=== PATIENT | female | born 1955 | race Caucasian/White ===

== ENCOUNTER 2016-08-02 13:00 | Inpatient (IN) ==
[2016-08-02 13:41] LABS: Basophils % 0.2 %; Eosinophils # 0.1 K/mcL (0.0-0.6); Eosinophils % 0.6 %; Hematocrit 38.1 % (35.3-44.9); Hemoglobin 11.7 g/dL (11.5-15.4); Immature Granulocytes % 0.5 % (0-4); Immature Platelets 2.1 % (1.1-6.1); Lymphocytes # 0.7 K/mcL (0.6-4.6); Lymphocytes % 4.3 %; Mean Corpuscular HGB Conc 30.7 g/dL (31.6-35.5); Mean Corpuscular Hemoglobin 24.7 pg (28.0-33.3); Mean Corpuscular Volume 80.5 fL (83.0-100.0); Mean Platelet Volume 10.3 fL (9.4-12.4); Monocytes # 0.6 K/mcL (0.0-1.3); Monocytes % 3.9 %; Neutrophils # 14.1 K/mcL (1.6-8.9); Platelet Count 267 K/mcL (140-400); Red Blood Count 4.73 M/mcL (3.82-4.97); Red Cell Distribution Width 16.9 % (11.5-14.5); Segmented Neutrophils % 90.5 %
[2016-08-02] MEDS ORDERED: 0.9 % Sodium Chloride 1,000 ML IV ONE ×2 (13:45→14:44)
[2016-08-02 13:59] LABS: Calcium 8.9 mg/dL (8.6-10.8); Potassium 4.6 mEq/L (3.5-4.5)
[2016-08-02 14:49] LABS: Bilirubin,Urine Small (Negative); Blood,Urine Negative (Negative); Clarity,Urine Clear (Clear); Color,Urine Yellow (Yellow); Glucose,Urine (UA) >=1000 mg/dL (Normal); Ketones,Urine Trace mg/dL (Negative); Leukocyte Esterase,Urine Negative (Negative); Nitrite,Urine Negative (Negative); Protein,Urine 30 mg/dL (Neg-Trace); Specific Gravity,Urine 1.029 (1.010-1.025); Urobilinogen,Urine Normal (Normal)
[2016-08-02 14:51] LABS: Bacteria,Urine None Seen per hpf (None-Few); Hyaline Casts,Urine None Seen per lpf (None-Few); RBC,Urine 0-3 per hpf (0-3); Squamous Epithelial Cell,Urine Many per lpf (None-Few)
[2016-08-02 15:13] LABS: Amorphous Sediment,Urine Few (Few)
[2016-08-02] MEDS ORDERED: Aztreonam 2,000 MG in D5% in Water (Mini-Bag+) 100 ML IVPB ONE (15:15)
[2016-08-02] MEDS ORDERED: Azithromycin 500 MG in D5% in Water 250 ML IVPB ONE (15:15)
[2016-08-02] MEDS ORDERED: Ipratropium/Albuterol Neb 3 ML IH ONE (15:29)
--- NOTE | 2016-08-02 15:29 | Emergency Department Note ---
Disposition Clinical Impression: Pneumonia Qualifiers: Pneumonia type: due to unspecified organism Laterality: bilateral Lung location : unspecified part of lung Qualified Code(s): J18.9 - Pneumonia, unspecified organism Decubitus skin ulcer Qualifiers: Pressure ulcer stage: stage I Qualified Code(s): L89.91 - Pressure ulcer of unspecified site, stage 1 Disposition: Admitted As Inpatient Condition: Fair Referrals: NO,PCP [Non-Partnered Physician] - Forms: ED Satisfaction Letter General Adult HPI - General Chief complaint: ED Fever Stated complaint: fever/weakness Time Seen by Provider: 08/02/16 13:03 Source: patient Limitations: no limitations Nursing Notes Reviewed: Yes Vital Signs Reviewed: Yes - History of Present Illness HPI Narrative: Patient here for evaluation of fever and weakness. Patient was recently sent home from rehabilitation facility yesterday. Patient states fever associated with cough however she is also having dysuria symptoms. Patient is also requiring 2 L of oxygen to keep proximal lesion of 95%. Pain Scale: 8 - Related Data Home Medications Medication Instructions Recorded Confirmed Albuterol Sulfate [Proair Hfa] 2 puff IH Q6H PRN 09/21/15 06/25/16 Atorvastatin [Lipitor] 40 mg PO HS 09/21/15 06/25/16 Exenatide [Byetta] 25 mcg SQ DAILY 09/21/15 06/25/16 Insulin Lispro Protamin/Lispro 61 unit SQ BID 09/21/15 06/25/16 [Humalog Mix 75-25 Kwikpen] Magnesium Oxide [Magnesium] 400 mg PO TID 09/21/15 06/25/16 Metformin [Glucophage] 500 mg PO QPM 09/21/15 06/25/16 Omeprazole [PriLOSEC] 40 mg PO BID 09/21/15 06/25/16 Polyethylene Glycol 3350 [MiraLAX] 17 gm PO DAILY PRN 09/21/15 06/25/16 Warfarin [Coumadin] 5 mg PO DAILY 09/21/15 06/25/16 Calcium Carbonate/Vitamin D3 1 each PO BID 03/21/16 06/25/16 [Calcium 500-Vit D3 400 Tablet] Ranitidine HCl [Zantac] 150 mg PO BID 03/21/16 06/25/16 Tiotropium [Spiriva] 18 mcg IH 0700 03/21/16 06/25/16 Previous Rx's Medication Instructions Recorded Alprazolam [Xanax 1 MG Tablet] 1 mg PO TID #21 tablet 10/17/15 Amitriptyline [Elavil] 25 mg PO HS #14 06/13/16 Cephalexin [Keflex] 500 mg PO BID #14 capsule 06/13/16 Citalopram Hydrobromide [Celexa] 40 mg PO DAILY #14 06/13/16 Clindamycin [Cleocin] 300 mg PO Q6HR #28 capsule 06/13/16 Cyclobenzaprine [Flexeril] 10 mg PO TID #30 06/13/16 Ferrous Sulfate 325 mg PO BID 30 Days 06/13/16 Gabapentin [Neurontin] 300 mg PO TID #30 06/13/16 Lactobacillus [Culturelle] 1 each PO BID #20 cap.sprink 06/13/16 Venlafaxine HCl [Effexor Xr] 75 mg PO HS #14 06/13/16 Allergies Allergy/AdvReac Type Severity Reaction Status Date / Time levofloxacin [From Levaquin] Allergy Hives Verified 08/02/16 13:08 Penicillins Allergy Hives Verified 08/02/16 13:08 Sulfa (Sulfonamide Allergy Rash Verified 08/02/16 13:08 Antibiotics) cephalexin [From Keflex] AdvReac Hypertensio Verified 08/02/16 13:08 n duloxetine [From Cymbalta] AdvReac Nightmare Verified 08/02/16 13:08 metformin AdvReac Nausea Verified 08/02/16 13:08 All systems ED: reviewed and negative except as stated. Constitutional: Reports: fever, weakness Respiratory: Reports: cough, dyspnea, wheezes Integumentary: Reports: other (decubitus ulcers) Past Medical History - Past Medical History Medical history: Reports: atrial fibrillation, CHF, COPD, coronary artery disease, dementia, diabetes, hyperlipidemia, hypertension, peripheral artery disease Surgical history: Reports: cholecystectomy, hysterectomy, knee replacement Psychiatric history: Reports: anxiety, depression - Social History Smoking Status: Never smoker Smokeless Tobacco Status: No Alcohol use: Reports: none Drug use: Reports: none Physical Exam - General Limitations: no limitations General appearance: alert - Head Head exam: atraumatic, normocephalic - Eye Eye exam: Present: normal appearance - ENT ENT exam: normal exam - Neck Neck exam: Present: normal inspection - Chest Chest inspection: Present: normal inspection - Respiratory Respiratory exam: Present: wheezes, other (cough and rhonchi). Absent: respiratory distress - Cardiovascular Cardiovascular exam: Present: regular rate, normal rhythm - Abdominal Exam Abdominal exam: Present: soft, Non-Tender - Extremities Exam Extremities exam: Present: other (skin breakdown to right heal and right buttocks) - Back Exam Back exam: Present: normal inspection - Neurological Exam Neurological exam: Present: alert, oriented X3, CN II-XII intact. Absent: motor sensory deficit - Psychiatric Psychiatric exam: Present: normal affect, normal mood Course - Reevaluation(s) Reevaluation #1: Patient with elevated white count, concern for pneumonia on x-ray, rhonchi and wheezing, fever, cough. Patient will be admitted to the hospital for pneumonia. Patient does also have sacral and heel decubiti. Reevaluation #2: Patient with elevated lactate. Patient given 1-1/2 fluid liter bolus and then fluids at 125 an hour with close monitoring of heart rate and blood pressure as patient has a history of CHF. - Consultations Consultation #1: Discussed with Dr. Gomez. Pt accepted. Vital Signs Temperature 100.0 F H 08/02/16 13:03 Pulse Rate 125 08/02/16 13:03 Respiratory Rate 21 08/02/16 13:03 Blood Pressure 136/75 08/02/16 13:03 O2 Sat by Pulse Oximetry 93 L 08/02/16 13:03 Temperature 100.0 F H 08/02/16 13:03 Pulse Rate 106 08/02/16 15:33 Respiratory Rate 19 08/02/16 15:33 Blood Pressure 100/62 08/02/16 15:33 O2 Sat by Pulse Oximetry 95 08/02/16 15:33 Oxygen Delivery Oxygen Delivery Nasal Cannula Medical Decision Making - Lab Data Result diagrams: 08/02/16 13:33 08/02/16 13:33 Lab Results 08/02/16 08/02/16 08/02/16 Range/Units 13:33 13:33 13:33 WBC 15.6 H (4.3-11.1) K/mcL RBC 4.73 (3.82-4.97) M/mcL Hgb 11.7 (11.5-15.4) g/dL Hct 38.1 (35.3-44.9) % MCV 80.5 L (83.0-100.0) fL MCH 24.7 L (28.0-33.3) pg MCHC 30.7 L (31.6-35.5) g/dL RDW 16.9 H (11.5-14.5) % Plt Count 267 (140-400) K/mcL MPV 10.3 (9.4-12.4) fL Immature Gran % 0.5 (0-4) % Seg Neutrophils % 90.5 % Lymphocytes % 4.3 % Monocytes % 3.9 % Eosinophils % 0.6 % Basophils % 0.2 % Neutrophils # 14.1 H (1.6-8.9) K/mcL Lymphocytes # 0.7 (0.6-4.6) K/mcL Monocytes # 0.6 (0.0-1.3) K/mcL Eosinophils # 0.1 (0.0-0.6) K/mcL Basophils # 0.0 (0.0-0.2) K/mcL Immature Plt Fraction 2.1 (1.1-6.1) % Sodium 133 L (136-145) mEq/L Potassium 4.6 H (3.5-4.5) mEq/L Chloride 100 (98-109) mEq/L Carbon Dioxide 21 (19-29) mEq/L BUN 16 (7-20) mg/dL Creatinine 1.24 H (0.57-1.11) mg/dL Est GFR ( Amer) 53 L (> 60) Est GFR (Non-Af Amer) 44 L (> 60) BUN/Creatinine Ratio 13 (6-26) Glucose 463 H (70-99) mg/dL Calculated Osmolality 297 (280-300) Lactic Acid (0.5-2.2) mmol/L Calcium 8.9 (8.6-10.8) mg/dL Troponin I 0.01 (0-0.03) ng/mL Urine Color (Yellow) Urine Clarity (Clear) Urine pH (5.0-8.0) pH Units Ur Specific [place] (1.010-1.025) Urine Protein (Neg-Trace) mg/dL Urine Glucose (UA) (Normal) mg/dL Urine Ketones (Negative) mg/dL Urine Blood (Negative) Urine Nitrite (Negative) Urine Bilirubin (Negative) Urine Urobilinogen (Normal) mg/dL Ur Leukocyte Esterase (Negative) Urine Microscopic RBC (0-3) per hpf Urine Microscopic WBC (0-3) per hpf Ur Squamous Epith Cells (None-Few) per lpf Amorphous Sediment (Few) Urine Bacteria (None-Few) per hpf Hyaline Casts (None-Few) per lpf Urine Yeast Ur Culture Indicated? (NO) 08/02/16 08/02/16 Range/Units 14:38 15:11 WBC (4.3-11.1) K/mcL RBC (3.82-4.97) M/mcL Hgb (11.5-15.4) g/dL Hct (35.3-44.9) % MCV (83.0-100.0) fL MCH (28.0-33.3) pg MCHC (31.6-35.5) g/dL RDW (11.5-14.5) % Plt Count (140-400) K/mcL MPV (9.4-12.4) fL Immature Gran % (0-4) % Seg Neutrophils % % Lymphocytes % % Monocytes % % Eosinophils % % Basophils % % Neutrophils # (1.6-8.9) K/mcL Lymphocytes # (0.6-4.6) K/mcL Monocytes # (0.0-1.3) K/mcL Eosinophils # (0.0-0.6) K/mcL Basophils # (0.0-0.2) K/mcL Immature Plt Fraction (1.1-6.1) % Sodium (136-145) mEq/L Potassium (3.5-4.5) mEq/L Chloride (98-109) mEq/L Carbon Dioxide (19-29) mEq/L BUN (7-20) mg/dL Creatinine (0.57-1.11) mg/dL Est GFR ( Amer) (> 60) Est GFR (Non-Af Amer) (> 60) BUN/Creatinine Ratio (6-26) Glucose (70-99) mg/dL Calculated Osmolality (280-300) Lactic Acid 4.2 H* (0.5-2.2) mmol/L Calcium (8.6-10.8) mg/dL Troponin I (0-0.03) ng/mL Urine Color Yellow (Yellow) Urine Clarity Clear (Clear) Urine pH 6.0 (5.0-8.0) pH Units Ur Specific [place] 1.029 H (1.010-1.025) Urine Protein 30 H (Neg-Trace) mg/dL Urine Glucose (UA) >=1000 H (Normal) mg/dL Urine Ketones Trace H (Negative) mg/dL Urine Blood Negative (Negative) Urine Nitrite Negative (Negative) Urine Bilirubin Small H (Negative) Urine Urobilinogen Normal (Normal) mg/dL Ur Leukocyte Esterase Negative (Negative) Urine Microscopic RBC 0-3 (0-3) per hpf Urine Microscopic WBC 3-5 H (0-3) per hpf Ur Squamous Epith Cells Many H (None-Few) per lpf Amorphous Sediment Few (Few) Urine Bacteria None Seen (None-Few) per hpf Hyaline Casts None Seen (None-Few) per lpf Urine Yeast Test Not Performed Ur Culture Indicated? NO (NO)
--- NOTE | 2016-08-02 15:50 | Emergency Department Note ---
Disposition Clinical Impression: Pneumonia Qualifiers: Pneumonia type: due to unspecified organism Laterality: bilateral Lung location : unspecified part of lung Qualified Code(s): J18.9 - Pneumonia, unspecified organism Decubitus skin ulcer Qualifiers: Pressure ulcer stage: stage I Qualified Code(s): L89.91 - Pressure ulcer of unspecified site, stage 1 Disposition: Admitted As Inpatient Condition: Fair Referrals: NO,PCP [Non-Partnered Physician] - Forms: ED Satisfaction Letter General Adult HPI - General Chief complaint: ED Fever Stated complaint: fever/weakness Time Seen by Provider: 08/02/16 13:03 Source: patient Limitations: no limitations Nursing Notes Reviewed: Yes Vital Signs Reviewed: Yes - History of Present Illness Pain Scale: 8 - Related Data Home Medications Medication Instructions Recorded Confirmed Albuterol Sulfate [Proair Hfa] 2 puff IH Q6H PRN 09/21/15 06/25/16 Atorvastatin [Lipitor] 40 mg PO HS 09/21/15 06/25/16 Exenatide [Byetta] 25 mcg SQ DAILY 09/21/15 06/25/16 Insulin Lispro Protamin/Lispro 61 unit SQ BID 09/21/15 06/25/16 [Humalog Mix 75-25 Kwikpen] Magnesium Oxide [Magnesium] 400 mg PO TID 09/21/15 06/25/16 Metformin [Glucophage] 500 mg PO QPM 09/21/15 06/25/16 Omeprazole [PriLOSEC] 40 mg PO BID 09/21/15 06/25/16 Polyethylene Glycol 3350 [MiraLAX] 17 gm PO DAILY PRN 09/21/15 06/25/16 Warfarin [Coumadin] 5 mg PO DAILY 09/21/15 06/25/16 Calcium Carbonate/Vitamin D3 1 each PO BID 03/21/16 06/25/16 [Calcium 500-Vit D3 400 Tablet] Ranitidine HCl [Zantac] 150 mg PO BID 03/21/16 06/25/16 Tiotropium [Spiriva] 18 mcg IH 0700 03/21/16 06/25/16 Previous Rx's Medication Instructions Recorded Alprazolam [Xanax 1 MG Tablet] 1 mg PO TID #21 tablet 10/17/15 Amitriptyline [Elavil] 25 mg PO HS #14 06/13/16 Cephalexin [Keflex] 500 mg PO BID #14 capsule 06/13/16 Citalopram Hydrobromide [Celexa] 40 mg PO DAILY #14 06/13/16 Clindamycin [Cleocin] 300 mg PO Q6HR #28 capsule 06/13/16 Cyclobenzaprine [Flexeril] 10 mg PO TID #30 06/13/16 Ferrous Sulfate 325 mg PO BID 30 Days 06/13/16 Gabapentin [Neurontin] 300 mg PO TID #30 06/13/16 Lactobacillus [Culturelle] 1 each PO BID #20 cap.sprink 06/13/16 Venlafaxine HCl [Effexor Xr] 75 mg PO HS #14 06/13/16 Allergies Allergy/AdvReac Type Severity Reaction Status Date / Time levofloxacin [From Levaquin] Allergy Hives Verified 08/02/16 13:08 Penicillins Allergy Hives Verified 08/02/16 13:08 Sulfa (Sulfonamide Allergy Rash Verified 08/02/16 13:08 Antibiotics) cephalexin [From Keflex] AdvReac Hypertensio Verified 08/02/16 13:08 n duloxetine [From Cymbalta] AdvReac Nightmare Verified 08/02/16 13:08 metformin AdvReac Nausea Verified 08/02/16 13:08 Constitutional: Reports: fever, weakness Respiratory: Reports: cough, dyspnea, wheezes Integumentary: Reports: other (decubitus ulcers) Past Medical History - Past Medical History Medical history: Reports: atrial fibrillation, CHF, COPD, coronary artery disease, dementia, diabetes, hyperlipidemia, hypertension, peripheral artery disease Surgical history: Reports: cholecystectomy, hysterectomy, knee replacement Psychiatric history: Reports: anxiety, depression - Social History Smoking Status: Never smoker Smokeless Tobacco Status: No Alcohol use: Reports: none Drug use: Reports: none Physical Exam - General Limitations: no limitations General appearance: alert Course Vital Signs Temperature 100.0 F H 08/02/16 13:03 Pulse Rate 125 08/02/16 13:03 Respiratory Rate 21 08/02/16 13:03 Blood Pressure 136/75 08/02/16 13:03 O2 Sat by Pulse Oximetry 93 L 08/02/16 13:03 Temperature 100.0 F H 08/02/16 13:03 Pulse Rate 106 08/02/16 15:33 Respiratory Rate 19 08/02/16 15:33 Blood Pressure 100/62 08/02/16 15:33 O2 Sat by Pulse Oximetry 95 08/02/16 15:33 Oxygen Delivery Oxygen Delivery Nasal Cannula Medical Decision Making - MDM Narrative Medical decision making narrative: I examined this patient and my medical decision-making was reviewed with the RECONCILEMENT CLERK/PA/Advanced Practice Nurse/Resident Physician. I agree with the documented findings, disposition and treatment plan as described except to the extent set forth below. Very this patient with Dr. Ritter and myself, agree with his evaluation management plan, I supervised the care of the patient's stay. Patient with fevers at home sepsis workup here. Recently in rehabilitation facility did not do well here. She has been having difficulty home she is comfortably by here. She is awake and can talk to you. I am wondering if she could have pneumonia as she has been coughing. Chest x-ray labs are ordered. We are going to not give the full amount of IV fluids due to the fact that she has CHF. I do not want to fluid overload her. IVs are started labs were ordered cultures were done and IV antibiotics were started. Waiting for bed placement and hospitalist. Critical care time x-ray supple and billable procedures 40 minutes. Chest X-Ray 08/02/16 13:14 IMPRESSION: Bibasilar atelectasis or pneumonia. D/ / Viktor Casper MD / Viktor Casper MD Interpreting Provider: Viktor Casper MD - Lab Data Result diagrams: 08/02/16 13:33 08/02/16 13:33 Lab Results 08/02/16 08/02/16 08/02/16 Range/Units 13:33 13:33 13:33 WBC 15.6 H (4.3-11.1) K/mcL RBC 4.73 (3.82-4.97) M/mcL Hgb 11.7 (11.5-15.4) g/dL Hct 38.1 (35.3-44.9) % MCV 80.5 L (83.0-100.0) fL MCH 24.7 L (28.0-33.3) pg MCHC 30.7 L (31.6-35.5) g/dL RDW 16.9 H (11.5-14.5) % Plt Count 267 (140-400) K/mcL MPV 10.3 (9.4-12.4) fL Immature Gran % 0.5 (0-4) % Seg Neutrophils % 90.5 % Lymphocytes % 4.3 % Monocytes % 3.9 % Eosinophils % 0.6 % Basophils % 0.2 % Neutrophils # 14.1 H (1.6-8.9) K/mcL Lymphocytes # 0.7 (0.6-4.6) K/mcL Monocytes # 0.6 (0.0-1.3) K/mcL Eosinophils # 0.1 (0.0-0.6) K/mcL Basophils # 0.0 (0.0-0.2) K/mcL Immature Plt Fraction 2.1 (1.1-6.1) % Sodium 133 L (136-145) mEq/L Potassium 4.6 H (3.5-4.5) mEq/L Chloride 100 (98-109) mEq/L Carbon Dioxide 21 (19-29) mEq/L BUN 16 (7-20) mg/dL Creatinine 1.24 H (0.57-1.11) mg/dL Est GFR ( Amer) 53 L (> 60) Est GFR (Non-Af Amer) 44 L (> 60) BUN/Creatinine Ratio 13 (6-26) Glucose 463 H (70-99) mg/dL Calculated Osmolality 297 (280-300) Lactic Acid (0.5-2.2) mmol/L Calcium 8.9 (8.6-10.8) mg/dL Troponin I 0.01 (0-0.03) ng/mL Urine Color (Yellow) Urine Clarity (Clear) Urine pH (5.0-8.0) pH Units Ur Specific [place] (1.010-1.025) Urine Protein (Neg-Trace) mg/dL Urine Glucose (UA) (Normal) mg/dL Urine Ketones (Negative) mg/dL Urine Blood (Negative) Urine Nitrite (Negative) Urine Bilirubin (Negative) Urine Urobilinogen (Normal) mg/dL Ur Leukocyte Esterase (Negative) Urine Microscopic RBC (0-3) per hpf Urine Microscopic WBC (0-3) per hpf Ur Squamous Epith Cells (None-Few) per lpf Amorphous Sediment (Few) Urine Bacteria (None-Few) per hpf Hyaline Casts (None-Few) per lpf Urine Yeast Ur Culture Indicated? (NO) 08/02/16 08/02/16 Range/Units 14:38 15:11 WBC (4.3-11.1) K/mcL RBC (3.82-4.97) M/mcL Hgb (11.5-15.4) g/dL Hct (35.3-44.9) % MCV (83.0-100.0) fL MCH (28.0-33.3) pg MCHC (31.6-35.5) g/dL RDW (11.5-14.5) % Plt Count (140-400) K/mcL MPV (9.4-12.4) fL Immature Gran % (0-4) % Seg Neutrophils % % Lymphocytes % % Monocytes % % Eosinophils % % Basophils % % Neutrophils # (1.6-8.9) K/mcL Lymphocytes # (0.6-4.6) K/mcL Monocytes # (0.0-1.3) K/mcL Eosinophils # (0.0-0.6) K/mcL Basophils # (0.0-0.2) K/mcL Immature Plt Fraction (1.1-6.1) % Sodium (136-145) mEq/L Potassium (3.5-4.5) mEq/L Chloride (98-109) mEq/L Carbon Dioxide (19-29) mEq/L BUN (7-20) mg/dL Creatinine (0.57-1.11) mg/dL Est GFR ( Amer) (> 60) Est GFR (Non-Af Amer) (> 60) BUN/Creatinine Ratio (6-26) Glucose (70-99) mg/dL Calculated Osmolality (280-300) Lactic Acid 4.2 H* (0.5-2.2) mmol/L Calcium (8.6-10.8) mg/dL Troponin I (0-0.03) ng/mL Urine Color Yellow (Yellow) Urine Clarity Clear (Clear) Urine pH 6.0 (5.0-8.0) pH Units Ur Specific [place] 1.029 H (1.010-1.025) Urine Protein 30 H (Neg-Trace) mg/dL Urine Glucose (UA) >=1000 H (Normal) mg/dL Urine Ketones Trace H (Negative) mg/dL Urine Blood Negative (Negative) Urine Nitrite Negative (Negative) Urine Bilirubin Small H (Negative) Urine Urobilinogen Normal (Normal) mg/dL Ur Leukocyte Esterase Negative (Negative) Urine Microscopic RBC 0-3 (0-3) per hpf Urine Microscopic WBC 3-5 H (0-3) per hpf Ur Squamous Epith Cells Many H (None-Few) per lpf Amorphous Sediment Few (Few) Urine Bacteria None Seen (None-Few) per hpf Hyaline Casts None Seen (None-Few) per lpf Urine Yeast Test Not Performed Ur Culture Indicated? NO (NO)
[2016-08-02] MEDS ORDERED: Dextrose Gel 15 GM PO PRN ×2 (16:40)
[2016-08-02] MEDS ORDERED: Acetaminophen 325 MG TABLET PO PRN (16:40)
[2016-08-02] MEDS ORDERED: D5% in Water 1,000 ML IV PRN (16:40)
[2016-08-02] MEDS ORDERED: Ondansetron 4 MG/2 ML VIAL IVP PRN (16:40)
[2016-08-02] MEDS ORDERED: *HR* Dextrose 50 % in Water (Syg) 50 ML SYRINGE IVP PRN (16:40)
[2016-08-02] MEDS ORDERED: Naloxone 0.4 MG/ML INJ IVP PRN (16:40)
[2016-08-02] MEDS ORDERED: Sennosides/Docusate Sodium TABLET PO PRN (17:03)
[2016-08-02] MEDS ORDERED: Ipratropium/Albuterol Neb 3 ML IH PRN (17:05)
--- NOTE | 2016-08-02 17:12 | Internal Med History&Physical ---
<Claus Chnug - Last Filed: 08/02/16 17:25> Date of Encounter: 08/02/16 Time of Encounter: 16:30 Assessment and Plan (1) Severe sepsis Current visit: Yes Status: Acute Patient presents with fever, weakness, confusion, cough, tachycardia, leukocytosis, chest x-ray potentially shows pneumonia, elevated lactic acid at 4.2. Sepsis likely secondary to pneumonia. Patient received 3 L bolus normal saline Continue his IV fluids to 125 mL an hour Trend lactic acid Because of patient Levaquin and penicillin allergy (hives) we will start her on azithromycin, aztreonam, vancomycin Close monitoring Supplemental oxygen as needed, wean as tolerated Scheduled and when necessary DuoNeb's Start Solu-Medrol (2) Healthcare-associated pneumonia Current visit: Yes Status: Acute Patient presents with cough, fever, tachycardia, and chest x-ray potentially shows mild pneumonia. Plan as above (3) Acute exacerbation of chronic obstructive pulmonary disease (COPD) Current visit: Yes Status: Acute Patient describes new, nonproductive cough. Plan as above (4) Weakness Current visit: No Status: Chronic Patient reports progressive lower extremities weakness for past 3 months. Worsening yesterday as per history of present illness. Likely result of patient infection/sepsis. Plan as above (5) Hisli-zo-zzwpruf kidney injury Current visit: Yes Status: Acute Normally has chronic kidney disease stage III a. Mild worsening of kidney function seen today, likely result of patient's sepsis. Total of 3 L saline bolus Continue continuous IVF at 125 mL an hour normal saline Avoid potentially nephrotoxic agents Continue to monitor (6) Atrial fibrillation Current visit: Yes Status: Acute Patient on Coumadin at home normally. We will check patient's INR. Will recheck INR tomorrow after starting several medications that interact with Coumadin and adjust Coumadin dosage accordingly. Continue home dose Coumadin Check INR daily Qualifiers: Atrial fibrillation type: unspecified Qualified Code(s): I48.91 - Unspecified atrial fibrillation (7) Insulin dependent diabetes mellitus Current visit: Yes Status: Acute Patient uses metformin, exenatide, and Humalog (60 units twice a day) at home usually 18 units Levemir at bedtime Low-dose insulin sliding scale Hold oral diabetic medications (8) Heel ulcer due to DM Current visit: No Status: Acute Care instructions per Dr. Epps wound care note dated 07/09/16: "Daily wound care consisting of cleansing with soap and water continue to apply Santyl medical thick underneath a moist dry dressing gauze Kerlix and Medipore tape " (9) Decubitus skin ulcer Current visit: Yes Status: Acute Healing well, no signs of infection. Continue to clean with soap and water and dress daily Qualifiers: Pressure ulcer stage: stage II Qualified Code(s): L89.92 - Pressure ulcer of unspecified site, stage 2 (10) DVT prophylaxis Current visit: No Status: Acute Patient on warfarin at home for atrial fibrillation Continue home dose warfarin, unless INR affected by new medications Check INR daily (11) Obesity (BMI 30-39.9) Current visit: Yes Status: Chronic Internal Medicine - H&P: HPI Chief complaint: Weakness and Fever Admitted From: Home Plans for Post Hospital Care: Transfer [facility] History of present illness: Ms. Patten is a 61 year old female is atrial fibrillation, CHF, COPD, coronary artery disease, dementia, insulin-dependent diabetes mellitus, 2 stage II ulcers (one on her right heel, one sacral decubitus), hypertension, hyperlipidemia, and recent low extremity weakness was brought to [place] tissue is found to be weak, confused, have to have an elevated temperature at home. She says the weakness and malaise began about 3 months ago and has progressively been getting worse, she reports that she has been followed at [facility] once perform a neuro workup. Starting yesterday, she began to have even greater weakness, with her being unable to ambulate at all and her having greater difficulty moving her. She was seen by home health aide today there is concerns of her increasing confusion, weakness, and fever one evaluated. She reports she had a cough starting yesterday is been nonproductive. She denies shortness of breath and states there is been no increased exertional dyspnea than her normal. She feels like she has been somewhat lightheaded with a little bit of nausea, but no reports of vomiting. She denies changes in her vision, denies sore throat, reports headache, and reports a slight pain in her sides. She denies chest pain, denies palpitations , denies sputum production, denies urinary symptoms, denies diarrhea and constipation. Reports normal for her numbness/tingling. Past Med Surg Social Fam HX - Past Medical History Medical history: atrial fibrillation, CHF, COPD, coronary artery disease, dementia, diabetes, hyperlipidemia, hypertension, peripheral artery disease Psychiatric history: anxiety, depression - Past Surgical History Surgical History: cholecystectomy, hysterectomy, knee replacement - Social History Smoking Status: Never smoker Smokeless Tobacco Status: No Alcohol use: none Drug use: none - Family History Mother Living Status: Hx Family Cardiac Disorders: Yes Hx Family Respiratory Disorders: No Hx Family Cancer: No Hx Family GI Disorders: No Hx Family Endocrine Disorder: Yes (Diabetes) Hx Family Neuromuscular Disorders: No Hx Family Neurologic Disorders: No Hx Family HEENT Disorders: No Hx Family Autoimmune Disorders: No Father Living Status: Still Living Hx Family Cardiac Disorders: Yes (Hypertension) Hx Family Respiratory Disorders: No Hx Family Cancer: No Hx Family GI Disorders: No Hx Family Endocrine Disorder: Yes (Diabetes) Hx Family Neuromuscular Disorders: No Hx Family Neurologic Disorders: No Hx Family HEENT Disorders: No Hx Family Autoimmune Disorders: No Internal Medicine - H&P: Meds Albuterol Sulfate [Proair Hfa] 2 puff IH Q6H PRN 09/21/15 [History] Atorvastatin [Lipitor] 40 mg PO HS 09/21/15 [History] Exenatide [Byetta] 5 mcg SQ BID 09/21/15 [History] Insulin Lispro Protamin/Lispro [Humalog Mix 75-25 Kwikpen] 60 unit SQ BID [History] Magnesium Oxide [Magnesium] 400 mg PO TID 09/21/15 [History] Metformin [Glucophage] 500 mg PO QPM 09/21/15 [History] Omeprazole [PriLOSEC] 40 mg PO BID 09/21/15 [History] Polyethylene Glycol 3350 [MiraLAX] 17 gm PO DAILY PRN 09/21/15 [History] Alprazolam [Xanax 1 MG Tablet] 1 mg PO TID #21 tablet 10/17/15 [Rx] Calcium Carbonate/Vitamin D3 [Calcium 500-Vit D3 400 Tablet] 1 tab PO BID [History] Ranitidine HCl [Zantac] 150 mg PO BID 03/21/16 [History] Tiotropium [Spiriva] 18 mcg IH DAILY 03/21/16 [History] Citalopram Hydrobromide [Celexa] 40 mg PO DAILY #14 06/13/16 [Rx] Cyclobenzaprine [Flexeril] 10 mg PO TID #30 06/13/16 [Rx] Ferrous Sulfate 325 mg PO BID 30 Days 06/13/16 [Rx] Venlafaxine HCl [Effexor Xr] 75 mg PO HS #14 06/13/16 [Rx] Amitriptyline [Elavil] 50 mg PO HS 08/02/16 [History] Gabapentin [Neurontin] 600 mg PO TID 08/02/16 [History] Lactobacillus [Culturelle] 1 cap PO BID 08/02/16 [History] Warfarin [Coumadin] 5 mg PO SUTUWETHFR 08/02/16 [History] Warfarin [Coumadin] 7.5 mg PO MOSA 08/02/16 [History] Allergies levofloxacin [From Levaquin] Allergy (Verified 08/02/16 13:08) Hives Penicillins Allergy (Verified 08/02/16 13:08) Hives Sulfa (Sulfonamide Antibiotics) Allergy (Verified 08/02/16 13:08) Rash cephalexin [From Keflex] Adverse Reaction (Verified 08/02/16 13:08) Hypertension duloxetine [From Cymbalta] Adverse Reaction (Verified 08/02/16 13:08) Nightmare metformin Adverse Reaction (Verified 08/02/16 13:08) Nausea All Systems PM: A 10-system review of systems was performed and is negative for pertinent findings except as documented above in the HPI. - Constitutional Vitals: Temp Pulse Resp BP Pulse Ox 100.0 F H 109 22 164/66 95 08/02/16 13:03 08/02/16 16:58 08/02/16 16:58 08/02/16 16:58 08/02/16 16:58 General appearance: Present: cooperative, mild distress, A&O X 3, pleasant, obese, answers questions appropriately - Head Head exam: Present: atraumatic, normocephalic - Eye Eye exam: Present: EOMI, PERRL, conjuntiva pink, sclera anicteric Pupils: Present: PERRL - ENT ENT exam: Present: mucous membranes moist, normal oropharynx - Neck Neck exam general surgery: Present: supple, trachea midline. Absent: lymphadenopathy, tenderness, nuchal rigidity - Respiratory Respiratory exam: Present: rales (Left lower lobe). Absent: accessory muscle use, CTAB, rhonchi, wheezes - Cardiovascular Cardiovascular exam: Present: +S1, +S2, tachycardia (Regular rhythm). Absent: diastolic murmur, gallop, RRR, rubs, systolic murmur - GI/Abdominal GI/Abdominal exam: Present: normal bowel sounds, soft, no peritoneal signs. Absent: distended, tenderness - Extremities Exam Extremities exam: Present: warm, radial pulses palpable and symetrical. Absent : calf tenderness, cyanotic, pedal edema Additional comments: Stage II pressure ulcer on right heel, no erythema, no warmth, no exudate, no sign of current infection - Back Exam Additional comments: Well-healing, stage II sacral decubitus ulcer, no erythema, no induration, no exudate, no sign of current infection - Neurological Exam Neurological exam: Present: alert, oriented X3, no focal deficits. Absent: facial droop, speech deficit - Psychiatric Psychiatric exam: Present: normal affect, normal mood - Skin Skin exam: Present: dry, intact Internal Med - H&P Results - Labs CBC & Chem 7: 08/02/16 13:33 08/02/16 13:33 <Bhaskar Gomez - Last Filed: 08/02/16 18:50> Date of Encounter: 08/02/16 Internal Medicine - H&P: HPI History of present illness: Ms. Patten is a 61 year old female All Systems PM: A 10-system review of systems was performed and is negative for pertinent findings except as documented above in the HPI. - Constitutional Vitals: Temp Pulse Resp BP Pulse Ox 100.9 F H 110 18 123/70 96 08/02/16 17:35 08/02/16 17:35 08/02/16 17:35 08/02/16 17:35 08/02/16 17:35 Internal Med - H&P Results - Labs CBC & Chem 7: 08/02/16 13:33 08/02/16 13:33 Labs: Liver Function 08/02/16 Range/Units 18:00 Total Bilirubin 0.5 (0.2-1.2) mg/dL Direct Bilirubin 0.2 (0.0-0.5) mg/dL AST 41 H (5-34) Units/L ALT 36 (0-55) Units/L Alkaline Phosphatase 111 (38-126) Units/L Albumin 2.6 L (3.5-5.0) g/dL - Attending Attestation I have seen and examined this patient independently. I have discussed the case with the resident, Dr. Chung. I agree with the data gathering in the HPI, physical examination findings, assessment and plan as documented by the resident. Severe sepsis with elevated lactic acid and dehydration. Continue with iv fluids and broad spectrum antibiotics.
[2016-08-02 18:21] LABS: INR 1.8; Prothrombin Time 19.7 Seconds (9.4-12.1)
[2016-08-02 18:24] LABS: Activated Partial Thrombo Time 31.5 Seconds (26.0-36.0)
[2016-08-02 18:30] LABS: Albumin 2.6 g/dL (3.5-5.0); Albumin/Globulin Ratio 0.7 (1.1-2.2); Bilirubin,Direct 0.2 mg/dL (0.0-0.5); Bilirubin,Indirect 0.3 mg/dL (0.0-1.2); Bilirubin,Total 0.5 mg/dL (0.2-1.2); Globulin 3.9 g/dL (2.4-3.5); Total Protein 6.5 g/dL (6.0-8.3)
[2016-08-02] MEDS: 0.9 % Sodium Chloride 1,000 ML IVC SCH ×3 (18:47→20:19)
[2016-08-02] MEDS: *HR* Warfarin 7.5 MG TABLET PO SCH (18:52)
[2016-08-02] MEDS ORDERED: Vancomycin 2,000 MG in D5% in Water 500 ML IVPB ONE (19:00)
[2016-08-02] MEDS: Venlafaxine XR (24 HR) 75 MG CAP.ER.24H PO SCH (20:20)
[2016-08-02] MEDS: Magnesium Oxide 400 MG TABLET PO SCH (20:28)
[2016-08-02] MEDS: ALPRAZolam 1 MG TABLET PO SCH (20:28)
[2016-08-02] MEDS: Ipratropium/Albuterol Neb 3 ML IH SCH ×2 (20:42→23:13)
[2016-08-02] MEDS: Budesonide/Formoterol 160/4.5 MDI IH SCH (20:42)
[2016-08-02] MEDS: Insulin LISPRO 300 UNITS/3 ML VIAL SQ SCH (20:46)
[2016-08-02] MEDS: Insulin DETEMIR 100 UNIT/ML X5UNITS SQ SCH (20:46)
[2016-08-02] MEDS ORDERED: Gabapentin 300 MG CAPSULE PO SCH (21:00)
[2016-08-02 22:18] LABS: 2009 H1N1 PCR NOT DETECTED (Not Detect); Influenza A PCR Negative (Negative); Influenza B PCR Negative (Negative)
[2016-08-02] MEDS: Aztreonam 2,000 MG in D5% in Water (Mini-Bag+) 100 ML IVPB SCH (23:51)
[2016-08-03] MEDS ORDERED: *HR* Heparin 5,000 UNIT/ML VIAL SQ SCH
[2016-08-03] MEDS: Ipratropium/Albuterol Neb 3 ML IH SCH ×6 (04:00→23:17)
[2016-08-03 05:50] LABS: Basophils % 0.3 %; Eosinophils # 0.2 K/mcL (0.0-0.6); Eosinophils % 1.3 %; Hematocrit 29.3 % (35.3-44.9); Immature Granulocytes % 0.4 % (0-4); Lymphocytes # 2.1 K/mcL (0.6-4.6); Lymphocytes % 16.7 %; Mean Corpuscular HGB Conc 30.7 g/dL (31.6-35.5); Mean Corpuscular Hemoglobin 24.9 pg (28.0-33.3); Mean Corpuscular Volume 81.2 fL (83.0-100.0); Mean Platelet Volume 10.6 fL (9.4-12.4); Monocytes # 0.8 K/mcL (0.0-1.3); Monocytes % 6.5 %; Neutrophils # 9.4 K/mcL (1.6-8.9); Platelet Count 199 K/mcL (140-400); Red Blood Count 3.61 M/mcL (3.82-4.97); Red Cell Distribution Width 17.2 % (11.5-14.5); Segmented Neutrophils % 74.8 %
[2016-08-03 05:59] LABS: INR 1.8; Prothrombin Time 20.2 Seconds (9.4-12.1)
[2016-08-03 06:05] LABS: BUN/Creatinine Ratio 18 (6-26); Blood Urea Nitrogen 16 mg/dL (7-20); Calcium 7.8 mg/dL (8.6-10.8); Carbon Dioxide 25 mEq/L (19-29); Chloride 106 mEq/L (98-109); Glucose 227 mg/dL (70-99); Magnesium 1.3 mg/dL (1.6-2.6); Osmolality,Calculated 292 (280-300); Phosphorous 3.1 mg/dL (2.3-4.7); Sodium 137 mEq/L (136-145); eGFR For African Americans > 60 (> 60); eGFR For Non-African Americans > 60 (> 60)
[2016-08-03] MEDS: 0.9 % Sodium Chloride 1,000 ML IVC SCH (07:47)
[2016-08-03] MEDS: Vancomycin 1,250 MG in D5% in Water 250 ML IVPB SCH ×2 (07:48→17:59)
[2016-08-03] MEDS ORDERED: Magnesium Sulfate 2 GM in D5% in Water 100 ML IVPB ONE (07:55)
[2016-08-03] MEDS: Magnesium Oxide 400 MG TABLET PO SCH ×3 (08:29→21:02)
[2016-08-03] MEDS: Gabapentin 300 MG CAPSULE PO SCH ×3 (08:29→21:00)
[2016-08-03] MEDS: Aztreonam 2,000 MG in D5% in Water (Mini-Bag+) 100 ML IVPB SCH ×2 (08:30→15:42)
[2016-08-03] MEDS: ALPRAZolam 1 MG TABLET PO SCH ×3 (08:30→21:00)
[2016-08-03] MEDS: Pantoprazole 40 MG VIAL IVP SCH (08:31)
[2016-08-03] MEDS: Insulin LISPRO 300 UNITS/3 ML VIAL SQ SCH ×5 (08:32→21:01)
[2016-08-03] MEDS: Budesonide/Formoterol 160/4.5 MDI IH SCH ×2 (10:30→20:16)
[2016-08-03] MEDS: *HR* OxyCODONE/APAP 5/325 TABLET PO PRN ×2 (13:58→21:00)
--- NOTE | 2016-08-03 15:08 | Internal Med Progress Note ---
Date of Encounter: 08/03/16 Time of Encounter: 10:30 - Assessment and plan (1) Acute exacerbation of chronic obstructive pulmonary disease (COPD) Current Visit: Yes Status: Acute (2) Dgihc-mq-ftlvzna kidney injury Current Visit: Yes Status: Acute (3) Atrial fibrillation Current Visit: Yes Status: Chronic Qualifiers: Atrial fibrillation type: chronic Qualified Code(s): I48.2 - Chronic atrial fibrillation (4) Decubitus skin ulcer Current Visit: Yes Status: Chronic Qualifiers: Pressure ulcer stage: stage II Qualified Code(s): L89.92 - Pressure ulcer of unspecified site, stage 2 (5) Healthcare-associated pneumonia Current Visit: Yes Status: Acute (6) Insulin dependent diabetes mellitus Current Visit: Yes Status: Acute (7) Severe sepsis Current Visit: Yes Status: Acute (8) Obesity (BMI 30-39.9) Current Visit: Yes Status: Chronic (9) DVT prophylaxis Current Visit: Yes Status: Acute (10) Heel ulcer Current Visit: Yes Status: Chronic Qualifiers: Laterality: right Non-pressure ulcer stage: limited to breakdown of skin Qualified Code(s): L97.411 - Non-pressure chronic ulcer of right heel and midfoot limited to breakdown of skin - Subjective Interval history: 61 Y/O F DNR/DNI Admitted for anagement of sepsus with lactic acidosis, LANE on CKD, COPDE and HCAP PMH is significan for morbid obseity with sacaral and right heel decubitus ulcers, DM2, atrial fibrillation on coumadin. She is seen at bedside in no form of distress She denies new complains Examination Morbidly obese laying flat in bed, Afebrile, Tmax 100.9 07/15/16, BP WNL, HR WNL Gen: Awake, alert, oriented X3 Neck normal inspection HEENT: PERRL Chest: CTAB anteriorly, no added sounds Heart: S1, S2 only, irregular, no m/g/r Abdomen: Soft, not tender Extremities: Left heel in allevyn covering, no pedal edema Significant labs and Imaging reviewed: Leukocytosis improving Chronic anemia, possibly dilutional in today's speciemn INR 1.8 Chem WNL Hypomagnessemia Lactate down trending, 2.3 from 4.2 CXR: Bibasal pneumonia vs atelectasis NO cultures back yet Assessment/Plan 1. Severe sepsis with lactic acidosis and LANE: LANE has resolved, lactic acidosis improving. s/P 3L IVF boluses and maintenance fluid. Will discontinue maintenance fluid, encourage liberal oral fluid intake. Cultures are pending. Patient with multiple allergies, on Azithromycin, vanco and Aztreonam, continue for now. Monitor Vaco trough. Follow cultures. 2. COPDE: Improving, chest is clear this morning, continue current therapy 3. LANE on CKD: Cr back to baseline, monitor closely, avid nephrotoxins. 4. DM2: Basal, prandial and supplemental insulin 5. Afib: rate controlled, subtherapeutic INR, continue warfarin. 6. Decubitus ulcers: Daily wound dressing. 7. Hypomagnessemia: Replaced IV. Monitor a.m - Constitutional Vitals: Temp Pulse Resp BP Pulse Ox 98.1 F 79 20 137/94 99 08/03/16 11:18 08/03/16 11:18 08/03/16 11:18 08/03/16 11:18 08/03/16 11:18 General appearance: Present: cooperative, mild distress, A&O X 3, pleasant, obese, answers questions appropriately Internal Medicine: Result - Labs CBC & Chem 7: 08/03/16 04:58 08/03/16 04:58 Labs: Short CBC 08/03/16 Range/Units 04:58 WBC 12.6 H (4.3-11.1) K/mcL Hgb 9.0 L D (11.5-15.4) g/dL Hct 29.3 L (35.3-44.9) % Plt Count 199 (140-400) K/mcL Neutrophils # 9.4 H (1.6-8.9) K/mcL BMP 08/03/16 04:58 Sodium 137 Potassium 4.0 Chloride 106 Carbon Dioxide 25 BUN 16 Creatinine 0.87 Glucose 227 H Calcium 7.8 L Liver Function 08/02/16 Range/Units 18:00 Total Bilirubin 0.5 (0.2-1.2) mg/dL Direct Bilirubin 0.2 (0.0-0.5) mg/dL AST 41 H (5-34) Units/L ALT 36 (0-55) Units/L Alkaline Phosphatase 111 (38-126) Units/L Albumin 2.6 L (3.5-5.0) g/dL - ABG Interpretation ABG results: PT/INR, D-dimer PT 20.2 Seconds (9.4-12.1) H 08/03/16 04:58 - VTE Documentation of Mechanical Device: Intermittent pneumatic compression device Consult Discharge Plan - Plan Referrals: López Mann MD [Primary Care Provider] -
[2016-08-03] MEDS: Azithromycin 500 MG in D5% in Water 250 ML IVPB SCH (15:44)
[2016-08-03] MEDS: *HR* Warfarin 5 MG TABLET PO SCH (17:09)
[2016-08-03] MEDS: Insulin DETEMIR 100 UNIT/ML X5UNITS SQ SCH (20:58)
[2016-08-03] MEDS: Venlafaxine XR (24 HR) 75 MG CAP.ER.24H PO SCH (21:00)
[2016-08-04] MEDS: Aztreonam 2,000 MG in D5% in Water (Mini-Bag+) 100 ML IVPB SCH ×3 (00:36→17:18)
[2016-08-04] MEDS: *HR* OxyCODONE/APAP 5/325 TABLET PO PRN (04:27)
[2016-08-04] MEDS: Ipratropium/Albuterol Neb 3 ML IH SCH ×6 (04:50→23:08)
[2016-08-04] MEDS: Vancomycin 1,250 MG in D5% in Water 250 ML IVPB SCH (06:24)
[2016-08-04 07:17] LABS: BUN/Creatinine Ratio 16 (6-26); Blood Urea Nitrogen 14 mg/dL (7-20); Calcium 8.4 mg/dL (8.6-10.8); Carbon Dioxide 24 mEq/L (19-29); Chloride 103 mEq/L (98-109); Glucose 179 mg/dL (70-99); Magnesium 1.6 mg/dL (1.6-2.6); Osmolality,Calculated 283 (280-300); Potassium 4.6 mEq/L (3.5-4.5); Sodium 134 mEq/L (136-145); eGFR For African Americans > 60 (> 60); eGFR For Non-African Americans > 60 (> 60)
[2016-08-04] MEDS: Insulin LISPRO 300 UNITS/3 ML VIAL SQ SCH ×7 (08:04→20:40)
[2016-08-04] MEDS: Magnesium Oxide 400 MG TABLET PO SCH ×3 (08:05→20:39)
[2016-08-04] MEDS: Gabapentin 300 MG CAPSULE PO SCH ×3 (08:05→20:40)
[2016-08-04] MEDS: Pantoprazole 40 MG VIAL IVP SCH (08:06)
[2016-08-04 08:09] LABS: Basophils % 0.4 %; Eosinophils # 0.4 K/mcL (0.0-0.6); Eosinophils % 3.8 %; Hematocrit 28.6 % (35.3-44.9); Hemoglobin 8.9 g/dL (11.5-15.4); Immature Granulocytes % 0.4 % (0-4); Lymphocytes # 1.4 K/mcL (0.6-4.6); Mean Corpuscular HGB Conc 31.1 g/dL (31.6-35.5); Mean Corpuscular Hemoglobin 25.4 pg (28.0-33.3); Mean Corpuscular Volume 81.5 fL (83.0-100.0); Mean Platelet Volume 10.6 fL (9.4-12.4); Monocytes # 0.6 K/mcL (0.0-1.3); Monocytes % 6.4 %; Neutrophils # 6.9 K/mcL (1.6-8.9); Platelet Count 188 K/mcL (140-400); Red Blood Count 3.51 M/mcL (3.82-4.97); Red Cell Distribution Width 17.2 % (11.5-14.5)
[2016-08-04] MEDS: ALPRAZolam 1 MG TABLET PO SCH ×3 (08:33→20:40)
[2016-08-04] MEDS: Budesonide/Formoterol 160/4.5 MDI IH SCH ×2 (08:36→20:46)
--- NOTE | 2016-08-04 10:48 | Electrocardiograph Report ---
[facility] Test Date: 2016-08-02 Pat Name: Radha Patten Department: 103 Room: 2N05 Gender: F [employer] Brakes: KITTY : 1955 Requested By: Bi Ritter Order Number: [id number] Reading MD: Nik Espinosa DO Measurements Intervals [place] Rate: 123 P: 46 IA: 138 QRS: 17 QRSD: 72 T: 32 QT: 296 QTc: 369 Interpretive Statements Sinus tachycardia Lateral ST-T changes nonspecific Electronically Signed On 08-04-16 10:47:05 EST by Nik Espinosa DO
--- NOTE | 2016-08-04 15:11 | Internal Med Progress Note ---
Date of Encounter: 08/04/16 Time of Encounter: 08:55 - Assessment and plan (1) Acute exacerbation of chronic obstructive pulmonary disease (COPD) Current Visit: Yes Status: Acute (2) Qjqfv-ys-dcakaxk kidney injury Current Visit: Yes Status: Resolved (3) Atrial fibrillation Current Visit: Yes Status: Chronic Qualifiers: Atrial fibrillation type: chronic Qualified Code(s): I48.2 - Chronic atrial fibrillation (4) Decubitus skin ulcer Current Visit: Yes Status: Chronic Qualifiers: Pressure ulcer stage: stage II Qualified Code(s): L89.92 - Pressure ulcer of unspecified site, stage 2 (5) Healthcare-associated pneumonia Current Visit: Yes Status: Acute (6) Insulin dependent diabetes mellitus Current Visit: Yes Status: Acute (7) Severe sepsis Current Visit: Yes Status: Acute (8) Obesity (BMI 30-39.9) Current Visit: Yes Status: Chronic (9) DVT prophylaxis Current Visit: Yes Status: Acute (10) Heel ulcer Current Visit: Yes Status: Chronic Qualifiers: Laterality: right Non-pressure ulcer stage: limited to breakdown of skin Qualified Code(s): L97.411 - Non-pressure chronic ulcer of right heel and midfoot limited to breakdown of skin - Subjective Interval history: 61 Y/O F DNR/DNI Admitted for management of sepsis with lactic acidosis, LANE on CKD, COPDE and HCAP PMH is significant for morbid obesity with sacral and right heel decubitus ulcers, DM2, atrial fibrillation on coumadin. She is seen at bedside , she looks much more improved, denies new complains She has been seen by PT , with discharge disposition for ECF Examination Morbidly obese, not in distress Afebrile, Tmax 100.9 07/15/16, BP WNL, HR WNL Gen: Awake, alert, oriented X3 Neck normal inspection HEENT: PERRL Chest: CTAB anteriorly, no added sounds Heart: S1, S2 only, irregular, no m/g/r Abdomen: Soft, not tender Extremities: Left heel in allevyn covering, no pedal edema Significant labs and Imaging reviewed: Leukocytosis resolved Chronic anemia INR 1.8 Chem WNL Lactate normal CXR: Bibasal pneumonia vs atelectasis Influenza negative Blood culture partial , no growth Assessment/Plan 1. Severe sepsis with lactic acidosis and LANE: LANE and lactic acidosis has resolved, lactic acidosis improving. s/P 3L IVF boluses and maintenance fluid. Will discontinue maintenance fluid, encourage liberal oral fluid intake. Cultures are pending. Patient with multiple allergies, on Azithromycin, vanco and Aztreonam, continue for now. Monitor Vanco trough. Consider deescalation of antibiotics 2. COPDE: Improving, chest is clear this morning, continue current therapy 3. LANE on CKD: Cr back to baseline, monitor closely, avoid nephrotoxins. 4. DM2: Basal, prandial and supplemental insulin 5. Afib: rate controlled, subtherapeutic INR, continue warfarin and monitor INR 6. Decubitus ulcers: Daily wound dressing. 7. Hypomagnessemia: Resolved - Constitutional Vitals: Temp Pulse Resp BP Pulse Ox 97.3 F L 84 16 127/66 96 08/04/16 12:09 08/04/16 15:00 08/04/16 14:57 08/04/16 12:09 08/04/16 13:08 General appearance: Present: cooperative, mild distress, A&O X 3, pleasant, obese, answers questions appropriately Internal Medicine: Result - Labs CBC & Chem 7: 08/04/16 06:52 08/04/16 06:52 Labs: Short CBC 08/04/16 Range/Units 06:52 WBC 9.4 (4.3-11.1) K/mcL Hgb 8.9 L (11.5-15.4) g/dL Hct 28.6 L (35.3-44.9) % Plt Count 188 (140-400) K/mcL Neutrophils # 6.9 (1.6-8.9) K/mcL BMP 08/04/16 06:52 Sodium 134 L Potassium 4.6 H Chloride 103 Carbon Dioxide 24 BUN 14 Creatinine 0.85 Glucose 179 H Calcium 8.4 L - ABG Interpretation ABG results: PT/INR, D-dimer PT 20.2 Seconds (9.4-12.1) H 08/03/16 04:58 - VTE Documentation of Mechanical Device: Intermittent pneumatic compression device Consult Discharge Plan - Plan Referrals: López Mann MD [Primary Care Provider] - (PT IS GOING TO ECF)
[2016-08-04] MEDS: Azithromycin 500 MG in D5% in Water 250 ML IVPB SCH (17:35)
[2016-08-04] MEDS: Insulin DETEMIR 100 UNIT/ML X5UNITS SQ SCH (20:39)
[2016-08-04] MEDS: *HR* Warfarin 7.5 MG TABLET PO SCH (20:40)
[2016-08-04] MEDS: Venlafaxine XR (24 HR) 75 MG CAP.ER.24H PO SCH (20:40)
[2016-08-05] MEDS: Aztreonam 2,000 MG in D5% in Water (Mini-Bag+) 100 ML IVPB SCH ×4 (00:55→23:42)
[2016-08-05] MEDS: Ipratropium/Albuterol Neb 3 ML IH SCH ×5 (03:36→20:47)
[2016-08-05] MEDS: Vancomycin 1,500 MG in D5% in Water 250 ML IVPB SCH (04:46)
[2016-08-05 06:12] LABS: Basophils % 0.5 %; Eosinophils # 0.4 K/mcL (0.0-0.6); Eosinophils % 4.4 %; Hematocrit 29.9 % (35.3-44.9); Hemoglobin 9.2 g/dL (11.5-15.4); Immature Granulocytes % 0.7 % (0-4); Lymphocytes # 1.3 K/mcL (0.6-4.6); Lymphocytes % 14.2 %; Mean Corpuscular HGB Conc 30.8 g/dL (31.6-35.5); Mean Corpuscular Hemoglobin 24.7 pg (28.0-33.3); Mean Corpuscular Volume 80.4 fL (83.0-100.0); Monocytes # 0.6 K/mcL (0.0-1.3); Monocytes % 6.6 %; Neutrophils # 6.5 K/mcL (1.6-8.9); Platelet Count 232 K/mcL (140-400); Red Blood Count 3.72 M/mcL (3.82-4.97); Red Cell Distribution Width 17.1 % (11.5-14.5); Segmented Neutrophils % 73.6 %
[2016-08-05 06:28] LABS: BUN/Creatinine Ratio 16 (6-26); Blood Urea Nitrogen 13 mg/dL (7-20); Calcium 8.9 mg/dL (8.6-10.8); Carbon Dioxide 25 mEq/L (19-29); Chloride 104 mEq/L (98-109); Glucose 128 mg/dL (70-99); Osmolality,Calculated 284 (280-300); Potassium 4.7 mEq/L (3.5-4.5); Sodium 136 mEq/L (136-145); eGFR For African Americans > 60 (> 60); eGFR For Non-African Americans > 60 (> 60)
[2016-08-05] MEDS: Budesonide/Formoterol 160/4.5 MDI IH SCH ×2 (07:36→20:47)
[2016-08-05] MEDS: Magnesium Oxide 400 MG TABLET PO SCH ×3 (08:31→20:34)
[2016-08-05] MEDS: Insulin LISPRO 300 UNITS/3 ML VIAL SQ SCH ×7 (08:31→21:00)
[2016-08-05] MEDS: Gabapentin 300 MG CAPSULE PO SCH ×3 (08:32→20:34)
[2016-08-05] MEDS: Pantoprazole 40 MG VIAL IVP SCH (08:32)
[2016-08-05] MEDS: ALPRAZolam 1 MG TABLET PO SCH ×3 (08:32→20:34)
[2016-08-05 09:42] LABS: Prothrombin Time 33.7 Seconds (9.4-12.1)
[2016-08-05 09:47] LABS: % Iron Saturation 6 % (15-50); Iron 15 mcg/dL (50-170); Transferrin 194 mg/dL (180-382)
[2016-08-05 09:48] LABS: Magnesium 1.7 mg/dL (1.6-2.6); Phosphorous 3.1 mg/dL (2.3-4.7)
--- NOTE | 2016-08-05 10:04 | Internal Med Progress Note ---
Date of Encounter: 08/05/16 Time of Encounter: 08:50 - Assessment and plan (1) Volume overload Current Visit: Yes Status: Acute Assessment and plan: Possible secondary to IV fluid will check BNP May consider adding one dose of Lasix Qualifiers: Hypervolemia type: unspecified Qualified Code(s): E87.70 - Fluid overload, unspecified (2) Acute exacerbation of chronic obstructive pulmonary disease (COPD) Current Visit: Yes Status: Acute Assessment and plan: Continue aerosol treatment current antibiotic awaiting final culture (3) Insulin dependent diabetes mellitus Current Visit: Yes Status: Acute Assessment and plan: Insulin sliding scale, close monitoring (4) Atrial fibrillation Current Visit: Yes Status: Chronic Assessment and plan: Rate controlled INR supratherapeutic pharmacy to dose warfarin Qualifiers: Atrial fibrillation type: chronic Qualified Code(s): I48.2 - Chronic atrial fibrillation (5) Decubitus skin ulcer Current Visit: Yes Status: Chronic Qualifiers: Pressure ulcer stage: stage II Qualified Code(s): L89.92 - Pressure ulcer of unspecified site, stage 2 (6) Ngmog-qh-anrdilo kidney injury Current Visit: Yes Status: Resolved (7) Hypoalbuminemia Current Visit: Yes Status: Acute Assessment and plan: Dietitian consult, add nutritional supplement (8) Vitamin D deficiency Current Visit: Yes Status: Acute Assessment and plan: Add vitamin D 50,000 unit (9) Physical deconditioning Current Visit: Yes Status: Acute Assessment and plan: PT OT ambulate - Subjective Interval history: Patient continued to complain of shortness of breath, had some orthopnea, cough with minimal sputum. Patient denies any chest pain - Constitutional Vitals: Temp Pulse Resp BP Pulse Ox 98.4 F 84 18 134/56 93 L 08/05/16 07:14 08/05/16 09:11 08/05/16 07:14 08/05/16 07:14 08/05/16 07:14 General appearance: Present: cooperative, mild distress, A&O X 3, pleasant, obese, answers questions appropriately - Head Head exam: Present: atraumatic, normocephalic - Respiratory Respiratory exam: Present: decreased breath sounds, CTAB, wheezes. Absent: accessory muscle use, rales, rhonchi - GI/Abdominal GI/Abdominal exam: Present: normal bowel sounds, soft, no peritoneal signs. Absent: distended, tenderness - Extremities Exam Extremities exam: Present: pedal edema (positive 1-2 bilateral lower extremity edema), warm, radial pulses palpable and symetrical. Absent: calf tenderness, cyanotic - Skin Skin exam: Present: dry (Decubitus ulcer exam deferred to wound care. We will evaluate tomorrow) Internal Medicine: Result - Labs CBC & Chem 7: 08/05/16 05:50 08/05/16 05:50 Labs: Short CBC 08/05/16 Range/Units 05:50 WBC 8.9 (4.3-11.1) K/mcL Hgb 9.2 L (11.5-15.4) g/dL Hct 29.9 L (35.3-44.9) % Plt Count 232 (140-400) K/mcL Neutrophils # 6.5 (1.6-8.9) K/mcL BMP 08/05/16 05:50 Sodium 136 Potassium 4.7 H Chloride 104 Carbon Dioxide 25 BUN 13 Creatinine 0.79 Glucose 128 H Calcium 8.9 Liver Function 08/05/16 Range/Units 09:25 Albumin 2.7 L (3.5-5.0) g/dL - ABG Interpretation ABG results: PT/INR, D-dimer PT 33.7 Seconds (9.4-12.1) H D 08/05/16 09:25 - Impressions Microbiology, Last 48 Hours 08/02/16 18:02 Blood Culture - Preliminary Peripheral Venipuncture No growth. 08/02/16 18:00 Blood Culture - Preliminary Peripheral Venipuncture No growth. 08/02/16 13:33 Blood Culture - Preliminary Peripheral Venipuncture No growth. Abnormal lab results RBC 3.72 M/mcL (3.82-4.97) L 08/05/16 05:50 Hgb 9.2 g/dL (11.5-15.4) L 08/05/16 05:50 Hct 29.9 % (35.3-44.9) L 08/05/16 05:50 MCV 80.4 fL (83.0-100.0) L 08/05/16 05:50 MCH 24.7 pg (28.0-33.3) L 08/05/16 05:50 MCHC 30.8 g/dL (31.6-35.5) L 08/05/16 05:50 RDW 17.1 % (11.5-14.5) H 08/05/16 05:50 PT 33.7 Seconds (9.4-12.1) H D 08/05/16 09:25 Potassium 4.7 mEq/L (3.5-4.5) H 08/05/16 05:50 Glucose 128 mg/dL (70-99) H 08/05/16 05:50 POC Glucose 192 (58-89) H 08/04/16 20:38 AST 41 Units/L (5-34) H 08/02/16 18:00 Albumin 2.7 g/dL (3.5-5.0) L 08/05/16 09:25 Globulin 3.9 g/dL (2.4-3.5) H 08/02/16 18:00 Albumin/Globulin Ratio 0.7 (1.1-2.2) L 08/02/16 18:00 Ur Specific [place] 1.029 (1.010-1.025) H 08/02/16 14:38 Urine Protein 30 mg/dL (Neg-Trace) H 08/02/16 14:38 Urine Glucose (UA) >=1000 mg/dL (Normal) H 08/02/16 14:38 Urine Ketones Trace mg/dL (Negative) H 08/02/16 14:38 Urine Bilirubin Small (Negative) H 08/02/16 14:38 Urine Microscopic WBC 3-5 per hpf (0-3) H 08/02/16 14:38 Ur Squamous Epith Cells Many per lpf (None-Few) H 08/02/16 14:38 Vancomycin Trough 25.6 mcg/mL (10-20) H* 08/04/16 06:52 - VTE Documentation of Mechanical Device: Intermittent pneumatic compression device Consult Discharge Plan - Plan Referrals: López Mann MD [Primary Care Provider] - (PT IS GOING TO ECF)
[2016-08-05 10:07] LABS: Ferritin 117 ng/ml (5-204)
[2016-08-05] MEDS ORDERED: Cholecalciferol (D-3) 1,000 UNIT TABLET PO SCH (10:15)
[2016-08-05] MEDS: Thiamine (B-1) 100 MG TABLET PO SCH (12:04)
[2016-08-05] MEDS: GuaiFENesin/Pseudophedrine TABLET PO SCH ×2 (12:04→20:35)
[2016-08-05] MEDS: Lactobacillus 1 EACH CAP.SPRINK PO SCH ×2 (12:04→20:34)
[2016-08-05] MEDS: *HR* OxyCODONE/APAP 5/325 TABLET PO PRN (15:08)
[2016-08-05] MEDS: *HR* Warfarin 5 MG TABLET PO SCH (16:23)
[2016-08-05] MEDS: Azithromycin 500 MG in D5% in Water 250 ML IVPB SCH (16:23)
[2016-08-05] MEDS ORDERED: Warfarin perPT PO PRN (18:00)
[2016-08-05] MEDS: Venlafaxine XR (24 HR) 75 MG CAP.ER.24H PO SCH (20:34)
[2016-08-05] MEDS: Sennosides/Docusate Sodium TABLET PO SCH (20:34)
[2016-08-05] MEDS: Insulin DETEMIR 100 UNIT/ML X5UNITS SQ SCH (20:35)
[2016-08-06] MEDS: Ipratropium/Albuterol Neb 3 ML IH SCH ×6 (00:04→20:12)
[2016-08-06] MEDS: Vancomycin 1,500 MG in D5% in Water 250 ML IVPB SCH (04:30)
[2016-08-06] MEDS: Budesonide/Formoterol 160/4.5 MDI IH SCH ×2 (08:19→20:13)
[2016-08-06] MEDS: GuaiFENesin/Pseudophedrine TABLET PO SCH ×2 (08:39→21:55)
[2016-08-06] MEDS: Aztreonam 2,000 MG in D5% in Water (Mini-Bag+) 100 ML IVPB SCH ×2 (08:39→16:23)
[2016-08-06] MEDS: Pantoprazole 40 MG VIAL IVP SCH (08:39)
[2016-08-06] MEDS: ALPRAZolam 1 MG TABLET PO SCH ×3 (08:40→21:54)
[2016-08-06] MEDS: Gabapentin 300 MG CAPSULE PO SCH ×3 (08:40→21:55)
[2016-08-06] MEDS: Lactobacillus 1 EACH CAP.SPRINK PO SCH ×2 (08:40→21:55)
[2016-08-06] MEDS: Cholecalciferol (D-3) 1,000 UNIT TABLET PO SCH (08:40)
[2016-08-06] MEDS: Sennosides/Docusate Sodium TABLET PO SCH ×2 (08:40→21:55)
[2016-08-06] MEDS: Thiamine (B-1) 100 MG TABLET PO SCH (08:40)
[2016-08-06] MEDS: Magnesium Oxide 400 MG TABLET PO SCH ×3 (08:40→21:54)
[2016-08-06] MEDS: Insulin LISPRO 300 UNITS/3 ML VIAL SQ SCH ×7 (08:41→21:56)
[2016-08-06] MEDS: *HR* OxyCODONE/APAP 5/325 TABLET PO PRN (08:58)
[2016-08-06 16:07] LABS: INR 4.6; Prothrombin Time 51.7 Seconds (9.4-12.1)
[2016-08-06] MEDS: Azithromycin 500 MG in D5% in Water 250 ML IVPB SCH (16:24)
[2016-08-06] MEDS: *HR* Warfarin 5 MG TABLET PO SCH (16:26)
--- NOTE | 2016-08-06 17:53 | Internal Med Progress Note ---
Date of Encounter: 08/06/16 Time of Encounter: 11:30 - Assessment and plan (1) Volume overload Current Visit: Yes Status: Acute Assessment and plan: BNP normal , daily weight close monitoring of intake and output Qualifiers: Hypervolemia type: unspecified Qualified Code(s): E87.70 - Fluid overload, unspecified (2) Acute exacerbation of chronic obstructive pulmonary disease (COPD) Current Visit: Yes Status: Acute Assessment and plan: Continue aerosol treatment current antibiotic awaiting final culture (3) Insulin dependent diabetes mellitus Current Visit: Yes Status: Acute Assessment and plan: Insulin sliding scale, close monitoring (4) Atrial fibrillation Current Visit: Yes Status: Chronic Assessment and plan: Rate controlled INR supratherapeutic pharmacy to dose warfarin. Warfarin on hold for today check INR next morning and monitor for any sign of bleeding Qualifiers: Atrial fibrillation type: chronic Qualified Code(s): I48.2 - Chronic atrial fibrillation (5) Decubitus skin ulcer Current Visit: Yes Status: Chronic Qualifiers: Pressure ulcer stage: stage II Qualified Code(s): L89.92 - Pressure ulcer of unspecified site, stage 2 (6) Nsdwe-yn-yfbgung kidney injury Current Visit: Yes Status: Resolved (7) Hypoalbuminemia Current Visit: Yes Status: Acute (8) Vitamin D deficiency Current Visit: Yes Status: Acute (9) Physical deconditioning Current Visit: Yes Status: Acute (10) Iron deficiency anemia Current Visit: Yes Status: Acute Assessment and plan: Add iron supplement Qualifiers: Iron deficiency anemia type: unspecified iron deficiency Qualified Code(s) : D50.9 - Iron deficiency anemia, unspecified - Time Spent With Patient 25 - 35 minutes - Subjective Interval history: Patient is complaining of dry cough associated with shortness of breath. Patient denies any dysuria. - Constitutional Vitals: Temp Pulse Resp BP Pulse Ox 97.8 F 89 12 111/80 96 08/06/16 15:37 08/06/16 16:15 08/06/16 16:21 08/06/16 15:37 08/06/16 16:21 General appearance: Present: cooperative, mild distress, A&O X 3, pleasant, obese, answers questions appropriately - Head Head exam: Present: atraumatic, normocephalic - Respiratory Respiratory exam: Present: decreased breath sounds. Absent: accessory muscle use, rales, rhonchi, wheezes - Cardiovascular Cardiovascular exam: Present: RRR, +S1, +S2. Absent: diastolic murmur, gallop, rubs, systolic murmur - GI/Abdominal GI/Abdominal exam: Present: normal bowel sounds, soft, no peritoneal signs. Absent: distended, tenderness - Extremities Exam Extremities exam: Present: pedal edema, warm, radial pulses palpable and symetrical. Absent: calf tenderness, cyanotic - Neurological Exam Neurological exam: Present: CN II-XII intact Internal Medicine: Result - Labs CBC & Chem 7: 08/05/16 05:50 08/05/16 05:50 - ABG Interpretation ABG results: PT/INR, D-dimer PT 51.7 Seconds (9.4-12.1) H* D 08/06/16 15:45 - VTE Documentation of Mechanical Device: Intermittent pneumatic compression device Consult Discharge Plan - Plan Referrals: López Mann MD [Primary Care Provider] - (PT IS GOING TO [facility])
[2016-08-06] MEDS: Venlafaxine XR (24 HR) 75 MG CAP.ER.24H PO SCH (21:54)
[2016-08-06] MEDS: Insulin DETEMIR 100 UNIT/ML X5UNITS SQ SCH (21:55)
[2016-08-07] MEDS: Ipratropium/Albuterol Neb 3 ML IH SCH ×7 (00:16→23:56)
[2016-08-07] MEDS: Aztreonam 2,000 MG in D5% in Water (Mini-Bag+) 100 ML IVPB SCH ×2 (00:45→08:12)
[2016-08-07] MEDS: Vancomycin 1,500 MG in D5% in Water 250 ML IVPB SCH (05:00)
[2016-08-07 05:58] LABS: Basophils % 0.5 %; Eosinophils # 0.4 K/mcL (0.0-0.6); Eosinophils % 4.7 %; Hematocrit 29.2 % (35.3-44.9); INR 3.9; Lymphocytes # 1.3 K/mcL (0.6-4.6); Lymphocytes % 16.4 %; Mean Corpuscular HGB Conc 30.8 g/dL (31.6-35.5); Mean Corpuscular Hemoglobin 25.2 pg (28.0-33.3); Mean Corpuscular Volume 81.8 fL (83.0-100.0); Mean Platelet Volume 10.1 fL (9.4-12.4); Monocytes # 0.6 K/mcL (0.0-1.3); Monocytes % 7.7 %; Neutrophils # 5.4 K/mcL (1.6-8.9); Platelet Count 246 K/mcL (140-400); Red Blood Count 3.57 M/mcL (3.82-4.97); Red Cell Distribution Width 17.2 % (11.5-14.5); Segmented Neutrophils % 69.7 %
[2016-08-07 06:04] LABS: Prothrombin Time 43.3 Seconds (9.4-12.1)
[2016-08-07] MEDS: Budesonide/Formoterol 160/4.5 MDI IH SCH ×2 (07:41→20:14)
[2016-08-07] MEDS: Insulin LISPRO 300 UNITS/3 ML VIAL SQ SCH ×7 (08:09→21:12)
[2016-08-07] MEDS: Cholecalciferol (D-3) 1,000 UNIT TABLET PO SCH (08:11)
[2016-08-07] MEDS: Sennosides/Docusate Sodium TABLET PO SCH ×2 (08:11→21:10)
[2016-08-07] MEDS: GuaiFENesin/Pseudophedrine TABLET PO SCH ×2 (08:11→21:10)
[2016-08-07] MEDS: Gabapentin 300 MG CAPSULE PO SCH ×3 (08:11→21:10)
[2016-08-07] MEDS: ALPRAZolam 1 MG TABLET PO SCH ×3 (08:11→21:10)
[2016-08-07] MEDS: Magnesium Oxide 400 MG TABLET PO SCH ×3 (08:11→21:10)
[2016-08-07] MEDS: Lactobacillus 1 EACH CAP.SPRINK PO SCH ×2 (08:11→21:09)
[2016-08-07] MEDS: Thiamine (B-1) 100 MG TABLET PO SCH (08:11)
[2016-08-07] MEDS: Pantoprazole 40 MG VIAL IVP SCH (08:12)
--- NOTE | 2016-08-07 11:09 | Internal Med Progress Note ---
Date of Encounter: 08/07/16 Time of Encounter: 10:00 - Assessment and plan (1) Volume overload Current Visit: Yes Status: Acute Assessment and plan: BNP normal , daily weight close monitoring of intake and output Qualifiers: Hypervolemia type: unspecified Qualified Code(s): E87.70 - Fluid overload, unspecified (2) Acute exacerbation of chronic obstructive pulmonary disease (COPD) Current Visit: Yes Status: Acute Assessment and plan: Improving will step down on antibiotics and monitor (3) Insulin dependent diabetes mellitus Current Visit: Yes Status: Acute Assessment and plan: Insulin sliding scale, close monitoring (4) Atrial fibrillation Current Visit: Yes Status: Chronic Assessment and plan: Rate controlled INR supratherapeutic pharmacy to dose warfarin. Warfarin on hold for today check INR next morning and monitor for any sign of bleeding. Discussed was pharmacy continue holding warfarin Qualifiers: Atrial fibrillation type: chronic Qualified Code(s): I48.2 - Chronic atrial fibrillation (5) Decubitus skin ulcer Current Visit: Yes Status: Chronic Qualifiers: Pressure ulcer stage: stage II Qualified Code(s): L89.92 - Pressure ulcer of unspecified site, stage 2 (6) Uhayu-us-ssvrqjg kidney injury Current Visit: Yes Status: Resolved (7) Hypoalbuminemia Current Visit: Yes Status: Acute Assessment and plan: Dietitian on board , add nutritional supplement (8) Vitamin D deficiency Current Visit: Yes Status: Acute (9) Physical deconditioning Current Visit: Yes Status: Acute Assessment and plan: PT OT ambulate. Awaiting placement in rehabilitation Center (10) Iron deficiency anemia Current Visit: Yes Status: Acute Assessment and plan: iron supplement . With his deconditioning may consider one dose of IV iron , possible mallabsorbation Qualifiers: Iron deficiency anemia type: unspecified iron deficiency Qualified Code(s) : D50.9 - Iron deficiency anemia, unspecified (11) Lower extremity weakness Current Visit: Yes Status: Acute Assessment and plan: With her weakness lower extremities, deconditioning, and condition of tremors abnormal [id number] test we will check MRI brain consult neurologist Qualifiers: Laterality: bilateral Qualified Code(s): M62.81 - Muscle weakness ( generalized) - Subjective Interval history: Patient shortness of breath is improving, still coughing with small amount of yellowish phlegm, complaining of generalized weakness, hard to ambulate. Physical therapy at bedside, complaining of static tremors tremors started last 1 month , Family stated that she had some neurological workup for her lower extremity weakness , Plan for refferal to [facility] for further evaluation. - Constitutional Vitals: Temp Pulse Resp BP Pulse Ox 97.9 F 82 16 129/63 96 08/07/16 07:30 08/07/16 07:45 08/07/16 07:45 08/07/16 07:30 08/07/16 07:45 General appearance: Present: cooperative, A&O X 3, pleasant, obese, answers questions appropriately - Neck Neck exam general surgery: Present: supple, trachea midline. Absent: lymphadenopathy - Respiratory Respiratory exam: Present: decreased breath sounds, prolonged expiratory phase. Absent: accessory muscle use, rales, rhonchi, wheezes - Cardiovascular Cardiovascular exam: Present: RRR, +S1, +S2. Absent: diastolic murmur, gallop, rubs, systolic murmur - GI/Abdominal GI/Abdominal exam: Present: normal bowel sounds, soft, no peritoneal signs. Absent: distended, tenderness - Extremities Exam Extremities exam: Present: pedal edema (Positive 1-2 bilateral ), warm, radial pulses palpable and symetrical. Absent: calf tenderness, cyanotic - Neurological Exam Neurological exam: Present: CN II-XII intact (intenthiona tremors bilateral upper extremities. [id number] test left upper extremities). Absent: motor sensory deficit, pronater drift, facial droop, speech deficit - Skin Skin exam: Present: dry, intact Internal Medicine: Result - Labs CBC & Chem 7: 08/07/16 05:06 08/05/16 05:50 Labs: Short CBC 08/07/16 Range/Units 05:06 WBC 7.8 (4.3-11.1) K/mcL Hgb 9.0 L (11.5-15.4) g/dL Hct 29.2 L (35.3-44.9) % Plt Count 246 (140-400) K/mcL Neutrophils # 5.4 (1.6-8.9) K/mcL - ABG Interpretation ABG results: PT/INR, D-dimer PT 43.3 Seconds (9.4-12.1) H* 08/07/16 05:06 - VTE Documentation of Mechanical Device: Intermittent pneumatic compression device Consult Discharge Plan - Plan Referrals: López Mann MD [Primary Care Provider] - (PT IS GOING TO [facility])
[2016-08-07] MEDS ORDERED: Aminoglycoside Consult 1 EACH MC ONE (12:29)
--- NOTE | 2016-08-07 12:37 | Neurology - Consult Note ---
<Alfie Rice - Last Filed: 08/07/16 14:07> Date of Encounter: 08/07/16 Time of Encounter: 13:09 Assessment and Plan (1) Diabetic lumbosacral plexopathy Current Visit: Yes Status: Acute Patient reports a history of lower extremity weakness with worsening features over the last 2 weeks to where now she is unable to ambulate or bear weight on the left lower extremity. She does not suggest any signs or symptoms of a cauda equina picture. Her sensation is intact in the left lower extremity with the exception of paresthesias in the L3-L4 distribution in the left proximal anterior thigh. She does have a spinal pain pump and reports she is unable to have an MRI due to this. Patient is an uncontrolled diabetic with last A1c being 10.7. There is a concern that she may have a diabetic plexopathy given her uncontrolled sugars and physical exam findings. She has normal kidney function so we will pursue investigation with a CT scan of the abdomen and pelvis with IV contrast enhancement. We will also initiate steroids, prednisone 40 mg every 4 hours until reevaluation tomorrow. Patient will require close monitoring of her glucose to do addition of steroids. History of Present Illness Chief complaint: Weakness, pneumonia HPI: Ms. Patten is a 61 year old female history of uncontrolled diabetes, obesity, hypertension, COPD, iron deficiency anemia, bilateral knee replacement who originally presented to the hospital and was admitted for pneumonia and weakness. Patient was initially noted to have a temperature of 100, slightly elevated WBC and chest x-ray with atelectasis versus pneumonia. Neurology consulted due to patient's worsening lower extremity weakness. Patient reports that she has actually had lower extremity weakness that began roughly 2 years ago. She reports that in February 2016 she was admitted to [facility] for syncopal episodes. She reports speaking to the physician at that time about returning for full neurologic workup of her lower extremity weakness. She states she was unable to go back for an appointment yet. During that time she reports that she was still able to walk until 2 weeks ago whenever her left leg was unable to bear weight. She reports that she is able to ambulate with assistance. She denies any pain with ambulation or in general of her lower extremities. Patient does have a spinal pain pump. She denies any bowel or bladder incontinence or genitourinary numbness. She also endorses a history of spinal surgery with previous imaging showing an L4-L5 fusion. She also reports that her left arm and hand do seem weaker and that she spills drinks whenever she tries to use her left hand. This however did not occur acutely. No reported history of CVA. Patient did have an EMG with results dictated below. EMG 07/16/16: Study demonstrates electrodiagnostic evidence of active and chronic denervation predominantly in left L4-L5 and S1 nerve root distribution, likely related to underlying acute radicular process. At the same time evidence of severe neuropathy.(Right extremity not tested due to ulceration) Past Med Surg Social Fam HX - Past Medical History Attestation: Yes The following information was validated with the patient. Source: patient Medical history: atrial fibrillation, CHF, COPD, coronary artery disease, dementia, diabetes, hyperlipidemia, hypertension, peripheral artery disease Psychiatric history: anxiety, depression - Past Surgical History Surgical History: cholecystectomy, hysterectomy, knee replacement - Social History Smoking Status: Never smoker Smokeless Tobacco Status: No Alcohol use: none Drug use: none - Family History Mother Living Status: Hx Family Cardiac Disorders: Yes Hx Family Respiratory Disorders: No Hx Family Cancer: No Hx Family GI Disorders: No Hx Family Endocrine Disorder: Yes (Diabetes) Hx Family Neuromuscular Disorders: No Hx Family Neurologic Disorders: No Hx Family HEENT Disorders: No Hx Family Autoimmune Disorders: No Father Living Status: Still Living Hx Family Cardiac Disorders: Yes (Hypertension) Hx Family Respiratory Disorders: No Hx Family Cancer: No Hx Family GI Disorders: No Hx Family Endocrine Disorder: Yes (Diabetes) Hx Family Neuromuscular Disorders: No Hx Family Neurologic Disorders: No Hx Family HEENT Disorders: No Hx Family Autoimmune Disorders: No Medications and Allergies Albuterol Sulfate [Proair Hfa] 2 puff IH Q6H PRN 09/21/15 [History] Atorvastatin [Lipitor] 40 mg PO HS 09/21/15 [History] Exenatide [Byetta] 5 mcg SQ BID 09/21/15 [History] Insulin Lispro Protamin/Lispro [Humalog Mix 75-25 Kwikpen] 60 unit SQ BID [History] Magnesium Oxide [Magnesium] 400 mg PO TID 09/21/15 [History] Metformin [Glucophage] 500 mg PO QPM 09/21/15 [History] Omeprazole [PriLOSEC] 40 mg PO BID 09/21/15 [History] Polyethylene Glycol 3350 [MiraLAX] 17 gm PO DAILY PRN 09/21/15 [History] Alprazolam [Xanax 1 MG Tablet] 1 mg PO TID #21 tablet 10/17/15 [Rx] Calcium Carbonate/Vitamin D3 [Calcium 500-Vit D3 400 Tablet] 1 tab PO BID [History] Ranitidine HCl [Zantac] 150 mg PO BID 03/21/16 [History] Tiotropium [Spiriva] 18 mcg IH DAILY 03/21/16 [History] Citalopram Hydrobromide [Celexa] 40 mg PO DAILY #14 06/13/16 [Rx] Cyclobenzaprine [Flexeril] 10 mg PO TID #30 06/13/16 [Rx] Ferrous Sulfate 325 mg PO BID 30 Days 06/13/16 [Rx] Venlafaxine HCl [Effexor Xr] 75 mg PO HS #14 06/13/16 [Rx] Amitriptyline [Elavil] 50 mg PO HS 08/02/16 [History] Gabapentin [Neurontin] 600 mg PO TID 08/02/16 [History] Lactobacillus [Culturelle] 1 cap PO BID 08/02/16 [History] Warfarin [Coumadin] 5 mg PO SUTUWETHFR 08/02/16 [History] Warfarin [Coumadin] 7.5 mg PO MOSA 08/02/16 [History] Allergies levofloxacin [From Levaquin] Allergy (Verified 08/02/16 13:08) Hives Penicillins Allergy (Verified 08/02/16 13:08) Hives Sulfa (Sulfonamide Antibiotics) Allergy (Verified 08/02/16 13:08) Rash cephalexin [From Keflex] Adverse Reaction (Verified 08/02/16 13:08) Hypertension duloxetine [From Cymbalta] Adverse Reaction (Verified 08/02/16 13:08) Nightmare metformin Adverse Reaction (Verified 08/02/16 13:08) Nausea All Systems: A 10-system review of systems was performed and is negative for pertinent findings except as documented above in the HPI. - Constitutional Constitutional ROS IM: fever(s), weakness - Cardiovascular Cardiovascular ROS IM: no chest pain - Respiratory Respiratory IM: cough, dyspnea - Gastrointestinal Gastrointestinal: no abdominal pain - Musculoskeletal Musculoskeletal ROS IM: abnormal gait (Unable to bear weight on left leg), limited range of motion (Left knee), muscle weakness, no radiating pain into limb - Neurological Neurological ROS: paresthesias (Does report the anterior surface of her left proximal thigh feels diminished in comparison to the contralateral leg.), no numbness Physical Examination - Vital Signs Vital Signs: Initial Vital Signs Temp Pulse Resp BP Pulse Ox 100.0 F H 125 21 136/75 93 L 08/02/16 13:03 08/02/16 13:03 08/02/16 13:03 08/02/16 13:03 08/02/16 13:03 - Constitutional General appearance: comfortable - Neurologic Sensorimotor examination: intact Motor examination - right side: 4/5: plantarflexion, 5/5: deltoids, biceps, triceps Motor examination - left side: 3/5: hip flexors, 4/5: deltoids, biceps, triceps , plantarflexion Detailed sensory examination: other (Patient reports paresthesias in the left anterior proximal thigh.) Reflex and gait examination: other (Unable to assess) Mental Status Examination: awake, alert, oriented to person, oriented to place, oriented to time, follows commands appropriately, answers questions appropriately, no aphasia, makes eye contact Cranial nerve examination: PERRL, EOMI, no facial asymmetry is present, no dysarthria Results - Laboratory Findings CBC and BMP: 08/07/16 05:06 08/05/16 05:50 Abnormal lab findings: Abnormal lab results RBC 3.57 M/mcL (3.82-4.97) L 08/07/16 05:06 Hgb 9.0 g/dL (11.5-15.4) L 08/07/16 05:06 Hct 29.2 % (35.3-44.9) L 08/07/16 05:06 MCV 81.8 fL (83.0-100.0) L 08/07/16 05:06 MCH 25.2 pg (28.0-33.3) L 08/07/16 05:06 MCHC 30.8 g/dL (31.6-35.5) L 08/07/16 05:06 RDW 17.2 % (11.5-14.5) H 08/07/16 05:06 PT 43.3 Seconds (9.4-12.1) H* 08/07/16 05:06 Potassium 4.7 mEq/L (3.5-4.5) H 08/05/16 05:50 Glucose 128 mg/dL (70-99) H 08/05/16 05:50 POC Glucose 147 (58-89) H 08/06/16 20:59 Iron 15 mcg/dL (50-170) L 08/05/16 09:25 % Saturation 6 % (15-50) L 08/05/16 09:25 AST 41 Units/L (5-34) H 08/02/16 18:00 Albumin 2.7 g/dL (3.5-5.0) L 08/05/16 09:25 Globulin 3.9 g/dL (2.4-3.5) H 08/02/16 18:00 Albumin/Globulin Ratio 0.7 (1.1-2.2) L 08/02/16 18:00 Prealbumin 10.0 mg/dL (16.0-38.0) L 08/05/16 09:25 Ur Specific [place] 1.029 (1.010-1.025) H 08/02/16 14:38 Urine Protein 30 mg/dL (Neg-Trace) H 08/02/16 14:38 Urine Glucose (UA) >=1000 mg/dL (Normal) H 08/02/16 14:38 Urine Ketones Trace mg/dL (Negative) H 08/02/16 14:38 Urine Bilirubin Small (Negative) H 08/02/16 14:38 Urine Microscopic WBC 3-5 per hpf (0-3) H 08/02/16 14:38 Ur Squamous Epith Cells Many per lpf (None-Few) H 08/02/16 14:38 Vancomycin Trough 8.7 mcg/mL (10-20) L 08/07/16 05:06 Consult Discharge Plan - Plan Referrals: López Mann MD [Primary Care Provider] - (PT IS GOING TO [facility]) <Mike Hinds - Last Filed: 08/07/16 14:43> Date of Encounter: 08/07/16 Time of Encounter: 14:31 Assessment and Plan (1) Left leg weakness Current Visit: Yes Status: Acute My major concern here is that might possibly be dealing with 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 This is generally seen in poorly controlled diabetics and usually presents as a fairly intense pain involving the hip and anterolateral thigh. She had a recent EMG done in July that did not reveal any evidence of femoral neuropathy, L3-L4 radiculopathy. The EMG study did reveal evidence of them L4-L5 radiculopathy however her neurologic examination shows fairly good strength of the L4-L5 innervated muscles below the knee. External rotation of the hip does not increase her pain nor does straight leg raising. I am not convinced that she has suffered an acute right hemispheric infarct as the pain and weakness of the left lower extremity seems fairly well localized to the L3-L4 myotome/femoral nerve distribution. Unfortunately we are unable to obtain an MRI because she has a pain pump. I will obtain a CT scan of the abdomen and pelvis with contrast to rule out any other pathology involving the viscera and muscles adjacent to the lumbar plexus. We will give her IV steroids to see if this helps to resolve the problem. I will defer management of her glycemic profile to the hospitalist service. The documentation in the history of HPI and plan were at least partially created by [employer] voice recognition technology by Dr. Hinds. Errors in grammar, wording or other phrases may exist. If errors are found after the documentation signed, they will be addressed individually in the addendum section of this document when appropriate. History of Present Illness HPI: Ms. Patten is a 61 year old female seen for neurologic consultation secondary to lower extremity weakness. The chart was reviewed independently, the patient was seen and examined along with Dr. Rice. I agree with his history as stated above. All Systems: A 10-system review of systems was performed and is negative for pertinent findings except as documented above in the HPI. Review of Systems: 10 point review of systems is consistent with the history of present illness and is otherwise negative. 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 She has a general decreased sensation to light touch distally symmetrically) Reflexes: Biceps: 1+ (Symmetrically), Triceps: 1+ (Symmetrically), Brachioradialis: 1+ (Symmetrically), Patella: 0 ("), Achilles: 0 (") Cranial nerve examination: visual smith intact Results - Laboratory Findings CBC and BMP: 08/07/16 05:06 08/05/16 05:50 Abnormal lab findings: Abnormal lab results RBC 3.57 M/mcL (3.82-4.97) L 08/07/16 05:06 Hgb 9.0 g/dL (11.5-15.4) L 08/07/16 05:06 Hct 29.2 % (35.3-44.9) L 08/07/16 05:06 MCV 81.8 fL (83.0-100.0) L 08/07/16 05:06 MCH 25.2 pg (28.0-33.3) L 08/07/16 05:06 MCHC 30.8 g/dL (31.6-35.5) L 08/07/16 05:06 RDW 17.2 % (11.5-14.5) H 08/07/16 05:06 PT 43.3 Seconds (9.4-12.1) H* 08/07/16 05:06 Potassium 4.7 mEq/L (3.5-4.5) H 08/05/16 05:50 Glucose 128 mg/dL (70-99) H 08/05/16 05:50 POC Glucose 147 (58-89) H 08/06/16 20:59 Iron 15 mcg/dL (50-170) L 08/05/16 09:25 % Saturation 6 % (15-50) L 08/05/16 09:25 AST 41 Units/L (5-34) H 08/02/16 18:00 Albumin 2.7 g/dL (3.5-5.0) L 08/05/16 09:25 Globulin 3.9 g/dL (2.4-3.5) H 08/02/16 18:00 Albumin/Globulin Ratio 0.7 (1.1-2.2) L 08/02/16 18:00 Prealbumin 10.0 mg/dL (16.0-38.0) L 08/05/16 09:25 Ur Specific [place] 1.029 (1.010-1.025) H 08/02/16 14:38 Urine Protein 30 mg/dL (Neg-Trace) H 08/02/16 14:38 Urine Glucose (UA) >=1000 mg/dL (Normal) H 08/02/16 14:38 Urine Ketones Trace mg/dL (Negative) H 08/02/16 14:38 Urine Bilirubin Small (Negative) H 08/02/16 14:38 Urine Microscopic WBC 3-5 per hpf (0-3) H 08/02/16 14:38 Ur Squamous Epith Cells Many per lpf (None-Few) H 08/02/16 14:38 Vancomycin Trough 8.7 mcg/mL (10-20) L 08/07/16 05:06
[2016-08-07] MEDS: MethylPREDNISolone 40 MG/ML VIAL IVP SCH ×2 (16:16→21:08)
[2016-08-07] MEDS: Azithromycin 500 MG in D5% in Water 250 ML IVPB SCH (16:16)
[2016-08-07] MEDS: Venlafaxine XR (24 HR) 75 MG CAP.ER.24H PO SCH (21:09)
[2016-08-07] MEDS: Insulin DETEMIR 100 UNIT/ML X5UNITS SQ SCH (21:11)
[2016-08-07] MEDS ORDERED: Vancomycin 2,000 MG in D5% in Water 500 ML IVPB SCH (23:00)
[2016-08-08] MEDS: MethylPREDNISolone 40 MG/ML VIAL IVP SCH ×3 (00:43→08:37)
[2016-08-08] MEDS: Ipratropium/Albuterol Neb 3 ML IH SCH ×4 (04:50→16:22)
[2016-08-08 05:04] LABS: INR 2.3; Prothrombin Time 25.7 Seconds (9.4-12.1)
[2016-08-08 07:03] VITALS: BP 144/70
--- NOTE | 2016-08-08 07:55 | Discharge Summary ---
Date of Encounter: 08/08/16 Time of Encounter: 07:53 - Discharge Diagnosis (1) Healthcare-associated pneumonia Priority: Primary Status: Acute Comments: Sepsis secondary to healthcare associated pneumonia present upon admission The patient completed a week of aztreonam, vancomycin and azithromycin (2) Insulin dependent diabetes mellitus Priority: Secondary Status: Acute (3) Atrial fibrillation Priority: Secondary Status: Chronic Comments: Continue Coumadin as the patient has history also of pulmonary emboli Qualifiers: Atrial fibrillation type: chronic Qualified Code(s): I48.2 - Chronic atrial fibrillation (4) Obesity (BMI 30-39.9) Priority: Secondary Status: Chronic (5) Ciimf-[id number]-[id number] kidney injury Priority: Secondary Status: Resolved Comments: Resolved with IV fluids (6) Hyperglycemia Priority: Secondary Status: Acute Comments: Steroid induced hyperglycemia in the setting of uncontrolled diabetes type 2 We will try to avoid steroids (7) Pressure ulcer Priority: Secondary Status: Acute Comments: Right foot small pressure ulcer not infected Qualifiers: Pressure ulcer stage: stage I Qualified Code(s): L89.91 - Pressure ulcer of unspecified site, stage 1 (8) HTN (hypertension) Priority: Secondary Status: Chronic Qualifiers: Hypertension type: essential hypertension Qualified Code(s): I10 - Essential (primary) hypertension (9) Left leg weakness Priority: Secondary Status: Acute Comments: Follow with neurology, CT scan of the abdomen and pelvis did not show any major spinal stenosis, can follow as an outpatient Cannot have an MRI due to the spinal nerve stimulator - Discharge Medications Prescriptions: OxyCODONE/APAP 5/325 [Percocet 5/325 MG] 1 each PO Q6HR PRN #30 tablet PRN Reason: Pain Alprazolam [Xanax 1 MG Tablet] 1 mg PO TID #21 tablet Amitriptyline [Elavil] 50 mg PO HS #30 tablet Furosemide [Lasix] 20 mg PO DAILY #30 tablet Gabapentin [Neurontin] 600 mg PO TID 30 Days Venlafaxine HCl [Effexor Xr] 75 mg PO HS #14 cap.er.24h Home Medications: Albuterol Sulfate [Proair Hfa] 2 puff IH Q6H PRN 09/21/15 [History] Atorvastatin [Lipitor] 40 mg PO HS 09/21/15 [History] Exenatide [Byetta] 5 mcg SQ BID 09/21/15 [History] Insulin Lispro Protamin/Lispro [Humalog Mix 75-25 Kwikpen] 60 unit SQ BID [History] Magnesium Oxide [Magnesium] 400 mg PO TID 09/21/15 [History] Metformin [Glucophage] 500 mg PO QPM 09/21/15 [History] Omeprazole [PriLOSEC] 40 mg PO BID 09/21/15 [History] Polyethylene Glycol 3350 [MiraLAX] 17 gm PO DAILY PRN 09/21/15 [History] Calcium Carbonate/Vitamin D3 [Calcium 500-Vit D3 400 Tablet] 1 tab PO BID [History] Ranitidine HCl [Zantac] 150 mg PO BID 03/21/16 [History] Tiotropium [Spiriva] 18 mcg IH DAILY 03/21/16 [History] Citalopram Hydrobromide [Celexa] 40 mg PO DAILY #14 06/13/16 [Rx] Cyclobenzaprine [Flexeril] 10 mg PO TID #30 06/13/16 [Rx] Ferrous Sulfate 325 mg PO BID 30 Days 06/13/16 [Rx] Lactobacillus [Culturelle] 1 cap PO BID 08/02/16 [History] Warfarin [Coumadin] 5 mg PO SUTUWETHFR 08/02/16 [History] Warfarin [Coumadin] 7.5 mg PO MOSA 08/02/16 [History] Alprazolam [Xanax 1 MG Tablet] 1 mg PO TID #21 tablet 08/08/16 [Rx] Amitriptyline [Elavil] 50 mg PO HS #30 tablet 08/08/16 [Rx] Furosemide [Lasix] 20 mg PO DAILY #30 tablet 08/08/16 [Rx] Gabapentin [Neurontin] 600 mg PO TID 30 Days 08/08/16 [Rx] OxyCODONE/APAP 5/325 [Percocet 5/325 MG] 1 each PO Q6HR PRN #30 tablet 08/08/16 [Rx] Venlafaxine HCl [Effexor Xr] 75 mg PO HS #14 cap.er.24h 08/08/16 [Rx] Allergies/Adverse Reactions: Allergies levofloxacin [From Levaquin] Allergy (Verified 08/02/16 13:08) Hives Penicillins Allergy (Verified 08/02/16 13:08) Hives Sulfa (Sulfonamide Antibiotics) Allergy (Verified 08/02/16 13:08) Rash cephalexin [From Keflex] Adverse Reaction (Verified 08/02/16 13:08) Hypertension duloxetine [From Cymbalta] Adverse Reaction (Verified 08/02/16 13:08) Nightmare metformin Adverse Reaction (Verified 08/02/16 13:08) Nausea Procedures/tests Complete & Pending: Procedures Performed prior 72 hours Category Date Time Status CT abd pelvis w iv no oral [CT] Routine Cat Scan 08/07/16 15:00 Completed Date of admission: 08/02/16 16:06 Primary care physician: López Mann MD Consults: 08/05/16 10:11 Consult to Nutrition [CONS] Routine Comment: Consulting Provider: NUTRITION Reason for Dietary Consult: Diet Education 08/07/16 12:45 Consult to Neurology [CONS] Routine Consulting Provider: Neurology [facility] Reason for Consult: Lower extremity weakness intentional tremors Call Completed: Yes 08/02/16 16:44 Consult to Nurse Navigator [CONS] Routine Comment: 08/02/16 16:47 Consult to Occupational Therapy [CONS] Routine Comment: Evaluate, develop and implement POC Consult to Physical Therapy [CONS] Routine Comment: Evaluate, develop and implement POC Consult to Press Operator Apprentice [CONS] Routine Reason for SW Consult: D/C planning and possible dme need - Patient Status Disposition: Transfer SNF Condition: Fair Overall status at discharge: patient is progressing back to baseline - Discharge Instructions Follow Up With: López Mann MD [Primary Care Provider] - (PT IS GOING TO [facility]) Additional Instructions: Follow with primary care physician within the next 7 days. Start Lasix 20 mg daily. Follow with neurology within the next 2 weeks. Physical therapy ordered. Monitor INR as outpatient - Diet and Activity Activity: increase activity as tolerated Diet: diabetic diet Hospital course: Ms. Patten is a 61 year old female history of a fib on warfarin, hx of DVT and Pulm emboli, CKD3, uncontrolled diabetes insulin dep, obesity, hypertension, COPD not O 2 dep, iron deficiency anemia, bilateral knee replacement who originally presented to the hospital and was admitted for Health care associated pneumonia and weakness. Patient was initially noted to have a temperature of 100, elevated WBC of 15 and chest x-ray with atelectasis versus pneumonia. Neurology consulted due to patient's worsening lower extremity weakness. Patient reports that she has actually had lower extremity weakness that began roughly 2 years ago. She reports that in February 2016 she was admitted to [facility] for syncopal episodes. She reports speaking to the physician at that time about returning for full neurologic workup of her lower extremity weakness. She states she was unable to go back for an appointment yet. During that time she reports that she was still able to walk until 2 weeks ago whenever her left leg was unable to bear weight. She reported that she is able to ambulate with assistance. She denies any pain with ambulation or in general of her lower extremities. Patient does have a spinal pain pump. She denies any bowel or bladder incontinence or genitourinary numbness. She also endorses a history of spinal surgery with previous imaging showing an L4-L5 fusion. She also reports that her left arm and hand do seem weaker and that she spills drinks whenever she tries to use her left hand. This however did not occur acutely. No reported history of CVA. EMG 07/16/16: Study demonstrates electrodiagnostic evidence of active and chronic denervation predominantly in left L4-L5 and S1 nerve root distribution, likely related to underlying acute radicular process. At the same time evidence of severe neuropathy.(Right extremity not tested due to ulceration) The CT scan of the abdomen and pelvis did not show any major abnormality and confirmed the prior diagnosis of bronchopneumonia. No severe spinal stenosis was evidenced. The patient has completed 1 week of aztreonam, vancomycin and azithromycin. Her creatinine levels have normalized. She is a stable to be discharged. INR was supratherapeutic at 4.6 for which Coumadin was held, now is therapeutic at 2.3, safe to restart warfarin - Time Spent with Patient Total time spent providing and/or coordinating discharge services: Greater than 30 minutes - Constitutional Vitals: Temp Pulse Resp BP Pulse Ox 97.4 F L 94 18 144/70 95 08/08/16 07:02 08/08/16 07:02 08/08/16 07:02 08/08/16 07:02 08/08/16 07:02 General appearance: Present: cooperative, A&O X 3, pleasant, obese, answers questions appropriately - Head Head exam: Present: atraumatic, normocephalic - Eye Eye exam: Present: PERRL, conjuntiva pink, sclera anicteric Pupils: Present: PERRL - Neck Neck exam general surgery: Present: supple, trachea midline. Absent: lymphadenopathy - Respiratory Respiratory exam: Present: decreased breath sounds, CTAB. Absent: accessory muscle use, rales, rhonchi, wheezes - Cardiovascular Cardiovascular exam: Present: RRR, +S1, +S2. Absent: diastolic murmur, gallop, rubs, systolic murmur - GI/Abdominal GI/Abdominal exam: Present: distended, normal bowel sounds, soft, no peritoneal signs. Absent: tenderness - Extremities Exam Extremities exam: Present: warm, radial pulses palpable and symetrical. Absent : calf tenderness, cyanotic, pedal edema Additional comments: Left lower extremity weakness 4 over 5, small right heel ulcer 0.5 cm not infected - Neurological Exam Neurological exam: Present: CN II-XII intact, oriented X3, no focal deficits. Absent: pronater drift, facial droop, speech deficit - Skin Skin exam: Present: dry, intact - VTE Documentation of Mechanical Device: Intermittent pneumatic compression device
[2016-08-08] MEDS: Budesonide/Formoterol 160/4.5 MDI IH SCH (07:56)
--- NOTE | 2016-08-08 08:14 | Physician Discharge Referral ---
ExtendedCare Referral Info Provider in Charge after Transfer: PCP Institutional Level of Care: Skilled - Diagnosis (1) Healthcare-associated pneumonia Status: Acute (2) Insulin dependent diabetes mellitus Status: Acute (3) Atrial fibrillation Status: Chronic (4) Obesity (BMI 30-39.9) Status: Chronic (5) [id number] kidney injury Status: Resolved (6) Hyperglycemia Status: Acute (7) Pressure ulcer Status: Acute (8) HTN (hypertension) Status: Chronic (9) Left leg weakness Status: Acute - Transfer Medications Prescriptions: OxyCODONE/APAP 5/325 [Percocet 5/325 MG] 1 each PO Q6HR PRN #30 tablet PRN Reason: Pain Alprazolam [Xanax 1 MG Tablet] 1 mg PO TID #21 tablet Amitriptyline [Elavil] 50 mg PO HS #30 tablet Furosemide [Lasix] 20 mg PO DAILY #30 tablet Gabapentin [Neurontin] 600 mg PO TID 30 Days Venlafaxine HCl [Effexor Xr] 75 mg PO HS #14 cap.er.24h Home Medications: Albuterol Sulfate [Proair Hfa] 2 puff IH Q6H PRN 09/21/15 [History] Atorvastatin [Lipitor] 40 mg PO HS 09/21/15 [History] Exenatide [Byetta] 5 mcg SQ BID 09/21/15 [History] Insulin Lispro Protamin/Lispro [Humalog Mix 75-25 Kwikpen] 60 unit SQ BID [History] Magnesium Oxide [Magnesium] 400 mg PO TID 09/21/15 [History] Metformin [Glucophage] 500 mg PO QPM 09/21/15 [History] Omeprazole [PriLOSEC] 40 mg PO BID 09/21/15 [History] Polyethylene Glycol 3350 [MiraLAX] 17 gm PO DAILY PRN 09/21/15 [History] Calcium Carbonate/Vitamin D3 [Calcium 500-Vit D3 400 Tablet] 1 tab PO BID [History] Ranitidine HCl [Zantac] 150 mg PO BID 03/21/16 [History] Tiotropium [Spiriva] 18 mcg IH DAILY 03/21/16 [History] Citalopram Hydrobromide [Celexa] 40 mg PO DAILY #14 06/13/16 [Rx] Cyclobenzaprine [Flexeril] 10 mg PO TID #30 06/13/16 [Rx] Ferrous Sulfate 325 mg PO BID 30 Days 06/13/16 [Rx] Lactobacillus [Culturelle] 1 cap PO BID 08/02/16 [History] Warfarin [Coumadin] 5 mg PO SUTUWETHFR 08/02/16 [History] Warfarin [Coumadin] 7.5 mg PO MOSA 08/02/16 [History] Alprazolam [Xanax 1 MG Tablet] 1 mg PO TID #21 tablet 08/08/16 [Rx] Amitriptyline [Elavil] 50 mg PO HS #30 tablet 08/08/16 [Rx] Furosemide [Lasix] 20 mg PO DAILY #30 tablet 08/08/16 [Rx] Gabapentin [Neurontin] 600 mg PO TID 30 Days 08/08/16 [Rx] OxyCODONE/APAP 5/325 [Percocet 5/325 MG] 1 each PO Q6HR PRN #30 tablet 08/08/16 [Rx] Venlafaxine HCl [Effexor Xr] 75 mg PO HS #14 cap.er.24h 08/08/16 [Rx] Allergies/Adverse Reactions: Allergies levofloxacin [From Levaquin] Allergy (Verified 08/02/16 13:08) Hives Penicillins Allergy (Verified 08/02/16 13:08) Hives Sulfa (Sulfonamide Antibiotics) Allergy (Verified 08/02/16 13:08) Rash cephalexin [From Keflex] Adverse Reaction (Verified 08/02/16 13:08) Hypertension duloxetine [From Cymbalta] Adverse Reaction (Verified 08/02/16 13:08) Nightmare metformin Adverse Reaction (Verified 08/02/16 13:08) Nausea - Respiratory Orders Smoking Cessation: Smoking cessation has been advised. For more information, call the [place] Tobacco Quit Line at 9-006-IOEC-NOW. - Advance Directives Code Status: DNR-Arrest/Don't Intubate - Treatments List/Other: Follow with primary care physician within the next 7 days. Start Lasix 20 mg daily. Follow with neurology within the next 2 weeks. Physical therapy ordered. Monitor INR as outpatient - Diet Orders No Added Salt (CLARISA) CERTIFICATION: I certify that the transfer of the above named patient to an Extended Care Facility is necessary for the continuing treatment of the diagnosis listed. The above information is true and accurate reflection of patient's current condition. Confidential - Redisclosure prohibited without a patient's written consent.
[2016-08-08] MEDS ORDERED: Insulin LISPRO 300 UNITS/3 ML VIAL SQ ONE ×2 (08:27→12:30)
[2016-08-08] MEDS: Gabapentin 300 MG CAPSULE PO SCH ×2 (08:35→16:09)
[2016-08-08] MEDS: Thiamine (B-1) 100 MG TABLET PO SCH (08:35)
--- NOTE | 2016-08-08 08:35 | Neurology Progress Note ---
<Alfie Rice - Last Filed: 08/08/16 09:51> Date of Encounter: 08/08/16 Time of Encounter: 08:35 Assessment and Plan (1) Diabetic lumbosacral plexopathy Current Visit: Yes Status: Acute Patient with a history of uncontrolled diabetes with progressive leg weakness in the left lower extremity over the last 2 weeks. She denies any inciting trauma. There was a concern for potential diabetic plexopathy. Her CT scan of the abdomen and pelvis is unremarkable for any mass effect or lesion that could be causing her neurologic deficits. She has had an EMG as an outpatient which showed neuropathy of L4-L5 and S1. She reports that she will follow up with [facility] for further evaluation of this. She did not improve with steroids yesterday so until there is no reason to continue in lieu of her uncontrolled diabetes. Subjective Principal diagnosis: Lower extremity weakness Interval history: Patient reports no improvement of symptoms overnight with the steroids. She continues to have weakness in the left proximal leg. No other changes overnight noted. She reports that she will be going to a rehabilitation facility. She also plans on following up with [facility] for further evaluation of her lower extremity weakness. Objective - Constitutional Vitals: Temp Pulse Resp BP Pulse Ox 97.4 F L 94 18 144/70 95 08/08/16 07:02 08/08/16 07:02 08/08/16 07:02 08/08/16 07:02 08/08/16 07:02 General appearance: Present: A&O X 3, pleasant, no acute distress - Head Head exam: Present: atraumatic, normal inspection, normocephalic - Eye Eye exam: Present: EOMI, normal appearance. Absent: conjunctival injection - Extremities Exam Extremities exam: Present: full ROM (Diminished range of motion in the left lower extremity specifically in the hip flexors and knee extensors.), normal inspection - Neurological Exam Sensorimotor examination: Present: other (General decreased sensation to pinprick distally of both lower extremities.) Motor examination - left side: 2/5: hip flexors, quadriceps, 4/5: deltoids, biceps, triceps, railcar foreman, tibialis Anterior, toe extension (EHL), plantarflexion Sensation intact: Present: other (She does have hypoesthesia of the left anterolateral thigh, no hypoesthesia of the posterior compartment of the left thigh. She has a general decreased sensation to light touch distally symmetrically) Reflex and gait examination: other (Unable to assess) Mental Status Examination: Present: awake, alert, oriented to person, oriented to place, oriented to time, follows commands appropriately, answers questions appropriately, no aphasia, makes eye contact Cranial nerve examination: Present: visual smith intact - VTE Documentation of Mechanical Device: Intermittent pneumatic compression device Results - Laboratory Findings CBC and BMP: 08/07/16 05:06 08/05/16 05:50 Abnormal lab findings: Abnormal lab results RBC 3.57 M/mcL (3.82-4.97) L 08/07/16 05:06 Hgb 9.0 g/dL (11.5-15.4) L 08/07/16 05:06 Hct 29.2 % (35.3-44.9) L 08/07/16 05:06 MCV 81.8 fL (83.0-100.0) L 08/07/16 05:06 MCH 25.2 pg (28.0-33.3) L 08/07/16 05:06 MCHC 30.8 g/dL (31.6-35.5) L 08/07/16 05:06 RDW 17.2 % (11.5-14.5) H 08/07/16 05:06 PT 25.7 Seconds (9.4-12.1) H 08/08/16 04:36 Potassium 4.7 mEq/L (3.5-4.5) H 08/05/16 05:50 Glucose 128 mg/dL (70-99) H 08/05/16 05:50 POC Glucose 446 (58-89) H* 08/08/16 06:53 Iron 15 mcg/dL (50-170) L 08/05/16 09:25 % Saturation 6 % (15-50) L 08/05/16 09:25 AST 41 Units/L (5-34) H 08/02/16 18:00 Albumin 2.7 g/dL (3.5-5.0) L 08/05/16 09:25 Globulin 3.9 g/dL (2.4-3.5) H 08/02/16 18:00 Albumin/Globulin Ratio 0.7 (1.1-2.2) L 08/02/16 18:00 Prealbumin 10.0 mg/dL (16.0-38.0) L 08/05/16 09:25 Ur Specific [place] 1.029 (1.010-1.025) H 08/02/16 14:38 Urine Protein 30 mg/dL (Neg-Trace) H 08/02/16 14:38 Urine Glucose (UA) >=1000 mg/dL (Normal) H 08/02/16 14:38 Urine Ketones Trace mg/dL (Negative) H 08/02/16 14:38 Urine Bilirubin Small (Negative) H 08/02/16 14:38 Urine Microscopic WBC 3-5 per hpf (0-3) H 08/02/16 14:38 Ur Squamous Epith Cells Many per lpf (None-Few) H 08/02/16 14:38 Vancomycin Trough 8.7 mcg/mL (10-20) L 08/07/16 05:06 Consult Discharge Plan - Plan Additional Instructions: Follow with primary care physician within the next 7 days. Start Lasix 20 mg daily. Follow with neurology within the next 2 weeks. Physical therapy ordered. Monitor INR as outpatient Referrals: López Mann MD [Primary Care Provider] - (PT IS GOING TO [facility]) Prescriptions: OxyCODONE/APAP 5/325 [Percocet 5/325 MG] 1 each PO Q6HR PRN #30 tablet PRN Reason: Pain Alprazolam [Xanax 1 MG Tablet] 1 mg PO TID #21 tablet Amitriptyline [Elavil] 50 mg PO HS #30 tablet Furosemide [Lasix] 20 mg PO DAILY #30 tablet Gabapentin [Neurontin] 600 mg PO TID 30 Days Venlafaxine HCl [Effexor Xr] 75 mg PO HS #14 cap.er.24h <Mike Hinds - Last Filed: 08/08/16 12:28> Date of Encounter: 08/08/16 Time of Encounter: 12:12 Assessment and Plan (1) Left leg weakness Current Visit: Yes Status: Acute 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 Weaknesses very localized to the muscles enervated by branches of the femoral nerve. This is usually responsive to steroid medication. However she is going to be transferred to a rehabilitation facility. I will defer further treatment and management to their discretion. She will pursue further assessment through the neuromuscular clinic at [facility]. Subjective Interval history: The chart was reviewed, patient was seen and assessed independently. I agree with Dr. Rice's assessment as above. Unfortunately she has not improved after a bolus of IV steroids. CT scan does not reveal any intra-abdominal pathology that would otherwise be responsible for this left leg weakness. There is no change in her examination. Objective - Constitutional Vitals: Temp Pulse Resp BP Pulse Ox 97.4 F L 94 18 144/70 95 08/08/16 07:02 08/08/16 07:02 08/08/16 07:56 08/08/16 07:02 08/08/16 07:56 Results - Laboratory Findings CBC and BMP: 08/07/16 05:06 08/05/16 05:50 Abnormal lab findings: Abnormal lab results RBC 3.57 M/mcL (3.82-4.97) L 08/07/16 05:06 Hgb 9.0 g/dL (11.5-15.4) L 08/07/16 05:06 Hct 29.2 % (35.3-44.9) L 08/07/16 05:06 MCV 81.8 fL (83.0-100.0) L 08/07/16 05:06 MCH 25.2 pg (28.0-33.3) L 08/07/16 05:06 MCHC 30.8 g/dL (31.6-35.5) L 08/07/16 05:06 RDW 17.2 % (11.5-14.5) H 08/07/16 05:06 PT 25.7 Seconds (9.4-12.1) H 08/08/16 04:36 Potassium 4.7 mEq/L (3.5-4.5) H 08/05/16 05:50 Glucose 128 mg/dL (70-99) H 08/05/16 05:50 POC Glucose 504 (58-89) H* 08/08/16 11:08 Iron 15 mcg/dL (50-170) L 08/05/16 09:25 % Saturation 6 % (15-50) L 08/05/16 09:25 AST 41 Units/L (5-34) H 08/02/16 18:00 Albumin 2.7 g/dL (3.5-5.0) L 08/05/16 09:25 Globulin 3.9 g/dL (2.4-3.5) H 08/02/16 18:00 Albumin/Globulin Ratio 0.7 (1.1-2.2) L 08/02/16 18:00 Prealbumin 10.0 mg/dL (16.0-38.0) L 08/05/16 09:25 Ur Specific [place] 1.029 (1.010-1.025) H 08/02/16 14:38 Urine Protein 30 mg/dL (Neg-Trace) H 08/02/16 14:38 Urine Glucose (UA) >=1000 mg/dL (Normal) H 08/02/16 14:38 Urine Ketones Trace mg/dL (Negative) H 08/02/16 14:38 Urine Bilirubin Small (Negative) H 08/02/16 14:38 Urine Microscopic WBC 3-5 per hpf (0-3) H 08/02/16 14:38 Ur Squamous Epith Cells Many per lpf (None-Few) H 08/02/16 14:38 Vancomycin Trough 8.7 mcg/mL (10-20) L 08/07/16 05:06
[2016-08-08] MEDS: ALPRAZolam 1 MG TABLET PO SCH ×2 (08:36→16:09)
[2016-08-08] MEDS: Magnesium Oxide 400 MG TABLET PO SCH ×2 (08:36→16:09)
[2016-08-08] MEDS: Pantoprazole 40 MG VIAL IVP SCH (08:36)
[2016-08-08] MEDS: Sennosides/Docusate Sodium TABLET PO SCH (08:36)
[2016-08-08] MEDS: Lactobacillus 1 EACH CAP.SPRINK PO SCH (08:36)
[2016-08-08] MEDS: Cholecalciferol (D-3) 1,000 UNIT TABLET PO SCH (08:36)
[2016-08-08] MEDS: GuaiFENesin/Pseudophedrine TABLET PO SCH (08:37)
[2016-08-08] MEDS: Insulin DETEMIR 100 UNIT/ML X5UNITS SQ SCH (08:41)
[2016-08-08] MEDS: Insulin LISPRO 300 UNITS/3 ML VIAL SQ SCH ×6 (08:48→17:19)
[2016-08-08] MEDS ORDERED: Insulin Human Regular 10 UNIT in 0.9 % Sodium Chloride 10 ML IV ONE ×2 (11:37→14:39)
[2016-08-08] MEDS ORDERED: FLU VACC QS2016-17 36MOS UP/PF 0.5 ML SYRINGE IM ONE (13:27)
[2016-08-08] MEDS ORDERED: *HR* Warfarin 7.5 MG TABLET PO ONE (18:00)
== END 2016-08-08 19:15 | DRG 871 ==
LOC: EMEROO 13:00 → 2NNU 16:06 → SUATTDRO 16:06 → 2NNU 17:18 → 2ANU 08-07 18:45
PROVIDERS: ADMIT Internal Medicine; ATTEND Internal Medicine

== ENCOUNTER 2018-06-10 03:54 | Inpatient (IN) ==
[2018-06-10] MEDS ORDERED: Ondansetron 4 MG/2 ML VIAL IVP ONE ×3 (05:01→07:27)
--- NOTE | 2018-06-10 05:13 | Emergency Department Note ---
Disposition Clinical Impression: Syncope Qualifiers: Syncope type: unspecified Qualified Code(s): R55 - Syncope and collapse Nausea & vomiting Qualifiers: Vomiting type: unspecified Vomiting Intractability: non-intractable Qualified Code(s): R11.2 - Nausea with vomiting, unspecified Head contusion Qualifiers: Encounter type: initial encounter Contusion of head detail: periocular area Laterality: left Qualified Code(s): S00.12XA - Contusion of left eyelid and per iocular area, initial encounter Aspiration into airway Qualifiers: Encounter type: initial encounter Qualified Code(s): T17.908A - Unspecified foreign body in respiratory tract, part unspecified causing other injury, initia l encounter Disposition: Admitted As Inpatient Condition: Good Referrals: López Mann MD [Primary Care Provider] - Forms: ED Satisfaction Letter General Adult HPI - General Chief complaint: ED Syncope Stated complaint: fall Time Seen by Provider: 06/10/18 04:29 Source: EMS Limitations: no limitations Nursing Notes Reviewed: Yes Vital Signs Reviewed: Yes - History of Present Illness HPI Narrative: Patient's a patient's a 63-year-old female with history of A. fib s/p Ablation, COPD and DVT on Coumadin who presents the emergency department status post fall. She states she was feeling sick to her stomach and went to the bathroom. She sat down on the toilet and the next thing she remembered she was on the ground in the dining room. She states she does not remember walking from the bathroom to the dining room and she does not remember falling. She now complains of slight headache and continued nausea. She otherwise denies any fever, chills, blurred vision, abdominal pain, diarrhea. Pain Scale: 7 - Related Data Home Medications Medication Instructions Recorded Confirmed Albuterol Sulfate [Proair Hfa] 2 puff IH Q6H PRN 09/21/15 04/26/18 Atorvastatin [Lipitor] 40 mg PO HS 09/21/15 04/26/18 Omeprazole [PriLOSEC] 40 mg PO BID 09/21/15 04/26/18 Polyethylene Glycol 3350 [MiraLAX] 17 gm PO DAILY PRN 09/21/15 04/26/18 Tiotropium [Spiriva] 18 mcg IH DAILY 03/21/16 04/26/18 Warfarin [Coumadin] 5 mg PO HS 08/02/16 04/26/18 Gabapentin [Neurontin] 600 mg PO TID 03/04/17 04/26/18 Exenatide [Byetta] 10 mcg IJ BID 08/19/17 04/26/18 Insulin Glargine [Lantus] 30 unit IJ BID 08/19/17 04/26/18 ALPRAZolam [Xanax 1 MG Tablet] 1 mg PO TID PRN 01/15/18 04/26/18 Diclofenac Sodium [Voltaren] 100 gm TP BID 01/15/18 04/26/18 Gabapentin [Neurontin] 800 mg PO HS 01/15/18 04/26/18 Insulin LISPRO [Humalog Kwikpen 12 unit SQ TIDAC 01/15/18 04/26/18 U-100] Nystatin [Nystatin Suspension] 100,000 units PO BID 01/15/18 04/26/18 Ferrous Sulfate [Iron] 325 mg PO DAILY 01/27/18 04/26/18 Levomefolate/B6/B12/Algal Oil 1 cap PO BID 01/27/18 04/26/18 [Metanx Capsule] raNITIdine HCl [Zantac] 150 mg PO BID 01/27/18 04/26/18 Previous Rx's Medication Instructions Recorded Citalopram Hydrobromide [Celexa] 40 mg PO DAILY #14 06/13/16 Cyclobenzaprine [Flexeril] 10 mg PO TID #30 06/13/16 Amitriptyline [Elavil] 50 mg PO HS #30 tablet 08/08/16 Furosemide [Lasix] 20 mg PO DAILY #30 tablet 08/08/16 Venlafaxine HCl [Effexor Xr] 75 mg PO HS #14 cap.er.24h 08/08/16 HYDROcodone/Acet 5/325 mg [[place] 1 tab PO Q6H PRN #14 tab 08/19/17 5-325 mg] Doxycycline 100 mg PO BID #14 capsule 04/18/18 Allergies Allergy/AdvReac Type Severity Reaction Status Date / Time levofloxacin [From Levaquin] Allergy Hives Verified 05/24/18 16:36 Penicillins Allergy Hives Verified 05/24/18 16:36 Sulfa (Sulfonamide Allergy Rash Verified 05/24/18 16:36 Antibiotics) cephalexin [From Keflex] AdvReac Hypertensio Verified 05/24/18 16:36 n duloxetine [From Cymbalta] AdvReac Nightmare Verified 05/24/18 16:36 metformin AdvReac Nausea Verified 05/24/18 16:36 Review of Systems: As Per HPI Constitutional: Denies: fever, chills, weakness, weight change Eyes: Denies: eye pain, eye discharge, vision change ENT ED: Denies: ear pain, throat pain, dental pain, hearing loss, epistaxis, congestion, dysphagia Cardiovascular: Denies: chest pain, palpitations, dyspnea on exertion, orthopnea, syncope Respiratory: Denies: cough, dyspnea, wheezes, hemoptysis, stridor Gastrointestinal: Reports: nausea, vomiting. Denies: abdominal pain, diarrhea, constipation, hematemesis Musculoskeletal: Denies: back pain, neck pain Neurological: Reports: as per HPI, headache. Denies: weakness, numbness, paresthesias, confusion Psychiatric: Denies: anxiety, depression Past Medical History - Past Medical History Source: patient Medical history: Reports: atrial fibrillation (s/p ablation), CHF, COPD, coronary artery disease, DVT, dementia, diabetes, hyperlipidemia, hypertension, peripheral artery disease, pulmonary embolus Surgical history: Reports: cholecystectomy, hysterectomy, knee replacement Psychiatric history: Reports: anxiety, depression - Social History Smoking Status: Former smoker Smokeless Tobacco Status: No Alcohol use: Reports: none Drug use: Reports: none Physical Exam - General Limitations: no limitations General appearance: alert, in no apparent distress - Head Head exam: normocephalic - Expanded Head Exam Head exam physicial: Present: contusion (Over left brow, large golf ball sized contusion, no bony crepitus). Absent: Dugan's sign, tenderness of temporal artery, CSF rhinorrhea - Eye Eye exam: Present: PERRL, EOMI. Absent: scleral icterus, conjunctival injection - ENT ENT exam: normal exam, mucous membranes dry - Neck Neck exam: Present: normal inspection, full ROM, trachea midline - Chest Chest inspection: Present: normal inspection - Respiratory Respiratory exam: Present: normal lung sounds bilaterally. Absent: respiratory distress, wheezes, stridor - Cardiovascular Cardiovascular exam: Present: regular rate, normal rhythm, normal heart sounds - Abdominal Exam Abdominal exam: Present: soft, Non-Tender, normal bowel sounds. Absent: distention, guarding, rebound - Expanded Lower Extremity Exam Neurovascular/Tendon exam: Present: normal capillary refill - Back Exam Back exam: Present: normal inspection. Absent: tenderness - Neurological Exam Neurological exam: Present: alert, oriented X3 - Psychiatric Psychiatric exam: Present: normal affect, normal mood - Skin Skin exam: Present: warm, dry - Expanded Skin Exam Type of lesion: Present: other (small, 2mm oval ulcer overlying right anterior ro) Course - Reevaluation(s) Reevaluation #1: Patient evaluated and during time of exam the patient was sat forward to listen to posterior breath sounds at which time she started burping. She was then set backwards and upon initial abdominal exam patient began diaphoretic and unr esponsive. Asystole was noted on the ela teacher. Patient was unresponsive for approximately 10 seconds. She was sat up and stimulated to attempt return of consciousness. After a few seconds she began to bring up her vomitus and became responsive. She asked "did it happen again?" She had return of sinus rhythm at that point. Patient was cleaned up and pacing pads were placed on the patient. At that point she noted that she is DNR but does want to be shocked 1 time if indicated. Time: 05:00 Vital Signs Temperature 98 F 06/10/18 04:06 Pulse Rate 78 06/10/18 04:06 Respiratory Rate 20 06/10/18 04:06 Blood Pressure 147/63 06/10/18 04:06 O2 Sat by Pulse Oximetry 96 06/10/18 04:06 Temperature 98 F 06/10/18 04:06 Pulse Rate 79 06/10/18 06:38 Respiratory Rate 20 06/10/18 06:38 Blood Pressure 163/60 06/10/18 06:38 O2 Sat by Pulse Oximetry 92 06/10/18 06:38 Oxygen Delivery Oxygen Delivery Nasal Cannula Medical Decision Making - [facility] Narrative Medical decision making narrative: Patient's a 63-year-old female presenting status post fall. Initial workup included CT head and neck as she is on Coumadin due to DVT. Patient has had several episodes of syncope at home. In the emergency department she had a w itnessed unresponsive. During which time she went into asystole. While returning from her unresponsive states she vomited, likely causing aspiration pneumonia. Since that time she has had increased oxygen requirements. CT head and neck are unremarkable for acute fracture or hemorrhage. Discussed the case with Dr. Coates who will accept the patient. Discussed the case with water reclamation systems operator search engine optimization consultant who agrees to consult on the patient. Patient agrees with and understands course of treatment plan including plan for admission. All questions answered. - Medical Records Medical records reviewed: Yes I reviewed the patient's medical records. - Lab Data Lab results reviewed: Yes I reviewed the patient's lab results. Result diagrams: 06/10/18 05:15 06/10/18 05:15 Lab Results 06/10/18 06/10/18 06/10/18 Range/Units 05:15 05:15 05:15 WBC 11.2 H (4.3-11.1) K/mcL RBC 4.64 (3.82-4.97) M/mcL Hgb 12.5 (11.5-15.4) g/dL Hct 39.1 (35.3-44.9) % MCV 84.3 (83.0-100.0) fL MCH 26.9 L (28.0-33.3) pg MCHC 32.0 (31.6-35.5) g/dL RDW 13.9 (11.5-14.5) % Plt Count 229 (140-400) K/mcL MPV 10.1 (9.4-12.4) fL Immature Gran % 0.3 (0-4) % Seg Neutrophils % 80.1 % Lymphocytes % 12.4 % Monocytes % 6.4 % Eosinophils % 0.6 % Basophils % 0.2 % Neutrophils # 9.0 H (1.6-8.9) K/mcL Lymphocytes # 1.4 (0.6-4.6) K/mcL Monocytes # 0.7 (0.0-1.3) K/mcL Eosinophils # 0.1 (0.0-0.6) K/mcL Basophils # 0.0 (0.0-0.2) K/mcL PT 20.9 H (9.4-12.1) Seconds INR 1.9 Sodium 134 L (136-145) mEq/L Potassium 4.7 (3.5-5.1) mEq/L Chloride 99 (98-107) mEq/L Carbon Dioxide 25 (23-29) mEq/L BUN 16 (8-23) mg/dL Creatinine 1.02 (0.60-1.20) mg/dL Est GFR ( Amer) > 60 (> 60) Est GFR (Non-Af Amer) 55 L (> 60) BUN/Creatinine Ratio 16 (6-26) Glucose 496 H (70-105) mg/dL Calculated Osmolality 301 H (280-300) Calcium 9.1 (8.6-10.3) mg/dL Total Bilirubin 0.4 (0.3-1.0) mg/dL AST 23 (13-39) Units/L ALT 26 (7-52) Units/L Alkaline Phosphatase 100 (34-104) Units/L Serum Total Protein 7.0 (6.4-8.9) g/dL Albumin 4.0 (3.5-5.7) g/dL Globulin 3.0 (2.4-3.5) g/dL Albumin/Globulin Ratio 1.3 (1.1-2.2) - Radiology Data Radiology results reviewed: Yes I reviewed the patient's radiology results. - EKG Data EKG #1 EKG attestation: Yes I reviewed and interpreted this EKG. EKG results narrative: Normal sinus rhythm rate of 87. VA 123, QRS 79, QT 361, QTC 405. No evidence of ST elevation. Normal axis.
[2018-06-10 05:28] LABS: Basophils % 0.2 %; Eosinophils # 0.1 K/mcL (0.0-0.6); Eosinophils % 0.6 %; Hematocrit 39.1 % (35.3-44.9); Hemoglobin 12.5 g/dL (11.5-15.4); Immature Granulocytes % 0.3 % (0-4); Lymphocytes # 1.4 K/mcL (0.6-4.6); Lymphocytes % 12.4 %; Mean Corpuscular Hemoglobin 26.9 pg (28.0-33.3); Mean Corpuscular Volume 84.3 fL (83.0-100.0); Mean Platelet Volume 10.1 fL (9.4-12.4); Monocytes # 0.7 K/mcL (0.0-1.3); Monocytes % 6.4 %; Platelet Count 229 K/mcL (140-400); Red Blood Count 4.64 M/mcL (3.82-4.97); Red Cell Distribution Width 13.9 % (11.5-14.5); Segmented Neutrophils % 80.1 %
[2018-06-10 05:35] LABS: INR 1.9; Prothrombin Time 20.9 Seconds (9.4-12.1)
[2018-06-10 05:49] LABS: Alanine Aminotransferase 26 Units/L (7-52); Albumin/Globulin Ratio 1.3 (1.1-2.2); Alkaline Phosphatase 100 Units/L (34-104); Aspartate Amino Transferase 23 Units/L (13-39); BUN/Creatinine Ratio 16 (6-26); Bilirubin,Total 0.4 mg/dL (0.3-1.0); Blood Urea Nitrogen 16 mg/dL (8-23); Calcium 9.1 mg/dL (8.6-10.3); Carbon Dioxide 25 mEq/L (23-29); Chloride 99 mEq/L (98-107); Glucose 496 mg/dL (70-105); Osmolality,Calculated 301 (280-300); Potassium 4.7 mEq/L (3.5-5.1); Sodium 134 mEq/L (136-145); eGFR For Non-African Americans 55 (> 60)
[2018-06-10] MEDS ORDERED: 0.9 % Sodium Chloride 1,000 ML IVC ONE (05:50)
--- NOTE | 2018-06-10 07:38 | Emergency Department Note ---
Disposition Clinical Impression: Sinus pause Syncope Qualifiers: Syncope type: unspecified Qualified Code(s): R55 - Syncope and collapse Nausea & vomiting Qualifiers: Vomiting type: unspecified Vomiting Intractability: non-intractable Qualified Code(s): R11.2 - Nausea with vomiting, unspecified Head contusion Qualifiers: Encounter type: initial encounter Contusion of head detail: periocular area Laterality: left Qualified Code(s): S00.12XA - Contusion of left eyelid and periocular area, initial encounter Aspiration into airway Qualifiers: Encounter type: initial encounter Qualified Code(s): T17.908A - Unspecified foreign body in respiratory tract, part unspecified causing other injury, initial encounter Disposition: Admitted As Inpatient Condition: Good Referrals: López Mann MD [Primary Care Provider] - Forms: ED Satisfaction Letter General Adult HPI - General Chief complaint: ED Syncope Stated complaint: fall Time Seen by Provider: 06/10/18 04:29 Source: EMS Limitations: no limitations Nursing Notes Reviewed: Yes Vital Signs Reviewed: Yes - History of Present Illness Pain Scale: 7 - Related Data Home Medications Medication Instructions Recorded Confirmed Albuterol Sulfate [Proair Hfa] 2 puff IH Q6H PRN 09/21/15 04/26/18 Atorvastatin [Lipitor] 40 mg PO HS 09/21/15 04/26/18 Omeprazole [PriLOSEC] 40 mg PO BID 09/21/15 04/26/18 Polyethylene Glycol 3350 [MiraLAX] 17 gm PO DAILY PRN 09/21/15 04/26/18 Tiotropium [Spiriva] 18 mcg IH DAILY 03/21/16 04/26/18 Warfarin [Coumadin] 5 mg PO HS 08/02/16 04/26/18 Gabapentin [Neurontin] 600 mg PO TID 03/04/17 04/26/18 Exenatide [Byetta] 10 mcg IJ BID 08/19/17 04/26/18 Insulin Glargine [Lantus] 30 unit IJ BID 08/19/17 04/26/18 ALPRAZolam [Xanax 1 MG Tablet] 1 mg PO TID PRN 01/15/18 04/26/18 Diclofenac Sodium [Voltaren] 100 gm TP BID 01/15/18 04/26/18 Gabapentin [Neurontin] 800 mg PO HS 01/15/18 04/26/18 Insulin LISPRO [Humalog Kwikpen 12 unit SQ TIDAC 01/15/18 04/26/18 U-100] Nystatin [Nystatin Suspension] 100,000 units PO BID 01/15/18 04/26/18 Ferrous Sulfate [Iron] 325 mg PO DAILY 01/27/18 04/26/18 Levomefolate/B6/B12/Algal Oil 1 cap PO BID 01/27/18 04/26/18 [Metanx Capsule] raNITIdine HCl [Zantac] 150 mg PO BID 01/27/18 04/26/18 Previous Rx's Medication Instructions Recorded Citalopram Hydrobromide [Celexa] 40 mg PO DAILY #14 06/13/16 Cyclobenzaprine [Flexeril] 10 mg PO TID #30 06/13/16 Amitriptyline [Elavil] 50 mg PO HS #30 tablet 08/08/16 Furosemide [Lasix] 20 mg PO DAILY #30 tablet 08/08/16 Venlafaxine HCl [Effexor Xr] 75 mg PO HS #14 cap.er.24h 08/08/16 HYDROcodone/Acet 5/325 mg [[place] 1 tab PO Q6H PRN #14 tab 08/19/17 5-325 mg] Doxycycline 100 mg PO BID #14 capsule 04/18/18 Allergies Allergy/AdvReac Type Severity Reaction Status Date / Time levofloxacin [From Levaquin] Allergy Hives Verified 05/24/18 16:36 Penicillins Allergy Hives Verified 05/24/18 16:36 Sulfa (Sulfonamide Allergy Rash Verified 05/24/18 16:36 Antibiotics) cephalexin [From Keflex] AdvReac Hypertensio Verified 05/24/18 16:36 n duloxetine [From Cymbalta] AdvReac Nightmare Verified 05/24/18 16:36 metformin AdvReac Nausea Verified 05/24/18 16:36 Constitutional: Denies: fever, chills, weakness, weight change Eyes: Denies: eye pain, eye discharge, vision change ENT ED: Denies: ear pain, throat pain, dental pain, hearing loss, epistaxis, congestion, dysphagia Cardiovascular: Denies: chest pain, palpitations, dyspnea on exertion, orthopnea, syncope Respiratory: Denies: cough, dyspnea, wheezes, hemoptysis, stridor Gastrointestinal: Reports: nausea, vomiting. Denies: abdominal pain, diarrhea, constipation, hematemesis Musculoskeletal: Denies: back pain, neck pain Neurological: Reports: as per HPI, headache. Denies: weakness, numbness, pare sthesias, confusion Psychiatric: Denies: anxiety, depression Past Medical History - Past Medical History Medical history: Reports: atrial fibrillation (s/p ablation), CHF, COPD, coronary artery disease, DVT, dementia, diabetes, hyperlipidemia, hypertension, peripheral artery disease, pulmonary embolus Surgical history: Reports: cholecystectomy, hysterectomy, knee replacement Psychiatric history: Reports: anxiety, depression - Social History Smoking Status: Former smoker Smokeless Tobacco Status: No Alcohol use: Reports: none Drug use: Reports: none Physical Exam - General Limitations: no limitations General appearance: alert, in no apparent distress Course Vital Signs Temperature 98 F 06/10/18 04:06 Pulse Rate 78 06/10/18 04:06 Respiratory Rate 20 06/10/18 04:06 Blood Pressure 147/63 06/10/18 04:06 O2 Sat by Pulse Oximetry 96 06/10/18 04:06 Temperature 98 F 06/10/18 04:06 Pulse Rate 79 06/10/18 06:38 Respiratory Rate 20 06/10/18 06:38 Blood Pressure 163/60 06/10/18 06:38 O2 Sat by Pulse Oximetry 92 06/10/18 06:38 Oxygen Delivery Oxygen Delivery Nasal Cannula Medical Decision Making - Medical Records Medical records reviewed: Yes I reviewed the patient's medical records. - Lab Data Lab results reviewed: Yes I reviewed the patient's lab results. Result diagrams: 06/10/18 05:15 06/10/18 05:15 Lab Results 06/10/18 06/10/18 06/10/18 Range/Units 05:15 05:15 05:15 WBC 11.2 H (4.3-11.1) K/mcL RBC 4.64 (3.82-4.97) M/mcL Hgb 12.5 (11.5-15.4) g/dL Hct 39.1 (35.3-44.9) % MCV 84.3 (83.0-100.0) fL MCH 26.9 L (28.0-33.3) pg MCHC 32.0 (31.6-35.5) g/dL RDW 13.9 (11.5-14.5) % Plt Count 229 (140-400) K/mcL MPV 10.1 (9.4-12.4) fL Immature Gran % 0.3 (0-4) % Seg Neutrophils % 80.1 % Lymphocytes % 12.4 % Monocytes % 6.4 % Eosinophils % 0.6 % Basophils % 0.2 % Neutrophils # 9.0 H (1.6-8.9) K/mcL Lymphocytes # 1.4 (0.6-4.6) K/mcL Monocytes # 0.7 (0.0-1.3) K/mcL Eosinophils # 0.1 (0.0-0.6) K/mcL Basophils # 0.0 (0.0-0.2) K/mcL PT 20.9 H (9.4-12.1) Seconds INR 1.9 Sodium 134 L (136-145) mEq/L Potassium 4.7 (3.5-5.1) mEq/L Chloride 99 (98-107) mEq/L Carbon Dioxide 25 (23-29) mEq/L BUN 16 (8-23) mg/dL Creatinine 1.02 (0.60-1.20) mg/dL Est GFR ( Amer) > 60 (> 60) Est GFR (Non-Af Amer) 55 L (> 60) BUN/Creatinine Ratio 16 (6-26) Glucose 496 H (70-105) mg/dL Calculated Osmolality 301 H (280-300) Calcium 9.1 (8.6-10.3) mg/dL Total Bilirubin 0.4 (0.3-1.0) mg/dL AST 23 (13-39) Units/L ALT 26 (7-52) Units/L Alkaline Phosphatase 100 (34-104) Units/L Serum Total Protein 7.0 (6.4-8.9) g/dL Albumin 4.0 (3.5-5.7) g/dL Globulin 3.0 (2.4-3.5) g/dL Albumin/Globulin Ratio 1.3 (1.1-2.2) - Radiology Data Radiology results reviewed: Yes I reviewed the patient's radiology results. Head CT 06/10/18 04:15 IMPRESSION: No acute intracranial abnormality. Left forehead, periorbital hematoma. No underlying fracture identified. D/ / 06/10/2018 07:22:36 David Patricia MD / drularon Interpreting Provider: David Patricia MD Cervical Spine CT 06/10/18 04:16 IMPRESSION: No acute abnormality of the cervical spine. D/ / David Patricia MD / David Patricia MD Interpreting Provider: David Patricia MD Chest X-Ray 06/10/18 05:05 IMPRESSION: Increased bibasilar opacity slightly asymmetric to the right. Findings accentuated by low lung volumes. Superimposed atelectasis or developing pneumonia cannot be excluded. D/ / David Patricia MD / David Patricia MD Interpreting Provider: David Patricia MD - EKG Data EKG #1 EKG attestation: Yes I reviewed and interpreted this EKG. EKG results narrative: EKG shows a normal sinus rhythm with ventricular rate is 79. No acute ST se gment elevation or depression. No arrhythmia or ectopy. Critical Care Time Critical Care Time: Yes Total Critical Care Time: 35 Attestation: Critical care performed: Time is exclusive of separately billable procedures. Time includes: direct patient care, patient reassessment, coordination of patient care, interpretation of data (laboratory data, radiology data, and respiratory data), review of patient's medical records, medical consultation and documentation of patient care. Procedures included in critical care time: Procedures excluded from critical care time: Attestation Statement - Attestation Attestation: IMarco MD, personally evaluated this patient and discussed their management with the resident physician. I reviewed the resident's note and agree with the documented findings, medical decision making, and plan of care. 63-year-old female presents to the emergency department with a complaint that she got up during the night to go the bathroom. When she stood up from the toilet she became very nauseated and then passed out and fell hitting her head. Patient is on Coumadin. She complains of pain in the left forehead where she hit her head. She denies neck pain. No headache. No other pain or injury from the fall. She states that she has frequent episodes of passing out and that usually occurs when she gets nauseated. She denies any chest pain or shortness of breath. On examination patient is a well-developed obese female in no acute distress. She is alert and oriented 3. There is no cyanosis or diaphoresis. Patient has a large hematoma to the left forehead above the eye with some mild left periorbital tenderness. Neck is supple and nontender. Breath sounds are decreased but equal bilaterally with no rales or wheezes noted. Heart regular rate and rhythm. Abdomen is soft with present bowel sounds. Some mild diffuse tenderness. EKG shows a normal sinus rhythm with no acute changes. CT of the head and cervical spine was negative other than the left forehead hematoma. Chest x-ray showed no definite acute abnormality. Labs reviewed. Patient had a witnessed episode here in the emergency department where she became nauseated and felt like she was going to vomit. She then had a sinus pulse and went into asystole and became unresponsive. This lasted about 810 seconds and then patient started waking up and vomited. She had some coughing and choking during the vomiting episode and appeared to have aspirated. After the episode she did drop her oxygen saturations into the mid 80s and prior to the episode they have been in the mid 90s. She was placed on oxygen by nasal cannula. The hospitalist, Dr. Coates, was consulted and accepted admission of the patient. Dr. Elaine also discussed the case with cardiology who agreed to consult on the patient.
[2018-06-10] MEDS ORDERED: *HR* Dextrose 50 % in Water (Syg) 50 ML SYRINGE IVP PRN (08:00)
[2018-06-10] MEDS ORDERED: Dextrose Gel 15 GM/37.5 ML TUBE PO PRN ×2 (08:00)
[2018-06-10] MEDS ORDERED: D5% in Water 1,000 ML IVC PRN (08:00)
[2018-06-10] MEDS ORDERED: Naloxone 0.4 MG/ML INJ IVP PRN (08:11)
[2018-06-10] MEDS ORDERED: 0.9 % Sodium Chloride 1,000 ML IVC SCH ×2 (08:15→14:45)
[2018-06-10] MEDS ORDERED: cefTRIAXone 2,000 MG in Water for inj. (sterile) 20 ML 20 ML IVPB SCH (09:00)
[2018-06-10 09:06] LABS: Basophils % 0.2 %; Eosinophils % 0.1 %; Hematocrit 40.2 % (35.3-44.9); Hemoglobin 12.7 g/dL (11.5-15.4); Immature Granulocytes % 0.3 % (0-4); Lymphocytes # 0.7 K/mcL (0.6-4.6); Lymphocytes % 5.9 %; Mean Corpuscular HGB Conc 31.6 g/dL (31.6-35.5); Mean Corpuscular Volume 85.5 fL (83.0-100.0); Mean Platelet Volume 10.1 fL (9.4-12.4); Monocytes # 0.4 K/mcL (0.0-1.3); Monocytes % 3.5 %; Neutrophils # 10.5 K/mcL (1.6-8.9); Platelet Count 214 K/mcL (140-400); Red Cell Distribution Width 13.7 % (11.5-14.5)
--- NOTE | 2018-06-10 09:25 | Cardiology Consult Note ---
<Erin Stahl Donta - Last Filed: 06/10/18 10:30> Date of Encounter: 06/10/18 Time of Encounter: 09:00 Assessment and Plan (1) Syncope Current Visit: Yes Status: Acute Syncopal episode secondary to sinus pause (>10 seconds in ED) in the setting of vomiting; suspect vasovagal. Reports similar episodes in the past with vomiting, additionally, presented to the ED this AM after syncope with injury to left periorbital hematoma. Hx of PAF, patient has not been on AV zena blocking agents recently. Reports metoprolol and sotalol d/c'ed after Afib ablation in 2016. Troponin negative, no acute ST/T wave abnormalities noted. TSH normal, Mg 1. 4--will replace now. Check TTE to evaluate structure and function. Reviewed telemetry strips with Dr. Weaver, recommend EP consult for PPM evaluation given >10 second pause. Of note, INR 1.9 (on Coumadin for DVT/PE); will further discuss with EP. Qualifiers: Syncope type: vasovagal syncope Qualified Code(s): R55 - Syncope and collapse (2) PAF (paroxysmal atrial fibrillation) Current Visit: Yes Status: Acute Hx of PAF. Per reports, failed multiple antiarrhythmics in the past. s/p Afib ablation at [facility] in 2016--sotalol and metoprolol stopped shortly thereafter. Currently maintaining NSR, not on AV zena blocking agents. Of note, reports intermittent palpitations occurring every 2-3 weeks; episodes last 10-15 minutes, resolve without intervention. On Coumadin for DVT/PE. (3) DVT (deep venous thrombosis) Current Visit: Yes Status: Acute Hx of chronic LLE DVT on Coumadin for AC. Also with hx of PE, diagnosed 3 years ago. PCP monitors INR, 1.9 today. Qualifiers: DVT location: lower extremity Affected thrombotic vein of extremity: unspecified vein of extremity Chronicity: chronic Laterality: left Qualified Code(s): I82.502 - Chronic embolism and thrombosis of unspecified deep veins of left lower extremity (4) Cough Current Visit: Yes Status: Acute Reports cough that developed this AM after episodes of vomiting. CXR: possible PNA. Recommend f/u imaging in AM due to concern for aspiration. Mgmt per primary team. Discussion w patient/family: The assessment and plan as outlined above was discussed with the patient and/or family members who expressed understanding and agreement. All questions were answered. Thank you for involving us in the care of your patient. Please call with any questions. The patient will be discussed and reviewed with Dr. Weaver; changes to be made accordingly. History of Present Illness Consult date: 06/10/18 Requesting physician: Leigh Ann Morgan Consult reason: Syncope Chief complaint: Nausea, fall History of present illness: Ms. Patten is a 63 year old female with PMHx significant of PAF s/p AFib ablation (2016, at [facility]), HTN, HLD, PE/DVT on Coumadin who presented to the ED via EMS after syncopal episode in the setting of vomiting. Unfortunately, sustained injury to her head (large left perioribital hematoma) which prompted ED admission. She reports she woke up early this AM around 2:45 AM and was sick to her stomach, reports vomiting with syncopal episode shortly thereafter, she reports alerting [facility]--when EMS arrived large hematoma was noted which prompted ED evaluation. Of note, reports similar episodes in the past with vomiting. Additional syncopal episode occurred in the ED with vomiting, >10 second pause noted on ekg monitor. Cardiology consulted for further recommendations. Past Med Surg Social Fam HX - Past Medical History Attestation: Yes The following information was validated with the patient. Source: unable to obtain Medical history: atrial fibrillation, COPD, coronary artery disease, DVT, dementia, diabetes, hyperlipidemia, hypertension, peripheral artery disease, pulmonary embolus Additional medical history: chronic DVT behind left knee Psychiatric history: anxiety, depression - Past Surgical History Surgical History: cholecystectomy, hysterectomy, knee replacement Additional surgical history: cardiac ablation - Social History Smoking Status: Former smoker Smokeless Tobacco Status: No Alcohol use: none Drug use: none - Family History Mother Adopted: No Family Member Ethnicity: Non- Living Status: Hx Family Cardiac Disorders: Yes Hx Family Respiratory Disorders: Yes Hx Family Cancer: No Hx Family GI Disorders: No Hx Family Endocrine Disorder: Yes Hx Family Neuromuscular Disorders: No Hx Family Neurologic Disorders: No Hx Family HEENT Disorders: No Hx Family Autoimmune Disorders: No Father Adopted: No Family Member Ethnicity: Non- Living Status: Hx Family Cardiac Disorders: Yes Hx Family Respiratory Disorders: Yes Hx Family Cancer: No Hx Family GI Disorders: No Hx Family Endocrine Disorder: Yes Hx Family Neuromuscular Disorders: No Hx Family Neurologic Disorders: No Hx Family HEENT Disorders: No Hx Family Autoimmune Disorders: No Medications and Allergies Albuterol Sulfate [Proair Hfa] 2 puff IH Q6H PRN 09/21/15 [History] Atorvastatin [Lipitor] 40 mg PO HS 09/21/15 [History] Polyethylene Glycol 3350 [MiraLAX] 17 gm PO DAILY PRN 09/21/15 [History] Tiotropium [Spiriva] 18 mcg IH DAILY 03/21/16 [History] Cyclobenzaprine [Flexeril] 10 mg PO TID #30 06/13/16 [Rx] Warfarin [Coumadin] 5 mg PO HS 08/02/16 [History] Amitriptyline [Elavil] 50 mg PO HS #30 tablet 08/08/16 [Rx] Furosemide [Lasix] 20 mg PO DAILY #30 tablet 08/08/16 [Rx] Venlafaxine HCl [Effexor Xr] 75 mg PO HS #14 cap.er.24h 08/08/16 [Rx] Gabapentin [Neurontin] 600 mg PO TID 03/04/17 [History] Exenatide [Byetta] 10 mcg SQ BID 08/19/17 [History] Insulin Glargine [Lantus] 30 unit SQ HS 08/19/17 [History] ALPRAZolam [Xanax 1 MG Tablet] 1 mg PO TID PRN 01/15/18 [History] Diclofenac Sodium [Voltaren] 1 appl TP BID 01/15/18 [History] Insulin LISPRO [Humalog Kwikpen U-100] 12 unit SQ TIDAC 01/15/18 [History] Nystatin [Nystatin Suspension] 100,000 units PO BID 01/15/18 [History] Ferrous Sulfate [Iron] 325 mg PO DAILY 01/27/18 [History] raNITIdine HCl [Zantac] 150 mg PO BID 01/27/18 [History] Citalopram Hydrobromide [Citalopram HBr] 20 mg PO DAILY 06/10/18 [History] Omeprazole [PriLOSEC] 40 mg PO BID 06/10/18 [History] Allergy/AdvReac Type Severity Reaction Status Date / Time levofloxacin [From Levaquin] Allergy Hives Verified 06/10/18 08:22 Penicillins Allergy Hives Verified 06/10/18 08:22 Sulfa (Sulfonamide Allergy Rash Verified 06/10/18 08:22 Antibiotics) cephalexin [From Keflex] AdvReac Hypertensio Verified 06/10/18 08:22 n duloxetine [From Cymbalta] AdvReac Nightmare Verified 06/10/18 08:22 metformin AdvReac Nausea Verified 06/10/18 08:22 All Systems Review: The remainder of the systems were reviewed and are negative - Cardiovascular Cardiovascular: as per HPI Physical Examination Vital Signs, Last 4 Hours Pulse Resp BP Pulse Ox 06/10/18 07:36 79 24 151/80 93 06/10/18 06:38 79 20 163/60 92 06/10/18 05:35 84 18 185/63 91 General: Conversant, No Apparent Distress HEENT: Other (left periorbital hematoma) Cardiac: Reg Rate and Rhythm, Normal S1 and S2 Lungs: Other (Bilateral coarse breath sounds bases) Neuro: Alert and responsive Abdomen: Soft Skin: Other (RLE non-healing wound, wrapped in kerlix) Musculoskeletal: No Chest Wall Tenderness Extremities: No Edema, Normal Pulses Results 06/10/18 08:51 06/10/18 05:15 Lab Results 06/10/18 06/10/18 06/10/18 05:15 05:15 05:15 WBC 11.2 H Hgb 12.5 Hct 39.1 Plt Count 229 INR 1.9 Sodium 134 L Potassium 4.7 Chloride 99 Carbon Dioxide 25 BUN 16 Creatinine 1.02 Glucose 496 H Calcium 9.1 Total Bilirubin 0.4 AST 23 ALT 26 Alkaline Phosphatase 100 B-Natriuretic Peptide 06/10/18 06/10/18 08:51 08:51 WBC 11.6 H Hgb 12.7 Hct 40.2 Plt Count 214 INR Sodium Potassium Chloride Carbon Dioxide BUN Creatinine Glucose Calcium Total Bilirubin AST ALT Alkaline Phosphatase B-Natriuretic Peptide 51 Active Medications Acetaminophen (Tylenol) 650 mg PO Q4HR PRN PRN Reason: Pain Stop: 12/10/18 08:17 Atorvastatin Calcium (Lipitor) 40 mg PO HS EVA Stop: 12/10/18 21:01 Atropine Sulfate (Atropine) 0.5 mg IVP ONCE PRN PRN Reason: Bradycardia Stop: 12/10/18 09:51 Dextrose/Water (Dextrose 50% (Syg)) 25 ml IVP AD PRN PRN Reason: Hypoglycemia Stop: 12/10/18 08:01 Glucagon (Glucagen) 1 mg IM ONCE PRN PRN Reason: Hypoglycemia Stop: 12/10/18 08:01 Glucose (Gluctose) 15 gm PO ONCE PRN PRN Reason: Hypoglycemia Stop: 12/10/18 08:01 Glucose (Gluctose) 30 gm PO ONCE PRN PRN Reason: Hypoglycemia Stop: 12/10/18 08:01 Dextrose (Dextrose 5%) 1,000 mls @ 100 mls/hr IVC .Q10H PRN PRN Reason: HYPOGLYCEMIA Stop: 12/10/18 08:01 Sodium Chloride (0.9 % Sodium Chloride) 1,000 mls @ 75 mls/hr IVC .[id number] EVA Stop: 12/10/18 08:16 Doxycycline Hyclate 100 mg/ (Sodium Chloride) 100 mls @ 100 mls/hr IVPB Q12H EVA Stop: 12/10/18 09:01 Ceftriaxone Sodium 2,000 mg/ (Sterile Water) 20 mls @ 600 mls/hr IVP Q24H EVA Stop: 12/10/18 09:01 Promethazine HCl 12.5 mg/ (Sodium Chloride) 50.5 mls @ 204 mls/hr IVPB Q8HR PRN PRN Reason: Nausea And Vomiting Stop: 12/10/18 09:53 Insulin Detemir (Levemir) 30 unit SQ HS EVA Stop: 12/10/18 21:01 Insulin Human Lispro (Humalog) 0 units SQ Q6HR EVA; Protocol Stop: 12/10/18 12:01 Naloxone HCl (Narcan) 0.4 mg IVP Q2MIN PRN PRN Reason: SEE COMMENTS Stop: 12/10/18 08:12 Omeprazole (Prilosec) 40 mg PO BIDAC EVA Stop: 12/10/18 09:[address] 06/10/18 04:15 IMPRESSION: No acute intracranial abnormality. Left forehead, periorbital hematoma. No underlying fracture identified. D/ / 06/10/2018 07:22:36 David Patricia MD / jose Interpreting Provider: David Patricia MD Cervical Spine CT 06/10/18 04:16 IMPRESSION: No acute abnormality of the cervical spine. D/ / David Patricia MD / David Patricia MD Interpreting Provider: David Patricia MD Chest X-Ray 06/10/18 05:05 IMPRESSION: Increased bibasilar opacity slightly asymmetric to the right. Findings accentuated by low lung volumes. Superimposed atelectasis or developing pneumonia cannot be excluded. D/ / David Patricia MD / David Patricia MD Interpreting Provider: David Patricia MD - Imaging and Cardiology Echo: pending - EKG Interpretation EKG results cardiology: personally reviewed Consult Discharge Plan - Plan Referrals: López Mann MD [Primary Care Provider] - <Rosa Weaver - Last Filed: 06/10/18 18:03> Date of Encounter: 06/10/18 - Attending Attestation I examined this patient and my medical decision-making was reviewed with the ACQUISITION ASSOCIATE. I agree with the documented findings, disposition and treatment plan as described. Ms. Patten presented with a syncopal episode in setting of vomiting. Reports similar episodes in the past. AAOX3 in NAD at the bedside Hemodynamically stable No concerning cardiac murmur, legs wrapped Rhythm reviewed - ~ 10 second pause Echo pending Mag being repleted TSH normal Troponin negative without acute ECG findings Impression: 1. Syncope: History suggest a vagal etiology. However, patient fell and hit her head while on coumadin due to 10 second pause. EP consulted to consider pacemaker placement. 2. PAF: Maintaining NSR not on AVN blockers. On coumadin for DVT/PE. Assessment and Plan Discussion w patient/family: The assessment and plan as outlined above was discussed with the patient and/or family members who expressed understanding and agreement. All questions were answered. Thank you for involving us in the care of your patient. Please call with any questions. History of Present Illness History of present illness: Ms. Patten is a 63 year old female All Systems Review: The remainder of the systems were reviewed and are negative Physical Examination Vital Signs, Last 4 Hours Temp Pulse Resp BP Pulse Ox 06/10/18 16:04 99.0 F 06/10/18 15:30 86 22 159/73 95 06/10/18 14:30 91 21 165/86 97 Results 06/10/18 08:51 06/10/18 05:15 Lab Results 06/10/18 06/10/18 06/10/18 05:15 05:15 05:15 WBC 11.2 H Hgb 12.5 Hct 39.1 Plt Count 229 INR 1.9 Sodium 134 L Potassium 4.7 Chloride 99 Carbon Dioxide 25 BUN 16 Creatinine 1.02 Glucose 496 H Calcium 9.1 Magnesium Total Bilirubin 0.4 AST 23 ALT 26 Alkaline Phosphatase 100 Troponin I B-Natriuretic Peptide TSH 06/10/18 06/10/18 06/10/18 08:51 08:51 08:51 WBC 11.6 H Hgb 12.7 Hct 40.2 Plt Count 214 INR Sodium Potassium Chloride Carbon Dioxide BUN Creatinine Glucose Calcium Magnesium 1.4 L Total Bilirubin AST ALT Alkaline Phosphatase Troponin I < 0.03 B-Natriuretic Peptide 51 TSH 1.573
--- NOTE | 2018-06-10 09:31 | Internal Med History&Physical ---
Date of Encounter: 06/10/18 Time of Encounter: 09:18 Internal Medicine - H&P: HPI Chief complaint: Syncope and collapse Admitted From: Home Plans for Post Hospital Care: Home History of present illness: Ms. Patten is a 63 year old female with history of atrial fibrillation status post ablation, DVT on Coumadin presented to the emergency department with syncope and collapse. As per patient she was at her usual state of health and got up to use the restroom and the next thing that she remembers is that she was on the floor of her bathroom. She has life alert though she pressed the button and they sent the EMS for further evaluation. When she became conscious again she developed a severe headache located in her for head however she did recall the events prior to her losing consciousness and was able to speak to the life alert new accounts banking representative about what happened prior to her syncope and collapse. She reports that she was urinating in the restroom and denies any straining, palpitations, chest pain, vision loss, headache prior to her syncope and collapse. He denies previous similar episodes. She laid on the floor until EMS arrived they they tried to pick her up and she reports that she had another epis ode where she lost consciousness but quickly regained consciousness again. She was brought to the emergency department where she was complaining of nausea and vomited once and as per the ED physicians she had a long cause on telemetry EKG was obtained which showed a positive greater than 10 seconds. She reports that she has never had any symptoms like this, denies recent falls, recent head traumas, recent chest trauma, was never told that she will need a pacemaker. Her only difficulty with her heart was her atrial fibrillation which was ablated at [facility]. She denies fever, chills, palpitations, shortness of breath, vision loss, nausea, vomiting, diarrhea, loss of function to her extremities, numbness or tingling of her extremities, slurred speech. as per ED documentation "She was then set backwards and upon initial abdominal exam patient began diaphoretic and unresponsive. Asystole was noted on the gang pusher. Patient was unresponsive for approximately 10 seconds. She was sat up and stimulated to attempt return of consciousness. After a few seconds she began to bring up her vomitus and became responsive." Past Med Surg Social Fam HX - Past Medical History Medical history: atrial fibrillation (s/p ablation), CHF, COPD, coronary artery disease, DVT, dementia, diabetes, hyperlipidemia, hypertension, peripheral artery disease, pulmonary embolus Additional medical history: stasis ulcers Psychiatric history: anxiety, depression - Past Surgical History Surgical History: cholecystectomy, hysterectomy, knee replacement Additional surgical history: [place] filter. skin graft R leg. CT B/L - Social History Smoking Status: Former smoker Smokeless Tobacco Status: No Alcohol use: none Drug use: none - Family History Mother Adopted: No Family Member Ethnicity: Non- Living Status: Hx Family Cardiac Disorders: Yes Hx Family Respiratory Disorders: Yes Hx Family Cancer: No Hx Family GI Disorders: No Hx Family Endocrine Disorder: Yes Hx Family Neuromuscular Disorders: No Hx Family Neurologic Disorders: No Hx Family HEENT Disorders: No Hx Family Autoimmune Disorders: No Father Adopted: No Family Member Ethnicity: Non- Living Status: Hx Family Cardiac Disorders: Yes Hx Family Respiratory Disorders: Yes Hx Family Cancer: No Hx Family GI Disorders: No Hx Family Endocrine Disorder: Yes Hx Family Neuromuscular Disorders: No Hx Family Neurologic Disorders: No Hx Family HEENT Disorders: No Hx Family Autoimmune Disorders: No Internal Medicine - H&P: Meds Albuterol Sulfate [Proair Hfa] 2 puff IH Q6H PRN 09/21/15 [History] Atorvastatin [Lipitor] 40 mg PO HS 09/21/15 [History] Polyethylene Glycol 3350 [MiraLAX] 17 gm PO DAILY PRN 09/21/15 [History] Tiotropium [Spiriva] 18 mcg IH DAILY 03/21/16 [History] Cyclobenzaprine [Flexeril] 10 mg PO TID #30 06/13/16 [Rx] Warfarin [Coumadin] 5 mg PO HS 08/02/16 [History] Amitriptyline [Elavil] 50 mg PO HS #30 tablet 08/08/16 [Rx] Furosemide [Lasix] 20 mg PO DAILY #30 tablet 08/08/16 [Rx] Venlafaxine HCl [Effexor Xr] 75 mg PO HS #14 cap.er.24h 08/08/16 [Rx] Gabapentin [Neurontin] 600 mg PO TID 03/04/17 [History] Exenatide [Byetta] 10 mcg SQ BID 08/19/17 [History] Insulin Glargine [Lantus] 30 unit SQ HS 08/19/17 [History] ALPRAZolam [Xanax 1 MG Tablet] 1 mg PO TID PRN 01/15/18 [History] Diclofenac Sodium [Voltaren] 1 appl TP BID 01/15/18 [History] Insulin LISPRO [Humalog Kwikpen U-100] 12 unit SQ TIDAC 01/15/18 [History] Nystatin [Nystatin Suspension] 100,000 units PO BID 01/15/18 [History] Ferrous Sulfate [Iron] 325 mg PO DAILY 01/27/18 [History] raNITIdine HCl [Zantac] 150 mg PO BID 01/27/18 [History] Citalopram Hydrobromide [Citalopram HBr] 20 mg PO DAILY 06/10/18 [History] Omeprazole [PriLOSEC] 40 mg PO BID 06/10/18 [History] Allergy/AdvReac Type Severity Reaction Status Date / Time levofloxacin [From Levaquin] Allergy Hives Verified 06/10/18 08:22 Penicillins Allergy Hives Verified 06/10/18 08:22 Sulfa (Sulfonamide Allergy Rash Verified 06/10/18 08:22 Antibiotics) cephalexin [From Keflex] AdvReac Hypertensio Verified 06/10/18 08:22 n duloxetine [From Cymbalta] AdvReac Nightmare Verified 06/10/18 08:22 metformin AdvReac Nausea Verified 06/10/18 08:22 All Systems PM: A 10-system review of systems was performed and is negative for pertinent findings except as documented above in the HPI. - Constitutional Vitals: Temp Pulse Resp BP Pulse Ox 98 F 79 24 151/80 93 06/10/18 04:06 06/10/18 07:36 06/10/18 07:36 06/10/18 07:36 06/10/18 07:36 Exam: General: Patient is alert, oriented, no acute distress, morbidly obese Head: Left forehead and left periorbital hematoma, scraping middle of the eyebro ws Eye: normal appearance, PERRL, no scleral icterus, no conjunctival injection ENT: mucous membranes moist, normal external ear exam Neck: normal inspection, trachea midline, full ROM, no carotid bruits, large circumference Chest: normal inspection, symmetric chest rise Respiratory: Good respiratory effort. Distant breath sounds secondary to body habitus, no wheezing no crackles Cardiovascular: Distant heart sounds secondary to body habitus Regular rate and rhythm. s1 and s2 No clicks, rubs, gallops, or murmors. Abdomen: Bowel sounds present normoactive x-4 quadrants. Abdomen is soft, nond istended. no Epigastric tenderness. No guarding or rebound. No organomegaly noted, obese musculoskeletal: Spontaneously moving all extremities. no edema, no calf tenderness Skin: warm, dry, intact. Has a right lower extremity ulcer wrapped with clean Curlex Neuro: Alert and oriented x4. Sensation light touch intact. Cranial nerves 2- 12 is intact. Not aphasic, no focal deficit Psych: Patient's affect is normal Internal Med - H&P Results - Labs CBC & Chem 7: 06/10/18 08:51 06/10/18 05:15 Labs: Short CBC 06/10/18 06/10/18 Range/Units 05:15 08:51 WBC 11.2 H 11.6 H (4.3-11.1) K/mcL Hgb 12.5 12.7 (11.5-15.4) g/dL Hct 39.1 40.2 (35.3-44.9) % Plt Count 229 214 (140-400) K/mcL Neutrophils # 9.0 H 10.5 H (1.6-8.9) K/mcL BMP 06/10/18 05:15 Sodium 134 L Potassium 4.7 Chloride 99 Carbon Dioxide 25 BUN 16 Creatinine 1.02 Glucose 496 H Calcium 9.1 Liver Function 06/10/18 Range/Units 05:15 Total Bilirubin 0.4 (0.3-1.0) mg/dL AST 23 (13-39) Units/L ALT 26 (7-52) Units/L Alkaline Phosphatase 100 (34-104) Units/L Albumin 4.0 (3.5-5.7) g/dL - EKG Data -: EKG Interpreted by Myself (Sinus positive more than 10 seconds) - Impressions ITS Impressions Head CT 06/10/18 04:15 IMPRESSION: No acute intracranial abnormality. Left forehead, periorbital hematoma. No underlying fracture identified. D/ / 06/10/2018 07:22:36 David Patricia MD / jose Interpreting Provider: David Patricia MD Cervical Spine CT 06/10/18 04:16 IMPRESSION: No acute abnormality of the cervical spine. D/ / David Patricia MD / David Patricia MD Interpreting Provider: David Patricia MD Chest X-Ray 06/10/18 05:05 IMPRESSION: Increased bibasilar opacity slightly asymmetric to the right. Findings accentuated by low lung volumes. Superimposed atelectasis or developing pneumonia cannot be excluded. D/ / David Patricia MD / David Patricia MD Interpreting Provider: David Patricia MD - Assessment and plan (1) Syncope and collapse Current Visit: Yes Status: Acute Assessment and plan: Syncope and collapse most likely secondary to sinus pause will rule out other etiologies Cardiology was consulted will follow recommendations Continuous telemetry monitoring Echocardiogram Troponin, CK-MB, magnesium, phosphorus, BNP, CPK, lactic acid, cortisol Neuro checks every 2 hours If she develops altered mental status obtain stat CT head will hold coumadin for now - for possible cardiology intervention CT head and cervical spine performed the emergency department IMPRESSION: No acute abnormality of the cervical spine. IMPRESSION: No acute intracranial abnormality. Left forehead, periorbital hematoma. No underlying fracture identified. (2) Sinus pause Current Visit: Yes Status: Acute Assessment and plan: Sinus pausess >10 seconds on telemetry and also on EKG Pacer and defibrillator at bedsidepads placed on the patient in the emergency department Atropine at bedside TSH, magnesium, phosphorus Cardiology was consulted will follow recommendations ?EP study will defer to cardiology team coumadin on hold for possible cardiology intervention CCU monitoring (3) Traumatic hematoma of head Current Visit: Yes Status: Acute Assessment and plan: nursing communication ordered - nicki the hematoma and monitor site neurochecks Q2H COld compresses Monitor CBC every 12 hours Type and screen stat Will hold Coumadin for nowdiscussed with patient and family they are in agreement She does have IVC filter placed for recurrent DVTs in the past Qualifiers: Encounter type: initial encounter Qualified Code(s): S00.93XA - Contusion of unspecified part of head, initial encounter (4) Acute bronchitis Current Visit: Yes Status: Acute Assessment and plan: She did have an episode of vomiting however she was protecting her airway doubt aspiration Does have history of COPD We will start her on ceftriaxone and doxycycline and metronidazole ( for anaerobic coverage) Urine antigens MRSA screen Sputum culture CXR in AM Duo nebs Currently not wheezing we will hold off on steroids for now Qualifiers: Bronchitis organism: unspecified organism Qualified Code(s): J20.9 - Acute bronchitis, unspecified (5) Traumatic open wound of right lower leg with delayed healing Current Visit: No Status: Acute Assessment and plan: follows with Dr. Aguilar as OP wound care consult surgery consult (6) Insulin dependent diabetes mellitus Current Visit: No Status: Acute Assessment and plan: Continue home dose long-acting insulin Started on high dose sliding scale adjust as per fingersticks A1c in a.m. (7) Morbid obesity with BMI of 40.0-44.9, adult Current Visit: Yes Status: Acute Assessment and plan: BMI is 40.9 Consider nutrition consult (8) DVT prophylaxis Current Visit: Yes Status: Acute Assessment and plan: SCDs - Time Spent With Patient Total time spent is greater than 50% in coordination of care (as documented) at patient's floor/unit and/or counseling patient:
[2018-06-10 09:37] LABS: Troponin I < 0.03 ng/mL (< 0.04)
[2018-06-10] MEDS ORDERED: *HR* Atropine Sulfate 1 MG/10 ML SYRINGE IVP PRN (09:50)
[2018-06-10 09:51] LABS: Thyroid Stimulating Hormone 1.573 mcIU/mL (0.340-5.600)
[2018-06-10] MEDS ORDERED: Promethazine 12.5 MG in 0.9 % Sodium Chloride 50 ML IVPB PRN (09:52)
[2018-06-10 10:03] LABS: Creatine Kinase 58 Units/L (30-223); Magnesium 1.4 mg/dL (1.6-2.6); Phosphorous 3.4 mg/dL (2.7-4.5)
--- NOTE | 2018-06-10 10:54 | Electrophysiology Consult Note ---
<Otilio Whelan - Last Filed: 06/10/18 11:05> Date of Encounter: 06/10/18 Time of Encounter: 10:50 Assessment and Plan (1) Syncope Current Visit: Yes Status: Acute Per EP: Syncopal episode secondary to sinus pause (>10 seconds in ED) in the setting of vomiting; suspect vasovagal. Reports similar episodes in the past with vomiting, additionally, presented to the ED this AM after syncope with injury to left periorbital hematoma. Hx of PAF, patient has not been on AV zena blocking agents recently. Reports metoprolol and sotalol d/c'ed after Afib ablation in 2016. Had been on rythmol in the past. Troponin negative, no acute ST/T wave abn ormalities noted. TSH normal, Mg 1.4--being replaced. Echo pending. Discussed and reviewed with Dr. Isreal Sherman, plans for pacemaker tomorrow. Of note, INR 1.9 (on Coumadin for DVT/PE); will further discuss with Dr. Sherman. Qualifiers: Syncope type: vasovagal syncope Qualified Code(s): R55 - Syncope and collapse (2) PAF (paroxysmal atrial fibrillation) Current Visit: Yes Status: Acute Per EP: Hx of PAF. Per reports, failed multiple antiarrhythmics in the past. s/p Afib ablation at [facility] in 2016--sotalol and metoprolol stopped shortly thereafter. Currently maintaining NSR, not on AV zena blocking agents. Of note, reports intermittent palpitations occurring every 2-3 weeks; episodes last 10-15 minutes, resolve without intervention. On Coumadin for DVT/PE. Discussion w patient/family: The assessment and plan as outlined above was discussed with the patient who expressed understanding and agreement. All questions were answered. Thank you for involving us in the care of your patient. Please call with any questions. History of Present Illness Consult date: 06/10/18 Requesting physician: Erin Stahl Consult reason: Syncope, Sinus Arrest Chief complaint: Passed Out History of present illness: Seen by cardiology. Previous records reviewed : Ms. Patten is a 63 year old female with PMHx significant of PAF s/p AFib ablation (2016, at [facility]), HTN, HLD, PE/DVT on Coumadin who presented to the ED via EMS after syncopal episode in the setting of vomiting. Unfortunately, sustained injury to her head (large left perioribital hematoma) which prompted ED admission. She reports she woke up early this AM around 2:45 AM and was sick to her stomach, reports vomiting with syncopal episode shortly thereafter, she reports alerting [facility]--when EMS arrived large hematoma was noted which promp ly ED evaluation. Of note, reports similar episodes in the past with vomiting. Additional syncopal episode occurred in the ED with vomiting, >10 second pause noted on phototypesetting equipment monitor. Cardiology consulted for further recommendations. EP consult for recommendations regarding potential pacemaker. Above information confirmed per discussion with patient. She denies any new concerns or complai nts. Past Med Surg Social Fam HX - Past Medical History Attestation: Yes The following information was validated with the patient. Source: patient, old records reviewed Medical history: atrial fibrillation, COPD, coronary artery disease, DVT, dementia, diabetes, hyperlipidemia, hypertension, peripheral artery disease, pulmonary embolus Additional medical history: chronic DVT behind left knee Psychiatric history: anxiety, depression - Past Surgical History Surgical History: cholecystectomy, hysterectomy, knee replacement Additional surgical history: cardiac ablation - Social History Smoking Status: Former smoker Smokeless Tobacco Status: No Alcohol use: none Drug use: none - Family History Father Adopted: No Family Member Ethnicity: Non- Living Status: Hx Family Cardiac Disorders: Yes Hx Family Respiratory Disorders: Yes Hx Family Cancer: No Hx Family GI Disorders: No Hx Family Endocrine Disorder: Yes Hx Family Neuromuscular Disorders: No Hx Family Neurologic Disorders: No Hx Family HEENT Disorders: No Hx Family Autoimmune Disorders: No Mother Adopted: No Family Member Ethnicity: Non- Living Status: Hx Family Cardiac Disorders: Yes Hx Family Respiratory Disorders: Yes Hx Family Cancer: No Hx Family GI Disorders: No Hx Family Endocrine Disorder: Yes Hx Family Neuromuscular Disorders: No Hx Family Neurologic Disorders: No Hx Family HEENT Disorders: No Hx Family Autoimmune Disorders: No Medications and Allergies RX: Albuterol Sulfate [Proair Hfa] 2 puff IH Q6H PRN 09/21/15 [History] RX: Atorvastatin [Lipitor] 40 mg PO HS 09/21/15 [History] RX: Polyethylene Glycol 3350 [MiraLAX] 17 gm PO DAILY PRN 09/21/15 [History] RX: Tiotropium [Spiriva] 18 mcg IH DAILY 03/21/16 [History] RX: Cyclobenzaprine [Flexeril] 10 mg PO TID #30 06/13/16 [Rx] RX: Warfarin [Coumadin] 5 mg PO HS 08/02/16 [History] RX: Amitriptyline [Elavil] 50 mg PO HS #30 tablet 08/08/16 [Rx] RX: Furosemide [Lasix] 20 mg PO DAILY #30 tablet 08/08/16 [Rx] RX: Venlafaxine HCl [Effexor Xr] 75 mg PO HS #14 cap.er.24h 08/08/16 [Rx] RX: Gabapentin [Neurontin] 600 mg PO TID 03/04/17 [History] Exenatide [Byetta] 10 mcg SQ BID 08/19/17 [History] Insulin Glargine [Lantus] 30 unit SQ HS 08/19/17 [History] Diclofenac Sodium [Voltaren] 1 appl TP BID 01/15/18 [History] Insulin LISPRO [Humalog Kwikpen U-100] 12 unit SQ TIDAC 01/15/18 [History] Nystatin [Nystatin Suspension] 100,000 units PO BID 01/15/18 [History] RX: ALPRAZolam [Xanax 1 MG Tablet] 1 mg PO TID PRN 01/15/18 [History] Ferrous Sulfate [Iron] 325 mg PO DAILY 01/27/18 [History] raNITIdine HCl [Zantac] 150 mg PO BID 01/27/18 [History] RX: Citalopram Hydrobromide [Citalopram HBr] 20 mg PO DAILY 06/10/18 [History] RX: Omeprazole [PriLOSEC] 40 mg PO BID 06/10/18 [History] Allergy/AdvReac Type Severity Reaction Status Date / Time levofloxacin [From Levaquin] Allergy Hives Verified 06/10/18 08:22 Penicillins Allergy Hives Verified 06/10/18 08:22 Sulfa (Sulfonamide Allergy Rash Verified 06/10/18 08:22 Antibiotics) cephalexin [From Keflex] AdvReac Hypertensio Verified 06/10/18 08:22 n duloxetine [From Cymbalta] AdvReac Nightmare Verified 06/10/18 08:22 metformin AdvReac Nausea Verified 06/10/18 08:22 All Systems Review: The remainder of the systems were reviewed and are negative - Cardiovascular Cardiovascular: as per HPI, syncope - Gastrointestinal Gastrointestinal: nausea Physical Examination Vital Signs, Last 4 Hours Pulse Resp BP Pulse Ox 06/10/18 07:36 79 24 151/80 93 General: Conversant, No Apparent Distress HEENT: Atraumatic, Normocephaly, Mucus Membranes Moist, Other (Left orbital ecchymosis and hematoma) Neck: No JVD, Normal carotid pulses Cardiac: Reg Rate and Rhythm, Normal S1 and S2, No Murmur Lungs: Normal Breath Sounds, No Wheeze, Rales, Rhonchi Neuro: Alert and responsive, No focal deficits noted Abdomen: Soft, Non-Tender Skin: No rashes noted on visualized skin Musculoskeletal: No Chest Wall Tenderness Extremities: No Clubbing, No Cyanosis, No Edema, Normal Pulses Results 06/10/18 08:51 06/10/18 05:15 Lab Results Laboratory Tests 06/10/18 06/10/18 06/10/18 05:15 05:15 08:51 INR 1.9 Creatinine 1.02 Est GFR (Non-Af Amer) 55 L Magnesium 1.4 L AST 23 ALT 26 Troponin I < 0.03 B-Natriuretic Peptide TSH 1.573 06/10/18 08:51 INR Creatinine Est GFR (Non-Af Amer) Magnesium AST ALT Troponin I B-Natriuretic Peptide 51 TSH ITS Impressions Head CT 06/10/18 04:15 IMPRESSION: No acute intracranial abnormality. Left forehead, periorbital hematoma. No underlying fracture identified. D/ / 06/10/2018 07:22:36 David Patricia MD / [email or web address] Interpreting Provider: David Patricia MD Cervical Spine CT 06/10/18 04:16 IMPRESSION: No acute abnormality of the cervical spine. D/ / David Patricia MD / David Patricia MD Interpreting Provider: David Patricia MD Chest X-Ray 06/10/18 05:05 IMPRESSION: Increased bibasilar opacity slightly asymmetric to the right. Findings accentuated by low lung volumes. Superimposed atelectasis or developing pneumonia cannot be excluded. D/ / David Patricia MD / David Patricia MD Interpreting Provider: David Patricia MD Active Medications Acetaminophen (Tylenol) 650 mg PO Q4HR PRN PRN Reason: Pain Stop: 12/10/18 08:17 Atorvastatin Calcium (Lipitor) 40 mg PO HS EVA Stop: 12/10/18 21:01 Atropine Sulfate (Atropine) 0.5 mg IVP ONCE PRN PRN Reason: Bradycardia Stop: 12/10/18 09:51 Dextrose/Water (Dextrose 50% (Syg)) 25 ml IVP AD PRN PRN Reason: Hypoglycemia Stop: 12/10/18 08:01 Glucagon (Glucagen) 1 mg IM ONCE PRN PRN Reason: Hypoglycemia Stop: 12/10/18 08:01 Glucose (Gluctose) 15 gm PO ONCE PRN PRN Reason: Hypoglycemia Stop: 12/10/18 08:01 Glucose (Gluctose) 30 gm PO ONCE PRN PRN Reason: Hypoglycemia Stop: 12/10/18 08:01 Dextrose (Dextrose 5%) 1,000 mls @ 100 mls/hr IVC .Q10H PRN PRN Reason: HYPOGLYCEMIA Stop: 12/10/18 08:01 Sodium Chloride (0.9 % Sodium Chloride) 1,000 mls @ 75 mls/hr IVC .[id number] EVA Stop: 12/10/18 08:16 Doxycycline Hyclate 100 mg/ (Sodium Chloride) 100 mls @ 100 mls/hr IVPB Q12H EVA Stop: 12/10/18 09:01 Ceftriaxone Sodium 2,000 mg/ (Sterile Water) 20 mls @ 600 mls/hr IVP Q24H EVA Stop: 12/10/18 09:01 Promethazine HCl 12.5 mg/ (Sodium Chloride) 50.5 mls @ 204 mls/hr IVPB Q8HR PRN PRN Reason: Nausea And Vomiting Stop: 12/10/18 09:53 Magnesium Sulfate 2 gm/ Sodium (Chloride) 104 mls @ 52 mls/hr IVPB Q6H PRN PRN Reason: hypomagnesemia Stop: 12/10/18 10:37 Insulin Detemir (Levemir) 30 unit SQ HS EVA Stop: 12/10/18 21:01 Insulin Human Lispro (Humalog) 0 units SQ Q6HR EVA; Protocol Stop: 12/10/18 12:01 Naloxone HCl (Narcan) 0.4 mg IVP Q2MIN PRN PRN Reason: SEE COMMENTS Stop: 12/10/18 08:12 Omeprazole (Prilosec) 40 mg PO BIDAC EVA Stop: 12/10/18 09:16 - Imaging and Cardiology Echo: pending - EKG Interpretation EKG results cardiology: personally reviewed (SR, sinus arrest greater than 10 secs) Consult Discharge Plan - Plan Referrals: López Mann MD [Primary Care Provider] - <Isreal Sherman - Last Filed: 06/10/18 12:47> Date of Encounter: 06/10/18 - Attending Attestation I have personally performed a face to face evaluation on this patient. I have reviewed and agree with the care plan. History and Exam by me shows: Syncope with AV block and 10 second pause. Would recommend pacemaker. Assessment and Plan Discussion w patient/family: The assessment and plan as outlined above was discussed with the patient and/or family members who expressed understanding and agreement. All questions were answered. Thank you for involving us in the care of your patient. Please call with any questions. History of Present Illness History of present illness: Ms. Patten is a 63 year old female All Systems Review: The remainder of the systems were reviewed and are negative Physical Examination Vital Signs, Last 4 Hours Temp 06/10/18 11:50 99.7 F H Results 06/10/18 08:51 06/10/18 05:15 Lab Results 06/10/18 06/10/18 06/10/18 05:15 05:15 05:15 WBC 11.2 H Hgb 12.5 Hct 39.1 Plt Count 229 INR 1.9 Sodium 134 L Potassium 4.7 Chloride 99 Carbon Dioxide 25 BUN 16 Creatinine 1.02 Glucose 496 H Calcium 9.1 Magnesium Total Bilirubin 0.4 AST 23 ALT 26 Alkaline Phosphatase 100 Troponin I B-Natriuretic Peptide TSH 06/10/18 06/10/18 06/10/18 08:51 08:51 08:51 WBC 11.6 H Hgb 12.7 Hct 40.2 Plt Count 214 INR Sodium Potassium Chloride Carbon Dioxide BUN Creatinine Glucose Calcium Magnesium 1.4 L Total Bilirubin AST ALT Alkaline Phosphatase Troponin I < 0.03 B-Natriuretic Peptide 51 TSH 1.573
[2018-06-10] MEDS: Doxycycline 100 MG in 0.9 % Sodium Chloride Mini Bag 100 ML IVPB SCH ×3 (12:48→21:14)
[2018-06-10] MEDS: cefTRIAXone 2,000 MG in Water for inj. (sterile) 20 ML 20 ML IVP SCH (12:49)
[2018-06-10] MEDS: Insulin LISPRO 300 UNITS/3 ML VIAL SQ SCH ×3 (12:49→23:26)
[2018-06-10] MEDS: Acetaminophen 325 MG TABLET PO PRN (12:50)
--- NOTE | 2018-06-10 12:50 | Event Note ---
Date of Encounter: 06/10/18 Time of Encounter: 12:50 - Cardiology Event Note Discussed and reviewed with Dr. Isreal Sherman, plan for pacemaker tomorrow. We will check INR in the a.m. and would like for INR to be less than 1.7. We will hold Coumadin-- Lane aware of history of chronic DVT and history of PE in the past. Can consider IV heparin drip after procedure.
[2018-06-10] MEDS ORDERED: Furosemide 20 MG/2 ML VIAL IVP ONE (14:40)
--- NOTE | 2018-06-10 14:42 | Event Note ---
Date of Encounter: 06/10/18 Time of Encounter: 14:39 Dr. Aguilar consulted as courtesy for patient given that she is inpatient. She is followed by Dr. Aguilar in wound care for a non-healing RLE wound and was debrided in office on 05/17/18. She was recommended to continue mesalt to the area and completed aterial duplex and noted "Right lower extremity arterial velocities are within normal limits. It appears as though the waveforms demonstrate nonturbulent flow, however, waveform elastic rebound in the vessels is lost." She is admitted s/p synocpal episode and fall. Recommend continuation of work- up/treatment for acute issue. Continue non-adherent dressing to RLE, cover with Kerlix. She can follow-up in wound care with Dr. Aguilar after d/c (appt scheduled for 06/28/2018 at 0945). Please call or reconsult if there are changes to the wound or further concerns.
[2018-06-10] MEDS: MetroNIDAZOLE 500 MG/100 ML 500 MG/100 ML BAG IVPB SCH ×2 (14:55→21:22)
[2018-06-10] MEDS: Gabapentin 300 MG CAPSULE PO SCH ×2 (14:56→20:16)
[2018-06-10 18:55] LABS: Adenovirus Not Detected (Not Detect); Bordetella Pertussis Not Detected (Not Detect); Chlamydophila pneumoniae Not Detected (Not Detect); Coronavirus 229E Not Detected (Not Detect); Coronavirus HKU1 Not Detected (Not Detect); Coronavirus NL63 Not Detected (Not Detect); Coronavirus OC43 Not Detected (Not Detect); Human Metapneumovirus Not Detected (Not Detect); Human Rhinovirus/Enterovirus Not Detected (Not Detect); Influenza A Subtype 2009 H1 Not Detected (Not Detect); Influenza A Untypeable Not Detected (Not Detect); Influenza B Not Detected (Not Detect); Mycoplasma pneumoniae Not Detected (Not Detect); Parainfluenza Virus 1 Not Detected (Not Detect); Parainfluenza Virus 2 Not Detected (Not Detect); Parainfluenza Virus 3 Not Detected (Not Detect); Parainfluenza Virus 4 Not Detected (Not Detect); Respiratory Syncytial Virus Not Detected (Not Detect)
[2018-06-10] MEDS ORDERED: Doxycycline 100 MG VIAL ONE (20:10)
[2018-06-10] MEDS: OXYCODONE Oral CONC 10 MG/0.5 ML ORAL.SYG SL PRN (20:15)
[2018-06-10] MEDS: Venlafaxine XR (24 HR) 75 MG CAP.ER.24H PO SCH (20:16)
[2018-06-10] MEDS: Famotidine 20 MG TABLET PO SCH (20:17)
[2018-06-10] MEDS: Insulin DETEMIR 100 UNIT/ML X5UNITS SQ SCH (20:17)
[2018-06-10] MEDS: Diclofenac Sodium [Voltaren] 1 APPL TP SCH (20:19)
[2018-06-11 03:20] LABS: Hematocrit 37.6 % (35.3-44.9); Hemoglobin 11.7 g/dL (11.5-15.4); Immature Granulocytes % 0.4 % (0-4); Lymphocytes % 13.5 %; Mean Corpuscular HGB Conc 31.1 g/dL (31.6-35.5); Mean Corpuscular Hemoglobin 26.5 pg (28.0-33.3); Mean Corpuscular Volume 85.3 fL (83.0-100.0); Mean Platelet Volume 9.9 fL (9.4-12.4); Monocytes % 5.9 %; Platelet Count 212 K/mcL (140-400); Red Blood Count 4.41 M/mcL (3.82-4.97); Red Cell Distribution Width 14.1 % (11.5-14.5); Segmented Neutrophils % 78.2 %
[2018-06-11 03:21] LABS: Basophils % 0.2 %; Eosinophils # 0.2 K/mcL (0.0-0.6); Eosinophils % 1.8 %; Lymphocytes # 1.8 K/mcL (0.6-4.6); Monocytes # 0.8 K/mcL (0.0-1.3); Neutrophils # 10.2 K/mcL (1.6-8.9)
[2018-06-11] MEDS: OXYCODONE Oral CONC 10 MG/0.5 ML ORAL.SYG SL PRN ×2 (03:31→15:10)
[2018-06-11 03:35] LABS: INR 2.3; Prothrombin Time 25.7 Seconds (9.4-12.1)
[2018-06-11 03:37] LABS: BUN/Creatinine Ratio 15 (6-26); Blood Urea Nitrogen 15 mg/dL (8-23); Calcium 8.2 mg/dL (8.6-10.3); Carbon Dioxide 27 mEq/L (23-29); Chloride 104 mEq/L (98-107); Glucose 209 mg/dL (70-105); Osmolality,Calculated 295 (280-300); Potassium 3.8 mEq/L (3.5-5.1); Sodium 139 mEq/L (136-145); eGFR For Non-African Americans 56 (> 60)
[2018-06-11] MEDS: MetroNIDAZOLE 500 MG/100 ML 500 MG/100 ML BAG IVPB SCH ×3 (05:50→20:09)
[2018-06-11] MEDS: Insulin LISPRO 300 UNITS/3 ML VIAL SQ SCH ×4 (05:51→19:57)
[2018-06-11] MEDS: Nystatin POWDER 30 GM BOTTLE TP SCH ×4 (07:01→20:13)
--- NOTE | 2018-06-11 08:20 | Electrophysiology ProgressNote ---
Date of Encounter: 06/11/18 Time of Encounter: 08:00 Assessment and Plan (1) Syncope Current Visit: Yes Status: Acute Syncopal episode secondary to sinus arrest (>10 seconds in ED) in the setting of vomiting; suspect vasovagal. Reports similar episodes in the past with vomiting, additionally, presented to the ED this AM after syncope with injury to left periorbital hematoma. Hx of PAF, patient has not been on AV zena blocking agents recently. Reports metoprolol and sotalol d/c'ed after Afib ablation in 2016. Troponin negative, no acute ST/T wave abnormalities noted. TSH normal, Mg replaced upon admission. Check TTE to evaluate structure and function--pending. Plan for PPM when INR allows. Reviewed with Dr. Sherman, INR 2.3. Will plan for PPM on Thursday. Patient/family agreeable. Qualifiers: Syncope type: vasovagal syncope Qualified Code(s): R55 - Syncope and collapse (2) PAF (paroxysmal atrial fibrillation) Current Visit: Yes Status: Acute Hx of PAF. Per reports, failed multiple antiarrhythmics in the past including rythmol and sotalol. s/p Afib ablation at [facility] in 2016--sotalol and metoprolol stopped shortly thereafter. Currently maintaining NSR, not on AV zena blocking agents. Of note, reports intermittent palpitations occurring every 2-3 weeks; episodes last 10-15 minutes, resolve without intervention. On Coumadin for DVT/PE. (3) DVT (deep venous thrombosis) Current Visit: Yes Status: Acute Hx of chronic LLE DVT on Coumadin for AC. Also with hx of PE, diagnosed 3 years ago. PCP monitors INR, 2.3 today. Qualifiers: DVT location: lower extremity Affected thrombotic vein of extremity: unspecified vein of extremity Chronicity: chronic Laterality: left Qualified Code(s): I82.502 - Chronic embolism and thrombosis of unspecified deep veins of left lower extremity (4) Cough Current Visit: Yes Status: Acute Reports cough that developed this AM after episodes of vomiting. CXR: possible PNA. Recommend f/u imaging in AM due to concern for aspiration. Mgmt per primary team. Discussion w patient/family: The assessment and plan as outlined above was discussed with the patient and/or family members who expressed understanding and agreement. All questions were answered. Thank you for involving us in the care of your patient. Please call with any questions. The patient will be discussed and reviewed with Dr. Isreal Sherman; changes to be made accordingly. Subjective Principal diagnosis: Syncope Interval history: Seen and examined. No complaints overnight. Denies recurrent syncopal episodes since admission. Continues to have residual cough this morning upon exam. Plan discussed at length with patient and family. Objective Vital Signs, Last 4 Hours Temp Pulse Resp BP Pulse Ox 06/11/18 08:00 98.2 F 06/11/18 07:45 83 20 99/49 97 06/11/18 06:00 83 13 92/46 97 06/11/18 05:00 84 15 89/64 97 General: Conversant, Other (obese) HEENT: Normocephaly, Mucus Membranes Moist, Other (left periorbital hematoma; ecchymosis bilateral eyes) Cardiac: Reg Rate and Rhythm, Normal S1 and S2 Lungs: Other (coarse breath sounds, anterior onlu) Neuro: Alert and responsive, No focal deficits noted Abdomen: Soft, Non-Tender, Other (BS active x4) Skin: Other (open wound RLE, wrapped in kerlix) Musculoskeletal: No Chest Wall Tenderness Extremities: No Edema, Normal Pulses Results 06/11/18 03:07 06/11/18 03:07 Lab Results 06/10/18 06/10/18 06/10/18 08:51 08:51 08:51 WBC 11.6 H Hgb 12.7 Hct 40.2 Plt Count 214 INR Sodium Potassium Chloride Carbon Dioxide BUN Creatinine Glucose Calcium Magnesium 1.4 L Troponin I < 0.03 B-Natriuretic Peptide 51 TSH 1.573 06/11/18 06/11/18 06/11/18 03:07 03:07 03:07 WBC 13.0 H Hgb 11.7 Hct 37.6 Plt Count 212 INR 2.3 Sodium 139 Potassium 3.8 Chloride 104 Carbon Dioxide 27 BUN 15 Creatinine 1.00 Glucose 209 H Calcium 8.2 L Magnesium Troponin I B-Natriuretic Peptide TSH Active Medications Acetaminophen (Tylenol) 650 mg PO Q4HR PRN PRN Reason: Pain Stop: 12/10/18 08:17 Last Admin: 06/10/18 12:50 Dose: 650 mg Albuterol/Ipratropium (Duoneb) 3 ml IH [id number] EVA Stop: 12/11/18 10:01 Alprazolam (Xanax) 1 mg PO TID PRN; Protocol PRN Reason: Anxiety Stop: 12/10/18 13:11 Amitriptyline HCl (Elavil) 50 mg PO HS EVA Stop: 12/10/18 21:01 Last Admin: 06/10/18 20:16 Dose: 50 mg Atorvastatin Calcium (Lipitor) 40 mg PO HS EVA Stop: 12/10/18 21:01 Last Admin: 06/10/18 20:17 Dose: 40 mg Atropine Sulfate (Atropine) 0.5 mg IVP ONCE PRN PRN Reason: Bradycardia Stop: 12/10/18 09:51 Citalopram Hydrobromide (Celexa) 20 mg PO DAILY REPLACED BY [facility] Stop: 12/11/18 09:01 Dextrose/Water (Dextrose 50% (Syg)) 25 ml IVP AD PRN PRN Reason: Hypoglycemia Stop: 12/10/18 08:01 Famotidine (Pepcid) 20 mg PO BID EVA Stop: 12/10/18 21:01 Last Admin: 06/10/18 20:17 Dose: 20 mg Ferrous Sulfate (Ferrous Sulfate) 325 mg PO DAILY EVA Stop: 12/11/18 09:01 Gabapentin (Neurontin) 600 mg PO TID EVA Stop: 12/10/18 15:01 Last Admin: 06/10/18 20:16 Dose: 600 mg Glucagon (Glucagen) 1 mg IM ONCE PRN PRN Reason: Hypoglycemia Stop: 12/10/18 08:01 Glucose (Gluctose) 15 gm PO ONCE PRN PRN Reason: Hypoglycemia Stop: 12/10/18 08:01 Glucose (Gluctose) 30 gm PO ONCE PRN PRN Reason: Hypoglycemia Stop: 12/10/18 08:01 Dextrose (Dextrose 5%) 1,000 mls @ 100 mls/hr IVC .Q10H PRN PRN Reason: HYPOGLYCEMIA Stop: 12/10/18 08:01 Doxycycline Hyclate 100 mg/ (Sodium Chloride) 100 mls @ 100 mls/hr IVPB Q12H EVA Stop: 12/10/18 09:01 Last Infusion: 06/10/18 23:26 Dose: Infused Ceftriaxone Sodium 2,000 mg/ (Sterile Water) 20 mls @ 600 mls/hr IVP Q24H EVA Stop: 12/10/18 09:01 Last Infusion: 06/10/18 12:51 Dose: Infused Promethazine HCl 12.5 mg/ (Sodium Chloride) 50.5 mls @ 204 mls/hr IVPB Q8HR PRN PRN Reason: Nausea And Vomiting Stop: 12/10/18 09:53 Magnesium Sulfate 2 gm/ Sodium (Chloride) 104 mls @ 52 mls/hr IVPB Q6H PRN PRN Reason: hypomagnesemia Stop: 12/10/18 10:37 Metronidazole (Flagyl Premix 500 Mg/100 Ml) 500 mg in 100 mls @ 100 mls/hr IVPB Q8H EVA Stop: 12/10/18 14:01 Last Admin: 06/11/18 05:50 Dose: 100 mls/hr Insulin Detemir (Levemir) 30 unit SQ HS REPLACED BY [facility] Stop: 12/10/18 21:01 Last Admin: 06/10/18 20:17 Dose: 30 unit Insulin Human Lispro (Humalog) 0 units SQ Q6HR EVA; Protocol Stop: 12/10/18 12:01 Last Admin: 06/11/18 05:51 Dose: 8 units Naloxone HCl (Narcan) 0.4 mg IVP Q2MIN PRN PRN Reason: SEE COMMENTS Stop: 12/10/18 08:12 Nystatin (Nystop) 1 appl TP TID REPLACED BY [facility] Stop: 12/11/18 06:01 Last Admin: 06/11/18 07:01 Dose: Not Given Omeprazole (Prilosec) 40 mg PO BIDAC REPLACED BY [facility] Stop: 12/10/18 09:16 Last Admin: 06/10/18 17:13 Dose: 40 mg Oxycodone HCl (Oxycodone Oral Conc) 5 mg SL Q6HR PRN; Protocol PRN Reason: Pain Stop: 12/10/18 14:40 Last Admin: 06/11/18 03:31 Dose: 5 mg Pharmacy Profile Note (Patient Taking Own Medication) 1 each TP BID REPLACED BY [facility] Stop: 12/10/18 21:01 Last Admin: 06/10/18 20:19 Dose: Not Given Polyethylene Glycol (Miralax) 17 gm PO DAILY PRN PRN Reason: Constipation Stop: 12/10/18 13:11 Tiotropium [place] (Spiriva) 18 mcg IH DAILY@0700 REPLACED BY [facility] Stop: 12/12/18 07:01 Venlafaxine HCl (Effexor Xr) 75 mg PO HS EVA Stop: 12/10/18 21:01 Last Admin: 06/10/18 20:16 Dose: 75 mg - Imaging and Cardiology Echo: pending Other Results: 12 hour tele: avg HR=84 NSR. No events noted. - EKG Interpretation EKG results cardiology: personally reviewed Consult Discharge Plan - Plan Referrals: López Mann MD [Primary Care Provider] -
[2018-06-11 08:22] LABS: Magnesium 1.4 mg/dL (1.6-2.6)
[2018-06-11 08:51] LABS: Estimated Average Glucose 258 mg/dl; Hemoglobin A1C 10.6 %
[2018-06-11] MEDS ORDERED: Furosemide 20 MG TABLET PO SCH (09:00)
[2018-06-11] MEDS: Doxycycline 100 MG in 0.9 % Sodium Chloride Mini Bag 100 ML IVPB SCH (09:43)
[2018-06-11] MEDS: cefTRIAXone 2,000 MG in Water for inj. (sterile) 20 ML 20 ML IVP SCH (09:45)
[2018-06-11] MEDS: Gabapentin 300 MG CAPSULE PO SCH ×3 (09:45→20:12)
[2018-06-11] MEDS: Famotidine 20 MG TABLET PO SCH ×2 (09:45→20:12)
[2018-06-11] MEDS: Diclofenac Sodium [Voltaren] 1 APPL TP SCH (09:46)
[2018-06-11] MEDS: Ipratropium/Albuterol Neb 3 ML IH SCH ×3 (11:07→21:35)
--- NOTE | 2018-06-11 16:08 | Internal Med Progress Note ---
Hospitalist Progress Note - Encounter Date of Encounter: 06/11/18 Time of Encounter: 09:00 - Subjective Interval History: Patient feels weak. Still mild nausea. Has nonproductive cough. Vitals are stable. - Exam Vitals: Temp Pulse Resp BP Pulse Ox 97.9 F 83 21 141/83 97 06/11/18 11:30 06/11/18 15:00 06/11/18 15:00 06/11/18 15:00 06/11/18 15:00 Exam: General: Patient is alert, oriented, no acute distress, morbidly obese Head: Left forehead and left periorbital hematoma, scraping middle of the eyebrows Eye: normal appearance, PERRL, no scleral icterus, no conjunctival injection ENT: mucous membranes moist, normal external ear exam Neck: normal inspection, trachea midline, full ROM, no carotid bruits, large circumference Chest: normal inspection, symmetric chest rise Respiratory: Good respiratory effort. Distant breath sounds secondary to body habitus, no wheezing no crackles Cardiovascular: Distant heart sounds secondary to body habitus Regular rate and rhythm. s1 and s2 No clicks, rubs, gallops, or murmors. Abdomen: Bowel sounds present normoactive x-4 quadrants. Abdomen is soft, nondistended. no Epigastric tenderness. No guarding or rebound. No organomegaly noted, obese musculoskeletal: Spontaneously moving all extremities. no edema, no calf tenderness Skin: warm, dry, intact. Has a right lower extremity ulcer wrapped with clean C urlex Neuro: Alert and oriented x4. Sensation light touch intact. Cranial nerves 2- 12 is intact. Not aphasic, no focal deficit Psych: Patient's affect is normal - Assessment and Plan (1) Insulin dependent diabetes mellitus Current Visit: No Status: Acute Assessment and Plan: Continue home dose long-acting insulin Started on high dose sliding scale adjust as per fingersticks A1c in a.m. (2) Traumatic open wound of right lower leg with delayed healing Current Visit: No Status: Acute Assessment and Plan: follows with Dr. Aguilar as OP wound care consult surgery consult (3) Sinus pause Current Visit: Yes Status: Acute Assessment and Plan: Sinus pausess >10 seconds on telemetry and also on EKG Pacer and defibrillator at bedsidepads placed on the patient in the emergency department Atropine at bedside TSH wnl, magnesium low will give supplement EP consult saw pt, plan for PPM coumadin on hold for possible cardiology intervention CCU monitoring (4) Syncope and collapse Current Visit: Yes Status: Acute Assessment and Plan: Syncope and collapse most likely secondary to sinus pause will rule out other etiologies Cardiology was consulted will follow recommendations Continuous telemetry monitoring Echocardiogram Troponin, CK-MB, magnesium, phosphorus, BNP, CPK, lactic acid, cortisol Neuro checks every 2 hours If she develops altered mental status obtain stat CT head will hold coumadin for now - for possible cardiology intervention Check carotid duplex CT head and cervical spine performed the emergency department IMPRESSION: No acute abnormality of the cervical spine. IMPRESSION: No acute intracranial abnormality. Left forehead, periorbital hematoma. No underlying fracture identified. (5) Traumatic hematoma of head Current Visit: Yes Status: Acute (6) Morbid obesity with BMI of 40.0-44.9, adult Current Visit: Yes Status: Acute Assessment and Plan: BMI is 40.9 Consider nutrition consult (7) DVT prophylaxis Current Visit: Yes Status: Acute Assessment and Plan: SCDs, coumadin on hold. (8) Acute bronchitis Current Visit: Yes Status: Acute Assessment and Plan: She did have an episode of vomiting however she was protecting her airway doubt aspiration Does have history of COPD We will start her on ceftriaxone and doxycycline and metronidazole ( for anaerobic coverage) Urine antigens MRSA screen Sputum culture CXR in AM Duo nebs Currently not wheezing we will hold off on steroids for now (9) DVT (deep venous thrombosis) Current Visit: Yes Status: Acute Assessment and Plan: Hx of DVT, on coumadin, coumadin on hold for planed PPM. may bridge if inr is subtherapeutic. DVT Prophylaxis: SCDs, on coumadin - Time Spent with Patient Total time spent is greater than 50% in coordination of care (as documented) at patient's floor/unit and/or counseling patient: 30 min 25 - 35 minutes Plan of Care Discussed with: family Internal Medicine: Result - Labs CBC & Chem 7: 06/11/18 03:07 06/11/18 03:07 Labs: Short CBC 06/11/18 Range/Units 03:07 WBC 13.0 H (4.3-11.1) K/mcL Hgb 11.7 (11.5-15.4) g/dL Hct 37.6 (35.3-44.9) % Plt Count 212 (140-400) K/mcL Neutrophils # 10.2 H (1.6-8.9) K/mcL BMP 06/11/18 03:07 Sodium 139 Potassium 3.8 Chloride 104 Carbon Dioxide 27 BUN 15 Creatinine 1.00 Glucose 209 H Calcium 8.2 L - ABG Interpretation ABG results: PT/INR, D-dimer PT 25.7 Seconds (9.4-12.1) H 06/11/18 03:07 - Impressions Impressions Chest X-Ray 06/11/18 06:00 IMPRESSION: 1. Mild persistent enlargement of the cardiac silhouette. 2. Developing opacification of the right mid to lower lung may represent atelectasis versus airspace disease. 3. Minimal left basilar atelectasis. D/ / Max Osuna MD / Max Osuna MD Interpreting Provider: Max Osuna MD Echocardiogram 06/11/18 08:01 Impressions: LVEF 60-65%. Normal LV chamber size, wall thickness and function. Mild left ventricular diastolic dysfunction. Normal right ventricular structure and function. Mildly calcified aortic valve leaflets. Mild aortic stenosis. Mean gradient 10 mmHg. No evidence of pulmonary hypertension. Left Ventricular Wall Motion: Rest Echo Findings All wall segments showed normal motion. Findings: Study Quality * Technically adequate exam. ECG Findings * Normal sinus rhythm. Left Ventricle * LVEF 60-65%. * Normal LV chamber size, wall thickness and function. * Mild left ventricular diastolic dysfunction. Right Ventricle * Normal right ventricular structure and function. Left Atrium * Moderately dilated left atrium. Right Atrium * Mildly dilated right atrium. Aortic Valve * Trileaflet aortic valve. * Mildly calcified aortic valve leaflets. * No aortic regurgitation. * Mild aortic stenosis. Mean gradient 10 mmHg. Mitral Valve * Mild mitral annular calcification * No mitral stenosis. * No mitral regurgitation. Tricuspid Valve * Normal tricuspid valve structure and function. * Trace tricuspid regurgitation. * No evidence of pulmonary hypertension. Pulmonic Valve * Pulmonic valve not well visualized. * No pulmonic regurgitation. Aorta * Normally sized aortic root. Pericardium * The pericardium appears normal. IVC * Normal IVC dimensions and inspiratory collapse. Pulmonary Artery * Normal visualized portions of the main pulmonary artery. Consult Discharge Plan - Plan Referrals: López Mann MD [Primary Care Provider] - (5) Traumatic hematoma of head Qualifiers: Encounter type: initial encounter Qualified Code(s): S00.93XA - Contusion of unspecified part of head, initial encounter (8) Acute bronchitis Qualifiers: Bronchitis organism: unspecified organism Qualified Code(s): J20.9 - Acute bronchitis, unspecified (9) DVT (deep venous thrombosis) Qualifiers: DVT location: lower extremity Affected thrombotic vein of extremity: unspecified vein of extremity Chronicity: chronic Laterality: left Qualified Code(s): I82.502 - Chronic embolism and thrombosis of unspecified deep veins of left lower extremity
--- NOTE | 2018-06-11 16:56 | Electrocardiograph Report ---
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
--- NOTE | 2018-06-11 18:57 | Electrocardiograph Report ---
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
[2018-06-11] MEDS: Venlafaxine XR (24 HR) 75 MG CAP.ER.24H PO SCH (20:12)
[2018-06-11] MEDS: ALPRAZolam 1 MG TABLET PO PRN (20:18)
[2018-06-11] MEDS: Insulin DETEMIR 100 UNIT/ML X5UNITS SQ SCH (23:18)
[2018-06-11] MEDS: Acetaminophen 325 MG TABLET PO PRN (23:30)
[2018-06-12] MEDS: Ipratropium/Albuterol Neb 3 ML IH SCH ×4 (03:44→22:54)
[2018-06-12 05:01] LABS: Basophils % 0.2 %; Eosinophils # 0.3 K/mcL (0.0-0.6); Eosinophils % 2.7 %; Hematocrit 35.8 % (35.3-44.9); Hemoglobin 10.9 g/dL (11.5-15.4); Immature Granulocytes % 0.4 % (0-4); Lymphocytes # 1.5 K/mcL (0.6-4.6); Lymphocytes % 15.4 %; Mean Corpuscular HGB Conc 30.4 g/dL (31.6-35.5); Mean Corpuscular Hemoglobin 26.3 pg (28.0-33.3); Mean Corpuscular Volume 86.5 fL (83.0-100.0); Mean Platelet Volume 9.7 fL (9.4-12.4); Monocytes # 0.8 K/mcL (0.0-1.3); Monocytes % 7.7 %; Neutrophils # 7.3 K/mcL (1.6-8.9); Platelet Count 194 K/mcL (140-400); Red Blood Count 4.14 M/mcL (3.82-4.97); Red Cell Distribution Width 14.1 % (11.5-14.5); Segmented Neutrophils % 73.6 %
[2018-06-12 05:09] LABS: INR 2.2; Prothrombin Time 25.2 Seconds (9.4-12.1)
[2018-06-12] MEDS: MetroNIDAZOLE 500 MG/100 ML 500 MG/100 ML BAG IVPB SCH ×3 (05:15→22:53)
[2018-06-12 05:20] LABS: BUN/Creatinine Ratio 17 (6-26); Blood Urea Nitrogen 17 mg/dL (8-23); Carbon Dioxide 27 mEq/L (23-29); Chloride 103 mEq/L (98-107); Glucose 194 mg/dL (70-105); Magnesium 1.7 mg/dL (1.6-2.6); Osmolality,Calculated 291 (280-300); Potassium 4.1 mEq/L (3.5-5.1); Sodium 137 mEq/L (136-145); eGFR For Non-African Americans 57 (> 60)
[2018-06-12] MEDS ORDERED: Tiotropium 18 MCG inhalation IH SCH (07:00)
[2018-06-12] MEDS: Furosemide 20 MG TABLET PO SCH (08:40)
[2018-06-12] MEDS: Famotidine 20 MG TABLET PO SCH ×2 (08:40→20:58)
[2018-06-12] MEDS: Doxycycline 100 MG in 0.9 % Sodium Chloride Mini Bag 100 ML IVPB SCH ×2 (08:40→21:00)
[2018-06-12] MEDS: Gabapentin 300 MG CAPSULE PO SCH ×3 (08:40→20:58)
[2018-06-12] MEDS: cefTRIAXone 2,000 MG in Water for inj. (sterile) 20 ML 20 ML IVP SCH (08:41)
[2018-06-12] MEDS: Insulin LISPRO 300 UNITS/3 ML VIAL SQ SCH ×4 (08:42→20:59)
--- NOTE | 2018-06-12 10:01 | Cardiology Progress Note ---
Date of Encounter: 06/12/18 Time of Encounter: 08:00 Assessment and Plan (1) Syncope Current Visit: Yes Status: Acute Syncopal episode secondary to sinus arrest (>10 seconds in ED) in the setting of vomiting; suspect vasovagal. Reports similar episodes in the past with vomiting, additionally, presented to the ED this AM after syncope with injury to left periorbital hematoma. Hx of PAF, patient has not been on AV zena blocking agents recently. Reports metoprolol and sotalol d/c'ed after Afib ablation in 2016. Troponin negative, no acute ST/T wave abnormalities noted. TSH normal, Mg replaced upon admission. TTE 06/11/18: LVEF 60-65%, mild LVDD, normal RV structure and function, mildly calcified AV leaflets, mild (MG=10 mmHg), no PH Plan for PPM when INR allows, ideally less than 1.7. Of note, has been on IV ATB for possible PNA. Tenatively plan for PPM on Thursday. Patient/family agreeable. NPO after MN 06/13/18. Qualifiers: Syncope type: vasovagal syncope Qualified Code(s): R55 - Syncope and collapse (2) PAF (paroxysmal atrial fibrillation) Current Visit: Yes Status: Acute Hx of PAF. Per reports, failed multiple antiarrhythmics in the past including rythmol and sotalol. s/p Afib ablation at [facility] in 2016--sotalol and metoprolol stopped shortly thereafter. Currently maintaining NSR, not on AV zena blocking agents. Of note, reports intermittent palpitations occurring every 2-3 weeks; episodes last 10-15 minutes, resolve without intervention. On Coumadin for DVT/PE. (3) DVT (deep venous thrombosis) Current Visit: Yes Status: Acute Hx of chronic LLE DVT on Coumadin for AC. Also with hx of PE, diagnosed 3 years ago. PCP monitors INR, 2.3 today. Qualifiers: DVT location: lower extremity Affected thrombotic vein of extremity: unspecified vein of extremity Chronicity: chronic Laterality: left Qualified Code(s): I82.502 - Chronic embolism and thrombosis of unspecified deep veins of left lower extremity (4) Cough Current Visit: Yes Status: Acute Reports cough that developed this AM after episodes of vomiting. CXR: possible PNA. Recommend f/u imaging due to concern for aspiration. Mgmt per primary team. Discussion w patient/family: The assessment and plan as outlined above was discussed with the patient and/or family members who expressed understanding and agreement. All questions were answered. Thank you for involving us in the care of your patient. Please call with any questions. The patient will be discussed and reviewed with ; changes to be made accordingly. Subjective Principal diagnosis: Syncope Interval history: Seen and examined. No complaints overnight. Denies recurrent syncopal episodes since admission. Cough improved this AM, sitting up in chair eating breakfast without complaints. Plan for PPM on Thursday if INR allows. Objective Vital Signs, Last 4 Hours Temp Pulse Resp BP Pulse Ox 06/12/18 09:00 85 20 167/67 99 06/12/18 08:00 97.1 F L 77 16 133/76 98 06/12/18 07:30 97.1 F L 06/12/18 07:00 79 16 143/74 98 06/12/18 06:00 77 20 146/64 98 General: Conversant, Other (obese) HEENT: Normocephaly, Other (left perioribtal hematoma with ecchymosis to bilateral orbital regions) Cardiac: Reg Rate and Rhythm, Normal S1 and S2 Lungs: Other (Expiratory wheezes throughout) Neuro: Alert and responsive Abdomen: Soft, Other (large, BS active x4) Skin: Other (open wound RLE, kerlix intact) Musculoskeletal: No Chest Wall Tenderness Extremities: No Edema, Normal Pulses Results 06/12/18 04:47 06/12/18 04:47 Lab Results 06/12/18 06/12/18 06/12/18 04:47 04:47 04:47 WBC 9.9 Hgb 10.9 L Hct 35.8 Plt Count 194 INR 2.2 Sodium 137 Potassium 4.1 Chloride 103 Carbon Dioxide 27 BUN 17 Creatinine 0.99 Glucose 194 H Calcium 8.0 L Magnesium 1.7 Active Medications Acetaminophen (Tylenol) 650 mg PO Q4HR PRN PRN Reason: Pain Stop: 12/10/18 08:17 Last Admin: 06/11/18 23:30 Dose: 650 mg Albuterol/Ipratropium (Duoneb) 3 ml IH [id number] EVA Stop: 12/11/18 10:01 Last Admin: 06/12/18 03:44 Dose: 3 ml Alprazolam (Xanax) 1 mg PO TID PRN; Protocol PRN Reason: Anxiety Stop: 12/10/18 13:11 Last Admin: 06/11/18 20:18 Dose: 1 mg Amitriptyline HCl (Elavil) 50 mg PO HS EVA Stop: 12/10/18 21:01 Last Admin: 06/11/18 20:12 Dose: 50 mg Atorvastatin Calcium (Lipitor) 40 mg PO HS EVA Stop: 12/10/18 21:01 Last Admin: 06/11/18 20:12 Dose: 40 mg Atropine Sulfate (Atropine) 0.5 mg IVP ONCE PRN PRN Reason: Bradycardia Stop: 12/10/18 09:51 Citalopram Hydrobromide (Celexa) 20 mg PO DAILY EVA Stop: 12/11/18 09:01 Last Admin: 06/12/18 08:40 Dose: 20 mg Dextrose/Water (Dextrose 50% (Syg)) 25 ml IVP AD PRN PRN Reason: Hypoglycemia Stop: 12/10/18 08:01 Famotidine (Pepcid) 20 mg PO BID EVA Stop: 12/10/18 21:01 Last Admin: 06/12/18 08:40 Dose: 20 mg Ferrous Sulfate (Ferrous Sulfate) 325 mg PO DAILY EVA Stop: 12/11/18 09:01 Last Admin: 06/12/18 08:39 Dose: 325 mg Furosemide (Lasix) 20 mg PO DAILY EVA Stop: 12/12/18 09:01 Last Admin: 06/12/18 08:40 Dose: 20 mg Gabapentin (Neurontin) 600 mg PO TID EVA Stop: 12/10/18 15:01 Last Admin: 06/12/18 08:40 Dose: 600 mg Glucagon (Glucagen) 1 mg IM ONCE PRN PRN Reason: Hypoglycemia Stop: 12/10/18 08:01 Glucose (Gluctose) 15 gm PO ONCE PRN PRN Reason: Hypoglycemia Stop: 12/10/18 08:01 Glucose (Gluctose) 30 gm PO ONCE PRN PRN Reason: Hypoglycemia Stop: 12/10/18 08:01 Dextrose (Dextrose 5%) 1,000 mls @ 100 mls/hr IVC .Q10H PRN PRN Reason: HYPOGLYCEMIA Stop: 12/10/18 08:01 Doxycycline Hyclate 100 mg/ (Sodium Chloride) 100 mls @ 100 mls/hr IVPB Q12H [facility] Stop: 12/10/18 09:01 Last Admin: 06/12/18 08:40 Dose: 100 mls/hr Ceftriaxone Sodium 2,000 mg/ (Sterile Water) 20 mls @ 600 mls/hr IVP Q24H [facility] Stop: 12/10/18 09:01 Last Infusion: 06/12/18 08:53 Dose: Infused Promethazine HCl 12.5 mg/ (Sodium Chloride) 50.5 mls @ 204 mls/hr IVPB Q8HR PRN PRN Reason: Nausea And Vomiting Stop: 12/10/18 09:53 Magnesium Sulfate 2 gm/ Sodium (Chloride) 104 mls @ 52 mls/hr IVPB Q6H PRN PRN Reason: hypomagnesemia Stop: 12/10/18 10:37 Last Infusion: 06/11/18 19:12 Dose: Infused Metronidazole (Flagyl Premix 500 Mg/100 Ml) 500 mg in 100 mls @ 100 mls/hr IVPB Q8H [facility] Stop: 12/10/18 14:01 Last Infusion: 06/12/18 07:00 Dose: Infused Insulin Detemir (Levemir) 30 unit SQ HS [facility] Stop: 12/10/18 21:01 Last Admin: 06/11/18 23:18 Dose: 30 unit Insulin Human Lispro (Humalog) 0 units SQ HS [facility]; Protocol Stop: 12/11/18 21:01 Last Admin: 06/11/18 19:57 Dose: Not Given Insulin Human Lispro (Humalog) 0 units SQ TIDAC [facility]; Protocol Stop: 12/12/18 07:31 Last Admin: 06/12/18 08:42 Dose: 4 units Naloxone HCl (Narcan) 0.4 mg IVP Q2MIN PRN PRN Reason: SEE COMMENTS Stop: 12/10/18 08:12 Nystatin (Nystop) 1 appl TP TID [facility] Stop: 12/11/18 06:01 Last Admin: 06/11/18 20:13 Dose: 1 appl Omeprazole (Prilosec) 40 mg PO BIDAC [facility] Stop: 12/10/18 09:16 Last Admin: 06/12/18 08:40 Dose: 40 mg Oxycodone HCl (Oxycodone Oral Conc) 5 mg SL Q6HR PRN; Protocol PRN Reason: Pain Stop: 12/10/18 14:40 Last Admin: 06/11/18 15:10 Dose: 5 mg Polyethylene Glycol (Miralax) 17 gm PO DAILY PRN PRN Reason: Constipation Stop: 12/10/18 13:11 Venlafaxine HCl (Effexor Xr) 75 mg PO HS EVA Stop: 12/10/18 21:01 Last Admin: 06/11/18 20:12 Dose: 75 mg Impressions Echocardiogram 06/11/18 08:01 Impressions: LVEF 60-65%. Normal LV chamber size, wall thickness and function. Mild left ventricular diastolic dysfunction. Normal right ventricular structure and function. Mildly calcified aortic valve leaflets. Mild aortic stenosis. Mean gradient 10 mmHg. No evidence of pulmonary hypertension. Left Ventricular Wall Motion: Rest Echo Findings All wall segments showed normal motion. Findings: Study Quality * Technically adequate exam. ECG Findings * Normal sinus rhythm. Left Ventricle * LVEF 60-65%. * Normal LV chamber size, wall thickness and function. * Mild left ventricular diastolic dysfunction. Right Ventricle * Normal right ventricular structure and function. Left Atrium * Moderately dilated left atrium. Right Atrium * Mildly dilated right atrium. Aortic Valve * Trileaflet aortic valve. * Mildly calcified aortic valve leaflets. * No aortic regurgitation. * Mild aortic stenosis. Mean gradient 10 mmHg. Mitral Valve * Mild mitral annular calcification * No mitral stenosis. * No mitral regurgitation. Tricuspid Valve * Normal tricuspid valve structure and function. * Trace tricuspid regurgitation. * No evidence of pulmonary hypertension. Pulmonic Valve * Pulmonic valve not well visualized. * No pulmonic regurgitation. Aorta * Normally sized aortic root. Pericardium * The pericardium appears normal. IVC * Normal IVC dimensions and inspiratory collapse. Pulmonary Artery * Normal visualized portions of the main pulmonary artery. - Imaging and Cardiology Echo: report reviewed Other Results: 12 hour tele: avg HR=81 SR. No pause/event/arrhythmia noted. - EKG Interpretation EKG results cardiology: personally reviewed Consult Discharge Plan - Plan Referrals: López Mann MD [Primary Care Provider] -
[2018-06-12] MEDS: Nystatin POWDER 30 GM BOTTLE TP SCH ×3 (10:24→22:53)
[2018-06-12] MEDS: Acetaminophen 325 MG TABLET PO PRN ×2 (13:00→22:52)
--- NOTE | 2018-06-12 13:11 | Internal Med Progress Note ---
Hospitalist Progress Note - Encounter Date of Encounter: 06/12/18 Time of Encounter: 09:00 - Subjective Interval History: Patient feels weak. Denies nausea. Still has nonproductive cough. Vitals are stable. No overnight fever. Denies further dizziness/syncope. - Exam Vitals: Temp Pulse Resp BP Pulse Ox 98.4 F 84 13 161/74 97 06/12/18 11:25 06/12/18 12:34 06/12/18 12:00 06/12/18 12:00 06/12/18 12:00 Exam: General: Patient is alert, oriented, no acute distress, morbidly obese Head: Left forehead and left periorbital hematoma, scraping middle of the eyebro ws Eye: normal appearance, PERRL, no scleral icterus, no conjunctival injection, left side david-orbital bruise due to recent fall ENT: mucous membranes moist, normal external ear exam Neck: normal inspection, trachea midline, full ROM, no carotid bruits, large circumference Chest: normal inspection, symmetric chest rise Respiratory: Good respiratory effort. Distant breath sounds secondary to body habitus, no wheezing no crackles Cardiovascular: Distant heart sounds secondary to body habitus Regular rate and rhythm. s1 and s2 No clicks, rubs, gallops, or murmors. Abdomen: Bowel sounds present normoactive x-4 quadrants. Abdomen is soft, nondistended. no Epigastric tenderness. No guarding or rebound. No organomegaly noted, obese musculoskeletal: Spontaneously moving all extremities. no edema, no calf tenderness Skin: warm, dry, intact. Has a right lower extremity ulcer wrapped with clean Curlex Neuro: Alert and oriented x4. Sensation light touch intact. Cranial nerves 2- 12 is intact. Not aphasic, no focal deficit Psych: Patient's affect is normal - Assessment and Plan (1) Insulin dependent diabetes mellitus Current Visit: No Status: Acute Assessment and Plan: Continue basal ans SSI, adjust dose based on Glu level. (2) Traumatic open wound of right lower leg with delayed healing Current Visit: No Status: Acute Assessment and Plan: follows with Dr. Aguilar as OP wound care consult surgery consult appreciated. (3) Sinus pause Current Visit: Yes Status: Acute Assessment and Plan: Sinus pausess >10 seconds on telemetry and also on EKG Pacer and defibrillator at bedsidepads placed on the patient in the emergency department Atropine at bedside TSH wnl, magnesium low, corrected EP consult saw pt, plan for PPM on Thursday coumadin on hold for possible cardiology intervention (4) Syncope and collapse Current Visit: Yes Status: Acute Assessment and Plan: Syncope and collapse most likely secondary to sinus pause, will rule out other etiologies Cardiology was consulted will follow recommendations Continuous telemetry monitoring Echocardiogram CT head in ER unremarkable. will hold coumadin for now - for possible cardiology intervention Check carotid duplex CT head and cervical spine performed the emergency department IMPRESSION: No acute abnormality of the cervical spine. IMPRESSION: No acute intracranial abnormality. Left forehead, periorbital hematoma. No underlying fracture identified. (5) Traumatic hematoma of head Current Visit: Yes Status: Acute Assessment and Plan: nursing communication ordered - nicki the hematoma and monitor site COld compresses Monitor CBC every 12 hours Type and screen stat Will hold Coumadin for nowdiscussed with patient and family they are in agreement She does have IVC filter placed for recurrent DVTs in the past (6) Morbid obesity with BMI of 40.0-44.9, adult Current Visit: Yes Status: Acute Assessment and Plan: BMI is 40.9 Consider nutrition consult (7) DVT prophylaxis Current Visit: Yes Status: Acute Assessment and Plan: SCDs, coumadin on hold. (8) Acute bronchitis Current Visit: Yes Status: Acute Assessment and Plan: She did have an episode of vomiting however she was protecting her airway doubt aspiration Does have history of COPD We will start her on ceftriaxone and doxycycline and metronidazole ( for a naerobic coverage) Urine antigens negative MRSA screen negative Sputum culture Repeat CXR shows developing opacity Duo nebs Currently not wheezing we will hold off on steroids for now WBC trend down after treatment Cough syrup as needed. (9) DVT (deep venous thrombosis) Current Visit: Yes Status: Acute Assessment and Plan: Hx of DVT, on coumadin, coumadin on hold for planed PPM. may bridge if inr is subtherapeutic. DVT Prophylaxis: SCDs, on coumadin - Time Spent with Patient Total time spent is greater than 50% in coordination of care (as documented) at patient's floor/unit and/or counseling patient: 30 min 25 - 35 minutes Plan of Care Discussed with: patient Internal Medicine: Result - Labs CBC & Chem 7: 06/12/18 04:47 06/12/18 04:47 Labs: Short CBC 06/12/18 Range/Units 04:47 WBC 9.9 (4.3-11.1) K/mcL Hgb 10.9 L (11.5-15.4) g/dL Hct 35.8 (35.3-44.9) % Plt Count 194 (140-400) K/mcL Neutrophils # 7.3 (1.6-8.9) K/mcL BMP 06/12/18 04:47 Sodium 137 Potassium 4.1 Chloride 103 Carbon Dioxide 27 BUN 17 Creatinine 0.99 Glucose 194 H Calcium 8.0 L - ABG Interpretation ABG results: PT/INR, D-dimer PT 25.2 Seconds (9.4-12.1) H 06/12/18 04:47 Consult Discharge Plan - Plan Referrals: López Mann MD [Primary Care Provider] - (5) Traumatic hematoma of head Qualifiers: Encounter type: initial encounter Qualified Code(s): S00.93XA - Contusion of unspecified part of head, initial encounter (8) Acute bronchitis Qualifiers: Bronchitis organism: unspecified organism Qualified Code(s): J20.9 - Acute bronchitis, unspecified (9) DVT (deep venous thrombosis) Qualifiers: DVT location: lower extremity Affected thrombotic vein of extremity: unspecified vein of extremity Chronicity: chronic Laterality: left Qualified Code(s): I82.502 - Chronic embolism and thrombosis of unspecified deep veins of left lower extremity
[2018-06-12] MEDS: Venlafaxine XR (24 HR) 75 MG CAP.ER.24H PO SCH (20:58)
[2018-06-12] MEDS: Insulin DETEMIR 100 UNIT/ML X5UNITS SQ SCH (21:00)
[2018-06-12] MEDS: ALPRAZolam 1 MG TABLET PO PRN (22:53)
[2018-06-13 03:31] LABS: Basophils % 0.1 %; Eosinophils # 0.2 K/mcL (0.0-0.6); Eosinophils % 3.5 %; Hematocrit 33.1 % (35.3-44.9); Hemoglobin 10.4 g/dL (11.5-15.4); Immature Granulocytes % 0.4 % (0-4); Lymphocytes # 1.2 K/mcL (0.6-4.6); Lymphocytes % 17.4 %; Mean Corpuscular HGB Conc 31.4 g/dL (31.6-35.5); Mean Corpuscular Hemoglobin 26.6 pg (28.0-33.3); Mean Corpuscular Volume 84.7 fL (83.0-100.0); Mean Platelet Volume 9.8 fL (9.4-12.4); Monocytes # 0.6 K/mcL (0.0-1.3); Monocytes % 8.1 %; Neutrophils # 4.8 K/mcL (1.6-8.9); Platelet Count 169 K/mcL (140-400); Red Blood Count 3.91 M/mcL (3.82-4.97); Red Cell Distribution Width 13.9 % (11.5-14.5); Segmented Neutrophils % 70.5 %
[2018-06-13 03:36] LABS: INR 1.9; Prothrombin Time 21.5 Seconds (9.4-12.1)
[2018-06-13 03:47] LABS: BUN/Creatinine Ratio 15 (6-26); Blood Urea Nitrogen 14 mg/dL (8-23); Calcium 8.1 mg/dL (8.6-10.3); Carbon Dioxide 27 mEq/L (23-29); Chloride 102 mEq/L (98-107); Glucose 264 mg/dL (70-105); Osmolality,Calculated 292 (280-300); Sodium 136 mEq/L (136-145); eGFR For Non-African Americans > 60 (> 60)
[2018-06-13] MEDS: Ipratropium/Albuterol Neb 3 ML IH SCH ×4 (04:52→22:59)
[2018-06-13] MEDS: MetroNIDAZOLE 500 MG/100 ML 500 MG/100 ML BAG IVPB SCH ×3 (05:54→22:23)
[2018-06-13] MEDS: Nystatin POWDER 30 GM BOTTLE TP SCH ×3 (08:05→22:33)
[2018-06-13] MEDS: Famotidine 20 MG TABLET PO SCH ×2 (08:05→20:15)
[2018-06-13] MEDS: cefTRIAXone 2,000 MG in Water for inj. (sterile) 20 ML 20 ML IVP SCH (08:05)
[2018-06-13] MEDS: Gabapentin 300 MG CAPSULE PO SCH ×3 (08:05→20:15)
[2018-06-13] MEDS: Furosemide 20 MG TABLET PO SCH (08:05)
[2018-06-13] MEDS: Doxycycline 100 MG in 0.9 % Sodium Chloride Mini Bag 100 ML IVPB SCH ×2 (08:08→20:15)
[2018-06-13] MEDS: Insulin LISPRO 300 UNITS/3 ML VIAL SQ SCH ×4 (08:11→22:20)
[2018-06-13] MEDS: Acetaminophen 325 MG TABLET PO PRN ×2 (10:30→17:24)
[2018-06-13] MEDS: *HR* Enoxaparin 120 MG/0.8 ML SYRINGE SQ SCH ×2 (10:31→17:08)
--- NOTE | 2018-06-13 10:54 | Event Note ---
Date of Encounter: 06/13/18 Time of Encounter: 10:53 - Cardiology Event Note Plan for PPM possibly tomorrow 06/14 if INR allows. INR 1.9 today. Would like INR <1.7. Re-evaluate in AM. NPO after midnight.
[2018-06-13] MEDS ORDERED: *HR* Phytonadione 5 MG TABLET PO ONE (12:28)
--- NOTE | 2018-06-13 12:35 | Internal Med Progress Note ---
Hospitalist Progress Note - Encounter Date of Encounter: 06/13/18 Time of Encounter: 09:00 - Subjective Interval History: Patient still feels weak. Slightly better than yesterday. Still has nonproductive cough. Vitals are stable. No overnight fever. Denies further dizziness/syncope. - Exam Vitals: Temp Pulse Resp BP Pulse Ox 97.6 F 72 16 146/61 99 06/13/18 07:27 06/13/18 07:27 06/13/18 05:04 06/13/18 07:27 06/13/18 07:27 Exam: General: Patient is alert, oriented, no acute distress, morbidly obese Head: Left forehead and left periorbital bruise, scraping middle of the eyebrows Eye: normal appearance, PERRL, no scleral icterus, no conjunctival injection, left side david-orbital bruise due to recent fall ENT: mucous membranes moist, normal external ear exam Neck: normal inspection, trachea midline, full ROM, no carotid bruits, large circumference Chest: normal inspection, symmetric chest rise Respiratory: Good respiratory effort. Distant breath sounds secondary to body habitus, no wheezing no crackles Cardiovascular: Distant heart sounds secondary to body habitus Regular rate and rhythm. s1 and s2 No clicks, rubs, gallops, or murmors. Abdomen: Bowel sounds present normoactive x-4 quadrants. Abdomen is soft, nondistended. no Epigastric tenderness. No guarding or rebound. No organomegaly noted, obese musculoskeletal: Spontaneously moving all extremities. no edema, no calf tenderness Skin: warm, dry, intact. Has a right lower extremity ulcer wrapped with clean Curlex Neuro: Alert and oriented x4. Sensation light touch intact. Cranial nerves 2- 12 is intact. Not aphasic, no focal deficit Psych: Patient's affect is normal - Assessment and Plan (1) Insulin dependent diabetes mellitus Current Visit: No Status: Acute Assessment and Plan: Continue basal and SSI, adjust dose based on Glu level. (2) Traumatic open wound of right lower leg with delayed healing Current Visit: No Status: Acute Assessment and Plan: follows with Dr. Aguilar as OP wound care consult surgery consult appreciated. (3) Sinus pause Current Visit: Yes Status: Acute Assessment and Plan: Sinus pausess >10 seconds on telemetry and also on EKG Pacer and defibrillator at bedsidepads placed on the patient in the emergency department Atropine at bedside TSH wnl, magnesium low, corrected EP consult saw pt, plan for PPM on Thursday coumadin on hold for possible cardiology intervention (4) Syncope and collapse Current Visit: Yes Status: Acute Assessment and Plan: Syncope and collapse most likely secondary to sinus pause, will rule out other etiologies Cardiology was consulted will follow recommendations Continuous telemetry monitoring Echocardiogram CT head in ER unremarkable. will hold coumadin for now - for possible cardiology intervention Check carotid duplex CT head and cervical spine performed the emergency department IMPRESSION: No acute abnormality of the cervical spine. IMPRESSION: No acute intracranial abnormality. Left forehead, periorbital hematoma. No underlying fracture identified. 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 (8) Acute bronchitis Current Visit: Yes Status: Acute Assessment and Plan: She did have an episode of vomiting however she was protecting her airway doubt aspiration Does have history of COPD We will start her on ceftriaxone and doxycycline and metronidazole ( for anaerobic coverage) Urine antigens negative MRSA screen negative Sputum culture. Repeat CXR shows developing opacity Duo nebs Currently not wheezing we will hold off on steroids for now WBC trend down after treatment Cough syrup as needed. (9) DVT (deep venous thrombosis) Current Visit: Yes Status: Acute Assessment and Plan: Hx of DVT, on coumadin, coumadin on hold for planed PPM. on lovenox bridge as INR 1.9 today. low dose po Vit K for cardio procedure tomorrow. DVT Prophylaxis: SCDs, on coumadin (hold) with lovenox bridging. - Time Spent with Patient Total time spent is greater than 50% in coordination of care (as documented) at patient's floor/unit and/or counseling patient: 30 min 25 - 35 minutes Plan of Care Discussed with: patient Internal Medicine: Result - Labs CBC & Chem 7: 06/13/18 02:58 06/13/18 02:58 Labs: Short CBC 06/13/18 Range/Units 02:58 WBC 6.9 (4.3-11.1) K/mcL Hgb 10.4 L (11.5-15.4) g/dL Hct 33.1 L (35.3-44.9) % Plt Count 169 (140-400) K/mcL Neutrophils # 4.8 (1.6-8.9) K/mcL BMP 06/13/18 02:58 Sodium 136 Potassium 4.0 Chloride 102 Carbon Dioxide 27 BUN 14 Creatinine 0.91 Glucose 264 H Calcium 8.1 L - ABG Interpretation ABG results: PT/INR, D-dimer PT 21.5 Seconds (9.4-12.1) H 06/13/18 02:58 Consult Discharge Plan - Plan Referrals: López Mann MD [Primary Care Provider] - (5) Traumatic hematoma of head Qualifiers: Encounter type: initial encounter Qualified Code(s): S00.93XA - Contusion of unspecified part of head, initial encounter (8) Acute bronchitis Qualifiers: Bronchitis organism: unspecified organism Qualified Code(s): J20.9 - Acute bronchitis, unspecified (9) DVT (deep venous thrombosis) Qualifiers: DVT location: lower extremity Affected thrombotic vein of extremity: unspecified vein of extremity Chronicity: chronic Laterality: left Qualified Code(s): I82.502 - Chronic embolism and thrombosis of unspecified deep veins of left lower extremity
[2018-06-13] MEDS: Venlafaxine XR (24 HR) 75 MG CAP.ER.24H PO SCH (20:15)
[2018-06-13] MEDS: ALPRAZolam 1 MG TABLET PO PRN (20:27)
[2018-06-13] MEDS: OXYCODONE Oral CONC 10 MG/0.5 ML ORAL.SYG SL PRN (22:11)
[2018-06-13] MEDS: Insulin DETEMIR 100 UNIT/ML X5UNITS SQ SCH (22:22)
[2018-06-14] MEDS: Ipratropium/Albuterol Neb 3 ML IH SCH ×4 (03:16→21:33)
[2018-06-14 04:57] LABS: Basophils % 0.2 %; Eosinophils # 0.2 K/mcL (0.0-0.6); Eosinophils % 4.1 %; Hematocrit 32.8 % (35.3-44.9); Hemoglobin 10.3 g/dL (11.5-15.4); Immature Granulocytes % 0.5 % (0-4); Lymphocytes # 1.2 K/mcL (0.6-4.6); Mean Corpuscular HGB Conc 31.4 g/dL (31.6-35.5); Mean Corpuscular Hemoglobin 27.2 pg (28.0-33.3); Mean Corpuscular Volume 86.5 fL (83.0-100.0); Mean Platelet Volume 10.2 fL (9.4-12.4); Monocytes # 0.5 K/mcL (0.0-1.3); Monocytes % 9.7 %; Neutrophils # 3.6 K/mcL (1.6-8.9); Platelet Count 159 K/mcL (140-400); Red Blood Count 3.79 M/mcL (3.82-4.97); Red Cell Distribution Width 13.8 % (11.5-14.5); Segmented Neutrophils % 64.5 %
[2018-06-14 05:04] LABS: INR 1.5; Prothrombin Time 16.9 Seconds (9.4-12.1)
[2018-06-14] MEDS: MetroNIDAZOLE 500 MG/100 ML 500 MG/100 ML BAG IVPB SCH (05:11)
[2018-06-14 05:16] LABS: BUN/Creatinine Ratio 16 (6-26); Blood Urea Nitrogen 13 mg/dL (8-23); Calcium 8.4 mg/dL (8.6-10.3); Carbon Dioxide 28 mEq/L (23-29); Chloride 100 mEq/L (98-107); Glucose 278 mg/dL (70-105); Osmolality,Calculated 288 (280-300); Potassium 4.2 mEq/L (3.5-5.1); Sodium 134 mEq/L (136-145); eGFR For Non-African Americans > 60 (> 60)
[2018-06-14] MEDS: OXYCODONE Oral CONC 10 MG/0.5 ML ORAL.SYG SL PRN (05:21)
[2018-06-14] MEDS: Insulin LISPRO 300 UNITS/3 ML VIAL SQ SCH ×4 (08:48→19:59)
[2018-06-14] MEDS: Furosemide 20 MG TABLET PO SCH (09:06)
[2018-06-14] MEDS: cefTRIAXone 2,000 MG in Water for inj. (sterile) 20 ML 20 ML IVP SCH (09:06)
[2018-06-14] MEDS: Doxycycline 100 MG in 0.9 % Sodium Chloride Mini Bag 100 ML IVPB SCH (09:07)
[2018-06-14] MEDS: Famotidine 20 MG TABLET PO SCH ×2 (09:07→20:00)
[2018-06-14] MEDS: Gabapentin 300 MG CAPSULE PO SCH ×3 (09:07→20:00)
[2018-06-14] MEDS: Nystatin POWDER 30 GM BOTTLE TP SCH ×3 (09:08→20:01)
[2018-06-14] MEDS ORDERED: Clindamycin 600 MG/50 ML 1,200 MG/100 ML IV.SOLN IVPB ONE (11:16)
[2018-06-14] MEDS ORDERED: 0.9 % Sodium Chloride 500 ML ONE (11:16)
[2018-06-14] MEDS ORDERED: 0.9 % Sodium Chloride 1,000 ML ONE (11:23)
--- NOTE | 2018-06-14 11:24 | Pre-Sedation Evaluation ---
Pre-sedation evaluation - Pre-sedation checklist Date of procedure: 06/14/18 Procedure: myelogram Recent Vitals: Last Vital Signs Temp 98.0 F 06/14/18 06:00 Pulse 83 06/14/18 06:00 Resp 15 06/14/18 10:18 BP 134/68 06/14/18 06:00 Pulse Ox 92 06/14/18 10:18 H&P (including ROS) documented in medical record: Yes Previous reaction to sedatives/anesthetics: No Dietary Status: NPO after Midnight Airway Assessment: Patient can open mouth completely, TMJ function normal, Micrognathia (under-bite, receding chin) absent Dentition: poor dentition Possible difficult airway: No ASA Classification *see protocol: CLASS II-Mild systemic disease
[2018-06-14] MEDS ORDERED: *HR* FentaNYL (PF) 100 MCG/2 ML VIAL ONE (11:29)
[2018-06-14] MEDS ORDERED: *HR* Midazolam HCl 2 MG/2 ML VIAL ONE (11:29)
--- NOTE | 2018-06-14 13:45 | Internal Med Progress Note ---
Hospitalist Progress Note - Encounter Date of Encounter: 06/14/18 Time of Encounter: 09:00 - Subjective Interval History: Patient still feels weak. Slightly better than yesterday. Still has nonproductive cough. Vitals are stable. No overnight fever. Denies further dizziness/syncope. Will have PPM today. - Exam Vitals: Temp Pulse Resp BP Pulse Ox 98.2 F 80 15 140/73 92 06/14/18 12:55 06/14/18 12:55 06/14/18 12:55 06/14/18 12:55 06/14/18 10:18 Exam: General: Patient is alert, oriented, no acute distress, morbidly obese Head: Left forehead and left periorbital bruise, scraping middle of the eyebrows Eye: normal appearance, PERRL, no scleral icterus, no conjunctival injection, left side david-orbital bruise due to recent fall ENT: mucous membranes moist, normal external ear exam Neck: normal inspection, trachea midline, full ROM, no carotid bruits, large circumference Chest: normal inspection, symmetric chest rise Respiratory: Good respiratory effort. Distant breath sounds secondary to body habitus, no wheezing no crackles Cardiovascular: Distant heart sounds secondary to body habitus Regular rate and rhythm. s1 and s2 No clicks, rubs, gallops, or murmors. Abdomen: Bowel sounds present normoactive x-4 quadrants. Abdomen is soft, nondistended. no Epigastric tenderness. No guarding or rebound. No organomegaly noted, obese musculoskeletal: Spontaneously moving all extremities. no edema, no calf tenderness Skin: warm, dry, intact. Has a right lower extremity ulcer wrapped with clean Curlex Neuro: Alert and oriented x4. Sensation light touch intact. Cranial nerves 2- 12 is intact. Not aphasic, no focal deficit Psych: Patient's affect is normal - Assessment and Plan (1) Insulin dependent diabetes mellitus Current Visit: No Status: Acute Assessment and Plan: Continue basal and SSI, adjust dose based on Glu level. (2) Traumatic open wound of right lower leg with delayed healing Current Visit: No Status: Acute Assessment and Plan: follows with Dr. Aguilar as OP wound care consult surgery consult appreciated. (3) Sinus pause Current Visit: Yes Status: Acute Assessment and Plan: Sinus pausess >10 seconds on telemetry and also on EKG TSH wnl, magnesium low, corrected EP consult saw pt, plan for PPM today. (4) Syncope and collapse Current Visit: Yes Status: Acute Assessment and Plan: Syncope and collapse most likely secondary to sinus pause, will rule out other etiologies Cardiology was consulted will follow recommendations. Plan for PPM today. Continuous telemetry monitoring Echocardiogram done, unremarkable CT head in ER unremarkable. will hold coumadin for now - for possible cardiology intervention Carotid duplex shows 60-79%(Rt) and 40-59% (Lt) stenosis. Recommend medical treatment and f/u in 12 months. Pt is on coumadin and atorvastatin now. CT head and cervical spine performed the emergency department IMPRESSION: No acute abnormality of the cervical spine. IMPRESSION: No acute intracranial abnormality. Left forehead, periorbital hematoma. No underlying fracture identified. 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 (6) Morbid obesity with BMI of 40.0-44.9, adult Current Visit: Yes Status: Acute Assessment and Plan: BMI is 40.9 Consider nutrition consult (7) DVT prophylaxis Current Visit: Yes Status: Acute Assessment and Plan: SCDs, lovenox bridge for coumadin.. (8) Acute bronchitis Current Visit: Yes Status: Acute Assessment and Plan: She did have an episode of vomiting however she was protecting her airway doubt aspiration Does have history of COPD Started on ceftriaxone and doxycycline and metronidazole ( for anaerobic coverage), WBC get down, no fever, switch to po doxycycline only. Urine antigens negative MRSA screen negative Duo nebs Currently not wheezing we will hold off on steroids for now Cough syrup as needed. (9) DVT (deep venous thrombosis) Current Visit: Yes Status: Acute Assessment and Plan: Hx of DVT, on coumadin, coumadin on hold for planed PPM. Will restart coumadin after procedure. Will bridge with lovenox if INR subtherapeutic. DVT Prophylaxis: SCDs, on coumadin (hold) with lovenox bridging. - Time Spent with Patient Total time spent is greater than 50% in coordination of care (as documented) at patient's floor/unit and/or counseling patient: 30 min 25 - 35 minutes Plan of Care Discussed with: patient Internal Medicine: Result - Labs CBC & Chem 7: 06/14/18 04:08 06/14/18 04:08 Labs: Short CBC 06/14/18 Range/Units 04:08 WBC 5.6 (4.3-11.1) K/mcL Hgb 10.3 L (11.5-15.4) g/dL Hct 32.8 L (35.3-44.9) % Plt Count 159 (140-400) K/mcL Neutrophils # 3.6 (1.6-8.9) K/mcL BMP 06/14/18 04:08 Sodium 134 L Potassium 4.2 Chloride 100 Carbon Dioxide 28 BUN 13 Creatinine 0.82 Glucose 278 H Calcium 8.4 L - ABG Interpretation ABG results: PT/INR, D-dimer PT 16.9 Seconds (9.4-12.1) H 06/14/18 04:08 - Impressions Impressions Chest X-Ray 06/14/18 12:36 IMPRESSION: Status post placement of left-sided cardiac device. Leads are in the expected position. Mild pulmonary vascular congestion. No evidence of pneumothorax. D/ / 06/14/2018 13:21:44 Cas Smith MD / ashley Interpreting Provider: Cas Smith MD Consult Discharge Plan - Plan Referrals: López Mann MD [Primary Care Provider] - __ (5) Traumatic hematoma of head Qualifiers: Encounter type: initial encounter Qualified Code(s): S00.93XA - Contusion of unspecified part of head, initial encounter (8) Acute bronchitis Qualifiers: Bronchitis organism: unspecified organism Qualified Code(s): J20.9 - Acute bronchitis, unspecified (9) DVT (deep venous thrombosis) Qualifiers: DVT location: lower extremity Affected thrombotic vein of extremity: unspecified vein of extremity Chronicity: chronic Laterality: left Qualified Code(s): I82.502 - Chronic embolism and thrombosis of unspecified deep veins of left lower extremity
[2018-06-14] MEDS: Acetaminophen 325 MG TABLET PO PRN (16:02)
[2018-06-14] MEDS ORDERED: Warfarin perPT PO PRN (18:00)
[2018-06-14] MEDS ORDERED: *HR* Warfarin 5 MG TABLET PO ONE (18:00)
[2018-06-14] MEDS: Doxycycline 100 MG CAPSULE PO SCH (20:00)
[2018-06-14] MEDS: Venlafaxine XR (24 HR) 75 MG CAP.ER.24H PO SCH (20:00)
[2018-06-14] MEDS ORDERED: Insulin DETEMIR 100 UNIT/ML X5UNITS SQ SCH (21:00)
[2018-06-15] MEDS: Ipratropium/Albuterol Neb 3 ML IH SCH ×2 (03:49→10:49)
[2018-06-15 04:32] VITALS: BP 126/57
[2018-06-15 05:15] LABS: Basophils % 0.4 %; Eosinophils # 0.3 K/mcL (0.0-0.6); Eosinophils % 4.6 %; Hematocrit 34.5 % (35.3-44.9); Hemoglobin 10.6 g/dL (11.5-15.4); Immature Granulocytes % 0.6 % (0-4); Lymphocytes # 1.2 K/mcL (0.6-4.6); Lymphocytes % 16.9 %; Mean Corpuscular HGB Conc 30.7 g/dL (31.6-35.5); Mean Corpuscular Hemoglobin 26.6 pg (28.0-33.3); Mean Corpuscular Volume 86.7 fL (83.0-100.0); Mean Platelet Volume 10.2 fL (9.4-12.4); Monocytes # 0.7 K/mcL (0.0-1.3); Monocytes % 9.3 %; Neutrophils # 4.8 K/mcL (1.6-8.9); Platelet Count 182 K/mcL (140-400); Red Blood Count 3.98 M/mcL (3.82-4.97); Segmented Neutrophils % 68.2 %
[2018-06-15 05:23] LABS: INR 1.3; Prothrombin Time 14.2 Seconds (9.4-12.1)
[2018-06-15 05:37] LABS: Alanine Aminotransferase 12 Units/L (7-52); Albumin 3.3 g/dL (3.5-5.7); Albumin/Globulin Ratio 1.1 (1.1-2.2); Alkaline Phosphatase 83 Units/L (34-104); Aspartate Amino Transferase 12 Units/L (13-39); BUN/Creatinine Ratio 15 (6-26); Bilirubin,Total 0.3 mg/dL (0.3-1.0); Blood Urea Nitrogen 13 mg/dL (8-23); Calcium 8.6 mg/dL (8.6-10.3); Carbon Dioxide 29 mEq/L (23-29); Chloride 101 mEq/L (98-107); Globulin 3.1 g/dL (2.4-3.5); Glucose 320 mg/dL (70-105); Osmolality,Calculated 294 (280-300); Potassium 4.6 mEq/L (3.5-5.1); Sodium 136 mEq/L (136-145); Total Protein 6.4 g/dL (6.4-8.9); eGFR For Non-African Americans > 60 (> 60)
[2018-06-15] MEDS ORDERED: *HR* Enoxaparin 120 MG/0.8 ML SYRINGE SQ SCH ×2 (06:00)
[2018-06-15] MEDS: Famotidine 20 MG TABLET PO SCH (08:14)
[2018-06-15] MEDS: Furosemide 20 MG TABLET PO SCH (08:14)
[2018-06-15] MEDS: Doxycycline 100 MG CAPSULE PO SCH (08:14)
[2018-06-15] MEDS: Gabapentin 300 MG CAPSULE PO SCH (08:14)
[2018-06-15] MEDS: Insulin LISPRO 300 UNITS/3 ML VIAL SQ SCH ×2 (08:15→12:28)
[2018-06-15] MEDS: Nystatin POWDER 30 GM BOTTLE TP SCH (08:17)
--- NOTE | 2018-06-15 09:26 | Electrophysiology ProgressNote ---
Date of Encounter: 06/15/18 Time of Encounter: 09:24 Assessment and Plan (1) Syncope Current Visit: Yes Status: Acute Syncopal episode secondary to sinus arrest (>10 seconds in ED) in the setting of vomiting; suspect vasovagal. Reports similar episodes in the past with vomiting, additionally, presented to the ED this AM after syncope with injury to left periorbital hematoma. Hx of PAF, patient has not been on AV zena blocking agents recently. Reports metoprolol and sotalol d/c'ed after Afib ablation in 2016. Troponin negative, no acute ST/T wave abnormalities noted. TSH normal, Mg replaced upon admission. TTE 06/11/18: LVEF 60-65%, mild LVDD, normal RV structure and function, mildly calcified AV leaflets, mild (MG=10 mmHg), no PH S/P PPM yesterday. Device check okay. CXR pending. Device site healing well--steri strips intact. No bleeding or hematoma. Cardiology/EP signing off if no acute CXR findings. Will coordinate outpt follo w-up in 7-10 days for wound check, 4-6 weeks for device check and in [address] Isreal Sherman. Qualifiers: Syncope type: vasovagal syncope Qualified Code(s): R55 - Syncope and collapse (2) PAF (paroxysmal atrial fibrillation) Current Visit: Yes Status: Acute Hx of PAF. Per reports, failed multiple antiarrhythmics in the past including rythmol and sotalol. s/p Afib ablation at [facility] in 2016--sotalol and metoprolol stopped shortly thereafter. Currently maintaining NSR, not on AV zena blocking agents. Of note, reports intermittent palpitations occurring every 2-3 weeks; episodes last 10-15 minutes, resolve without intervention. Now that PPM has been inserted, will start low dose BB--Toprol XL 25mg daily. On Coumadin for DVT/PE. (3) DVT (deep venous thrombosis) Current Visit: Yes Status: Acute Hx of chronic LLE DVT on Coumadin for AC. Also with hx of PE, diagnosed 3 years ago. PCP monitors INR, 1.3. On Lovenox bridging, Coumadin resumed. Qualifiers: DVT location: lower extremity Affected thrombotic vein of extremity: unspecified vein of extremity Chronicity: chronic Laterality: left Qualified Code(s): I82.502 - Chronic embolism and thrombosis of unspecified deep veins of left lower extremity Discussion w patient/family: The assessment and plan as outlined above was discussed with the patient and/or family members who expressed understanding and agreement. All questions were answered. Thank you for involving us in the care of your patient. Please call with any questions. I will discuss all the above with Dr. Isreal Sherman and make changes as necessary. Subjective Principal diagnosis: Syncope Interval history: No acute complaints this AM. S/P PPM insertion yesterday for sinus pauses. Objective Vital Signs, Last 4 Hours Temp Pulse Pulse Ox 06/15/18 07:13 98.6 F 74 91 Vital Signs Temp Pulse Resp BP Pulse Ox 06/15/18 07:13 98.6 F 74 91 06/15/18 04:29 98.8 F 76 16 126/57 93 06/15/18 03:49 15 90 06/15/18 01:03 98.2 F 77 15 107/47 91 06/14/18 21:33 15 90 06/14/18 19:40 99.1 F 80 15 122/62 92 06/14/18 16:30 98.2 F 16 108/72 06/14/18 15:54 16 91 06/14/18 15:30 98.6 F 80 16 108/62 06/14/18 14:40 98.5 F 16 121/83 06/14/18 14:00 98.2 F 84 15 108/62 91 06/14/18 13:30 98.6 F 16 123/86 06/14/18 12:55 98.2 F 80 15 140/73 06/14/18 10:18 15 92 Intake and Output 06/14/18 06/15/18 06/15/18 23:59 07:59 15:59 Intake Total 0 / 0 0 / 0 Output Total 800 / 800 600 / 600 Balance -800 / -800 -600 / -600 Intake: Oral 0 / 0 0 / 0 Output: Urine 800 / 800 600 / 600 Other: Stool Consistency formed Stool Color Brown Black Blood Tinged # Voids 1 # Bowel Movements 1 Weight 124.1 kg Blood Glucose* 291 304 Patient Weight 06/15/18 23:59 Weight 124.1 kg General: Conversant, No Apparent Distress HEENT: Atraumatic, Normocephaly, Mucus Membranes Moist Neck: No JVD, Normal carotid pulses Cardiac: Reg Rate and Rhythm, Normal S1 and S2, No Murmur Lungs: Normal Breath Sounds, No Wheeze, Rales, Rhonchi Neuro: Alert and responsive, No focal deficits noted Abdomen: Soft, Non-Tender Skin: Other (left chest device site healing well. Steri strips intact. No bleeding or hematoma.) Musculoskeletal: Other (chest tenderness at device site) Extremities: No Clubbing, No Cyanosis, No Edema, Normal Pulses Results 06/15/18 04:52 06/15/18 04:52 Lab Results 06/15/18 06/15/18 06/15/18 04:52 04:52 04:52 WBC 7.0 Hgb 10.6 L Hct 34.5 L Plt Count 182 INR 1.3 Sodium 136 Potassium 4.6 Chloride 101 Carbon Dioxide 29 BUN 13 Creatinine 0.89 Glucose 320 H Calcium 8.6 Total Bilirubin 0.3 AST 12 L ALT 12 Alkaline Phosphatase 83 Short CBC 06/15/18 Range/Units 04:52 WBC 7.0 (4.3-11.1) K/mcL Hgb 10.6 L (11.5-15.4) g/dL Hct 34.5 L (35.3-44.9) % Plt Count 182 (140-400) K/mcL Neutrophils # 4.8 (1.6-8.9) K/mcL BMP 06/15/18 Range/Units 04:52 Sodium 136 (136-145) mEq/L Potassium 4.6 (3.5-5.1) mEq/L Chloride 101 (98-107) mEq/L Carbon Dioxide 29 (23-29) mEq/L BUN 13 (8-23) mg/dL Creatinine 0.89 (0.60-1.20) mg/dL Glucose 320 H (70-105) mg/dL Calcium 8.6 (8.6-10.3) mg/dL Liver Function 06/15/18 Range/Units 04:52 Total Bilirubin 0.3 (0.3-1.0) mg/dL AST 12 L (13-39) Units/L ALT 12 (7-52) Units/L Alkaline Phosphatase 83 (34-104) Units/L Albumin 3.3 L (3.5-5.7) g/dL Impressions Chest X-Ray 06/14/18 12:36 IMPRESSION: Status post placement of left-sided cardiac device. Leads are in the expected position. Mild pulmonary vascular congestion. No evidence of pneumothorax. D/ / 06/14/2018 13:21:44 Cas Smith MD / ashley Interpreting Provider: Cas Smith MD Active Medications Acetaminophen (Tylenol) 650 mg PO Q4HR PRN PRN Reason: Pain Stop: 12/10/18 08:17 Last Admin: 06/14/18 16:02 Dose: 650 mg Albuterol/Ipratropium (Duoneb) 3 ml IH [id number] EVA Stop: 12/11/18 10:01 Last Admin: 06/15/18 03:49 Dose: 3 ml Alprazolam (Xanax) 1 mg PO TID PRN; Protocol PRN Reason: Anxiety Stop: 12/10/18 13:11 Last Admin: 06/13/18 20:27 Dose: 1 mg Amitriptyline HCl (Elavil) 50 mg PO HS EVA Stop: 12/10/18 21:01 Last Admin: 06/14/18 20:00 Dose: 50 mg Atorvastatin Calcium (Lipitor) 40 mg PO HS EVA Stop: 12/10/18 21:01 Last Admin: 06/14/18 20:00 Dose: 40 mg Atropine Sulfate (Atropine) 0.5 mg IVP ONCE PRN PRN Reason: Bradycardia Stop: 12/10/18 09:51 Citalopram Hydrobromide (Celexa) 20 mg PO DAILY EVA Stop: 12/11/18 09:01 Last Admin: 06/15/18 08:15 Dose: 20 mg Dextrose/Water (Dextrose 50% (Syg)) 25 ml IVP AD PRN PRN Reason: Hypoglycemia Stop: 12/10/18 08:01 Doxycycline Hyclate (Doxycycline) 100 mg PO BID EVA Stop: 12/14/18 21:01 Last Admin: 06/15/18 08:14 Dose: 100 mg Enoxaparin Sodium (Lovenox) 120 mg 1 mg/kg (120 mg) SQ Q12HR EVA; Protocol Stop: 12/15/18 06:01 Last Admin: 06/15/18 05:26 Dose: 120 mg Famotidine (Pepcid) 20 mg PO BID EVA Stop: 12/10/18 21:01 Last Admin: 06/15/18 08:14 Dose: 20 mg Ferrous Sulfate (Ferrous Sulfate) 325 mg PO 1200 [facility] Stop: 12/15/18 12:01 Furosemide (Lasix) 20 mg PO DAILY [facility] Stop: 12/12/18 09:01 Last Admin: 06/15/18 08:14 Dose: 20 mg Gabapentin (Neurontin) 600 mg PO TID [facility] Stop: 12/10/18 15:01 Last Admin: 06/15/18 08:14 Dose: 600 mg Glucagon (Glucagen) 1 mg IM ONCE PRN PRN Reason: Hypoglycemia Stop: 12/10/18 08:01 Glucose (Gluctose) 15 gm PO ONCE PRN PRN Reason: Hypoglycemia Stop: 12/10/18 08:01 Glucose (Gluctose) 30 gm PO ONCE PRN PRN Reason: Hypoglycemia Stop: 12/10/18 08:01 Guaifenesin (Robitussin/Dm) 10 ml PO Q6HR PRN PRN Reason: Cough Stop: 12/12/18 10:07 Last Admin: 06/14/18 23:06 Dose: 10 ml Dextrose (Dextrose 5%) 1,000 mls @ 100 mls/hr IVC .Q10H PRN PRN Reason: HYPOGLYCEMIA Stop: 12/10/18 08:01 Promethazine HCl 12.5 mg/ (Sodium Chloride) 50.5 mls @ 204 mls/hr IVPB Q8HR PRN PRN Reason: Nausea And Vomiting Stop: 12/10/18 09:53 Magnesium Sulfate 2 gm/ Sodium (Chloride) 104 mls @ 52 mls/hr IVPB Q6H PRN PRN Reason: hypomagnesemia Stop: 12/10/18 10:37 Last Infusion: 06/11/18 19:12 Dose: Infused Insulin Detemir (Levemir) 50 unit SQ HS [facility] Stop: 12/14/18 21:01 Last Admin: 06/14/18 20:00 Dose: 50 unit Insulin Human Lispro (Humalog) 0 units SQ TIDAC [facility]; Protocol Stop: 12/12/18 07:31 Last Admin: 06/15/18 08:15 Dose: 14 units Insulin Human Lispro (Humalog) 0 units SQ HS [facility]; Protocol Stop: 12/11/18 21:01 Last Admin: 06/14/18 19:59 Dose: 6 units Naloxone HCl (Narcan) 0.4 mg IVP Q2MIN PRN PRN Reason: SEE COMMENTS Stop: 12/10/18 08:12 Nystatin (Nystop) 1 appl TP TID EVA Stop: 12/11/18 06:01 Last Admin: 06/15/18 08:17 Dose: 1 appl Omeprazole (Prilosec) 40 mg PO BIDAC EVA Stop: 12/10/18 09:16 Last Admin: 06/15/18 08:14 Dose: 40 mg Oxycodone HCl (Oxycodone Oral Conc) 5 mg SL Q6HR PRN; Protocol PRN Reason: Pain Stop: 12/10/18 14:40 Last Admin: 06/14/18 05:21 Dose: 5 mg Polyethylene Glycol (Miralax) 17 gm PO DAILY PRN PRN Reason: Constipation Stop: 12/10/18 13:11 Last Admin: 06/12/18 23:09 Dose: 17 gm Venlafaxine HCl (Effexor Xr) 75 mg PO HS EVA Stop: 12/10/18 21:01 Last Admin: 06/14/18 20:00 Dose: 75 mg Warfarin Sodium (Coumadin Perpt) 1 each PO DAILY@1800 PRN PRN Reason: SEE COMMENTS Stop: 12/14/18 18:01 - EKG Interpretation EKG results cardiology: other (12 hr tele AVG HR 80, SR, no significant pauses or arrhythmias) Consult Discharge Plan - Plan Additional Instructions: ACTIVITY: Moderate activity for the next 7 days. No lifting more than 5 pounds (gallon of milk) for 4-6 weeks. Avoid lifting your arm on the same side as the device for 4 weeks. BATHING /SHOWERING: Do not remove the large bandage over the site for 2 days. Do not allow the device to get wet for 7-10 days. You may bathe/shower, but do not use soap and water on the site. When bathing, keep the site dry by covering with Saran wrap or a towel. WOUND CARE: The white steri-strips will start to peel away and come off after 14 days, or your doctor will remove them after [address] anything into or on top of the incision. Do not use cotton swabs. Do not use any antibiotic ointment or Vitamin E on the site. REMINDERS: You may use electrical devices, such as, microwaves, hair dryers, electric razors, electric blankets, etc. as long as they are in good condition and kept 6-8 inches away from the device. It is recommended to use cell phones on the opposite side of your device. Notify security personnel at the airport that you have a device [facility]. When at places with security monitors, such as a grocery store, do not linger near these monitors. It is fine to walk past them in a normal manner. Refer to your owners manual for more specific directions. CARRY YOUR PACEMAKER/ICD CARD WITH YOU AT ALL TIMES Return to work as instructed per physician Resume driving as instructed per physician Keep all scheduled follow up appointments Resume medications as instructed Contact [facility] ( ) if: You develop excessive bleeding from insertion or wound site not controlled by applying pressure You develop a fever greater than 101 degrees Fahrenheit Your incision becomes reddened at or around the site Your incision develops yellowish or greenish drainage or development of white pimple-like bumps You experience excessive pain You develop swelling in your ankles You experience muscle switching You develop excessive hiccupping If you experience chest pain, shortness of breath, dizziness, or extreme tiredness, stop the activity and rest. Please notify [facility] office if you experience any of these symptoms and they are not relieved by rest please call 911! Referrals: López Mann MD [Primary Care Provider] - 06/22/18 1:15 pm
[2018-06-15] MEDS ORDERED: Metoprolol XL (24 HR) Succ 25 MG TAB.ER.24H PO SCH (10:15)
--- NOTE | 2018-06-15 11:52 | Discharge Summary ---
- NOTES TO OUTPATIENT PROVIDER Notes to Outpatient Provider: INR check on or Thursday. Follow-up with cardiology in 7-10 days for wound check after pacemaker placement. Orders not resulted at time of discharge: Pending orders 06/10/18 08:11 Culture,Sputum with Gram Stain [RM] Stat 06/10/18 21:29 Urinalysis reflex Microscopic [URIN] Stat 06/11/18 06:00 ECG 12 lead ECG [ECG] AM 0600 06/15/18 06:00 XR chest 2V [XR] Routine Date of Encounter: 06/15/18 Time of Encounter: 11:30 - Discharge Diagnosis (1) Insulin dependent diabetes mellitus Priority: Secondary Status: Acute (2) Traumatic open wound of right lower leg with delayed healing Priority: Primary Status: Acute (3) Sinus pause Priority: Primary Status: Acute (4) Syncope and collapse Priority: Primary Status: Acute (5) Traumatic hematoma of head Priority: Secondary Status: Acute Qualifiers: Encounter type: initial encounter Qualified Code(s): S00.93XA - Contusion of unspecified part of head, initial encounter (6) Morbid obesity with BMI of 40.0-44.9, adult Priority: Secondary Status: Acute (7) DVT prophylaxis Priority: Secondary Status: Acute (8) Acute bronchitis Priority: Secondary Status: Acute Qualifiers: Bronchitis organism: unspecified organism Qualified Code(s): J20.9 - Acute bronchitis, unspecified (9) DVT (deep venous thrombosis) Priority: Secondary Status: Acute Qualifiers: DVT location: lower extremity Affected thrombotic vein of extremity: u nspecified vein of extremity Chronicity: chronic Laterality: left Qualified Code(s): I82.502 - Chronic embolism and thrombosis of unspecified deep veins of left lower extremity Hospital course: Ms. Patten is a 63 year old female with past medical history of A. fib status post ablation, DVT/PE on Coumadin presented with episode of syncope and collapse. Patient's EGD EKG showed sinus pause greater than 10 seconds. She was admitted for further cardiac evaluation. EP consult was also obtained. TSH was normal. Magnesium was replaced. Troponins were negative. Head CT was unremarkable except left forehead periorbital hematoma, cervical CT unremarkable. Carotid duplex showed right proximal ICA 60-179 stenosis and left proximal ICA 40-59% stenosis. Echocardiogram showed EF of 60-65, mild diastolic dysfunction, normal wall motion no evidence of pulmonary hypertension. Patient was planned for for pacemaker placement after INR falls below 1.5. Coumadin was held. Patient had a pacemaker placement without any complication. Patient also had treatment for acute bronchitis with ceftriaxone and doxycycline for total 5 days. Patient's hematoma on her forehead did not expand on starting anticoagulation. Hemoglobin remained stable. Physical therapy evaluated patient and recommended home health. Patient will be discharged on Coumadin at home dose to followed INR within one week. Lovenox was started initially for bridging however stopped given the risk of developing hematoma per cardiology. Patient was started on low-dose Toprol-XL as well. Patient will be discharged home with home health. Discussed reasons with patient which should made patient to come to ER. Discharge discussed with: patient, nurse, social work, case management, internal consultant - Time Spent with Patient Total time spent providing and/or coordinating discharge services: Greater than 30 minutes (40) - Discharge Medications Prescriptions: Metoprolol XL (24 HR) Succ [Toprol Xl] 25 mg PO DAILY 30 Days #30 tab.er.24h Home Medications: Albuterol Sulfate [Proair Hfa] 2 puff IH Q6H PRN 09/21/15 [History] Atorvastatin [Lipitor] 40 mg PO HS 09/21/15 [History] Polyethylene Glycol 3350 [MiraLAX] 17 gm PO DAILY PRN 09/21/15 [History] Tiotropium [Spiriva] 18 mcg IH DAILY 03/21/16 [History] Cyclobenzaprine [Flexeril] 10 mg PO TID #30 06/13/16 [Rx] Warfarin [Coumadin] 5 mg PO HS 08/02/16 [History] Amitriptyline [Elavil] 50 mg PO HS #30 tablet 08/08/16 [Rx] Furosemide [Lasix] 20 mg PO DAILY #30 tablet 08/08/16 [Rx] Venlafaxine HCl [Effexor Xr] 75 mg PO HS #14 cap.er.24h 08/08/16 [Rx] Gabapentin [Neurontin] 600 mg PO TID 03/04/17 [History] Exenatide [Byetta] 10 mcg SQ BID 08/19/17 [History] Insulin Glargine [Lantus] 30 unit SQ HS 08/19/17 [History] ALPRAZolam [Xanax 1 MG Tablet] 1 mg PO TID PRN 01/15/18 [History] Diclofenac Sodium [Voltaren] 1 appl TP BID 01/15/18 [History] Insulin LISPRO [Humalog Kwikpen U-100] 12 unit SQ TIDAC 01/15/18 [History] Nystatin [Nystatin Suspension] 100,000 units PO BID 01/15/18 [History] Ferrous Sulfate [Iron] 325 mg PO DAILY 01/27/18 [History] raNITIdine HCl [Zantac] 150 mg PO BID 01/27/18 [History] Citalopram Hydrobromide [Citalopram HBr] 20 mg PO DAILY 06/10/18 [History] Omeprazole [PriLOSEC] 40 mg PO BID 06/10/18 [History] Metoprolol XL (24 HR) Succ [Toprol Xl] 25 mg PO DAILY 30 Days #30 tab.er.24h 06/15/18 [Rx] Allergies/Adverse Reactions: Allergy/AdvReac Type Severity Reaction Status Date / Time levofloxacin [From Levaquin] Allergy Hives Verified 06/10/18 08:22 Penicillins Allergy Hives Verified 06/10/18 08:22 Sulfa (Sulfonamide Allergy Rash Verified 06/10/18 08:22 Antibiotics) cephalexin [From Keflex] AdvReac Hypertensio Verified 06/10/18 08:22 n duloxetine [From Cymbalta] AdvReac Nightmare Verified 06/10/18 08:22 metformin AdvReac Nausea Verified 06/10/18 08:22 Date of admission: 06/10/18 08:16 Primary care physician: López Mann MD Consults: 06/10/18 08:02 Consult to Surgery [CONS] Stat Consulting Provider: Surgery [facility] Reason for Consult: follows with Dr. Aguilar for RLE wound Call Completed: No 06/10/18 08:04 Consult to Nutrition [CONS] Routine Comment: Consulting Provider: NUTRITION Reason for Dietary Consult: PO Supplementation 06/10/18 08:06 Consult to Cardiology [CONS] Stat Comment: Consulting Provider: Cardiology [facility] Reason for Consult: pause and syncope Call Completed: Yes 06/10/18 09:22 Consult to Cosmetic Consultant [CONS] Routine Reason for SW Consult: existing home health with DME 06/10/18 10:37 Consult to Electrophysiology (EP) [CONS] Routine Consulting Provider: Electrophysiology [facility] Reason for Consult: Sinus arrest, >10 second pause Call Completed: Yes 06/13/18 12:41 Consult to Occupational Therapy [CONS] Routine Comment: Evaluate, develop and implement POC Reason for Consult: weakness Does patient have active BEDREST order?: No Is patient medically & hemodynamically stable?: Yes Consult to Physical Therapy [CONS] Routine Comment: Evaluate, develop and implement POC Reason for Consult: Weakness Does patient have active BEDREST order?: No Is patient medically & hemodynamically stable?: Yes Discharging clinician: Samara Smith - Constitutional Vitals: Temp Pulse Resp BP Pulse Ox 98.6 F 74 16 126/57 94 06/15/18 07:13 06/15/18 07:13 06/15/18 10:50 06/15/18 04:29 06/15/18 10:50 Exam: General: In no acute distress. Conversant. Morbidly Obese. HEENT: Left forehead and periorbital bruise and swelling. Respiratory exam: CTAB. no accessory muscle use, rales, rhonchi, wheezes. Cardiovascular exam: RRR, irregular beats often. +S1, +S2. no murmur, gallop, rubs. GI/Abdominal exam: Non-tender, Non-distended, normal bowel sounds, soft, no peritoneal signs. Extremities exam: full ROM, no pedal edema, warm, pulses palpable in b/l lower extremities. no calf tenderness Neurological exam: CN II-XII intact, AO X3, no focal deficits. no pronater drift, facial droop, speech deficit Skin exam: No skin rash, ulcer, purpura or ecchymosis. Has a right lower extremity ulcer wrapped with clean Curlex. Left chest device site well. No bleeding or hematoma. - Patient Status Disposition: Home Health Service - Discharge Instructions Instructions: Metoprolol (By mouth), Enoxaparin (Injection), Atrial Fibrillation (DC), Pacemaker (DC), Syncope (DC), Anemia (GEN), Fall Prevention (DC) Follow Up With: López Mann MD [Primary Care Provider] - 06/22/18 1:15 pm Additional Instructions: ACTIVITY: Moderate activity for the next 7 days. No lifting more than 5 pounds (gallon of milk) for 4-6 weeks. Avoid lifting your arm on the same side as the device for 4 weeks. BATHING /SHOWERING: Do not remove the large bandage over the site for 2 days. Do not allow the device to get wet for 7-10 days. You may bathe/shower, but do not use soap and water on the site. When bathing, keep the site dry by covering with Saran wrap or a towel. WOUND CARE: The white steri-strips will start to peel away and come off after 14 days, or your doctor will remove them after [address] anything into or on top of the incision. Do not use cotton swabs. Do not use any antibiotic ointment or Vitamin E on the site. REMINDERS: You may use electrical devices, such as, microwaves, hair dryers, electric razors, electric blankets, etc. as long as they are in good condition and kept 6-8 inches away from the device. It is recommended to use cell phones on the opposite side of your device. Notify security personnel at the airport that you have a device before you go through airport security screening. When at places with security monitors, such as a grocery store, do not linger near these monitors. It is fine to walk past them in a normal manner. Refer to your owners manual for more specific directions. CARRY YOUR PACEMAKER/ICD CARD WITH YOU AT ALL TIMES Return to work as instructed per physician Resume driving as instructed per physician Keep all scheduled follow up appointments Resume medications as instructed Contact [facility] ( ) if: You develop excessive bleeding from insertion or wound site not controlled by applying pressure You develop a fever greater than 101 degrees Fahrenheit Your incision becomes reddened at or around the site Your incision develops yellowish or greenish drainage or development of white pimple-like bumps You experience excessive pain You develop swelling in your ankles You experience muscle switching You develop excessive hiccupping If you experience chest pain, shortness of breath, dizziness, or extreme tiredness, stop the activity and rest. Please notify [facility] office if you experience any of these symptoms and they are not relieved by rest please call 911! - Diet and Activity Activity: as per physical therapy
--- NOTE | 2018-06-15 11:57 | Physician Discharge Referral ---
Home Health/Hosp Referral Info Transfer to: Home Health (Needs INR check and lovenox bridging.) - Diagnosis (1) Insulin dependent diabetes mellitus Status: Acute (2) Traumatic open wound of right lower leg with delayed healing Status: Acute (3) Sinus pause Status: Acute (4) Syncope and collapse Status: Acute (5) Traumatic hematoma of head Status: Acute (6) Morbid obesity with BMI of 40.0-44.9, adult Status: Acute (7) DVT prophylaxis Status: Acute (8) Acute bronchitis Status: Acute (9) DVT (deep venous thrombosis) Status: Acute - Respiratory Orders Smoking Cessation: Smoking cessation has been advised. For more information, call the [place] Tobacco Quit Line at 0-332-XPYP-NOW. - Services Needed Following services are medically necessary services: Physical Therapy - Transfer Medications Prescriptions: Enoxaparin [Lovenox] 120 mg SQ Q12HR 6 Days #12 syringe Metoprolol XL (24 HR) Succ [Toprol Xl] 25 mg PO DAILY 30 Days #30 tab.er.24h Home Medications: Albuterol Sulfate [Proair Hfa] 2 puff IH Q6H PRN 09/21/15 [History] Atorvastatin [Lipitor] 40 mg PO HS 09/21/15 [History] Polyethylene Glycol 3350 [MiraLAX] 17 gm PO DAILY PRN 09/21/15 [History] Tiotropium [Spiriva] 18 mcg IH DAILY 03/21/16 [History] Cyclobenzaprine [Flexeril] 10 mg PO TID #30 06/13/16 [Rx] Warfarin [Coumadin] 5 mg PO HS 08/02/16 [History] Amitriptyline [Elavil] 50 mg PO HS #30 tablet 08/08/16 [Rx] Furosemide [Lasix] 20 mg PO DAILY #30 tablet 08/08/16 [Rx] Venlafaxine HCl [Effexor Xr] 75 mg PO HS #14 cap.er.24h 08/08/16 [Rx] Gabapentin [Neurontin] 600 mg PO TID 03/04/17 [History] Exenatide [Byetta] 10 mcg SQ BID 08/19/17 [History] Insulin Glargine [Lantus] 30 unit SQ HS 08/19/17 [History] ALPRAZolam [Xanax 1 MG Tablet] 1 mg PO TID PRN 01/15/18 [History] Diclofenac Sodium [Voltaren] 1 appl TP BID 01/15/18 [History] Insulin LISPRO [Humalog Kwikpen U-100] 12 unit SQ TIDAC 01/15/18 [History] Nystatin [Nystatin Suspension] 100,000 units PO BID 01/15/18 [History] Ferrous Sulfate [Iron] 325 mg PO DAILY 01/27/18 [History] raNITIdine HCl [Zantac] 150 mg PO BID 01/27/18 [History] Citalopram Hydrobromide [Citalopram HBr] 20 mg PO DAILY 06/10/18 [History] Omeprazole [PriLOSEC] 40 mg PO BID 06/10/18 [History] Enoxaparin [Lovenox] 120 mg SQ Q12HR 6 Days #12 syringe 06/15/18 [Rx] Metoprolol XL (24 HR) Succ [Toprol Xl] 25 mg PO DAILY 30 Days #30 tab.er.24h 06/15/18 [Rx] Allergies/Adverse Reactions: Allergy/AdvReac Type Severity Reaction Status Date / Time levofloxacin [From Levaquin] Allergy Hives Verified 06/10/18 08:22 Penicillins Allergy Hives Verified 06/10/18 08:22 Sulfa (Sulfonamide Allergy Rash Verified 06/10/18 08:22 Antibiotics) cephalexin [From Keflex] AdvReac Hypertensio Verified 06/10/18 08:22 n duloxetine [From Cymbalta] AdvReac Nightmare Verified 06/10/18 08:22 metformin AdvReac Nausea Verified 06/10/18 08:22 Certification: Further, I certify that my clinical findings support that this patient is homebound (i.e. absences from home require considerable and taxing effort and are for medical reasons or muslim services or infrequently or short duration when for other reasons) because: Homebound Reason: Patient requires assistance of a person or device to safely leave home Attestation: My signature below is to certify that this patient is under my care and that I, or nurse practitioner, or a physician's dental laboratory assistant working with me, has a [id number] encounter with this patient.
[2018-06-15] MEDS ORDERED: *HR* Warfarin 5 MG TABLET PO SCH (18:00)
== END 2018-06-15 14:52 | disposition home health service (06) | DRG 242 ==
LOC: EMEROOARM 03:54 → SUATTDRO 08:16 → ICNU 08:16 → 2NENU 06-12 13:45
PROVIDERS: ADMIT Internal Medicine; ATTEND Internal Medicine

== ENCOUNTER 2019-02-01 18:42 | Observation (INO) ==
[2019-02-01 19:38] LABS: Hematocrit 35.3 % (35.3-44.9); Hemoglobin 11.1 g/dL (11.5-15.4); Mean Corpuscular HGB Conc 31.4 g/dL (31.6-35.5); Mean Corpuscular Hemoglobin 27.3 pg (28.0-33.3); Mean Corpuscular Volume 86.7 fL (83.0-100.0); Mean Platelet Volume 10.1 fL (9.4-12.4); Platelet Count 227 K/mcL (140-400); Red Blood Count 4.07 M/mcL (3.82-4.97); Red Cell Distribution Width 14.1 % (11.5-14.5); White Blood Count 9.3 K/mcL (4.3-11.1)
[2019-02-01 19:48] LABS: BUN/Creatinine Ratio 16 (6-26); Blood Urea Nitrogen 16 mg/dL (8-23); Calcium 8.7 mg/dL (8.6-10.3); Carbon Dioxide 26 mEq/L (23-29); Chloride 101 mEq/L (98-107); Glucose 245 mg/dL (70-105); Osmolality,Calculated 293 (280-300); Potassium 4.3 mEq/L (3.5-5.1); Sodium 137 mEq/L (136-145); eGFR For African Americans > 60 (> 60); eGFR For Non-African Americans 57 (> 60)
[2019-02-01 19:59] LABS: Troponin I < 0.03 ng/mL (< 0.04)
[2019-02-01] MEDS ORDERED: Naloxone 0.4 MG/ML INJ IVP PRN (21:48)
[2019-02-01] MEDS ORDERED: D5% in Water 1,000 ML IVC PRN (21:55)
[2019-02-01] MEDS ORDERED: *HR* Dextrose 50 % in Water (Syg) 50 ML SYRINGE IVP PRN (21:55)
[2019-02-01] MEDS ORDERED: Dextrose Gel 15 GM/37.5 ML TUBE PO PRN ×2 (21:55)
[2019-02-01] MEDS ORDERED: 0.9 % Sodium Chloride 1,000 ML IVC SCH (22:00)
[2019-02-01] MEDS: Insulin DETEMIR 100 UNIT/ML X5UNITS SQ SCH (23:12)
[2019-02-02] MEDS: Insulin LISPRO 300 UNITS/3 ML VIAL SQ SCH ×4 (00:08→17:22)
[2019-02-02] MEDS: Acetaminophen/Butalbital/CaffeineTABLET PO PRN ×2 (01:02→14:12)
[2019-02-02] MEDS ORDERED: Nitroglycerin 0.4 MG TAB.SUBL SL PRN (01:09)
[2019-02-02] MEDS ORDERED: Nystatin POWDER 30 GM BOTTLE TP PRN (01:09)
[2019-02-02] MEDS ORDERED: (Diclofenac Sodium [Voltaren] 1 APPL) TP PRN (01:09)
[2019-02-02 01:46] LABS: Hematocrit 33.7 % (35.3-44.9); Hemoglobin 10.5 g/dL (11.5-15.4); Mean Corpuscular HGB Conc 31.2 g/dL (31.6-35.5); Mean Corpuscular Hemoglobin 27.1 pg (28.0-33.3); Mean Corpuscular Volume 86.9 fL (83.0-100.0); Mean Platelet Volume 9.8 fL (9.4-12.4); Platelet Count 203 K/mcL (140-400); Red Blood Count 3.88 M/mcL (3.82-4.97); Red Cell Distribution Width 14.3 % (11.5-14.5); White Blood Count 8.2 K/mcL (4.3-11.1)
[2019-02-02 01:56] LABS: INR 1.2
[2019-02-02 01:59] LABS: Activated Partial Thrombo Time 33.7 Seconds (26.0-36.0)
[2019-02-02 02:06] LABS: BUN/Creatinine Ratio 19 (6-26); Blood Urea Nitrogen 18 mg/dL (8-23); Calcium 8.7 mg/dL (8.6-10.3); Carbon Dioxide 27 mEq/L (23-29); Chloride 102 mEq/L (98-107); Chol/HDL Ratio 4.8 (0-4.9); Cholesterol 150 mg/dL (< 200); Glucose 250 mg/dL (70-105); HDL Cholesterol 31 mg/dL (40-59); LDL Cholesterol,Calculated 76 mg/dL (0-99); Osmolality,Calculated 298 (280-300); Potassium 3.9 mEq/L (3.5-5.1); Sodium 139 mEq/L (136-145); Triglycerides 215 mg/dL (< 150); eGFR For African Americans > 60 (> 60); eGFR For Non-African Americans 59 (> 60)
[2019-02-02 06:03] LABS: Estimated Average Glucose 266 mg/dl
[2019-02-02] MEDS: carvediloL 6.25 MG TABLET PO SCH ×2 (09:07→16:09)
[2019-02-02] MEDS: Gabapentin 300 MG CAPSULE PO SCH ×3 (09:08→19:28)
[2019-02-02] MEDS: Apixaban 5 MG TABLET PO SCH ×2 (09:09→19:28)
[2019-02-02] MEDS: Aspirin 81 MG TAB.CHEW PO SCH (09:09)
[2019-02-02] MEDS: Furosemide 20 MG TABLET PO SCH (09:09)
[2019-02-02] MEDS: Famotidine 20 MG TABLET PO SCH ×2 (09:09→19:28)
[2019-02-02] MEDS ORDERED: Perflutren Lipid Microsphere 1.3 ML in 0.9 % Sodium Chloride 8.7 ML IVP ONE (12:53)
[2019-02-02 16:02] LABS: Bilirubin,Urine Negative (Negative); Blood,Urine Negative (Negative); Clarity,Urine Cloudy (Clear); Color,Urine Yellow (Yellow); Glucose,Urine (UA) Normal (Normal); Ketones,Urine Negative (Negative); Leukocyte Esterase,Urine Large (Negative); Nitrite,Urine Negative (Negative); Protein,Urine Negative (Neg-Trace); Specific Gravity,Urine 1.018 (1.010-1.025); Urobilinogen,Urine Normal (Normal)
[2019-02-02 16:05] LABS: Bacteria,Urine Many per hpf (None-Few); Hyaline Casts,Urine None Seen per lpf (None-Few); RBC,Urine 0-3 per hpf (0-3); Squamous Epithelial Cell,Urine Many per lpf (None-Few); WBC,Urine 50-100 per hpf (0-3)
[2019-02-02] MEDS: Venlafaxine XR (24 HR) 75 MG CAP.ER.24H PO SCH (19:27)
[2019-02-02] MEDS: Acetaminophen 325 MG TABLET PO PRN (19:28)
[2019-02-02] MEDS: Insulin DETEMIR 100 UNIT/ML X5UNITS SQ SCH (19:28)
[2019-02-03] MEDS: Insulin LISPRO 300 UNITS/3 ML VIAL SQ SCH ×4 (00:22→17:30)
[2019-02-03 07:02] LABS: Basophils % 0.4 %; Eosinophils # 0.3 K/mcL (0.0-0.6); Hematocrit 34.2 % (35.3-44.9); Hemoglobin 10.3 g/dL (11.5-15.4); Immature Granulocytes % 0.3 % (0-4); Lymphocytes # 1.4 K/mcL (0.6-4.6); Lymphocytes % 20.5 %; Mean Corpuscular HGB Conc 30.1 g/dL (31.6-35.5); Mean Corpuscular Hemoglobin 26.6 pg (28.0-33.3); Mean Corpuscular Volume 88.4 fL (83.0-100.0); Mean Platelet Volume 9.7 fL (9.4-12.4); Monocytes # 0.6 K/mcL (0.0-1.3); Monocytes % 9.2 %; Neutrophils # 4.4 K/mcL (1.6-8.9); Platelet Count 183 K/mcL (140-400); Red Blood Count 3.87 M/mcL (3.82-4.97); Red Cell Distribution Width 14.1 % (11.5-14.5); Segmented Neutrophils % 64.6 %; White Blood Count 6.8 K/mcL (4.3-11.1)
[2019-02-03 07:18] LABS: BUN/Creatinine Ratio 17 (6-26); Blood Urea Nitrogen 18 mg/dL (8-23); Carbon Dioxide 29 mEq/L (23-29); Chloride 101 mEq/L (98-107); Glucose 192 mg/dL (70-105); Osmolality,Calculated 295 (280-300); Potassium 4.2 mEq/L (3.5-5.1); Sodium 139 mEq/L (136-145); eGFR For African Americans > 60 (> 60); eGFR For Non-African Americans 51 (> 60)
[2019-02-03] MEDS: Famotidine 20 MG TABLET PO SCH ×2 (09:15→20:00)
[2019-02-03] MEDS: Furosemide 20 MG TABLET PO SCH (09:16)
[2019-02-03] MEDS: Gabapentin 300 MG CAPSULE PO SCH ×3 (09:16→20:00)
[2019-02-03] MEDS: Aspirin 81 MG TAB.CHEW PO SCH (09:16)
[2019-02-03] MEDS: carvediloL 6.25 MG TABLET PO SCH ×2 (09:16→17:30)
[2019-02-03] MEDS: Apixaban 5 MG TABLET PO SCH ×2 (09:16→19:59)
[2019-02-03] MEDS: *HR* HYDROcodone/Acet 5/325 mg TABLET PO PRN ×2 (10:51→19:59)
[2019-02-03] MEDS: Venlafaxine XR (24 HR) 75 MG CAP.ER.24H PO SCH (19:59)
[2019-02-03] MEDS: Insulin DETEMIR 100 UNIT/ML X5UNITS SQ SCH (20:55)
[2019-02-03] MEDS ORDERED: NON-FORMULARY MEDICATION 1 EACH EACH (Insulin Glargine [Lantus] 40 UNIT) SQ SCH (21:00)
[2019-02-03] MEDS ORDERED: Insulin LISPRO 300 UNITS/3 ML VIAL SQ SCH (21:00)
[2019-02-03] MEDS ORDERED: ALPRAZolam 1 MG TABLET PO ONE (22:00)
[2019-02-04 02:49] LABS: Basophils % 0.4 %; Eosinophils # 0.3 K/mcL (0.0-0.6); Eosinophils % 4.2 %; Hematocrit 33.9 % (35.3-44.9); Hemoglobin 10.4 g/dL (11.5-15.4); Immature Granulocytes % 0.4 % (0-4); Lymphocytes # 1.5 K/mcL (0.6-4.6); Lymphocytes % 21.2 %; Mean Corpuscular HGB Conc 30.7 g/dL (31.6-35.5); Mean Corpuscular Hemoglobin 26.9 pg (28.0-33.3); Mean Corpuscular Volume 87.8 fL (83.0-100.0); Mean Platelet Volume 10.2 fL (9.4-12.4); Monocytes # 0.6 K/mcL (0.0-1.3); Monocytes % 8.7 %; Neutrophils # 4.7 K/mcL (1.6-8.9); Platelet Count 173 K/mcL (140-400); Red Blood Count 3.86 M/mcL (3.82-4.97); Red Cell Distribution Width 14.1 % (11.5-14.5); Segmented Neutrophils % 65.1 %; White Blood Count 7.2 K/mcL (4.3-11.1)
[2019-02-04 03:08] LABS: Calcium 9.2 mg/dL (8.6-10.3); Potassium 4.3 mEq/L (3.5-5.1)
[2019-02-04] MEDS ORDERED: *HR* LORazepam 1 MG TABLET PO ONE (08:51)
[2019-02-04] MEDS: Acetaminophen 325 MG TABLET PO PRN (09:23)
[2019-02-04] MEDS: carvediloL 6.25 MG TABLET PO SCH ×2 (09:23→16:59)
[2019-02-04] MEDS: Aspirin 81 MG TAB.CHEW PO SCH (09:23)
[2019-02-04] MEDS: Gabapentin 300 MG CAPSULE PO SCH ×2 (09:23→14:07)
[2019-02-04] MEDS: Apixaban 5 MG TABLET PO SCH (09:23)
[2019-02-04] MEDS: Famotidine 20 MG TABLET PO SCH (09:23)
[2019-02-04] MEDS: Insulin DETEMIR 100 UNIT/ML X5UNITS SQ SCH (09:31)
[2019-02-04] MEDS: Insulin LISPRO 300 UNITS/3 ML VIAL SQ SCH ×3 (09:31→16:59)
[2019-02-04] MEDS: *HR* HYDROcodone/Acet 5/325 mg TABLET PO PRN (10:36)
[2019-02-04] MEDS: Furosemide 20 MG TABLET PO SCH (14:07)
[2019-02-04 16:19] VITALS: BP 140/86
[2019-02-04] MEDS ORDERED: SUMAtriptan succinate 25 MG TABLET PO ONE (16:36)
== END 2019-02-04 19:23 | disposition home health service (06) ==
LOC: 3BNU 18:42 → EMEROOARM 18:42 → 3BNU 22:15
PROVIDERS: ADMIT Pediatrics; ATTEND Pediatrics

== ENCOUNTER 2020-04-16 16:51 | Observation (INO) ==
[2020-04-16 17:28] LABS: Basophils # 0.1 K/mcL (0.0-0.2); Basophils % 0.6 %; Eosinophils # 0.4 K/mcL (0.0-0.6); Eosinophils % 3.6 %; Hematocrit 37.4 % (35.3-44.9); Immature Granulocytes % 0.5 % (0-4); Lymphocytes # 1.9 K/mcL (0.6-4.6); Lymphocytes % 17.5 %; Mean Corpuscular HGB Conc 32.1 g/dL (31.6-35.5); Mean Corpuscular Hemoglobin 30.9 pg (28.0-33.3); Mean Corpuscular Volume 96.4 fL (83.0-100.0); Monocytes # 0.8 K/mcL (0.0-1.3); Monocytes % 7.4 %; Neutrophils # 7.5 K/mcL (1.6-8.9); Platelet Count 216 K/mcL (140-400); Red Blood Count 3.88 M/mcL (3.82-4.97); Segmented Neutrophils % 70.4 %; White Blood Count 10.7 K/mcL (4.3-11.1)
[2020-04-16 17:36] LABS: INR 1.4
[2020-04-16 17:39] LABS: Activated Partial Thrombo Time 36.1 Seconds (26.0-36.0)
[2020-04-16 17:48] LABS: Alanine Aminotransferase 38 Units/L (7-52); Albumin 4.2 g/dL (3.5-5.7); Albumin/Globulin Ratio 1.4 (1.1-2.2); Alkaline Phosphatase 98 Units/L (34-104); Aspartate Amino Transferase 56 Units/L (13-39); BUN/Creatinine Ratio 18 (6-26); Bilirubin,Total 0.4 mg/dL (0.3-1.0); Blood Urea Nitrogen 21 mg/dL (8-23); Calcium 9.5 mg/dL (8.6-10.3); Carbon Dioxide 32 mEq/L (23-29); Chloride 101 mEq/L (98-107); Globulin 3.1 g/dL (2.4-3.5); Glucose 57 mg/dL (70-105); Magnesium 1.7 mg/dL (1.6-2.6); Osmolality,Calculated 291 (280-300); Potassium 4.4 mEq/L (3.5-5.1); Sodium 140 mEq/L (136-145); Total Protein 7.3 g/dL (6.4-8.9); eGFR For African Americans 55 (> 60); eGFR For Non-African Americans 46 (> 60)
[2020-04-16 19:03] LABS: Bilirubin,Urine Negative (Negative); Blood,Urine Negative (Negative); Clarity,Urine Slightly Cloudy (Clear); Color,Urine Yellow (Yellow); Glucose,Urine (UA) Normal (Normal); Ketones,Urine Negative (Negative); Leukocyte Esterase,Urine Moderate (Negative); Nitrite,Urine Negative (Negative); PH,Urine 6.5 pH Units (5.0-8.0); Protein,Urine Negative (Neg-Trace); Urobilinogen,Urine Normal (Normal)
[2020-04-16 19:09] LABS: Mucus,Urine Few per lpf (None-Few); RBC,Urine 0-3 per hpf (0-3); Squamous Epithelial Cell,Urine Few per hpf (None-Few); WBC,Urine 50-100 per hpf (0-3)
[2020-04-16 19:29] LABS: Troponin I < 0.03 ng/mL (< 0.04)
[2020-04-16] MEDS ORDERED: Cefepime HCl 1,000 MG in Water for inj. (sterile) 10 ML IVP STA (19:29)
[2020-04-16] MEDS ORDERED: *HR* Promethazine 25 MG/ML VIAL IVP PRN (19:51)
[2020-04-16] MEDS ORDERED: Naloxone 0.4 MG/ML INJ IVP PRN ×2 (19:51→20:46)
[2020-04-16] MEDS ORDERED: Dextrose Gel 15 GM/37.5 ML TUBE PO PRN ×2 (19:53)
[2020-04-16] MEDS ORDERED: D5% in Water 1,000 ML IVC PRN (19:53)
[2020-04-16] MEDS ORDERED: *HR* Dextrose 50 % in Water (Vial) 50 ML VIAL IVP PRN (19:53)
[2020-04-16] MEDS ORDERED: Perflutren Lipid Microsphere 1.3 ML in 0.9 % Sodium Chloride 8.7 ML IVP PRN (19:56)
[2020-04-16 20:43] LABS: Estimated Average Glucose 169 mg/dl
[2020-04-16] MEDS ORDERED: Acetaminophen 325 MG TABLET PO PRN (20:59)
[2020-04-16] MEDS: Apixaban 5 MG TABLET PO SCH (23:18)
[2020-04-16] MEDS: 0.9 % Sodium Chloride 1,000 ML IVC SCH (23:19)
[2020-04-17] MEDS: Insulin LISPRO 300 UNITS/3 ML VIAL SQ SCH ×5 (00:51→17:37)
[2020-04-17] MEDS ORDERED: Cefepime HCl 1,000 MG in Water for inj. (sterile) 10 ML IVP SCH (06:00)
[2020-04-17 08:17] LABS: Basophils % 0.5 %; Eosinophils # 0.3 K/mcL (0.0-0.6); Eosinophils % 3.9 %; Hematocrit 35.7 % (35.3-44.9); Hemoglobin 11.4 g/dL (11.5-15.4); Immature Granulocytes % 0.6 % (0-4); Lymphocytes # 1.3 K/mcL (0.6-4.6); Lymphocytes % 19.7 %; Mean Corpuscular HGB Conc 31.9 g/dL (31.6-35.5); Mean Corpuscular Hemoglobin 30.6 pg (28.0-33.3); Mean Corpuscular Volume 95.7 fL (83.0-100.0); Mean Platelet Volume 9.8 fL (9.4-12.4); Monocytes # 0.5 K/mcL (0.0-1.3); Monocytes % 7.5 %; Neutrophils # 4.3 K/mcL (1.6-8.9); Platelet Count 170 K/mcL (140-400); Red Blood Count 3.73 M/mcL (3.82-4.97); Segmented Neutrophils % 67.8 %; White Blood Count 6.4 K/mcL (4.3-11.1)
[2020-04-17 08:21] LABS: INR 1.4; Prothrombin Time 16.2 Seconds (9.4-12.1)
[2020-04-17] MEDS: Apixaban 5 MG TABLET PO SCH ×2 (08:35→22:49)
[2020-04-17 08:39] LABS: BUN/Creatinine Ratio 17 (6-26); Blood Urea Nitrogen 19 mg/dL (8-23); Calcium 8.8 mg/dL (8.6-10.3); Carbon Dioxide 29 mEq/L (23-29); Chloride 104 mEq/L (98-107); Chol/HDL Ratio 5.5 (0-4.9); Cholesterol 138 mg/dL (< 200); Glucose 118 mg/dL (70-105); HDL Cholesterol 25 mg/dL (40-59); LDL Cholesterol,Calculated 86 mg/dL (< 100); Magnesium 1.6 mg/dL (1.6-2.6); Osmolality,Calculated 293 (280-300); Potassium 4.2 mEq/L (3.5-5.1); Sodium 140 mEq/L (136-145); Triglycerides 136 mg/dL (< 150); eGFR For African Americans > 60 (> 60); eGFR For Non-African Americans 50 (> 60)
[2020-04-17 08:50] LABS: Thyroid Stimulating Hormone 1.371 mcIU/mL (0.340-5.600)
[2020-04-17] MEDS ORDERED: polyethylene glycoL 3350 17 GM POWD.PACK PO PRN (09:03)
[2020-04-17] MEDS ORDERED: Nystatin POWDER 30 GM BOTTLE TP PRN (09:03)
[2020-04-17] MEDS: Budesonide/Formoterol 80/4.5 1 PUFF INH IH SCH ×2 (10:26→20:24)
[2020-04-17] MEDS: Tiotropium 18 MCG inhalation IH SCH (10:26)
[2020-04-17] MEDS: carvediloL 6.25 MG TABLET PO SCH ×2 (10:32→17:36)
[2020-04-17] MEDS: Cholecalciferol (D-3) 1,000 UNIT (25MCG) TABLET PO SCH (10:33)
[2020-04-17] MEDS: Gabapentin 300 MG CAPSULE PO SCH ×3 (10:33→22:49)
[2020-04-17] MEDS: ALPRAZolam 1 MG TABLET PO SCH ×3 (10:38→22:50)
[2020-04-17] MEDS: 0.9 % Sodium Chloride 1,000 ML IVC SCH (12:50)
[2020-04-17] MEDS: *HR* HYDROcodone/Acet 5/325 mg TABLET PO PRN ×2 (14:10→22:54)
[2020-04-17] MEDS ORDERED: Isovue-370 500 ML BOTTLE IVP ONE (17:27)
[2020-04-17] MEDS: Cefepime HCl 1,000 MG in Water for inj. (sterile) 10 ML IVP SCH (17:36)
[2020-04-17] MEDS ORDERED: Venlafaxine XR (24 HR) 75 MG CAP.ER.24H PO SCH (21:00)
[2020-04-17] MEDS ORDERED: Insulin LISPRO 300 UNITS/3 ML VIAL SQ SCH (21:00)
[2020-04-17] MEDS: Insulin DETEMIR 100 UNIT/ML X5UNITS SQ SCH (22:54)
[2020-04-18] MEDS: Cefepime HCl 1,000 MG in Water for inj. (sterile) 10 ML IVP SCH (05:33)
[2020-04-18] MEDS: Budesonide/Formoterol 80/4.5 1 PUFF INH IH SCH (08:02)
[2020-04-18] MEDS: Tiotropium 18 MCG inhalation IH SCH (08:03)
[2020-04-18] MEDS: Insulin DETEMIR 100 UNIT/ML X5UNITS SQ SCH (08:19)
[2020-04-18] MEDS: Apixaban 5 MG TABLET PO SCH (08:20)
[2020-04-18] MEDS: Insulin LISPRO 300 UNITS/3 ML VIAL SQ SCH (08:20)
[2020-04-18] MEDS: Gabapentin 300 MG CAPSULE PO SCH (08:21)
[2020-04-18] MEDS: carvediloL 6.25 MG TABLET PO SCH (08:21)
[2020-04-18] MEDS: ALPRAZolam 1 MG TABLET PO SCH (08:21)
[2020-04-18] MEDS: Cholecalciferol (D-3) 1,000 UNIT (25MCG) TABLET PO SCH (08:21)
[2020-04-18] MEDS ORDERED: Furosemide 20 MG TABLET PO SCH (09:00)
[2020-04-18 10:35] VITALS: BP 114/67
== END 2020-04-18 13:48 | disposition home health service (06) ==
LOC: EMEROOARM 16:51 → 3BNU 16:51 → SUATTDRO 20:35 → 3BNU 21:10
PROVIDERS: ADMIT Student in an Organized Health Care Education/Training Program; ATTEND Internal Medicine

== ENCOUNTER 2021-09-06 23:55 | Inpatient (IN) ==
[2021-09-07 00:34] LABS: Basophils # 0.1 K/mcL (0.0-0.2); Basophils % 0.4 %; Eosinophils # 0.3 K/mcL (0.0-0.6); Eosinophils % 1.4 %; Hematocrit 38.5 % (35.3-44.9); Hemoglobin 11.7 g/dL (11.5-15.4); Immature Granulocytes % 1.1 % (0-4); Lymphocytes # 0.9 K/mcL (0.6-4.6); Lymphocytes % 4.5 %; Mean Corpuscular HGB Conc 30.4 g/dL (31.6-35.5); Mean Corpuscular Hemoglobin 27.3 pg (28.0-33.3); Mean Corpuscular Volume 89.7 fL (83.0-100.0); Mean Platelet Volume 10.4 fL (9.4-12.4); Monocytes # 1.3 K/mcL (0.0-1.3); Monocytes % 6.1 %; Neutrophils # 17.7 K/mcL (1.6-8.9); Platelet Count 285 K/mcL (140-400); Red Blood Count 4.29 M/mcL (3.82-4.97); Red Cell Distribution Width 13.7 % (11.5-14.5); Segmented Neutrophils % 86.5 %; White Blood Count 20.4 K/mcL (4.3-11.1)
[2021-09-07 00:41] LABS: INR 1.4; Prothrombin Time 15.5 Seconds (9.4-12.1)
[2021-09-07] MEDS ORDERED: Isovue-370 500 ML BOTTLE IVP ONE (00:41)
[2021-09-07 00:44] LABS: Activated Partial Thrombo Time 27.3 Seconds (26.0-36.0)
[2021-09-07 00:54] LABS: BUN/Creatinine Ratio 18 (6-26); Blood Urea Nitrogen 21 mg/dL (8-23); Calcium 9.6 mg/dL (8.6-10.3); Carbon Dioxide 32 mEq/L (23-29); Chloride 93 mEq/L (98-107); Glucose 174 mg/dL (70-105); Osmolality,Calculated 285 (280-300); Potassium 4.7 mEq/L (3.5-5.1); Sodium 134 mEq/L (136-145); eGFR For African Americans 55 (> 60); eGFR For Non-African Americans 45 (> 60)
[2021-09-07 01:13] LABS: Alanine Aminotransferase 8 Units/L (7-52); Albumin 3.4 g/dL (3.5-5.7); Albumin/Globulin Ratio 0.8 (1.1-2.2); Alkaline Phosphatase 155 Units/L (34-104); Aspartate Amino Transferase 15 Units/L (13-39); Bilirubin,Indirect 0.4 mg/dL (0.0-1.0); Bilirubin,Total 0.4 mg/dL (0.3-1.0); Ethanol < 10 mg/dL (Less than 10); Globulin 4.3 g/dL (2.4-3.5); Total Protein 7.7 g/dL (6.4-8.9); Troponin I < 0.03 ng/mL (< 0.04)
[2021-09-07] MEDS ORDERED: levoFLOXacin 750 MG/150 ML 750 MG/150 ML BAG IVPB ONE (01:45)
[2021-09-07] MEDS ORDERED: 0.9 % Sodium Chloride 1,000 ML IVC ONE (01:47)
[2021-09-07 02:42] LABS: Bacteria,Urine Few per hpf (None-Few); Bilirubin,Urine Negative (Negative); Blood,Urine Negative (Negative); Clarity,Urine Clear (Clear); Color,Urine Light-Yellow (Yellow); Glucose,Urine (UA) >=1000 mg/dL (Normal); Ketones,Urine Negative (Negative); Leukocyte Esterase,Urine Small (Negative); Mucus,Urine Few per lpf (None-Few); Nitrite,Urine Negative (Negative); PH,Urine 5.5 pH Units (5.0-8.0); Protein,Urine Negative (Neg-Trace); RBC,Urine 0-3 per hpf (0-3); Squamous Epithelial Cell,Urine Few per hpf (None-Few); Transitional Epi Cells,Urine Few per hpf (None-Few); Urobilinogen,Urine Normal (Normal)
[2021-09-07 03:07] LABS: Amphetamine Screen,Urine Negative ng/mL (Cutoff=1000); Barbiturate Screen,Urine Negative ng/mL (Cutoff=200); Benzodiazepines Screen,Urine Positive ng/mL (Cutoff=200); Cannabinoid Screen,Urine Negative ng/mL (Cutoff = 50); Cocaine Screen,Urine Negative ng/mL (Cutoff= 300); Opiate Screen,Urine Positive ng/mL (Cutoff=300); Phencyclidine Screen,Urine Negative ng/mL (Cutoff=25)
[2021-09-07] MEDS ORDERED: Naloxone 0.4 MG/ML INJ IVP PRN (05:12)
[2021-09-07] MEDS ORDERED: Melatonin 3 MG TABLET PO PRN (05:12)
[2021-09-07 05:56] LABS: Basophils # 0.1 K/mcL (0.0-0.2); Basophils % 0.4 %; Eosinophils # 0.2 K/mcL (0.0-0.6); Eosinophils % 0.9 %; Hematocrit 35.2 % (35.3-44.9); Hemoglobin 10.7 g/dL (11.5-15.4); Lymphocytes # 1.2 K/mcL (0.6-4.6); Lymphocytes % 6.1 %; Mean Corpuscular HGB Conc 30.4 g/dL (31.6-35.5); Mean Corpuscular Hemoglobin 27.2 pg (28.0-33.3); Mean Corpuscular Volume 89.6 fL (83.0-100.0); Mean Platelet Volume 10.3 fL (9.4-12.4); Monocytes # 1.3 K/mcL (0.0-1.3); Monocytes % 6.4 %; Neutrophils # 16.8 K/mcL (1.6-8.9); Platelet Count 272 K/mcL (140-400); Red Blood Count 3.93 M/mcL (3.82-4.97); Red Cell Distribution Width 13.6 % (11.5-14.5); Segmented Neutrophils % 85.2 %; White Blood Count 19.7 K/mcL (4.3-11.1)
[2021-09-07 06:01] LABS: VBG HCO3 31 mEq/L (21-27); VBG PCO2 55 mmHg (41-51); VBG PH 7.36 pH Units (7.32-7.42); VBG PO2 165 mmHg (25-50)
[2021-09-07 06:03] LABS: INR 1.4; Prothrombin Time 15.7 Seconds (9.4-12.1)
[2021-09-07 06:06] LABS: Activated Partial Thrombo Time 29.3 Seconds (26.0-36.0)
[2021-09-07 06:11] LABS: Alanine Aminotransferase 7 Units/L (7-52); Albumin 3.1 g/dL (3.5-5.7); Albumin/Globulin Ratio 0.9 (1.1-2.2); Alkaline Phosphatase 155 Units/L (34-104); Aspartate Amino Transferase 13 Units/L (13-39); BUN/Creatinine Ratio 19 (6-26); Bilirubin,Total 0.3 mg/dL (0.3-1.0); Blood Urea Nitrogen 20 mg/dL (8-23); Calcium 9.1 mg/dL (8.6-10.3); Carbon Dioxide 32 mEq/L (23-29); Chloride 98 mEq/L (98-107); Globulin 3.6 g/dL (2.4-3.5); Glucose 167 mg/dL (70-105); Magnesium 1.6 mg/dL (1.6-2.6); Osmolality,Calculated 284 (280-300); Phosphorous 4.1 mg/dL (2.7-4.5); Potassium 4.5 mEq/L (3.5-5.1); Sodium 134 mEq/L (136-145); Total Protein 6.7 g/dL (6.4-8.9); eGFR For African Americans > 60 (> 60); eGFR For Non-African Americans 52 (> 60)
[2021-09-07] MEDS: Ipratropium/Albuterol Neb 3 ML IH SCH ×4 (07:43→19:34)
[2021-09-07] MEDS ORDERED: Dextrose Gel 15 GM/37.5 ML TUBE PO PRN ×2 (08:15)
[2021-09-07] MEDS ORDERED: D5% in Water 1,000 ML IVC PRN (08:15)
[2021-09-07] MEDS ORDERED: *HR* Dextrose 50 % in Water (Syg) 50 ML SYRINGE IVP PRN (08:15)
[2021-09-07] MEDS: Chlorhexidine Rinse 15 ML MOUTHWASH MM SCH ×2 (09:44→20:19)
[2021-09-07] MEDS: Lactobacillus 1 EACH CAP.SPRINK PO SCH ×2 (09:44→20:19)
[2021-09-07] MEDS: Budesonide/Formoterol 160/4.5 1 PUFF INH IH SCH ×2 (11:20→19:34)
[2021-09-07 13:53] LABS: RBC,Pleural Fluid 3000 RBC/mcL
[2021-09-07 13:57] LABS: Appearance of Pleural Fl Cloudy (Clear)
[2021-09-07] MEDS: Azithromycin 500 MG in 0.9 % Sodium Chloride 250 ML IVPB SCH (14:00)
[2021-09-07] MEDS: cefTRIAXone 2,000 MG in 0.9 % Sodium Chloride Mini Bag 100 ML IVP SCH (14:00)
[2021-09-07 15:00] LABS: Basophils,Pleural Fluid 0 %
[2021-09-07 15:15] LABS: Total Protein,Pleural Fluid 4.6 g/dL
[2021-09-07] MEDS ORDERED: Acetaminophen 325 MG TABLET PO PRN (19:21)
[2021-09-07] MEDS: *HR* OxyCODONE Immed Rel 5 MG TABLET PO PRN (20:19)
[2021-09-07] MEDS: Nystatin POWDER 30 GM BOTTLE TP SCH (23:24)
[2021-09-08] MEDS: Ipratropium/Albuterol Neb 3 ML IH SCH ×7 (00:01→23:45)
[2021-09-08] MEDS: *HR* OxyCODONE Immed Rel 5 MG TABLET PO PRN ×2 (02:30→14:29)
[2021-09-08 06:03] LABS: Basophils # 0.1 K/mcL (0.0-0.2); Basophils % 0.5 %; Eosinophils # 0.3 K/mcL (0.0-0.6); Eosinophils % 2.2 %; Hematocrit 35.1 % (35.3-44.9); Hemoglobin 10.8 g/dL (11.5-15.4); Immature Granulocytes % 0.9 % (0-4); Lymphocytes % 7.2 %; Mean Corpuscular HGB Conc 30.8 g/dL (31.6-35.5); Mean Corpuscular Hemoglobin 27.7 pg (28.0-33.3); Mean Platelet Volume 10.2 fL (9.4-12.4); Monocytes # 1.2 K/mcL (0.0-1.3); Monocytes % 8.4 %; Neutrophils # 11.5 K/mcL (1.6-8.9); Platelet Count 248 K/mcL (140-400); Red Cell Distribution Width 13.8 % (11.5-14.5); Segmented Neutrophils % 80.8 %; White Blood Count 14.2 K/mcL (4.3-11.1)
[2021-09-08 06:27] LABS: BUN/Creatinine Ratio 18 (6-26); Blood Urea Nitrogen 17 mg/dL (8-23); Calcium 9.2 mg/dL (8.6-10.3); Carbon Dioxide 31 mEq/L (23-29); Chloride 100 mEq/L (98-107); Glucose 139 mg/dL (70-105); Osmolality,Calculated 282 (280-300); Potassium 4.2 mEq/L (3.5-5.1); Sodium 134 mEq/L (136-145); eGFR For African Americans > 60 (> 60); eGFR For Non-African Americans 59 (> 60)
[2021-09-08] MEDS ORDERED: polyethylene glycoL 3350 17 GM POWD.PACK PO PRN (07:34)
[2021-09-08] MEDS ORDERED: Vancomycin 1,750 MG/517.5 ML IV.SOLN IVPB SCH (08:00)
[2021-09-08] MEDS: Budesonide/Formoterol 160/4.5 1 PUFF INH IH SCH ×2 (08:13→20:13)
[2021-09-08] MEDS: Tiotropium 10 INH DOSE IH SCH (08:15)
[2021-09-08] MEDS: Gabapentin 300 MG CAPSULE PO SCH ×2 (08:50→21:48)
[2021-09-08] MEDS: Furosemide 20 MG TABLET PO SCH (08:51)
[2021-09-08] MEDS: carvediloL 6.25 MG TABLET PO SCH ×2 (08:51→17:52)
[2021-09-08] MEDS: BuPROPion XL (24 HR) 150 MG TABLET PO SCH (08:51)
[2021-09-08] MEDS: Chlorhexidine Rinse 15 ML MOUTHWASH MM SCH ×2 (08:52→21:48)
[2021-09-08] MEDS: Lactulose Oral Soln 20 GM/30 ML UDC PO SCH (08:52)
[2021-09-08] MEDS: Lactobacillus 1 EACH CAP.SPRINK PO SCH ×2 (08:54→21:48)
[2021-09-08] MEDS: *HR* HYDROcodone/Acet 5/325 mg TABLET PO PRN ×2 (08:54→17:52)
[2021-09-08] MEDS: Empagliflozin [Jardiance] 10 MG PO SCH (08:56)
[2021-09-08] MEDS: cefTRIAXone 2,000 MG in 0.9 % Sodium Chloride Mini Bag 100 ML IVP SCH (08:57)
[2021-09-08] MEDS ORDERED: levoFLOXacin 750 MG/150 ML 750 MG/150 ML BAG IVPB SCH (09:00)
[2021-09-08] MEDS ORDERED: Insulin DETEMIR 100 UNIT/ML X5UNITS SUBQ SCH (09:00)
[2021-09-08] MEDS ORDERED: NON-FORMULARY MEDICATION 1 EACH EACH (Insulin Glargine,Hum.Rec.Anlog [Lantus Solostar] 100 SQ SCH (09:00)
[2021-09-08] MEDS: Nystatin POWDER 30 GM BOTTLE TP SCH ×2 (09:04→21:49)
[2021-09-08] MEDS: Insulin DETEMIR 100 UNIT/ML X5UNITS SUBQ SCH ×2 (09:26→21:49)
[2021-09-08] MEDS: Azithromycin 500 MG in 0.9 % Sodium Chloride 250 ML IVPB SCH (13:18)
[2021-09-08] MEDS ORDERED: *HR* Enoxaparin 120 MG/0.8 ML SYRINGE SQ SCH (18:00)
[2021-09-08] MEDS: Venlafaxine XR (24 HR) 75 MG CAP.ER.24H PO SCH (21:49)
[2021-09-09] MEDS: *HR* HYDROcodone/Acet 5/325 mg TABLET PO PRN ×2 (00:06→07:57)
[2021-09-09 02:57] LABS: Basophils # 0.1 K/mcL (0.0-0.2); Basophils % 0.3 %; Eosinophils # 0.2 K/mcL (0.0-0.6); Eosinophils % 1.4 %; Hematocrit 36.1 % (35.3-44.9); Hemoglobin 10.8 g/dL (11.5-15.4); Immature Granulocytes % 0.7 % (0-4); Lymphocytes # 0.9 K/mcL (0.6-4.6); Lymphocytes % 5.3 %; Mean Corpuscular HGB Conc 29.9 g/dL (31.6-35.5); Mean Corpuscular Hemoglobin 27.1 pg (28.0-33.3); Mean Corpuscular Volume 90.5 fL (83.0-100.0); Mean Platelet Volume 10.3 fL (9.4-12.4); Monocytes # 1.1 K/mcL (0.0-1.3); Monocytes % 6.8 %; Neutrophils # 13.9 K/mcL (1.6-8.9); Platelet Count 268 K/mcL (140-400); Red Blood Count 3.99 M/mcL (3.82-4.97); Red Cell Distribution Width 13.9 % (11.5-14.5); Segmented Neutrophils % 85.5 %; White Blood Count 16.2 K/mcL (4.3-11.1)
[2021-09-09 03:44] LABS: BUN/Creatinine Ratio 18 (6-26); Blood Urea Nitrogen 16 mg/dL (8-23); Carbon Dioxide 25 mEq/L (23-29); Chloride 98 mEq/L (98-107); Glucose 151 mg/dL (70-105); Osmolality,Calculated 284 (280-300); Sodium 135 mEq/L (136-145); eGFR For African Americans > 60 (> 60); eGFR For Non-African Americans > 60 (> 60)
[2021-09-09] MEDS: Ipratropium/Albuterol Neb 3 ML IH SCH ×6 (04:01→23:31)
[2021-09-09] MEDS: Budesonide/Formoterol 160/4.5 1 PUFF INH IH SCH ×2 (07:32→20:08)
[2021-09-09] MEDS: Tiotropium 10 INH DOSE IH SCH (07:34)
[2021-09-09] MEDS: cefTRIAXone 2,000 MG in 0.9 % Sodium Chloride Mini Bag 100 ML IVP SCH (07:56)
[2021-09-09] MEDS: Lactulose Oral Soln 20 GM/30 ML UDC PO SCH (07:56)
[2021-09-09] MEDS: Furosemide 20 MG TABLET PO SCH (07:57)
[2021-09-09] MEDS: Gabapentin 300 MG CAPSULE PO SCH ×2 (07:57→21:11)
[2021-09-09] MEDS: Lactobacillus 1 EACH CAP.SPRINK PO SCH ×2 (07:57→21:12)
[2021-09-09] MEDS: BuPROPion XL (24 HR) 150 MG TABLET PO SCH (07:57)
[2021-09-09] MEDS: carvediloL 6.25 MG TABLET PO SCH ×2 (07:57→16:18)
[2021-09-09] MEDS: Chlorhexidine Rinse 15 ML MOUTHWASH MM SCH (07:58)
[2021-09-09] MEDS: Insulin DETEMIR 100 UNIT/ML X5UNITS SUBQ SCH ×2 (08:00→21:12)
[2021-09-09] MEDS: Nystatin POWDER 30 GM BOTTLE TP SCH ×2 (08:00→21:13)
[2021-09-09] MEDS: Empagliflozin [Jardiance] 10 MG PO SCH (08:00)
[2021-09-09] MEDS: Azithromycin 500 MG in 0.9 % Sodium Chloride 250 ML IVPB SCH (11:49)
[2021-09-09] MEDS: *HR* OxyCODONE Immed Rel 5 MG TABLET PO PRN (11:49)
[2021-09-09] MEDS: Venlafaxine XR (24 HR) 75 MG CAP.ER.24H PO SCH (21:12)
[2021-09-09] MEDS: ALPRAZolam 1 MG TABLET PO PRN (21:23)
[2021-09-10] MEDS: Ipratropium/Albuterol Neb 3 ML IH SCH ×6 (03:55→23:57)
[2021-09-10 06:13] LABS: Basophils # 0.1 K/mcL (0.0-0.2); Basophils % 0.4 %; Eosinophils # 0.3 K/mcL (0.0-0.6); Eosinophils % 1.8 %; Hematocrit 34.4 % (35.3-44.9); Hemoglobin 10.7 g/dL (11.5-15.4); Immature Granulocytes % 0.8 % (0-4); Lymphocytes % 6.1 %; Mean Corpuscular HGB Conc 31.1 g/dL (31.6-35.5); Mean Corpuscular Hemoglobin 27.8 pg (28.0-33.3); Mean Corpuscular Volume 89.4 fL (83.0-100.0); Mean Platelet Volume 10.4 fL (9.4-12.4); Monocytes # 1.2 K/mcL (0.0-1.3); Monocytes % 7.8 %; Neutrophils # 13.2 K/mcL (1.6-8.9); Platelet Count 301 K/mcL (140-400); Red Blood Count 3.85 M/mcL (3.82-4.97); Red Cell Distribution Width 13.8 % (11.5-14.5); Segmented Neutrophils % 83.1 %; White Blood Count 15.8 K/mcL (4.3-11.1)
[2021-09-10 06:16] LABS: INR 1.6; Prothrombin Time 17.9 Seconds (9.4-12.1)
[2021-09-10 06:26] LABS: BUN/Creatinine Ratio 22 (6-26); Blood Urea Nitrogen 21 mg/dL (8-23); Calcium 9.2 mg/dL (8.6-10.3); Carbon Dioxide 26 mEq/L (23-29); Chloride 96 mEq/L (98-107); Glucose 145 mg/dL (70-105); Osmolality,Calculated 282 (280-300); Potassium 3.9 mEq/L (3.5-5.1); Sodium 133 mEq/L (136-145); eGFR For African Americans > 60 (> 60); eGFR For Non-African Americans 60 (> 60)
[2021-09-10] MEDS: Budesonide/Formoterol 160/4.5 1 PUFF INH IH SCH ×2 (07:46→20:23)
[2021-09-10] MEDS: BuPROPion XL (24 HR) 150 MG TABLET PO SCH (09:02)
[2021-09-10] MEDS: *HR* HYDROcodone/Acet 5/325 mg TABLET PO PRN (09:02)
[2021-09-10] MEDS: Gabapentin 300 MG CAPSULE PO SCH ×2 (09:02→20:33)
[2021-09-10] MEDS: Lactobacillus 1 EACH CAP.SPRINK PO SCH ×2 (09:02→20:34)
[2021-09-10] MEDS: carvediloL 6.25 MG TABLET PO SCH ×2 (09:02→16:41)
[2021-09-10] MEDS: Furosemide 20 MG TABLET PO SCH (09:02)
[2021-09-10] MEDS: Empagliflozin [Jardiance] 10 MG PO SCH (09:03)
[2021-09-10] MEDS: cefTRIAXone 2,000 MG in 0.9 % Sodium Chloride Mini Bag 100 ML IVP SCH (09:03)
[2021-09-10] MEDS: Lactulose Oral Soln 20 GM/30 ML UDC PO SCH (09:03)
[2021-09-10] MEDS: Nystatin POWDER 30 GM BOTTLE TP SCH (09:04)
[2021-09-10] MEDS: Insulin DETEMIR 100 UNIT/ML X5UNITS SUBQ SCH ×2 (09:04→20:37)
[2021-09-10 10:43] LABS: Fluid Source for Triglycerides PLEURAL FLUID; Triglycerides,Body Fluid 35 mg/dL
[2021-09-10] MEDS: Azithromycin 500 MG in 0.9 % Sodium Chloride 250 ML IVPB SCH (11:43)
[2021-09-10] MEDS ORDERED: *HR* Propofol 200 MG/20 ML VIAL IVP ONE (13:21)
[2021-09-10] MEDS ORDERED: Lidocaine -MPF 2% 5 ML VIAL ONE (13:21)
[2021-09-10] MEDS ORDERED: *HR* Phytonadione 5 MG TABLET PO ONE (17:53)
[2021-09-10] MEDS: Sennosides/Docusate Sodium TABLET PO SCH (20:33)
[2021-09-10] MEDS: Venlafaxine XR (24 HR) 75 MG CAP.ER.24H PO SCH (20:33)
[2021-09-10] MEDS: ALPRAZolam 1 MG TABLET PO PRN (21:31)
[2021-09-11 01:15] LABS: Hematocrit 34.4 % (35.3-44.9); Hemoglobin 10.6 g/dL (11.5-15.4); Mean Corpuscular HGB Conc 30.8 g/dL (31.6-35.5); Mean Corpuscular Hemoglobin 27.7 pg (28.0-33.3); Mean Corpuscular Volume 90.1 fL (83.0-100.0); Mean Platelet Volume 10.3 fL (9.4-12.4); Platelet Count 289 K/mcL (140-400); Red Blood Count 3.82 M/mcL (3.82-4.97); Red Cell Distribution Width 13.8 % (11.5-14.5); White Blood Count 15.1 K/mcL (4.3-11.1)
[2021-09-11 01:24] LABS: INR 1.5; Prothrombin Time 16.4 Seconds (9.4-12.1)
[2021-09-11 01:41] LABS: Alanine Aminotransferase 8 Units/L (7-52); Albumin 2.9 g/dL (3.5-5.7); Albumin/Globulin Ratio 0.8 (1.1-2.2); Alkaline Phosphatase 196 Units/L (34-104); Aspartate Amino Transferase 17 Units/L (13-39); BUN/Creatinine Ratio 22 (6-26); Bilirubin,Total 0.3 mg/dL (0.3-1.0); Blood Urea Nitrogen 20 mg/dL (8-23); Calcium 8.7 mg/dL (8.6-10.3); Carbon Dioxide 30 mEq/L (23-29); Chloride 97 mEq/L (98-107); Globulin 3.6 g/dL (2.4-3.5); Glucose 144 mg/dL (70-105); Osmolality,Calculated 289 (280-300); Potassium 3.7 mEq/L (3.5-5.1); Sodium 137 mEq/L (136-145); Total Protein 6.5 g/dL (6.4-8.9); eGFR For African Americans > 60 (> 60); eGFR For Non-African Americans > 60 (> 60)
[2021-09-11] MEDS: Ipratropium/Albuterol Neb 3 ML IH SCH ×6 (04:08→23:49)
[2021-09-11] MEDS: Nystatin POWDER 30 GM BOTTLE TP SCH ×3 (04:26→21:48)
[2021-09-11 07:18] LABS: Cholesterol,Body Fluid 100 mg/dL; Fluid Source for Cholesterol PLEURAL FLUID
[2021-09-11] MEDS: BuPROPion XL (24 HR) 150 MG TABLET PO SCH (08:12)
[2021-09-11] MEDS: Lactulose Oral Soln 20 GM/30 ML UDC PO SCH (08:12)
[2021-09-11] MEDS: carvediloL 6.25 MG TABLET PO SCH ×2 (08:12→17:03)
[2021-09-11] MEDS: Furosemide 20 MG TABLET PO SCH (08:13)
[2021-09-11] MEDS: Lactobacillus 1 EACH CAP.SPRINK PO SCH ×2 (08:13→21:47)
[2021-09-11] MEDS: Sennosides/Docusate Sodium TABLET PO SCH ×2 (08:14→21:47)
[2021-09-11] MEDS: Gabapentin 300 MG CAPSULE PO SCH ×2 (08:14→21:47)
[2021-09-11] MEDS: cefTRIAXone 2,000 MG in 0.9 % Sodium Chloride Mini Bag 100 ML IVP SCH (08:24)
[2021-09-11] MEDS: Budesonide/Formoterol 160/4.5 1 PUFF INH IH SCH ×2 (08:34→20:09)
[2021-09-11] MEDS: Insulin DETEMIR 100 UNIT/ML X5UNITS SUBQ SCH ×2 (08:35→21:53)
[2021-09-11] MEDS: *HR* HYDROcodone/Acet 5/325 mg TABLET PO PRN ×2 (08:44→15:26)
[2021-09-11] MEDS: Azithromycin 500 MG in 0.9 % Sodium Chloride 250 ML IVPB SCH (13:31)
[2021-09-11] MEDS ORDERED: *HR* Phytonadione 5 MG TABLET PO ONE (18:00)
[2021-09-11] MEDS: ALPRAZolam 1 MG TABLET PO PRN (21:47)
[2021-09-11] MEDS: Venlafaxine XR (24 HR) 75 MG CAP.ER.24H PO SCH (21:47)
[2021-09-12] MEDS: *HR* OxyCODONE Immed Rel 5 MG TABLET PO PRN (00:12)
[2021-09-12 01:26] LABS: Hematocrit 33.6 % (35.3-44.9); Hemoglobin 10.4 g/dL (11.5-15.4); Mean Corpuscular Hemoglobin 27.5 pg (28.0-33.3); Mean Corpuscular Volume 88.9 fL (83.0-100.0); Mean Platelet Volume 10.1 fL (9.4-12.4); Platelet Count 282 K/mcL (140-400); Red Blood Count 3.78 M/mcL (3.82-4.97); Red Cell Distribution Width 13.8 % (11.5-14.5); White Blood Count 13.4 K/mcL (4.3-11.1)
[2021-09-12 01:36] LABS: INR 1.2; Prothrombin Time 13.9 Seconds (9.4-12.1)
[2021-09-12 01:45] LABS: Alanine Aminotransferase 8 Units/L (7-52); Albumin 2.9 g/dL (3.5-5.7); Albumin/Globulin Ratio 0.8 (1.1-2.2); Alkaline Phosphatase 171 Units/L (34-104); Aspartate Amino Transferase 14 Units/L (13-39); BUN/Creatinine Ratio 24 (6-26); Bilirubin,Total 0.3 mg/dL (0.3-1.0); Blood Urea Nitrogen 19 mg/dL (8-23); Calcium 8.8 mg/dL (8.6-10.3); Carbon Dioxide 30 mEq/L (23-29); Chloride 97 mEq/L (98-107); Globulin 3.6 g/dL (2.4-3.5); Glucose 173 mg/dL (70-105); Osmolality,Calculated 284 (280-300); Potassium 3.4 mEq/L (3.5-5.1); Sodium 134 mEq/L (136-145); Total Protein 6.5 g/dL (6.4-8.9); eGFR For African Americans > 60 (> 60); eGFR For Non-African Americans > 60 (> 60)
[2021-09-12] MEDS: Ipratropium/Albuterol Neb 3 ML IH SCH ×6 (04:01→23:58)
[2021-09-12] MEDS: Budesonide/Formoterol 160/4.5 1 PUFF INH IH SCH ×2 (07:14→20:15)
[2021-09-12] MEDS: BuPROPion XL (24 HR) 150 MG TABLET PO SCH (09:32)
[2021-09-12] MEDS: Gabapentin 300 MG CAPSULE PO SCH ×2 (09:32→20:32)
[2021-09-12] MEDS: Lactobacillus 1 EACH CAP.SPRINK PO SCH ×2 (09:32→20:32)
[2021-09-12] MEDS: carvediloL 6.25 MG TABLET PO SCH ×2 (09:33→17:20)
[2021-09-12] MEDS: Furosemide 20 MG TABLET PO SCH (09:33)
[2021-09-12] MEDS: Sennosides/Docusate Sodium TABLET PO SCH ×2 (09:34→20:32)
[2021-09-12] MEDS: cefTRIAXone 2,000 MG in 0.9 % Sodium Chloride Mini Bag 100 ML IVP SCH (09:48)
[2021-09-12] MEDS: Lactulose Oral Soln 20 GM/30 ML UDC PO SCH (09:49)
[2021-09-12] MEDS: Insulin DETEMIR 100 UNIT/ML X5UNITS SUBQ SCH ×2 (10:22→20:39)
[2021-09-12] MEDS ORDERED: *HR* Midazolam HCl 2 MG/2 ML VIAL IVP ONE (11:18)
[2021-09-12] MEDS ORDERED: *HR* FentaNYL (PF) 100 MCG/2 ML VIAL IVP ONE (11:18)
[2021-09-12] MEDS: Azithromycin 500 MG in 0.9 % Sodium Chloride 250 ML IVPB SCH (14:22)
[2021-09-12] MEDS: Nystatin POWDER 30 GM BOTTLE TP SCH ×2 (20:32)
[2021-09-12] MEDS: Venlafaxine XR (24 HR) 75 MG CAP.ER.24H PO SCH (20:32)
[2021-09-13 03:32] LABS: Hematocrit 34.9 % (35.3-44.9); Hemoglobin 10.4 g/dL (11.5-15.4); Mean Corpuscular HGB Conc 29.8 g/dL (31.6-35.5); Mean Corpuscular Hemoglobin 27.2 pg (28.0-33.3); Mean Corpuscular Volume 91.1 fL (83.0-100.0); Mean Platelet Volume 10.2 fL (9.4-12.4); Platelet Count 300 K/mcL (140-400); Red Blood Count 3.83 M/mcL (3.82-4.97); White Blood Count 15.9 K/mcL (4.3-11.1)
[2021-09-13 03:48] LABS: Alanine Aminotransferase 7 Units/L (7-52); Albumin 2.9 g/dL (3.5-5.7); Albumin/Globulin Ratio 0.8 (1.1-2.2); Alkaline Phosphatase 169 Units/L (34-104); Aspartate Amino Transferase 15 Units/L (13-39); BUN/Creatinine Ratio 21 (6-26); Bilirubin,Total 0.4 mg/dL (0.3-1.0); Blood Urea Nitrogen 16 mg/dL (8-23); Calcium 8.9 mg/dL (8.6-10.3); Carbon Dioxide 30 mEq/L (23-29); Chloride 98 mEq/L (98-107); Globulin 3.5 g/dL (2.4-3.5); Glucose 141 mg/dL (70-105); Osmolality,Calculated 286 (280-300); Potassium 3.5 mEq/L (3.5-5.1); Sodium 136 mEq/L (136-145); Total Protein 6.4 g/dL (6.4-8.9); eGFR For African Americans > 60 (> 60); eGFR For Non-African Americans > 60 (> 60)
[2021-09-13] MEDS: Ipratropium/Albuterol Neb 3 ML IH SCH ×4 (03:48→15:42)
[2021-09-13 03:49] LABS: INR 1.2; Prothrombin Time 13.2 Seconds (9.4-12.1)
[2021-09-13] MEDS: *HR* OxyCODONE Immed Rel 5 MG TABLET PO PRN (05:02)
[2021-09-13] MEDS: Budesonide/Formoterol 160/4.5 1 PUFF INH IH SCH (07:24)
[2021-09-13] MEDS: BuPROPion XL (24 HR) 150 MG TABLET PO SCH (09:53)
[2021-09-13] MEDS: Sennosides/Docusate Sodium TABLET PO SCH (09:53)
[2021-09-13] MEDS: Lactulose Oral Soln 20 GM/30 ML UDC PO SCH (09:53)
[2021-09-13] MEDS: Furosemide 20 MG TABLET PO SCH (09:53)
[2021-09-13] MEDS: Gabapentin 300 MG CAPSULE PO SCH (09:53)
[2021-09-13] MEDS: Nystatin POWDER 30 GM BOTTLE TP SCH (09:54)
[2021-09-13] MEDS: cefTRIAXone 2,000 MG in 0.9 % Sodium Chloride Mini Bag 100 ML IVP SCH (09:54)
[2021-09-13] MEDS: Lactobacillus 1 EACH CAP.SPRINK PO SCH (09:54)
[2021-09-13] MEDS: Insulin DETEMIR 100 UNIT/ML X5UNITS SUBQ SCH (09:55)
[2021-09-13] MEDS: carvediloL 6.25 MG TABLET PO SCH ×2 (10:05→15:21)
[2021-09-13 11:20] VITALS: BP 112/76; PULSE 96; TEMP 97.6; O2SAT 96
[2021-09-13] MEDS: *HR* HYDROcodone/Acet 5/325 mg TABLET PO PRN (15:26)
== END 2021-09-13 19:39 | DRG 871 ==
LOC: EMEROOARM 23:55 → SUATTDRO 09-07 06:25 → 2ANU 09-07 06:25
PROVIDERS: ADMIT Internal Medicine; ATTEND Internal Medicine
PROC: ENDOEUS (2021-09-09 19:00)
PROC: ENDOEBX (2021-09-10 12:55)

== ENCOUNTER 2021-10-17 09:09 | Inpatient (IN) ==
[2021-10-17] MEDS ORDERED: 0.9 % Sodium Chloride 1,000 ML IVC ONE (09:19)
[2021-10-17 09:46] LABS: Basophils # 0.1 K/mcL (0.0-0.2); Basophils % 0.5 %; Eosinophils # 0.2 K/mcL (0.0-0.6); Hematocrit 33.1 % (35.3-44.9); Hemoglobin 10.5 g/dL (11.5-15.4); Lymphocytes % 4.6 %; Mean Corpuscular HGB Conc 31.7 g/dL (31.6-35.5); Mean Corpuscular Hemoglobin 26.6 pg (28.0-33.3); Mean Platelet Volume 9.8 fL (9.4-12.4); Monocytes % 9.4 %; Neutrophils # 17.4 K/mcL (1.6-8.9); Platelet Count 413 K/mcL (140-400); Red Blood Count 3.94 M/mcL (3.82-4.97); Red Cell Distribution Width 15.8 % (11.5-14.5); Segmented Neutrophils % 83.5 %; White Blood Count 20.8 K/mcL (4.3-11.1)
[2021-10-17 09:59] LABS: Activated Partial Thrombo Time 36.4 Seconds (26.0-36.0)
[2021-10-17 10:01] LABS: INR 2.3; Prothrombin Time 25.6 Seconds (9.4-12.1)
[2021-10-17 10:11] LABS: Alanine Aminotransferase 8 Units/L (7-52); Albumin 2.9 g/dL (3.5-5.7); Albumin/Globulin Ratio 0.8 (1.1-2.2); Alkaline Phosphatase 150 Units/L (34-104); Aspartate Amino Transferase 20 Units/L (13-39); BUN/Creatinine Ratio 24 (6-26); Bilirubin,Direct 0.2 mg/dL (0.0-0.2); Bilirubin,Indirect 0.4 mg/dL (0.0-1.0); Bilirubin,Total 0.6 mg/dL (0.3-1.0); Blood Urea Nitrogen 23 mg/dL (8-23); Calcium 11.1 mg/dL (8.6-10.3); Carbon Dioxide 31 mEq/L (23-29); Chloride 96 mEq/L (98-107); Ethanol < 10 mg/dL (Less than 10); Globulin 3.6 g/dL (2.4-3.5); Glucose 99 mg/dL (70-105); Osmolality,Calculated 280 (280-300); Potassium 4.3 mEq/L (3.5-5.1); Sodium 133 mEq/L (136-145); Total Protein 6.5 g/dL (6.4-8.9); Troponin I < 0.03 ng/mL (< 0.04); eGFR For African Americans > 60 (> 60); eGFR For Non-African Americans 59 (> 60)
[2021-10-17 10:52] LABS: Bacteria,Urine Few per hpf (None-Few); Bilirubin,Urine Negative (Negative); Blood,Urine Negative (Negative); Budding Yeast,Urine Many per hpf (None Seen); Clarity,Urine Turbid (Clear); Color,Urine Yellow (Yellow); Glucose,Urine (UA) 300 mg/dL (Normal); Hyaline Casts,Urine Many per lpf (None Seen); Ketones,Urine Negative (Negative); Leukocyte Esterase,Urine Large (Negative); Nitrite,Urine Negative (Negative); PH,Urine 5.5 pH Units (5.0-8.0); Protein,Urine 30 mg/dL (Neg-Trace); RBC,Urine TNTC per hpf (0-3); Specific Gravity,Urine 1.025 (1.010-1.025); Squamous Epithelial Cell,Urine Few per hpf (None-Few); Urobilinogen,Urine Normal (Normal); WBC,Urine TNTC per hpf (0-3)
[2021-10-17] MEDS ORDERED: cefTRIAXone 1,000 MG in 0.9 % Sodium Chloride Mini Bag 100 ML IVPB ONE (10:59)
[2021-10-17] MEDS ORDERED: Ondansetron 4 MG/2 ML VIAL IVP PRN (12:54)
[2021-10-17] MEDS ORDERED: Zoledronic Acid (Zometa) 4 MG in 0.9 % Sodium Chloride 100 ML IV ONE (12:54)
[2021-10-17] MEDS ORDERED: Naloxone 0.4 MG/ML INJ IVP PRN (12:54)
[2021-10-17] MEDS ORDERED: Dexamethasone Sodium Phos/PF 10 MG/ML VIAL IVP ONE (12:56)
[2021-10-17] MEDS ORDERED: polyethylene glycoL 3350 17 GM POWD.PACK PO PRN (12:58)
[2021-10-17] MEDS ORDERED: *HR* Dextrose 50 % in Water (Syg) 50 ML SYRINGE IVP PRN (13:00)
[2021-10-17] MEDS ORDERED: D5% in Water 1,000 ML IVC PRN (13:00)
[2021-10-17] MEDS ORDERED: OLANZapine 5 MG TAB.RAPDIS PO PRN (13:00)
[2021-10-17] MEDS ORDERED: Dextrose 4 GM Chewable Tablets PO PRN ×2 (13:00)
[2021-10-17] MEDS: 0.9 % Sodium Chloride 1,000 ML IVC SCH (14:35)
[2021-10-17] MEDS: Insulin LISPRO 300 UNITS/3 ML VIAL SUBQ SCH (19:22)
[2021-10-17] MEDS: carvediloL 6.25 MG TABLET PO SCH (19:23)
[2021-10-17] MEDS: Apixaban 5 MG TABLET PO SCH (21:15)
[2021-10-17] MEDS: *HR* OxyCODONE ER (12 HR) 10 MG TABLET PO SCH ×2 (21:15→21:37)
[2021-10-17] MEDS: Melatonin 3 MG TABLET PO SCH ×2 (21:15→21:37)
[2021-10-17] MEDS: Acyclovir 200 MG CAPSULE PO SCH ×2 (21:15→21:37)
[2021-10-17] MEDS: Insulin DETEMIR 100 UNIT/ML X5UNITS SUBQ SCH (21:22)
[2021-10-18] MEDS ORDERED: Haloperidol Lactate 5 MG/ML VIAL IM ONE (05:17)
[2021-10-18] MEDS: 0.9 % Sodium Chloride 1,000 ML IVC SCH ×2 (06:35→18:39)
[2021-10-18] MEDS ORDERED: Tiotropium 10 INH DOSE IH ONE (08:05)
[2021-10-18] MEDS: Insulin LISPRO 300 UNITS/3 ML VIAL SUBQ SCH ×2 (08:11→12:29)
[2021-10-18] MEDS: carvediloL 6.25 MG TABLET PO SCH ×2 (08:12→18:39)
[2021-10-18] MEDS: Tiotropium 10 INH DOSE IH SCH (08:16)
[2021-10-18] MEDS ORDERED: *HR* LORazepam 2 MG/ML VIAL IVP ONE ×2 (08:44→17:30)
[2021-10-18] MEDS ORDERED: predniSONE 20 MG TABLET PO SCH (09:00)
[2021-10-18] MEDS: Lactulose Oral Soln 20 GM/30 ML UDC PO SCH (10:23)
[2021-10-18] MEDS: Acyclovir 200 MG CAPSULE PO SCH ×2 (10:23→19:57)
[2021-10-18] MEDS: Insulin DETEMIR 100 UNIT/ML X5UNITS SUBQ SCH (10:23)
[2021-10-18] MEDS: BuPROPion XL (24 HR) 150 MG TABLET PO SCH (10:23)
[2021-10-18] MEDS: *HR* OxyCODONE ER (12 HR) 10 MG TABLET PO SCH ×2 (10:23→19:57)
[2021-10-18] MEDS: Apixaban 5 MG TABLET PO SCH ×2 (10:23→19:57)
[2021-10-18] MEDS ORDERED: Gadolinium Contrast Agent (WT Based) IV PRN (12:01)
[2021-10-18 13:24] LABS: Mean Corpuscular Volume 85.2 fL (83.0-100.0); Mean Platelet Volume 9.6 fL (9.4-12.4)
[2021-10-18 13:25] LABS: Hematocrit 32.3 % (35.3-44.9); Hemoglobin 10.3 g/dL (11.5-15.4); Mean Corpuscular HGB Conc 31.9 g/dL (31.6-35.5); Mean Corpuscular Hemoglobin 27.2 pg (28.0-33.3); Platelet Count 450 K/mcL (140-400); Red Blood Count 3.79 M/mcL (3.82-4.97); Red Cell Distribution Width 16.2 % (11.5-14.5); White Blood Count 27.7 K/mcL (4.3-11.1)
[2021-10-18 13:25] LABS: VBG Ionized Calcium 1.41 mmol/L (1.15-1.35)
[2021-10-18 13:33] LABS: ABG Base Excess -4 mEq/L (-2 to 3); ABG HCO3 20 mEq/L (21-27); ABG Oxygen Saturation 95 % (95-98); ABG PCO2 31 mmHg (35-45); ABG PH 7.42 pH Units (7.32-7.45); ABG PO2 73 mmHg (85-104); ABG TCO2 21 mEq/L (20-26)
[2021-10-18 13:40] LABS: Lymphocytes # 2.5 K/mcL (0.6-4.6); Monocytes # 0.6 K/mcL (0.0-1.3); Neutrophils # 24.7 K/mcL (1.6-8.9); Platelet Estimate Normal (Normal)
[2021-10-18 13:41] LABS: Anisocytosis 1+ (Not Present)
[2021-10-18 13:42] LABS: Alanine Aminotransferase 9 Units/L (7-52); Albumin 2.8 g/dL (3.5-5.7); Albumin/Globulin Ratio 0.8 (1.1-2.2); Alkaline Phosphatase 139 Units/L (34-104); Aspartate Amino Transferase 19 Units/L (13-39); BUN/Creatinine Ratio 30 (6-26); Bilirubin,Total 0.4 mg/dL (0.3-1.0); Blood Urea Nitrogen 24 mg/dL (8-23); Calcium 10.2 mg/dL (8.6-10.3); Carbon Dioxide 23 mEq/L (23-29); Chloride 98 mEq/L (98-107); Globulin 3.7 g/dL (2.4-3.5); Glucose 165 mg/dL (70-105); Lactate Dehydrogenase 369 Units/L (140-271); Osmolality,Calculated 288 (280-300); Phosphorous 2.4 mg/dL (2.7-4.5); Potassium 4.2 mEq/L (3.5-5.1); Sodium 135 mEq/L (136-145); Total Protein 6.5 g/dL (6.4-8.9); Uric Acid 10.6 mg/dL (2.3-7.6); eGFR For African Americans > 60 (> 60); eGFR For Non-African Americans > 60 (> 60)
[2021-10-18 14:56] LABS: Estimated Average Glucose 134 mg/dl; Hemoglobin A1C 6.3 %
[2021-10-18] MEDS ORDERED: RASBURICASE IV ONE (16:53)
[2021-10-18] MEDS ORDERED: SODIUM CHLORIDE 0.9% IV ONE (16:53)
[2021-10-18] MEDS ORDERED: Calcitonin-Salmon, Synthetic 400 UNIT/2 ML VIAL SQ ONE (16:53)
[2021-10-18] MEDS: allopurinoL 300 MG TABLET PO SCH (18:39)
[2021-10-18 19:31] LABS: INR 1.9; Prothrombin Time 20.7 Seconds (9.4-12.1)
[2021-10-18] MEDS: Melatonin 3 MG TABLET PO SCH (19:57)
[2021-10-19 04:13] LABS: VBG Ionized Calcium 1.31 mmol/L (1.15-1.35)
[2021-10-19 04:15] LABS: Basophils % 0.2 %; Hematocrit 29.5 % (35.3-44.9); Hemoglobin 9.5 g/dL (11.5-15.4); Immature Granulocytes % 1.3 % (0-4); Lymphocytes # 0.7 K/mcL (0.6-4.6); Lymphocytes % 2.7 %; Mean Corpuscular HGB Conc 32.2 g/dL (31.6-35.5); Mean Corpuscular Hemoglobin 27.5 pg (28.0-33.3); Mean Corpuscular Volume 85.3 fL (83.0-100.0); Mean Platelet Volume 9.4 fL (9.4-12.4); Monocytes # 1.5 K/mcL (0.0-1.3); Monocytes % 5.9 %; Neutrophils # 22.5 K/mcL (1.6-8.9); Platelet Count 428 K/mcL (140-400); Red Blood Count 3.46 M/mcL (3.82-4.97); Red Cell Distribution Width 16.2 % (11.5-14.5); Segmented Neutrophils % 89.9 %
[2021-10-19 04:17] LABS: Basophils # 0.1 K/mcL (0.0-0.2)
[2021-10-19 04:27] LABS: Alanine Aminotransferase 8 Units/L (7-52); Albumin 2.6 g/dL (3.5-5.7); Albumin/Globulin Ratio 0.7 (1.1-2.2); Alkaline Phosphatase 117 Units/L (34-104); Aspartate Amino Transferase 16 Units/L (13-39); BUN/Creatinine Ratio 29 (6-26); Bilirubin,Total 0.4 mg/dL (0.3-1.0); Blood Urea Nitrogen 22 mg/dL (8-23); Calcium 9.3 mg/dL (8.6-10.3); Carbon Dioxide 25 mEq/L (23-29); Chloride 102 mEq/L (98-107); Globulin 3.5 g/dL (2.4-3.5); Glucose 117 mg/dL (70-105); Osmolality,Calculated 290 (280-300); Potassium 4.1 mEq/L (3.5-5.1); Sodium 138 mEq/L (136-145); Total Protein 6.1 g/dL (6.4-8.9); eGFR For African Americans > 60 (> 60); eGFR For Non-African Americans > 60 (> 60)
[2021-10-19] MEDS: 0.9 % Sodium Chloride 1,000 ML IVC SCH ×3 (04:50→17:32)
[2021-10-19 05:35] LABS: Lactate Dehydrogenase 437 Units/L (140-271); Phosphorous 2.1 mg/dL (2.7-4.5); Uric Acid < 1.5 mg/dL (2.3-7.6)
[2021-10-19 06:26] LABS: Hepatitis B Surface Antigen Nonreactive (Nonreactive)
[2021-10-19 06:55] LABS: Hepatitis B Core IgM Nonreactive (Nonreactive); Hepatitis C Virus Antibody Nonreactive (Nonreactive)
[2021-10-19 06:57] LABS: Hepatitis A Antibody IgM Nonreactive (Nonreactive)
[2021-10-19] MEDS: allopurinoL 300 MG TABLET PO SCH (07:26)
[2021-10-19] MEDS: BuPROPion XL (24 HR) 150 MG TABLET PO SCH (07:26)
[2021-10-19] MEDS: carvediloL 6.25 MG TABLET PO SCH ×2 (07:26→15:51)
[2021-10-19] MEDS: Apixaban 5 MG TABLET PO SCH ×2 (07:26→21:49)
[2021-10-19] MEDS: *HR* OxyCODONE ER (12 HR) 10 MG TABLET PO SCH ×2 (07:26→21:48)
[2021-10-19] MEDS: Acyclovir 200 MG CAPSULE PO SCH ×2 (07:26→21:49)
[2021-10-19] MEDS: Lactulose Oral Soln 20 GM/30 ML UDC PO SCH (07:26)
[2021-10-19] MEDS: Tiotropium 10 INH DOSE IH SCH (08:04)
[2021-10-19] MEDS: Fluconazole 100 MG TABLET PO SCH (15:51)
[2021-10-19] MEDS: Melatonin 3 MG TABLET PO SCH (21:48)
[2021-10-20 03:42] LABS: Basophils % 0.2 %; Eosinophils % 0.2 %; Hematocrit 30.7 % (35.3-44.9); Hemoglobin 9.6 g/dL (11.5-15.4); Immature Granulocytes % 0.9 % (0-4); Lymphocytes # 0.7 K/mcL (0.6-4.6); Lymphocytes % 4.4 %; Mean Corpuscular HGB Conc 31.3 g/dL (31.6-35.5); Mean Corpuscular Hemoglobin 26.8 pg (28.0-33.3); Mean Corpuscular Volume 85.8 fL (83.0-100.0); Mean Platelet Volume 9.2 fL (9.4-12.4); Monocytes # 1.5 K/mcL (0.0-1.3); Monocytes % 9.2 %; Neutrophils # 14.1 K/mcL (1.6-8.9); Platelet Count 359 K/mcL (140-400); Red Blood Count 3.58 M/mcL (3.82-4.97); Red Cell Distribution Width 16.4 % (11.5-14.5); Segmented Neutrophils % 85.1 %; White Blood Count 16.6 K/mcL (4.3-11.1)
[2021-10-20] MEDS: 0.9 % Sodium Chloride 1,000 ML IVC SCH ×3 (03:48→23:49)
[2021-10-20 04:02] LABS: Alanine Aminotransferase 9 Units/L (7-52); Albumin 2.7 g/dL (3.5-5.7); Albumin/Globulin Ratio 0.9 (1.1-2.2); Alkaline Phosphatase 107 Units/L (34-104); Aspartate Amino Transferase 19 Units/L (13-39); BUN/Creatinine Ratio 25 (6-26); Bilirubin,Total 0.5 mg/dL (0.3-1.0); Blood Urea Nitrogen 18 mg/dL (8-23); Calcium 8.8 mg/dL (8.6-10.3); Carbon Dioxide 26 mEq/L (23-29); Chloride 103 mEq/L (98-107); Globulin 3.1 g/dL (2.4-3.5); Glucose 130 mg/dL (70-105); Osmolality,Calculated 286 (280-300); Sodium 136 mEq/L (136-145); Total Protein 5.8 g/dL (6.4-8.9); eGFR For African Americans > 60 (> 60); eGFR For Non-African Americans > 60 (> 60)
[2021-10-20 06:14] LABS: Lactate Dehydrogenase 332 Units/L (140-271); Uric Acid < 1.5 mg/dL (2.3-7.6)
[2021-10-20] MEDS: Tiotropium 10 INH DOSE IH SCH (08:09)
[2021-10-20] MEDS: Lactulose Oral Soln 20 GM/30 ML UDC PO SCH (08:28)
[2021-10-20] MEDS: Fluconazole 100 MG TABLET PO SCH (08:28)
[2021-10-20] MEDS: Acyclovir 200 MG CAPSULE PO SCH ×2 (08:28→20:53)
[2021-10-20] MEDS: allopurinoL 300 MG TABLET PO SCH (08:29)
[2021-10-20] MEDS: BuPROPion XL (24 HR) 150 MG TABLET PO SCH (08:29)
[2021-10-20] MEDS: *HR* OxyCODONE ER (12 HR) 10 MG TABLET PO SCH ×2 (08:29→20:53)
[2021-10-20] MEDS: Apixaban 5 MG TABLET PO SCH ×2 (08:29→20:53)
[2021-10-20] MEDS: carvediloL 6.25 MG TABLET PO SCH ×2 (08:29→16:20)
[2021-10-20] MEDS: *HR* OxyCODONE Immed Rel 5 MG TABLET PO PRN (16:27)
[2021-10-20] MEDS: Melatonin 3 MG TABLET PO SCH (20:53)
[2021-10-21] MEDS ORDERED: Hydrocortisone Sodium Succ 100 MG/2 ML VIAL IVP PRN
[2021-10-21] MEDS ORDERED: Famotidine 20 MG/2 ML VIAL IVP PRN
[2021-10-21] MEDS ORDERED: DOXOrubicin HCL 200 MG/100 ML MLS IVP SCH
[2021-10-21] MEDS ORDERED: EPINEPHrine 1 MG/ML VIAL SQ PRN
[2021-10-21 06:37] LABS: Basophils # 0.1 K/mcL (0.0-0.2); Basophils % 0.3 %; Eosinophils # 0.3 K/mcL (0.0-0.6); Eosinophils % 1.2 %; Hematocrit 32.1 % (35.3-44.9); Hemoglobin 9.9 g/dL (11.5-15.4); Immature Granulocytes % 1.2 % (0-4); Lymphocytes # 0.7 K/mcL (0.6-4.6); Mean Corpuscular HGB Conc 30.8 g/dL (31.6-35.5); Mean Corpuscular Hemoglobin 26.7 pg (28.0-33.3); Mean Corpuscular Volume 86.5 fL (83.0-100.0); Mean Platelet Volume 9.9 fL (9.4-12.4); Monocytes # 1.5 K/mcL (0.0-1.3); Monocytes % 6.9 %; Neutrophils # 19.3 K/mcL (1.6-8.9); Platelet Count 336 K/mcL (140-400); Red Blood Count 3.71 M/mcL (3.82-4.97); Red Cell Distribution Width 16.6 % (11.5-14.5); Segmented Neutrophils % 87.4 %; White Blood Count 22.1 K/mcL (4.3-11.1)
[2021-10-21 06:59] LABS: Alanine Aminotransferase 8 Units/L (7-52); Albumin 2.7 g/dL (3.5-5.7); Albumin/Globulin Ratio 0.9 (1.1-2.2); Alkaline Phosphatase 105 Units/L (34-104); Aspartate Amino Transferase 19 Units/L (13-39); BUN/Creatinine Ratio 20 (6-26); Bilirubin,Total 0.6 mg/dL (0.3-1.0); Blood Urea Nitrogen 13 mg/dL (8-23); Calcium 8.5 mg/dL (8.6-10.3); Carbon Dioxide 22 mEq/L (23-29); Chloride 104 mEq/L (98-107); Globulin 3.1 g/dL (2.4-3.5); Glucose 145 mg/dL (70-105); Osmolality,Calculated 283 (280-300); Sodium 135 mEq/L (136-145); Total Protein 5.8 g/dL (6.4-8.9); eGFR For African Americans > 60 (> 60); eGFR For Non-African Americans > 60 (> 60)
[2021-10-21] MEDS: Tiotropium 10 INH DOSE IH SCH (08:17)
[2021-10-21] MEDS: Acyclovir 200 MG CAPSULE PO SCH ×2 (08:18→20:27)
[2021-10-21] MEDS: Lactulose Oral Soln 20 GM/30 ML UDC PO SCH (08:18)
[2021-10-21] MEDS: Fluconazole 100 MG TABLET PO SCH (08:19)
[2021-10-21] MEDS: allopurinoL 300 MG TABLET PO SCH (08:19)
[2021-10-21] MEDS: BuPROPion XL (24 HR) 150 MG TABLET PO SCH (08:19)
[2021-10-21] MEDS: *HR* OxyCODONE ER (12 HR) 10 MG TABLET PO SCH ×2 (08:19→20:27)
[2021-10-21] MEDS: carvediloL 6.25 MG TABLET PO SCH ×2 (08:19→20:37)
[2021-10-21] MEDS: Apixaban 5 MG TABLET PO SCH ×2 (08:20→20:27)
[2021-10-21] MEDS ORDERED: Acetaminophen 325 MG TABLET PO SCH (08:30)
[2021-10-21] MEDS ORDERED: Albuterol 2.5 MG/3 ML NEBULIZER IH PRN ×2 (08:55)
[2021-10-21] MEDS ORDERED: SODIUM CHLORIDE 0.9% IV SCH (09:00)
[2021-10-21] MEDS ORDERED: predniSONE 20 MG TABLET PO SCH (09:00)
[2021-10-21] MEDS ORDERED: RITUXIMAB IV SCH (09:00)
[2021-10-21] MEDS: 0.9 % Sodium Chloride 500 ML IVC SCH (09:05)
[2021-10-21 09:31] LABS: Phosphorous 1.9 mg/dL (2.7-4.5); Uric Acid < 1.5 mg/dL (2.3-7.6)
[2021-10-21] MEDS: Insulin LISPRO 300 UNITS/3 ML VIAL SUBQ SCH ×2 (20:25→20:33)
[2021-10-21] MEDS: 0.9 % Sodium Chloride 1,000 ML IVC SCH (20:26)
[2021-10-21] MEDS: Melatonin 3 MG TABLET PO SCH (20:27)
[2021-10-22] MEDS: Insulin LISPRO 300 UNITS/3 ML VIAL SUBQ SCH ×5 (00:04→23:00)
[2021-10-22 02:30] LABS: Eosinophils % 0.3 %
[2021-10-22 02:32] LABS: Basophils # 0.1 K/mcL (0.0-0.2); Basophils % 0.2 %; Eosinophils # 0.1 K/mcL (0.0-0.6); Hematocrit 32.5 % (35.3-44.9); Hemoglobin 9.8 g/dL (11.5-15.4); Immature Granulocytes % 2.3 % (0-4); Lymphocytes # 0.7 K/mcL (0.6-4.6); Lymphocytes % 1.6 %; Mean Corpuscular HGB Conc 30.2 g/dL (31.6-35.5); Mean Corpuscular Hemoglobin 26.6 pg (28.0-33.3); Mean Corpuscular Volume 88.3 fL (83.0-100.0); Mean Platelet Volume 10.1 fL (9.4-12.4); Monocytes # 2.1 K/mcL (0.0-1.3); Monocytes % 4.6 %; Neutrophils # 40.8 K/mcL (1.6-8.9); Platelet Count 325 K/mcL (140-400); Red Blood Count 3.68 M/mcL (3.82-4.97); Red Cell Distribution Width 16.8 % (11.5-14.5)
[2021-10-22 02:36] LABS: White Blood Count 44.8 K/mcL (4.3-11.1)
[2021-10-22 03:00] LABS: Phosphorous 2.1 mg/dL (2.7-4.5); Uric Acid 1.5 mg/dL (2.3-7.6)
[2021-10-22] MEDS: 0.9 % Sodium Chloride 500 ML IVC SCH (07:06)
[2021-10-22] MEDS: 0.9 % Sodium Chloride 1,000 ML IVC SCH ×3 (07:06→17:46)
[2021-10-22] MEDS ORDERED: CYCLOPHOSPHAMIDE IVPB SCH (08:00)
[2021-10-22] MEDS ORDERED: SODIUM CHLORIDE 0.9% IVPB SCH ×2 (08:00)
[2021-10-22] MEDS ORDERED: VINCRISTINE IVPB SCH (08:00)
[2021-10-22] MEDS ORDERED: *HR* Meperidine 25 MG/ML SYRINGE IVP PRN (08:00)
[2021-10-22] MEDS ORDERED: Dexamethasone Sodium Phos/PF 10 MG/ML VIAL IVP SCH (08:00)
[2021-10-22] MEDS ORDERED: Fosaprepitant Dimeglumine 150 MG in 0.9 % Sodium Chloride 250 ML IVPB SCH (08:00)
[2021-10-22] MEDS ORDERED: DOXOrubicin HCL 200 MG/100 ML MLS IVP SCH (08:00)
[2021-10-22] MEDS: Fluconazole 100 MG TABLET PO SCH (08:05)
[2021-10-22] MEDS: carvediloL 6.25 MG TABLET PO SCH ×2 (08:05→17:45)
[2021-10-22] MEDS: BuPROPion XL (24 HR) 150 MG TABLET PO SCH (08:05)
[2021-10-22] MEDS: allopurinoL 300 MG TABLET PO SCH (08:06)
[2021-10-22] MEDS: Apixaban 5 MG TABLET PO SCH ×2 (08:06→23:00)
[2021-10-22] MEDS: predniSONE 20 MG TABLET PO SCH (08:06)
[2021-10-22] MEDS: *HR* OxyCODONE ER (12 HR) 10 MG TABLET PO SCH ×2 (08:06→23:00)
[2021-10-22] MEDS: Acyclovir 200 MG CAPSULE PO SCH ×2 (08:06→23:00)
[2021-10-22] MEDS: Lactulose Oral Soln 20 GM/30 ML UDC PO SCH (08:07)
[2021-10-22 08:19] LABS: Alanine Aminotransferase 9 Units/L (7-52); Albumin 2.6 g/dL (3.5-5.7); Albumin/Globulin Ratio 0.8 (1.1-2.2); Alkaline Phosphatase 129 Units/L (34-104); Aspartate Amino Transferase 30 Units/L (13-39); BUN/Creatinine Ratio 18 (6-26); Bilirubin,Total 0.8 mg/dL (0.3-1.0); Blood Urea Nitrogen 14 mg/dL (8-23); Calcium 8.1 mg/dL (8.6-10.3); Carbon Dioxide 20 mEq/L (23-29); Chloride 103 mEq/L (98-107); Globulin 3.2 g/dL (2.4-3.5); Glucose 166 mg/dL (70-105); Osmolality,Calculated 282 (280-300); Potassium 4.3 mEq/L (3.5-5.1); Sodium 134 mEq/L (136-145); Total Protein 5.8 g/dL (6.4-8.9); eGFR For African Americans > 60 (> 60); eGFR For Non-African Americans > 60 (> 60)
[2021-10-22] MEDS: Tiotropium 10 INH DOSE IH SCH (11:01)
[2021-10-23] MEDS: Melatonin 3 MG TABLET PO SCH ×2 (03:42→21:32)
[2021-10-23 05:41] LABS: VBG Ionized Calcium 1.12 mmol/L (1.15-1.35)
[2021-10-23 05:45] LABS: Mean Platelet Volume 10.3 fL (9.4-12.4); Segmented Neutrophils % 95.1 %
[2021-10-23 05:46] LABS: Basophils # 0.1 K/mcL (0.0-0.2); Basophils % 0.2 %; Hematocrit 30.3 % (35.3-44.9); Hemoglobin 9.5 g/dL (11.5-15.4); Immature Granulocytes % 1.4 % (0-4); Lymphocytes # 0.4 K/mcL (0.6-4.6); Lymphocytes % 1.2 %; Mean Corpuscular HGB Conc 31.4 g/dL (31.6-35.5); Mean Corpuscular Hemoglobin 27.5 pg (28.0-33.3); Mean Corpuscular Volume 87.8 fL (83.0-100.0); Monocytes % 2.1 %; Neutrophils # 33.7 K/mcL (1.6-8.9); Platelet Count 321 K/mcL (140-400); Red Blood Count 3.45 M/mcL (3.82-4.97); Red Cell Distribution Width 17.1 % (11.5-14.5)
[2021-10-23 05:48] LABS: Monocytes # 0.7 K/mcL (0.0-1.3)
[2021-10-23 05:49] LABS: White Blood Count 35.4 K/mcL (4.3-11.1)
[2021-10-23] MEDS: 0.9 % Sodium Chloride 1,000 ML IVC SCH ×2 (05:57→16:28)
[2021-10-23 06:33] LABS: Phosphorous 3.2 mg/dL (2.7-4.5)
[2021-10-23 06:54] LABS: Alanine Aminotransferase 9 Units/L (7-52); Albumin 2.6 g/dL (3.5-5.7); Albumin/Globulin Ratio 0.9 (1.1-2.2); Alkaline Phosphatase 166 Units/L (34-104); Aspartate Amino Transferase 27 Units/L (13-39); BUN/Creatinine Ratio 29 (6-26); Bilirubin,Total 0.4 mg/dL (0.3-1.0); Blood Urea Nitrogen 22 mg/dL (8-23); Carbon Dioxide 20 mEq/L (23-29); Chloride 106 mEq/L (98-107); Glucose 186 mg/dL (70-105); Osmolality,Calculated 290 (280-300); Potassium 4.1 mEq/L (3.5-5.1); Sodium 136 mEq/L (136-145); Total Protein 5.6 g/dL (6.4-8.9); Uric Acid 2.1 mg/dL (2.3-7.6); eGFR For African Americans > 60 (> 60); eGFR For Non-African Americans > 60 (> 60)
[2021-10-23] MEDS: carvediloL 6.25 MG TABLET PO SCH ×2 (08:31→16:27)
[2021-10-23] MEDS: Lactulose Oral Soln 20 GM/30 ML UDC PO SCH (08:31)
[2021-10-23] MEDS: Apixaban 5 MG TABLET PO SCH ×2 (08:32→21:32)
[2021-10-23] MEDS: predniSONE 20 MG TABLET PO SCH (08:32)
[2021-10-23] MEDS: Fluconazole 100 MG TABLET PO SCH (08:32)
[2021-10-23] MEDS: Acyclovir 200 MG CAPSULE PO SCH ×2 (08:32→21:32)
[2021-10-23] MEDS: BuPROPion XL (24 HR) 150 MG TABLET PO SCH (08:33)
[2021-10-23] MEDS: allopurinoL 300 MG TABLET PO SCH (08:33)
[2021-10-23] MEDS: *HR* OxyCODONE ER (12 HR) 10 MG TABLET PO SCH ×2 (08:33→21:32)
[2021-10-23] MEDS: Insulin LISPRO 300 UNITS/3 ML VIAL SUBQ SCH ×4 (08:38→21:33)
[2021-10-23] MEDS: Tiotropium 10 INH DOSE IH SCH (11:03)
[2021-10-23] MEDS: *HR* OxyCODONE Immed Rel 5 MG TABLET PO PRN (13:17)
[2021-10-24] MEDS: 0.9 % Sodium Chloride 1,000 ML IVC SCH ×2 (02:33→12:27)
[2021-10-24 06:14] LABS: VBG HCO3 18 mEq/L (21-27); VBG PCO2 31 mmHg (41-51); VBG PH 7.36 pH Units (7.32-7.42); VBG PO2 103 mmHg (25-50)
[2021-10-24 06:22] LABS: VBG Ionized Calcium 1.06 mmol/L (1.15-1.35)
[2021-10-24 06:22] LABS: Basophils % 0.1 %; Hematocrit 30.1 % (35.3-44.9); Hemoglobin 9.6 g/dL (11.5-15.4); Immature Granulocytes % 1.2 % (0-4); Lymphocytes % 1.1 %; Mean Corpuscular HGB Conc 31.9 g/dL (31.6-35.5); Mean Corpuscular Hemoglobin 27.7 pg (28.0-33.3); Mean Corpuscular Volume 86.7 fL (83.0-100.0); Mean Platelet Volume 10.1 fL (9.4-12.4); Monocytes # 0.4 K/mcL (0.0-1.3); Monocytes % 1.9 %; Neutrophils # 21.3 K/mcL (1.6-8.9); Platelet Count 370 K/mcL (140-400); Red Blood Count 3.47 M/mcL (3.82-4.97); Red Cell Distribution Width 17.2 % (11.5-14.5); Segmented Neutrophils % 95.7 %; White Blood Count 22.3 K/mcL (4.3-11.1)
[2021-10-24 06:25] LABS: Lymphocytes # 0.3 K/mcL (0.6-4.6)
[2021-10-24 06:46] LABS: Phosphorous 2.7 mg/dL (2.7-4.5); Uric Acid 2.8 mg/dL (2.3-7.6)
[2021-10-24 06:48] LABS: BUN/Creatinine Ratio 33 (6-26); Blood Urea Nitrogen 24 mg/dL (8-23); Calcium 8.1 mg/dL (8.6-10.3); Carbon Dioxide 20 mEq/L (23-29); Chloride 106 mEq/L (98-107); Glucose 222 mg/dL (70-105); Osmolality,Calculated 291 (280-300); Potassium 3.7 mEq/L (3.5-5.1); Sodium 135 mEq/L (136-145); eGFR For African Americans > 60 (> 60); eGFR For Non-African Americans > 60 (> 60)
[2021-10-24] MEDS: Tiotropium 10 INH DOSE IH SCH (08:09)
[2021-10-24] MEDS: Fluconazole 100 MG TABLET PO SCH (09:20)
[2021-10-24] MEDS: Apixaban 5 MG TABLET PO SCH (09:21)
[2021-10-24] MEDS: BuPROPion XL (24 HR) 150 MG TABLET PO SCH (09:21)
[2021-10-24] MEDS: predniSONE 20 MG TABLET PO SCH (09:21)
[2021-10-24] MEDS: Acyclovir 200 MG CAPSULE PO SCH (09:21)
[2021-10-24] MEDS: *HR* OxyCODONE ER (12 HR) 10 MG TABLET PO SCH (09:21)
[2021-10-24] MEDS: carvediloL 6.25 MG TABLET PO SCH ×2 (09:21→16:33)
[2021-10-24] MEDS: Lactulose Oral Soln 20 GM/30 ML UDC PO SCH (09:22)
[2021-10-24] MEDS: Insulin LISPRO 300 UNITS/3 ML VIAL SUBQ SCH ×3 (09:28→16:33)
[2021-10-24] MEDS: allopurinoL 300 MG TABLET PO SCH (09:35)
[2021-10-24 11:57] VITALS: BP 138/62; PULSE 65; TEMP 98.5; O2SAT 98
[2021-10-24] MEDS: *HR* OxyCODONE Immed Rel 5 MG TABLET PO PRN (14:22)
[2021-10-24 14:49] LABS: Influenza A PCR Negative (Negative); Influenza B PCR Negative (Negative); Resp. Syncytial Virus PCR Negative (Negative); SARS-CoV-2 by PCR (In House) Negative (Negative)
== END 2021-10-24 17:30 | DRG 840 ==
LOC: EMEROOARM 09:09 → 3ANU 09:09 → SUATTDRO 11:39 → 3ANU 12:20 → SUATTDRO 10-18 11:54
PROVIDERS: ADMIT Internal Medicine; ATTEND Student in an Organized Health Care Education/Training Program

== ENCOUNTER 2021-11-11 15:02 | Inpatient (IN) ==
[2021-11-11] MEDS ORDERED: Vancomycin 2,000 MG/520 ML IV.SOLN IVPB ONE (15:43)
[2021-11-11] MEDS ORDERED: Cefepime HCl 2,000 MG in 0.9 % Sodium Chloride 10 ML IVP ONE (15:43)
[2021-11-11] MEDS ORDERED: 0.9 % Sodium Chloride 1,000 ML IVC ONE (15:44)
[2021-11-11 16:16] LABS: Hematocrit 24.3 % (35.3-44.9); Hemoglobin 7.7 g/dL (11.5-15.4); Mean Corpuscular HGB Conc 31.7 g/dL (31.6-35.5); Mean Corpuscular Hemoglobin 26.5 pg (28.0-33.3); Mean Corpuscular Volume 83.5 fL (83.0-100.0); Mean Platelet Volume 9.9 fL (9.4-12.4); Platelet Count 135 K/mcL (140-400); Red Blood Count 2.91 M/mcL (3.82-4.97); Red Cell Distribution Width 16.2 % (11.5-14.5); White Blood Count 9.7 K/mcL (4.3-11.1)
[2021-11-11 16:45] LABS: Alanine Aminotransferase 11 Units/L (7-52); Albumin 2.7 g/dL (3.5-5.7); Albumin/Globulin Ratio 0.9 (1.1-2.2); Alkaline Phosphatase 123 Units/L (34-104); Aspartate Amino Transferase 18 Units/L (13-39); BUN/Creatinine Ratio 33 (6-26); Bilirubin,Direct 0.3 mg/dL (0.0-0.2); Bilirubin,Indirect 0.4 mg/dL (0.0-1.0); Bilirubin,Total 0.7 mg/dL (0.3-1.0); Blood Urea Nitrogen 30 mg/dL (8-23); Calcium 8.1 mg/dL (8.6-10.3); Carbon Dioxide 26 mEq/L (23-29); Chloride 97 mEq/L (98-107); Glucose 224 mg/dL (70-105); Osmolality,Calculated 287 (280-300); Potassium 3.8 mEq/L (3.5-5.1); Sodium 132 mEq/L (136-145); Total Protein 5.7 g/dL (6.4-8.9); eGFR For African Americans > 60 (> 60); eGFR For Non-African Americans > 60 (> 60)
[2021-11-11 16:54] LABS: Anisocytosis 1+ (Not Present); Dohle Bodies Present (Not Present); Lymphocytes # 0.1 K/mcL (0.6-4.6); Monocytes # 0.1 K/mcL (0.0-1.3); Neutrophils # 9.5 K/mcL (1.6-8.9); Platelet Estimate Decreased (Normal); Toxic Granulation Present (Not Present)
[2021-11-11] MEDS ORDERED: Isovue-370 500 ML BOTTLE IVP ONE (16:58)
[2021-11-11 18:02] LABS: Influenza A PCR Negative (Negative); Influenza B PCR Negative (Negative); Resp. Syncytial Virus PCR Negative (Negative)
[2021-11-11 18:06] LABS: SARS-CoV-2 by PCR (In House) Negative (Negative)
[2021-11-11] MEDS ORDERED: Acetaminophen 650 MG RECTAL SUPP RC ONE (18:07)
[2021-11-11 18:57] LABS: Bacteria,Urine Few per hpf (None-Few); Bilirubin,Urine Negative (Negative); Blood,Urine Negative (Negative); Clarity,Urine Clear (Clear); Color,Urine Light-Yellow (Yellow); Glucose,Urine (UA) >=1000 mg/dL (Normal); Ketones,Urine Negative (Negative); Leukocyte Esterase,Urine Negative (Negative); Mucus,Urine Few per lpf (None-Few); Nitrite,Urine Negative (Negative); PH,Urine 6.5 pH Units (5.0-8.0); Protein,Urine 30 mg/dL (Neg-Trace); RBC,Urine 0-3 per hpf (0-3); Specific Gravity,Urine 1.024 (1.010-1.025); Urobilinogen,Urine Normal (Normal)
[2021-11-11] MEDS ORDERED: Acetaminophen 325 MG TABLET PO PRN (19:27)
[2021-11-11] MEDS ORDERED: Ondansetron 4 MG/2 ML VIAL IVP PRN (19:27)
[2021-11-11] MEDS ORDERED: Naloxone 0.4 MG/ML INJ IVP PRN (19:27)
[2021-11-11] MEDS ORDERED: 0.9 % Sodium Chloride 1,000 ML IVC SCH (19:30)
[2021-11-11] MEDS ORDERED: Ringers Solution, Lactated 1,000 ML IVC ONE (19:56)
[2021-11-11] MEDS: Nystatin Cream 15 GM TUBE TP SCH (22:17)
[2021-11-11] MEDS: Cefepime HCl 2,000 MG in 0.9 % Sodium Chloride 10 ML IVP SCH (23:11)
[2021-11-11 23:17] LABS: ABG Base Excess 0 mEq/L (-2 to 3); ABG HCO3 24 mEq/L (21-27); ABG Oxygen Saturation 96 % (95-98); ABG PCO2 36 mmHg (35-45); ABG PH 7.44 pH Units (7.32-7.45); ABG PO2 76 mmHg (85-104); ABG TCO2 25 mEq/L (20-26)
[2021-11-11] MEDS ORDERED: Acetaminophen IV 1,000 MG/100 ML BAG IVPB ONE (23:25)
[2021-11-12] MEDS ORDERED: 0.9 % Sodium Chloride 500 ML ONE (02:16)
[2021-11-12] MEDS ORDERED: Albumin 25% 25gram/100mL 25 GM/100 ML IV.SOLN IVPB ONE (02:18)
[2021-11-12] MEDS ORDERED: 0.9 % Sodium Chloride 500 ML IVC ONE ×3 (02:18→03:50)
[2021-11-12 03:41] LABS: Red Blood Count 2.82 M/mcL (3.82-4.97); White Blood Count 6.6 K/mcL (4.3-11.1)
[2021-11-12 03:43] LABS: Hematocrit 23.2 % (35.3-44.9); Hemoglobin 7.4 g/dL (11.5-15.4); Mean Corpuscular HGB Conc 31.9 g/dL (31.6-35.5); Mean Corpuscular Hemoglobin 26.2 pg (28.0-33.3); Mean Corpuscular Volume 82.3 fL (83.0-100.0); Mean Platelet Volume 11.2 fL (9.4-12.4); Red Cell Distribution Width 15.9 % (11.5-14.5)
[2021-11-12 03:53] LABS: BUN/Creatinine Ratio 33 (6-26); Blood Urea Nitrogen 28 mg/dL (8-23); Calcium 7.8 mg/dL (8.6-10.3); Carbon Dioxide 25 mEq/L (23-29); Chloride 103 mEq/L (98-107); Glucose 128 mg/dL (70-105); Osmolality,Calculated 289 (280-300); Potassium 3.3 mEq/L (3.5-5.1); Sodium 136 mEq/L (136-145); eGFR For African Americans > 60 (> 60); eGFR For Non-African Americans > 60 (> 60)
[2021-11-12] MEDS ORDERED: 0.9 % Sodium Chloride 1,000 ML ONE (04:48)
[2021-11-12] MEDS: 0.9 % Sodium Chloride 1,000 ML IVC SCH ×2 (05:12→12:40)
[2021-11-12] MEDS ORDERED: Lidocaine -MPF 1% 5 ML AMPUL INFILT ONE (09:35)
[2021-11-12] MEDS: Cefepime HCl 2,000 MG in 0.9 % Sodium Chloride 10 ML IVP SCH ×2 (10:42→16:31)
[2021-11-12] MEDS: Nystatin Cream 15 GM TUBE TP SCH ×2 (10:42→21:56)
[2021-11-12 10:46] LABS: INR 1.7; Prothrombin Time 18.7 Seconds (9.4-12.1)
[2021-11-12 11:04] LABS: BUN/Creatinine Ratio 36 (6-26); Blood Urea Nitrogen 28 mg/dL (8-23); Calcium 7.6 mg/dL (8.6-10.3); Carbon Dioxide 24 mEq/L (23-29); Chloride 106 mEq/L (98-107); Glucose 127 mg/dL (70-105); Osmolality,Calculated 295 (280-300); Potassium 3.8 mEq/L (3.5-5.1); Sodium 139 mEq/L (136-145); eGFR For African Americans > 60 (> 60); eGFR For Non-African Americans > 60 (> 60)
[2021-11-12 11:05] LABS: Magnesium 1.9 mg/dL (1.6-2.6); Phosphorous 2.4 mg/dL (2.7-4.5)
[2021-11-12] MEDS: Calcium Gluconate 1gm/50mL 1 GM/50 ML BAG IVPB PRN ×2 (11:55→19:46)
[2021-11-12] MEDS: Potassium Chloride 40 MEQ/200 ML BAG IVPB PRN ×2 (11:56→19:47)
[2021-11-12] MEDS ORDERED: MetroNIDAZOLE 500 MG/100 ML 500 MG/100 ML BAG IVPB SCH (16:00)
[2021-11-12] MEDS: Vancomycin 1,750 MG/517.5 ML IV.SOLN IVPB SCH (16:32)
[2021-11-12] MEDS ORDERED: Acetaminophen IV 1,000 MG/100 ML BAG IVPB ONE (16:48)
[2021-11-12 18:20] LABS: VBG Ionized Calcium 1.02 mmol/L (1.15-1.35)
[2021-11-12 18:34] LABS: Magnesium 2.1 mg/dL (1.6-2.6); Potassium 3.9 mEq/L (3.5-5.1)
[2021-11-13] MEDS ORDERED: Ringers Solution, Lactated 500 ML IVC ONE (00:26)
[2021-11-13] MEDS: Cefepime HCl 2,000 MG in 0.9 % Sodium Chloride 10 ML IVP SCH ×3 (00:52→17:36)
[2021-11-13 02:46] LABS: VBG Ionized Calcium 1.05 mmol/L (1.15-1.35)
[2021-11-13] MEDS: Calcium Gluconate 1gm/50mL 1 GM/50 ML BAG IVPB PRN ×2 (03:25→13:13)
[2021-11-13 05:12] LABS: Hemoglobin 7.9 g/dL (11.5-15.4); Red Cell Distribution Width 17.2 % (11.5-14.5)
[2021-11-13 05:14] LABS: Hematocrit 25.8 % (35.3-44.9); Lymphocytes # 0.1 K/mcL (0.6-4.6); Mean Corpuscular HGB Conc 30.6 g/dL (31.6-35.5); Mean Corpuscular Hemoglobin 26.1 pg (28.0-33.3); Mean Corpuscular Volume 85.1 fL (83.0-100.0); Nucleated Red Blood Cells 0.8 /100 WBC (0); Red Blood Count 3.03 M/mcL (3.82-4.97); White Blood Count 3.7 K/mcL (4.3-11.1)
[2021-11-13 05:19] LABS: Platelet Count 83 K/mcL (140-400)
[2021-11-13] MEDS ORDERED: D5% in Water 1,000 ML IVC PRN (05:22)
[2021-11-13] MEDS ORDERED: Dextrose 4 GM Chewable Tablets PO PRN ×2 (05:22)
[2021-11-13] MEDS ORDERED: *HR* Dextrose 50 % in Water (Syg) 50 ML SYRINGE IVP PRN (05:22)
[2021-11-13 06:03] LABS: Neutrophils # 3.6 K/mcL (1.6-8.9)
[2021-11-13 06:04] LABS: Anisocytosis 1+ (Not Present); Hypersegmented Neutrophils Present (Not Present); Hypochromasia Present (Not Present); Platelet Estimate Decreased (Normal); Toxic Granulation Present (Not Present)
[2021-11-13] MEDS: Nystatin Cream 15 GM TUBE TP SCH ×2 (07:25→21:05)
[2021-11-13] MEDS: Norepinephrine 4 MG/254 ML IV.SOLN IVC SCH ×3 (07:25→11:04)
[2021-11-13 10:19] LABS: VBG Ionized Calcium 1.08 mmol/L (1.15-1.35)
[2021-11-13 10:34] LABS: BUN/Creatinine Ratio 41 (6-26); Blood Urea Nitrogen 33 mg/dL (8-23); Calcium 7.9 mg/dL (8.6-10.3); Carbon Dioxide 16 mEq/L (23-29); Chloride 109 mEq/L (98-107); Glucose 181 mg/dL (70-105); Osmolality,Calculated 306 (280-300); Potassium 4.2 mEq/L (3.5-5.1); Sodium 142 mEq/L (136-145); eGFR For African Americans > 60 (> 60); eGFR For Non-African Americans > 60 (> 60)
[2021-11-13] MEDS ORDERED: 0.9 % Sodium Chloride 500 ML ONE (12:01)
[2021-11-13 16:18] LABS: ABG Base Excess -11 mEq/L (-2 to 3); ABG HCO3 13 mEq/L (21-27); ABG Oxygen Saturation 97 % (95-98); ABG PCO2 21 mmHg (35-45); ABG PH 7.39 pH Units (7.32-7.45); ABG PO2 84 mmHg (85-104); ABG TCO2 13 mEq/L (20-26)
[2021-11-13 16:45] LABS: A.calcoaceticus-baumannii cplx Not Detected (Not Detect); Bacteroides fragilis by PCR Not Detected (Not Detect); Candida albicans by PCR Not Detected (Not Detect); Candida auris by PCR Not Detected (Not Detect); Candida glabrata by PCR Not Detected (Not Detect); Candida krusei by PCR Not Detected (Not Detect); Candida parapsilosis by PCR Not Detected (Not Detect); Candida tropicalis by PCR Not Detected (Not Detect); Crypto. neoformans/gattii PCR Not Detected (Not Detect); Enterobacter cloacae Cmplx PCR Not Detected (Not Detect); Enterobacterales by PCR Not Detected (Not Detect); Enterococcus faecalis by PCR Not Detected (Not Detect); Enterococcus faecium by PCR Not Detected (Not Detect); Escherichia coli by PCR Not Detected (Not Detect); Klebs. pneumoniae group by PCR Not Detected (Not Detect); Klebsiella aerogenes by PCR Not Detected (Not Detect); Klebsiella oxytoca by PCR Not Detected (Not Detect); Proteus by PCR Not Detected (Not Detect); Pseudomonas aeruginosa by PCR Not Detected (Not Detect); Salmonella species by PCR Not Detected (Not Detect); Serratia marcescens by PCR Not Detected (Not Detect); Staph epidermidis by PCR Not Detected (Not Detect); Staph lugdunensis by PCR Not Detected (Not Detect); Staphylococcus aureus by PCR DETECTED (Not Detect); Stenotrophomonas maltophilia Not Detected (Not Detect); Streptococcus agalactiae(B)PCR Not Detected (Not Detect); Streptococcus by PCR Not Detected (Not Detect); Streptococcus pneumoniae PCR Not Detected (Not Detect); Streptococcus pyogenes (A) PCR Not Detected (Not Detect); mecA/C & MREJ (MRSA) Gene Not Detected (Not Detect)
[2021-11-13] MEDS: Vancomycin 1,750 MG/517.5 ML IV.SOLN IVPB SCH (17:36)
[2021-11-13 19:19] LABS: BUN/Creatinine Ratio 43 (6-26); Blood Urea Nitrogen 37 mg/dL (8-23); Calcium 7.9 mg/dL (8.6-10.3); Carbon Dioxide 14 mEq/L (23-29); Chloride 112 mEq/L (98-107); Glucose 207 mg/dL (70-105); Osmolality,Calculated 313 (280-300); Potassium 4.3 mEq/L (3.5-5.1); Sodium 144 mEq/L (136-145); eGFR For African Americans > 60 (> 60); eGFR For Non-African Americans > 60 (> 60)
[2021-11-13] MEDS: Sodium Bicarbonate 100 MEQ in D5% in Water 1,000 ML IVC SCH (21:01)
[2021-11-13 22:58] LABS: A.calcoaceticus-baumannii cplx Not Detected (Not Detect); Bacteroides fragilis by PCR Not Detected (Not Detect); CTX-M ESBL Gene Not Detected (Not Detect); Candida albicans by PCR Not Detected (Not Detect); Candida auris by PCR Not Detected (Not Detect); Candida glabrata by PCR Not Detected (Not Detect); Candida krusei by PCR Not Detected (Not Detect); Candida parapsilosis by PCR Not Detected (Not Detect); Candida tropicalis by PCR Not Detected (Not Detect); Crypto. neoformans/gattii PCR Not Detected (Not Detect); Enterobacter cloacae Cmplx PCR Not Detected (Not Detect); Enterobacterales by PCR Not Detected (Not Detect); Enterococcus faecalis by PCR Not Detected (Not Detect); Enterococcus faecium by PCR Not Detected (Not Detect); Escherichia coli by PCR Not Detected (Not Detect); IMP Carbapenem-Resist Gene Not Detected (Not Detect); Klebs. pneumoniae group by PCR Not Detected (Not Detect); Klebsiella aerogenes by PCR Not Detected (Not Detect); Klebsiella oxytoca by PCR Not Detected (Not Detect); NDM Carbapenem-Resist Gene Not Detected (Not Detect); OXA-48-like Carbap-Resist Gene Not Detected (Not Detect); Proteus by PCR Not Detected (Not Detect); Pseudomonas aeruginosa by PCR Not Detected (Not Detect); Salmonella species by PCR Not Detected (Not Detect); Serratia marcescens by PCR Not Detected (Not Detect); Staph epidermidis by PCR Not Detected (Not Detect); Staph lugdunensis by PCR Not Detected (Not Detect); Staphylococcus aureus by PCR DETECTED (Not Detect); Stenotrophomonas maltophilia Not Detected (Not Detect); Streptococcus agalactiae(B)PCR Not Detected (Not Detect); Streptococcus by PCR Not Detected (Not Detect); Streptococcus pneumoniae PCR Not Detected (Not Detect); Streptococcus pyogenes (A) PCR Not Detected (Not Detect); VIM Carbapenem-Resist Gene Not Detected (Not Detect); blaKPC Carbapenem-Resist Gene Not Detected (Not Detect); mcr-1 Colistin-Resist Gene Not Detected (Not Detect); mecA/C & MREJ (MRSA) Gene Not Detected (Not Detect); mecA/C Methicillin-Resist Gene Not Detected (Not Detect); vanA/B Vancomycin-Resist Genes Not Detected (Not Detect)
[2021-11-14] MEDS: Norepinephrine 4 MG/254 ML IV.SOLN IVC SCH ×2 (00:12→07:49)
[2021-11-14 03:36] LABS: Hematocrit 25.2 % (35.3-44.9); Mean Corpuscular HGB Conc 31.7 g/dL (31.6-35.5); Mean Corpuscular Hemoglobin 26.4 pg (28.0-33.3); Mean Corpuscular Volume 83.2 fL (83.0-100.0); Red Blood Count 3.03 M/mcL (3.82-4.97)
[2021-11-14 03:38] LABS: Basophils % 1.7 %; Immature Granulocytes % 10.9 % (0-4); Immature Platelets 7.8 % (1.1-6.1); Lymphocytes % 1.1 %; Mean Platelet Volume 12.3 fL (9.4-12.4); Monocytes # 0.1 K/mcL (0.0-1.3); Monocytes % 6.3 %; Neutrophils # 1.4 K/mcL (1.6-8.9); Nucleated Red Blood Cells 2.3 /100 WBC (0); Red Cell Distribution Width 17.8 % (11.5-14.5); White Blood Count 1.7 K/mcL (4.3-11.1)
[2021-11-14 03:41] LABS: Platelet Count 86 K/mcL (140-400)
[2021-11-14 03:46] LABS: VBG Ionized Calcium 1.08 mmol/L (1.15-1.35)
[2021-11-14 03:55] LABS: Magnesium 2.3 mg/dL (1.6-2.6); Phosphorous 2.5 mg/dL (2.7-4.5)
[2021-11-14 03:57] LABS: Anisocytosis 1+ (Not Present); Platelet Estimate Decreased (Normal)
[2021-11-14] MEDS: Cefepime HCl 2,000 MG in 0.9 % Sodium Chloride 10 ML IVP SCH (05:44)
[2021-11-14] MEDS: Calcium Gluconate 1gm/50mL 1 GM/50 ML BAG IVPB PRN (06:29)
[2021-11-14] MEDS: Nystatin Cream 15 GM TUBE TP SCH (08:02)
[2021-11-14] MEDS: Sodium Bicarbonate 100 MEQ in D5% in Water 1,000 ML IVC SCH (08:03)
[2021-11-14 08:38] LABS: BUN/Creatinine Ratio 40 (6-26); Blood Urea Nitrogen 38 mg/dL (8-23); Calcium 7.6 mg/dL (8.6-10.3); Carbon Dioxide 14 mEq/L (23-29); Chloride 110 mEq/L (98-107); Glucose 287 mg/dL (70-105); Osmolality,Calculated 318 (280-300); Sodium 144 mEq/L (136-145); eGFR For African Americans > 60 (> 60); eGFR For Non-African Americans 60 (> 60)
[2021-11-14] MEDS ORDERED: Sodium Bicarbonate 150 MEQ in D5% in Water 1,000 ML IVC SCH ×3 (09:00→19:11)
[2021-11-14 09:03] LABS: ABG Base Excess -8 mEq/L (-2 to 3); ABG HCO3 14 mEq/L (21-27); ABG Oxygen Saturation 96 % (95-98); ABG PCO2 21 mmHg (35-45); ABG PH 7.45 pH Units (7.32-7.45); ABG PO2 73 mmHg (85-104); ABG TCO2 15 mEq/L (20-26)
[2021-11-14] MEDS: Insulin LISPRO 300 UNITS/3 ML VIAL SUBQ SCH ×4 (09:12→20:46)
[2021-11-14 12:27] LABS: Triglycerides 206 mg/dL (< 150)
[2021-11-14] MEDS ORDERED: D10% in Water 500 ML IVC PRN (12:46)
[2021-11-14] MEDS: 0.9 % Sodium Chloride 1,000 ML IVC SCH (12:55)
[2021-11-14 14:49] LABS: BUN/Creatinine Ratio 38 (6-26); Blood Urea Nitrogen 36 mg/dL (8-23); Calcium 7.7 mg/dL (8.6-10.3); Carbon Dioxide 23 mEq/L (23-29); Chloride 114 mEq/L (98-107); Glucose 230 mg/dL (70-105); Osmolality,Calculated 324 (280-300); Potassium 3.1 mEq/L (3.5-5.1); Sodium 149 mEq/L (136-145); eGFR For African Americans > 60 (> 60); eGFR For Non-African Americans 60 (> 60)
[2021-11-14] MEDS ORDERED: ceFAZolin 2,000 MG in Water for inj. (sterile) 20 ML IVP SCH (16:00)
[2021-11-14] MEDS: CeFAZolin 2,000 MG/120 ML BAG IVPB SCH (17:00)
[2021-11-14] MEDS ORDERED: Clinimix E 5%-15% SOLUTION 2,000 ML IVC SCH (17:00)
[2021-11-15] MEDS: Nystatin Cream 15 GM TUBE TP SCH ×3 (00:30→20:44)
[2021-11-15] MEDS: CeFAZolin 2,000 MG/120 ML BAG IVPB SCH ×4 (00:30→23:59)
[2021-11-15] MEDS: Insulin LISPRO 300 UNITS/3 ML VIAL SUBQ SCH ×6 (00:31→20:43)
[2021-11-15] MEDS ORDERED: Acetaminophen IV 1,000 MG/100 ML BAG IVPB ONE ×2 (04:31→23:52)
[2021-11-15 05:34] LABS: Hemoglobin 7.9 g/dL (11.5-15.4); Immature Platelets 11.3 % (1.1-6.1); Mean Corpuscular HGB Conc 31.6 g/dL (31.6-35.5); Mean Corpuscular Hemoglobin 25.4 pg (28.0-33.3); Mean Corpuscular Volume 80.4 fL (83.0-100.0); Mean Platelet Volume 12.1 fL (9.4-12.4); Nucleated Red Blood Cells 1.9 /100 WBC (0); Red Blood Count 3.11 M/mcL (3.82-4.97)
[2021-11-15 05:50] LABS: BUN/Creatinine Ratio 36 (6-26); Blood Urea Nitrogen 31 mg/dL (8-23); Calcium 7.9 mg/dL (8.6-10.3); Carbon Dioxide 29 mEq/L (23-29); Chloride 112 mEq/L (98-107); Glucose 365 mg/dL (70-105); Osmolality,Calculated 333 (280-300); Potassium 2.8 mEq/L (3.5-5.1); Sodium 151 mEq/L (136-145); eGFR For African Americans > 60 (> 60); eGFR For Non-African Americans > 60 (> 60)
[2021-11-15 06:28] LABS: Magnesium 2.3 mg/dL (1.6-2.6); Phosphorous 1.5 mg/dL (2.7-4.5)
[2021-11-15 06:32] LABS: VBG Ionized Calcium 1.06 mmol/L (1.15-1.35)
[2021-11-15 06:50] LABS: Platelet Count 82 K/mcL (140-400); White Blood Count 1.1 K/mcL (4.3-11.1)
[2021-11-15 06:59] LABS: Lymphocytes # 0.1 K/mcL (0.6-4.6); Neutrophils # 0.9 K/mcL (1.6-8.9); Platelet Estimate Decreased (Normal)
[2021-11-15 07:00] LABS: Anisocytosis 1+ (Not Present)
[2021-11-15] MEDS: Norepinephrine 4 MG/254 ML IV.SOLN IVC SCH ×2 (08:04→11:33)
[2021-11-15] MEDS ORDERED: Potassium Phosphate 44 MEQ in 0.9 % Sodium Chloride 250 ML IVPB ONE (08:10)
[2021-11-15] MEDS: D5% in Water 1,000 ML IVC SCH (10:07)
[2021-11-15] MEDS: Insulin DETEMIR 100 UNIT/ML X5UNITS SUBQ SCH ×2 (11:05→20:44)
[2021-11-15] MEDS ORDERED: Clinimix 5%-20% SOLUTION 2,000 ML with MVI, adult with vitamin K 10 ML, Sodium Phosph... IV SCH (17:00)
[2021-11-15 17:50] LABS: BUN/Creatinine Ratio 38 (6-26); Blood Urea Nitrogen 27 mg/dL (8-23); Calcium 7.8 mg/dL (8.6-10.3); Carbon Dioxide 29 mEq/L (23-29); Chloride 114 mEq/L (98-107); Glucose 201 mg/dL (70-105); Osmolality,Calculated 323 (280-300); Potassium 2.7 mEq/L (3.5-5.1); Sodium 151 mEq/L (136-145); eGFR For African Americans > 60 (> 60); eGFR For Non-African Americans > 60 (> 60)
[2021-11-15] MEDS: Potassium Chloride 40 MEQ/200 ML BAG IVPB PRN (18:13)
[2021-11-16] MEDS: Insulin LISPRO 300 UNITS/3 ML VIAL SUBQ SCH ×6 (00:02→20:56)
[2021-11-16] MEDS: D5% in Water 1,000 ML IVC SCH ×2 (01:23→11:41)
[2021-11-16] MEDS ORDERED: Isovue-370 500 ML BOTTLE IVP ONE (03:24)
[2021-11-16 03:54] LABS: Alanine Aminotransferase 7 Units/L (7-52); Albumin 2.3 g/dL (3.5-5.7); Albumin/Globulin Ratio 0.9 (1.1-2.2); Alkaline Phosphatase 123 Units/L (34-104); Aspartate Amino Transferase 14 Units/L (13-39); BUN/Creatinine Ratio 39 (6-26); Bilirubin,Total 0.6 mg/dL (0.3-1.0); Blood Urea Nitrogen 27 mg/dL (8-23); Calcium 7.7 mg/dL (8.6-10.3); Carbon Dioxide 28 mEq/L (23-29); Chloride 115 mEq/L (98-107); Globulin 2.6 g/dL (2.4-3.5); Glucose 302 mg/dL (70-105); Magnesium 2.1 mg/dL (1.6-2.6); Osmolality,Calculated 328 (280-300); Phosphorous 1.3 mg/dL (2.7-4.5); Potassium 2.8 mEq/L (3.5-5.1); Sodium 151 mEq/L (136-145); Total Protein 4.9 g/dL (6.4-8.9); eGFR For African Americans > 60 (> 60); eGFR For Non-African Americans > 60 (> 60)
[2021-11-16] MEDS: Potassium Chloride 40 MEQ/200 ML BAG IVPB PRN (05:53)
[2021-11-16] MEDS: CeFAZolin 2,000 MG/120 ML BAG IVPB SCH ×2 (08:31→16:34)
[2021-11-16] MEDS: Nystatin Cream 15 GM TUBE TP SCH (08:31)
[2021-11-16] MEDS: Insulin DETEMIR 100 UNIT/ML X5UNITS SUBQ SCH ×2 (08:31→20:56)
[2021-11-16] MEDS: Norepinephrine 4 MG/254 ML IV.SOLN IVC SCH ×2 (08:32→12:31)
[2021-11-16] MEDS ORDERED: Potassium Phosphate 44 MEQ in 0.9 % Sodium Chloride 250 ML IVPB ONE (08:54)
[2021-11-16 13:15] LABS: Hemoglobin 7.9 g/dL (11.5-15.4)
[2021-11-16 13:16] LABS: Hematocrit 24.6 % (35.3-44.9); Immature Platelets 15.5 % (1.1-6.1); Mean Corpuscular HGB Conc 32.1 g/dL (31.6-35.5); Mean Corpuscular Hemoglobin 25.9 pg (28.0-33.3); Mean Corpuscular Volume 80.7 fL (83.0-100.0); Mean Platelet Volume 12.8 fL (9.4-12.4); Nucleated Red Blood Cells 10.5 /100 WBC (0); Platelet Count 105 K/mcL (140-400); Red Blood Count 3.05 M/mcL (3.82-4.97); Red Cell Distribution Width 17.2 % (11.5-14.5); White Blood Count 1.7 K/mcL (4.3-11.1)
[2021-11-16 13:30] LABS: BUN/Creatinine Ratio 43 (6-26); Blood Urea Nitrogen 25 mg/dL (8-23); Calcium 7.8 mg/dL (8.6-10.3); Carbon Dioxide 28 mEq/L (23-29); Chloride 115 mEq/L (98-107); Glucose 256 mg/dL (70-105); Osmolality,Calculated 323 (280-300); Potassium 3.7 mEq/L (3.5-5.1); Sodium 150 mEq/L (136-145); eGFR For African Americans > 60 (> 60); eGFR For Non-African Americans > 60 (> 60)
[2021-11-16 13:57] LABS: Large Platelets Present (Not Present); Lymphocytes # 0.7 K/mcL (0.6-4.6); Monocytes # 0.4 K/mcL (0.0-1.3); Neutrophils # 0.5 K/mcL (1.6-8.9); Polychromasia 1+ (Not Present)
[2021-11-16 13:58] LABS: Anisocytosis 1+ (Not Present); Hypochromasia Present (Not Present)
[2021-11-16 13:59] LABS: Platelet Estimate Slight Decrease (Normal)
[2021-11-16] MEDS ORDERED: SODIUM PHOSPHATE IV SCH (17:00)
[2021-11-16] MEDS ORDERED: CLINIMIX IV SCH (17:00)
[2021-11-16] MEDS ORDERED: [UNRECOGNIZED DRUG - OTHER] IV SCH (17:00)
[2021-11-17] MEDS ORDERED: Morphine Sulfate 2 MG/ML SYRINGE IVP ONE (00:07)
[2021-11-17] MEDS: Nystatin Cream 15 GM TUBE TP SCH ×3 (00:16→20:38)
[2021-11-17] MEDS: CeFAZolin 2,000 MG/120 ML BAG IVPB SCH ×4 (02:00→23:40)
[2021-11-17] MEDS: Insulin LISPRO 300 UNITS/3 ML VIAL SUBQ SCH ×7 (02:42→23:46)
[2021-11-17] MEDS: Norepinephrine 4 MG/254 ML IV.SOLN IVC SCH ×2 (02:43→15:56)
[2021-11-17] MEDS: D5% in Water 1,000 ML IVC SCH ×2 (03:43→16:44)
[2021-11-17 05:19] LABS: Alanine Aminotransferase 7 Units/L (7-52); Albumin 2.5 g/dL (3.5-5.7); Alkaline Phosphatase 188 Units/L (34-104); Aspartate Amino Transferase 25 Units/L (13-39); BUN/Creatinine Ratio 45 (6-26); Bilirubin,Total 0.7 mg/dL (0.3-1.0); Blood Urea Nitrogen 25 mg/dL (8-23); Calcium 7.8 mg/dL (8.6-10.3); Carbon Dioxide 30 mEq/L (23-29); Chloride 114 mEq/L (98-107); Globulin 2.6 g/dL (2.4-3.5); Glucose 158 mg/dL (70-105); Magnesium 1.9 mg/dL (1.6-2.6); Osmolality,Calculated 316 (280-300); Phosphorous 1.5 mg/dL (2.7-4.5); Potassium 3.5 mEq/L (3.5-5.1); Sodium 149 mEq/L (136-145); Total Protein 5.1 g/dL (6.4-8.9); eGFR For African Americans > 60 (> 60); eGFR For Non-African Americans > 60 (> 60)
[2021-11-17] MEDS: Potassium Chloride 40 MEQ/200 ML BAG IVPB PRN (06:50)
[2021-11-17 07:48] LABS: Hematocrit 26.4 % (35.3-44.9); Hemoglobin 8.2 g/dL (11.5-15.4); Immature Platelets 19.9 % (1.1-6.1); Mean Corpuscular HGB Conc 31.1 g/dL (31.6-35.5); Mean Corpuscular Hemoglobin 25.6 pg (28.0-33.3); Mean Corpuscular Volume 82.5 fL (83.0-100.0); Nucleated Red Blood Cells 28.6 /100 WBC (0); Platelet Count 143 K/mcL (140-400); Red Cell Distribution Width 17.9 % (11.5-14.5); White Blood Count 2.4 K/mcL (4.3-11.1)
[2021-11-17 08:33] LABS: Anisocytosis 1+ (Not Present); Lymphocytes # 0.3 K/mcL (0.6-4.6); Monocytes # 0.4 K/mcL (0.0-1.3); Neutrophils # 1.4 K/mcL (1.6-8.9); Platelet Estimate Normal (Normal); Polychromasia 1+ (Not Present); Target Cells 1+ (Not Present)
[2021-11-17] MEDS: Insulin DETEMIR 100 UNIT/ML X5UNITS SUBQ SCH ×2 (08:53→20:38)
[2021-11-17] MEDS ORDERED: Potassium Phosphate 44 MEQ in 0.9 % Sodium Chloride 250 ML IVPB ONE (09:23)
[2021-11-17] MEDS ORDERED: [UNRECOGNIZED DRUG - OTHER] IV SCH (17:00)
[2021-11-17] MEDS ORDERED: CLINIMIX IV SCH (17:00)
[2021-11-17] MEDS ORDERED: SODIUM PHOSPHATE IV SCH (17:00)
[2021-11-18] MEDS: Norepinephrine 4 MG/254 ML IV.SOLN IVC SCH ×2 (04:09→12:30)
[2021-11-18 04:35] LABS: Hematocrit 25.9 % (35.3-44.9); Platelet Count 185 K/mcL (140-400)
[2021-11-18 04:37] LABS: Hemoglobin 7.9 g/dL (11.5-15.4); Immature Platelets 20.5 % (1.1-6.1); Mean Corpuscular HGB Conc 30.5 g/dL (31.6-35.5); Mean Corpuscular Hemoglobin 25.8 pg (28.0-33.3); Mean Corpuscular Volume 84.6 fL (83.0-100.0); Mean Platelet Volume 13.8 fL (9.4-12.4); Nucleated Red Blood Cells 21.7 /100 WBC (0); Red Blood Count 3.06 M/mcL (3.82-4.97); Red Cell Distribution Width 18.4 % (11.5-14.5); White Blood Count 7.4 K/mcL (4.3-11.1)
[2021-11-18 04:58] LABS: Alanine Aminotransferase 6 Units/L (7-52); Albumin 2.4 g/dL (3.5-5.7); Albumin/Globulin Ratio 0.9 (1.1-2.2); Alkaline Phosphatase 164 Units/L (34-104); Aspartate Amino Transferase 16 Units/L (13-39); BUN/Creatinine Ratio 53 (6-26); Bilirubin,Total 0.6 mg/dL (0.3-1.0); Blood Urea Nitrogen 28 mg/dL (8-23); Calcium 7.8 mg/dL (8.6-10.3); Carbon Dioxide 29 mEq/L (23-29); Chloride 112 mEq/L (98-107); Globulin 2.6 g/dL (2.4-3.5); Glucose 196 mg/dL (70-105); Magnesium 1.8 mg/dL (1.6-2.6); Osmolality,Calculated 315 (280-300); Potassium 3.5 mEq/L (3.5-5.1); Sodium 147 mEq/L (136-145); eGFR For African Americans > 60 (> 60); eGFR For Non-African Americans > 60 (> 60)
[2021-11-18 05:05] LABS: Anisocytosis 1+ (Not Present); Lymphocytes # 0.9 K/mcL (0.6-4.6); Monocytes # 0.7 K/mcL (0.0-1.3); Neutrophils # 5.3 K/mcL (1.6-8.9); Platelet Estimate Normal (Normal); Polychromasia 1+ (Not Present); Target Cells 1+ (Not Present)
[2021-11-18] MEDS: Insulin LISPRO 300 UNITS/3 ML VIAL SUBQ SCH ×6 (05:53→23:56)
[2021-11-18] MEDS: D5% in Water 1,000 ML IVC SCH ×2 (08:11→16:50)
[2021-11-18 08:34] LABS: VBG Ionized Calcium 1.09 mmol/L (1.15-1.35)
[2021-11-18] MEDS ORDERED: Potassium Phosphate 44 MEQ in 0.9 % Sodium Chloride 250 ML IVPB ONE (09:20)
[2021-11-18] MEDS ORDERED: Furosemide 40 MG/4 ML VIAL IVP ONE ×2 (09:25→16:32)
[2021-11-18 09:44] LABS: ABG Base Excess 2 mEq/L (-2 to 3); ABG HCO3 28 mEq/L (21-27); ABG Oxygen Saturation 94 % (95-98); ABG PCO2 46 mmHg (35-45); ABG PH 7.39 pH Units (7.32-7.45); ABG PO2 74 mmHg (85-104); ABG TCO2 29 mEq/L (20-26); Blood Gas FiO2 4.5 (1-15=lpm or21-100=%)
[2021-11-18] MEDS: Insulin DETEMIR 100 UNIT/ML X5UNITS SUBQ SCH ×2 (09:59→21:23)
[2021-11-18] MEDS: CeFAZolin 2,000 MG/120 ML BAG IVPB SCH ×3 (09:59→23:56)
[2021-11-18] MEDS: Nystatin Cream 15 GM TUBE TP SCH ×2 (10:00→21:24)
[2021-11-18] MEDS ORDERED: Clinimix E 5%-20% SOLUTION 2,000 ML with MVI, adult with vitamin K 10 ML IVC SCH (17:00)
[2021-11-19] MEDS: Insulin LISPRO 300 UNITS/3 ML VIAL SUBQ SCH ×5 (05:00→21:13)
[2021-11-19] MEDS ORDERED: Acetaminophen IV 500 MG/50 ML BAG IVPB ONE (05:30)
[2021-11-19] MEDS: D5% in Water 1,000 ML IVC SCH ×2 (05:32→16:36)
[2021-11-19] MEDS: Norepinephrine 4 MG/254 ML IV.SOLN IVC SCH ×2 (05:32→16:12)
[2021-11-19 05:40] LABS: Hemoglobin 7.3 g/dL (11.5-15.4)
[2021-11-19 05:42] LABS: Hematocrit 24.6 % (35.3-44.9); Immature Platelets 20.4 % (1.1-6.1); Mean Corpuscular HGB Conc 29.7 g/dL (31.6-35.5); Mean Corpuscular Hemoglobin 25.6 pg (28.0-33.3); Mean Corpuscular Volume 86.3 fL (83.0-100.0); Mean Platelet Volume 13.8 fL (9.4-12.4); Red Blood Count 2.85 M/mcL (3.82-4.97)
[2021-11-19 06:00] LABS: Alanine Aminotransferase 6 Units/L (7-52); Albumin 2.3 g/dL (3.5-5.7); Albumin/Globulin Ratio 0.9 (1.1-2.2); Alkaline Phosphatase 190 Units/L (34-104); Aspartate Amino Transferase 25 Units/L (13-39); BUN/Creatinine Ratio 46 (6-26); Bilirubin,Total 0.6 mg/dL (0.3-1.0); Blood Urea Nitrogen 35 mg/dL (8-23); Calcium 7.6 mg/dL (8.6-10.3); Carbon Dioxide 31 mEq/L (23-29); Chloride 112 mEq/L (98-107); Globulin 2.6 g/dL (2.4-3.5); Glucose 265 mg/dL (70-105); Magnesium 1.7 mg/dL (1.6-2.6); Osmolality,Calculated 323 (280-300); Phosphorous 3.2 mg/dL (2.7-4.5); Potassium 3.8 mEq/L (3.5-5.1); Sodium 148 mEq/L (136-145); Total Protein 4.9 g/dL (6.4-8.9); eGFR For African Americans > 60 (> 60); eGFR For Non-African Americans > 60 (> 60)
[2021-11-19] MEDS: Insulin DETEMIR 100 UNIT/ML X5UNITS SUBQ SCH ×2 (08:24→21:14)
[2021-11-19] MEDS: Nystatin Cream 15 GM TUBE TP SCH ×2 (08:25→21:13)
[2021-11-19] MEDS: CeFAZolin 2,000 MG/120 ML BAG IVPB SCH (08:30)
[2021-11-19] MEDS ORDERED: Albumin 25% 25gram/100mL 25 GM/100 ML IV.SOLN IVPB ONE (08:47)
[2021-11-19 08:53] LABS: ABG Base Excess 5 mEq/L (-2 to 3); ABG HCO3 31 mEq/L (21-27); ABG Oxygen Saturation 90 % (95-98); ABG PCO2 56 mmHg (35-45); ABG PH 7.35 pH Units (7.32-7.45); ABG PO2 63 mmHg (85-104); ABG TCO2 33 mEq/L (20-26)
[2021-11-19] MEDS ORDERED: Vancomycin 2,000 MG/520 ML IV.SOLN IVPB ONE (10:00)
[2021-11-19] MEDS: Cefepime HCl 2,000 MG in 0.9 % Sodium Chloride 10 ML IVP SCH ×2 (10:14→16:35)
[2021-11-19] MEDS ORDERED: Clinimix E 5%-20% SOLUTION 2,000 ML IVC SCH (17:00)
[2021-11-19] MEDS ORDERED: Vancomycin 1,750 MG/517.5 ML IV.SOLN IVPB SCH (22:00)
[2021-11-20] MEDS: Cefepime HCl 2,000 MG in 0.9 % Sodium Chloride 10 ML IVP SCH ×2 (00:26→08:29)
[2021-11-20] MEDS: Insulin LISPRO 300 UNITS/3 ML VIAL SUBQ SCH ×3 (00:27→08:30)
[2021-11-20 03:53] VITALS: TEMP 99.2
[2021-11-20 08:11] LABS: Alanine Aminotransferase 8 Units/L (7-52); Albumin 2.6 g/dL (3.5-5.7); Albumin/Globulin Ratio 1.1 (1.1-2.2); Alkaline Phosphatase 194 Units/L (34-104); Aspartate Amino Transferase 37 Units/L (13-39); BUN/Creatinine Ratio 54 (6-26); Bilirubin,Total 0.7 mg/dL (0.3-1.0); Blood Urea Nitrogen 49 mg/dL (8-23); Calcium 7.8 mg/dL (8.6-10.3); Carbon Dioxide 32 mEq/L (23-29); Chloride 116 mEq/L (98-107); Globulin 2.4 g/dL (2.4-3.5); Glucose 199 mg/dL (70-105); Magnesium 2.1 mg/dL (1.6-2.6); Osmolality,Calculated 331 (280-300); Phosphorous 3.2 mg/dL (2.7-4.5); Potassium 3.7 mEq/L (3.5-5.1); Sodium 151 mEq/L (136-145); eGFR For African Americans > 60 (> 60); eGFR For Non-African Americans > 60 (> 60)
[2021-11-20] MEDS: Nystatin Cream 15 GM TUBE TP SCH (08:31)
[2021-11-20] MEDS: Insulin DETEMIR 100 UNIT/ML X5UNITS SUBQ SCH (08:31)
[2021-11-20] MEDS ORDERED: Atropine 1% Opth Drops 100 DROP/5 ML BOTTLE SL PRN (10:49)
[2021-11-20] MEDS ORDERED: Saliva Stimulant 44.3ml BOTTLE PO PRN (10:49)
[2021-11-20] MEDS: Morphine Sulfate 2 MG/ML SYRINGE IVP PRN ×3 (11:06→12:02)
[2021-11-20] MEDS: *HR* LORazepam 2 MG/ML VIAL IVP PRN ×3 (11:06→12:01)
[2021-11-20] MEDS ORDERED: Atropine Sulfate 1% 40 DROP/2 ML BOTTLE SL PRN (11:15)
[2021-11-20 11:28] VITALS: BP 130/32; O2SAT 87
[2021-11-20] MEDS: Norepinephrine 4 MG/254 ML IV.SOLN IVC SCH (11:31)
[2021-11-20 15:22] VITALS: PULSE 85
[2021-11-20] MEDS ORDERED: Artificial Tears SOLN 15 ML BOTTLE BOTH EYES SCH (21:00)
== END 2021-11-20 12:31 | disposition expired | DRG 919 ==
LOC: 2NENU 15:02 → EMEROOARM 15:02 → 2NENU 20:14 → 2NNU 11-12 06:07
PROVIDERS: ADMIT Student in an Organized Health Care Education/Training Program; ATTEND Student in an Organized Health Care Education/Training Program